=== PATIENT | female | born 1930 | race Caucasian/White ===

== ENCOUNTER → 2017-07-11 | Outpatient (CLI) | payer MEDICARE, OTHER ==
[2016-11-27 11:30] VITALS: BP 98/50
[~2017-07-11] MED LIST: AMLO10TA2 PO; AMLO1CAP PO; ASPI-612 PO; ASPI325T8 PO; CALC1TAB75 PO; CALC500T54 PO; CELE200C PO; CHOL10003 PO; CYAN10002 IJ; DENO60DI SQ; DICL100G18 TP; FERR-26 PO; FURO20TA3 PO; FURO40TA4 PO; GLIP10TA13 PO; GLIP5TAB10 PO; INSU100V13 SQ; MAGN100T3 PO; METF500T4 PO; METO25TA4 PO; METO50TA2 PO; Magnesium; NITR0.4T22 SL; OMEP20CA9 PO; OXYB5TAB7 PO; POTASSIUM CHLO10 MEQ PO; SIMV80TA3 PO; TICA90TA PO; VIT1CAPS11 PO; Vitamin D; [UNRECOGNIZED DRUG - OTHER]
--- NOTE | 2017-07-11 11:08 | CARD ---
APPROVED REPORT EXAM: Two-dimensional and M-mode echocardiogram with Doppler and color Doppler. Other Information Quality : Average Rhythm : Pacemaker INDICATION Cardiomyopathy 2D DIMENSIONS RVDd2.6 (2.9-3.5cm)Left Atrium(2D)3.5 (1.6-4.0cm) IVSd0.9 (0.7-1.1cm)Aortic Root(2D)2.6 (2.0-3.7cm) LVDd4.7 (3.9-5.9cm)LVOT Diameter2.0 (1.8-2.4cm) PWd0.9 (0.7-1.1cm)LVDs2.5 (2.5-4.0cm) FS (%) 27.2 %SV82.3 ml LVEF(%)58.5 (>50%) Aortic Valve AoV Peak Juan.147.5cm/sAoV VTI33.0cm AO Peak GR.8.7mmHgLVOT Peak Juan.71.2cm/s LVOT VTI 16.81cmAO Mean GR.5mmHg Mitral Valve MV E Rgyaiyoi104.7cm/sMV DECEL YAHL457rd MV A Sntlkcni70.8cm/sMV E Mean Gr.2mmHg MV EJV85goH/A Ratio1.4 MV A [id number] (PHT)4.11cm2 TDI E/Lateral E'9.1E/Medial E'20.6 Pulmonary Valve RVOT VTI17.8cm Tricuspid Valve TR P. Thczpkvt973zy/sRAP [id number] TR Peak Gr.39yxFeFLNL81znDs LEFT VENTRICLE The left ventricle is normal size. There is normal left ventricular wall thickness. Left ventricle sy stolic function is normal. The Ejection Fraction is 55-60%. There is normal LV segmental wall motion. The left ventricular diastolic function and filling is normal for age. There is no ventricular septa l defect visualized. RIGHT VENTRICLE The right ventricle is normal size. The right ventricular systolic function is normal. There is a pac emaker lead seen in the RV/RA. ATRIA The left atrium size is normal. The right atrium size is normal. The interatrial septum is intact wit h no evidence for an atrial septal defect or patent foramen ovale as noted on 2-D or Doppler imaging. AORTIC VALVE The aortic valve is mildly sclerotic. The aortic valve is trileaflet. Doppler and Color Flow revealed no significant aortic regurgitation. There is no significant aortic valvular stenosis. MITRAL VALVE The mitral valve leaflets are thickened. There is no mitral valve stenosis. Doppler and Color Flow re vealed moderate mitral regurgitation. TRICUSPID VALVE The tricuspid valve is normal in structure and function. Doppler and Color Flow revealed moderate tri cuspid regurgitation. The PA pressure was estimated at 50 mmHg. There is no tricuspid valve stenosis. PULMONIC VALVE The pulmonic valve is not well visualized. Doppler and Color Flow revealed no pulmonic valvular regur gitation. There is no pulmonic valvular stenosis. GREAT VESSELS The aortic root is normal in size. The ascending aorta is normal in size. Normal pulmonary venous arlen w (Doppler). The IVC is normal in size and collapses >50% with inspiration. PERICARDIAL EFFUSION There is no evidence of significant pericardial effusion. Critical Notification Critical Value: No <Conclusion> Left ventricle systolic function is normal. The Ejection Fraction is 55-60%. There is normal LV segmental wall motion. Pacer wire noted in right atrium and right ventricle. Moderate mitral regurgitation. Moderate tricuspid regurgitation. The PA pressure was estimated at 50 mmHg. There is no evidence of significant pericardial effusion.
--- NOTE | 2017-07-11 14:41 | RAD ---
APPROVED REPORT Patient Location: OUT-PATIENT Laterality:Bilateral Risk Factors PAD Surgery/Intervention Carotid Stent: left Endarterectomy: Doppler Spectral Velocity Analysis Right Left pCCA 60/8 cm/spCCA 58/8 cm/s mCCA 52/7 cm/smCCA 48/7 cm/s dCCA 69/10 cm/sdCCA 39/6 cm/s ECA 62/ cm/sECA 101/ cm/s pICA 69/10 cm/spICA 34/9 cm/s Luis 70/13 cm/smICA 24/6 cm/s dICA 54/10 cm/sdICA 45/9 cm/s ICA/CCA 1.01ICA/CCA 0.78 Findings On the right grayscale images of the common carotid artery reveal mild atherosclerotic plaque. There is focal plaque associated with the distal common carotid artery as well as the bulb of less than 50% stenosis on the limited images. Spectral waveforms and color Doppler and the internal carotid artery do not reveal any evidence of high-grade stenosis with velocities as noted above. The right external carotid artery does not have any evidence of significant disease based on velocity criteria and colo r Doppler. The vertebral artery is antegrade in velocity. Similarly on the left, images of the common carotid artery revealed mild atherosclerotic plaque which extends into the bulb. Velocities in the common carotid, internal carotid and external carotid arter y do not reveal any significant velocities. No high-grade stenosis is identified. The vertebral arter y velocities are antegrade. Critical Notification Critical Value: No <Conclusion> 1. No evidence of significant carotid arterial disease bilaterally.
== END | disposition home or self-care (01) ==
LOC: US 09:22
PROVIDERS: ATTEND Internal Medicine Cardiovascular Disease
DX: I08.1 Rheumatic disorders of both mitral and tricuspid valves (principal); I25.5 Ischemic cardiomyopathy; I25.10 Atherosclerotic heart disease of native coronary artery without angina pectoris; I65.29 Occlusion and stenosis of unspecified carotid artery; R22.1 Localized swelling, mass and lump, neck
CPT/HCPCS: 93306; 93880

== ENCOUNTER 2018-12-26 16:43 | Inpatient (IN) | payer MEDICARE, OTHER ==
[~2018-12-26] VITALS: Ht 152.4 cm; Wt 60.1 kg
[~2018-12-26 16:43] MED LIST changes: -AMLO10TA2 PO; +AMLO10TA8 PO; +CEPH-264 PO; -FERR-26 PO; +FERR325T14 PO; +ISOS30TA4 PO; +METF500T16 PO; -METF500T4 PO; -METO50TA2 PO; +METO50TA6 PO; +OCUVITE SOFTGE1 EACH PO; +OMEP20CA10 PO; -OMEP20CA9 PO; +POTA10TA12 PO; -POTASSIUM CHLO10 MEQ PO; +SIMV80TA17 PO; -SIMV80TA3 PO; -VIT1CAPS11 PO
[2018-12-26 17:59] LABS: BASO # 0.1 x10^3/uL (0.0-0.2); BASO % 1 % (0-3); EOS # 0.2 x10^3/uL (0.0-0.7); EOS % 3 % (0-3); HEMATOCRIT 36.6 % (36.0-47.0); LYMPH # 1.2 x10^3/uL (1.0-4.8); LYMPH % 13 % (24-48); MEAN CORPUSCULAR HEMOGLOBIN 31 pg (25-35); MEAN CORPUSCULAR HGB CONC 33 g/dL (31-37); MEAN CORPUSCULAR VOLUME 93 fL (79-100); MONO # 0.8 x10^3/uL (0.0-1.1); MONO % 9 % (0-9); NEUT # 7.1 x10^3uL (1.8-7.7); NEUT % 75 % (31-73); PLATELET COUNT 254 x10^3/uL (140-400); RED BLOOD COUNT 3.93 x10^6/uL (3.50-5.40); RED CELL DISTRIBUTION WIDTH 13.8 % (11.5-14.5); WHITE BLOOD COUNT 9.4 x10^3/uL (4.0-11.0)
[2018-12-26 18:01] LABS: BILIRUBIN,URINE NEGATIVE (NEG); CLARITY,URINE CLEAR; COLOR,URINE YELLOW; NITRITE,URINE NEGATIVE (NEG); PROTEIN,URINE NEGATIVE (NEG-TRACE); UROBILINOGEN,URINE 0.2 mg/dL (0.2 mg/dL)
[2018-12-26 18:08] LABS: CALCIUM 9.9 mg/dL (8.5-10.1); CREATININE 1.5 mg/dL (0.6-1.0); GFR 32.8; POTASSIUM 4.9 mmol/L (3.5-5.1)
[2018-12-26 18:12] LABS: BACTERIA,URINE MANY /HPF (0-FEW); RBC,URINE 0 /HPF (0-2); WBC,URINE RARE /HPF (0-4)
[2018-12-26 18:13] LABS: SQUAMOUS EPITHELIAL CELL,UR FEW /LPF
[2018-12-26 18:14] LABS: ALBUMIN 3.7 g/dL (3.4-5.0); MAGNESIUM 2.1 mg/dL (1.8-2.4); TOTAL BILIRUBIN 0.9 mg/dL (0.2-1.0); TOTAL PROTEIN 7.3 g/dL (6.4-8.2)
--- NOTE | 2018-12-26 18:45 | RAD ---
Indication:Short of breath TECHNIQUE:Portable AP chest X-ray COMPARISON:12/13/2017 FINDINGS: Heart is normal in size. Stable position of cardiac pacer with leads ejecting over the heart. Bilateral coarse interstitial opacities. No pneumothorax or pleural effusion. Visualized bony thorax is within normal limits. IMPRESSION: Findings of COPD with superimposed atypical/viral infection or interstitial pulmonary edema. Electronically signed by: Spike England DO (12/26/2018 6:41 PM) [facility]
[2018-12-26] MEDS ORDERED: FUROSEMIDE 40 MG/4 ML VIAL. IVP SCH (19:10)
[2018-12-26] MEDS ORDERED: DEXTROSE 50% 25 GM / 50ML DISP.SYRIN. IV PRN (19:15)
[2018-12-26] MEDS ORDERED: ACETAMINOPHEN 500 MG TABLET PO PRN (19:15)
[2018-12-26] MEDS ORDERED: ALBUTEROL SULFATE 2.5 MG/3 ML NEBU. NEB PRN (19:15)
[2018-12-26] MEDS ORDERED: guaiFENesin DM 200MG/20MG 10 ML SYRUP PO PRN (19:15)
[2018-12-26] MEDS ORDERED: TEMAZEPAM 7.5 MG CAPSULE PO PRN (19:15)
[2018-12-26] MEDS ORDERED: NON FORMULARY ITEM (Denosumab (Prolia) 60 MG) SQ SCH (19:15)
[2018-12-26] MEDS ORDERED: NITROGLYCERIN SUBLINGUAL 0.4 MG BOTTLE OF 25. SL PRN (19:15)
[2018-12-26] MEDS ORDERED: ACETAMINOPHEN/CODEINE 300/30MG TABLET. PO PRN (19:15)
[2018-12-26] MEDS ORDERED: METO25TA4 PO (19:32)
[2018-12-26] MEDS: INSULIN LISPRO 300 UNITS/3 ML INSULN.PEN. SQ SCH (20:00)
[2018-12-26] MEDS: metFORMIN 500 MG TABLET PO SCH (20:00)
[2018-12-26 20:57] VITALS: BP 118/52
[2018-12-26] MEDS: TICAGRELOR 90 MG TABLET. PO SCH (20:59)
[2018-12-26] MEDS: METOPROLOL TART IMMED RELEASE 25 MG TABLET. PO SCH (20:59)
[2018-12-26] MEDS: ATORVASTATIN CALCIUM 20 MG TABLET PO SCH (20:59)
[2018-12-26] MEDS ORDERED: ATORVASTATIN CALCIUM 40 MG TABLET. PO SCH (21:00)
[2018-12-26] MEDS: DICLOFENAC SODIUM 1% TOPICAL GEL 100GM TUBE. TP SCH (21:00)
--- NOTE | 2018-12-26 21:29 | PHYS DOC ---
Past Medical History Past Medical History: Arthritis, CAD, Diabetes-Type II, GERD, High Cholesterol, Hypertension (CARMELITA PEREZ APRN) Past Surgical History: Appendectomy, Cholecystectomy, Hysterectomy, Pacemaker, Tonsillectomy, Other Additional Past Surgical Histo: cardiac cath/stent placement. Lt shoulder, cataracts (CARMELITA PEREZ APRN) Alcohol Use: None Drug Use: None (CARMELITA PEREZ APRN) Adult General Chief Complaint Chief Complaint: SHORTNESS OF BREATH HPI HPI 88 y/o female presents to ER via EMS for c/o SOA which has been worsening over the past 2 days. She reports with any exertion SOA is worse. She states she has had increased swelling in bilat. LEs and because of the swelling she took additional dose of her Lasix- taking 40mg today. She denies any CP, fever, cough, dizziness, or N/V/D. She reports she has had urinary incontinence which she thinks may be d/t extra diuretic- denying any dysuria/hematuria. She denies any recent travel. On arrival O2 sat on RA is 88%- O2 applied via NC at 2L and saturation improved to 95%. (CARMELITA PEREZ APRN) Review of Systems Review of Systems Constitutional: Denies fever or chills [] Eyes: Denies change in visual acuity, redness, or eye pain [] HENT: Denies nasal congestion or sore throat [] Respiratory: Denies cough. Reports SOA which is worse w/exertion Cardiovascular: Denies CP GI: Denies abdominal pain, nausea, vomiting, bloody stools or diarrhea [] : Denies dysuria or hematuria. Reports incontinence of urine Musculoskeletal: Denies back/neck pain or joint pain. Reports increased swelling in bilat. LEs Integument: Denies rash or skin lesions [] Neurologic: Denies headache, focal weakness or sensory changes [] Endocrine: Denies polyuria or polydipsia [] All other systems were reviewed and found to be within normal limits, except as documented in this note. (CARMELITA PEREZ APRN) Allergies Allergies Allergies Coded Allergies Type Severity Reaction Last Updated Verified Iodinated Contrast- Oral and IV Dye Allergy Intermediate 10/15/14 Yes Sulfa (Sulfonamide Antibiotics) Allergy Intermediate 11/21/16 Yes carvedilol Allergy Intermediate 10/15/14 Yes clopidogrel Allergy Intermediate 10/15/14 Yes glimepiride Allergy Intermediate 10/15/14 Yes raloxifene Allergy Intermediate 10/15/14 Yes ciprofloxacin Adverse Reaction Intermediate Vomiting 10/15/14 Yes (HITESH BARKSDALE DO) Physical Exam Physical Exam Constitutional: Well developed, well nourished, no acute distress, non-toxic appearance. [] HENT: Normocephalic, atraumatic, mucous membranes pink/dry; nose normal. [] Eyes: Pupils equal, conjunctiva normal, no discharge. [] Neck: Normal range of motion, no tenderness, supple, no stridor. [] Cardiovascular: Heart rate regular rhythm, no murmur [] Lungs & Thorax: Bilateral breath sounds clear to auscultation-diminished sounds in bases. Resp. equal/nonlabored. Speaking in full sentences Abdomen: Bowel sounds normal, soft, no tenderness, no masses, no pulsatile masses. [] Skin: Warm, dry, no erythema, no rash. [] Back: No tenderness, no CVA tenderness. [] Extremities: No tenderness, no cyanosis, no clubbing, ROM intact; 1+ nonpitting bilat. pedal edema. 2+ dorsalis pedis bilat. No calf tenderness- size symmetric Neurologic: Alert and oriented X 3, normal motor function, normal sensory f unction, no focal deficits noted. [] Psychologic: Affect normal, judgement normal, mood normal. [] (ANUTCARMELITA APRN) Current Patient Data Lab Values Laboratory Tests Test 12/26/18 16:50 12/26/18 17:13 Urine Collection Type Unknown Urine Color Yellow Urine Clarity Clear Urine pH 6.0 Urine Specific [place] <=1.005 Urine Protein Negative mg/dL (NEG-TRACE) Urine Glucose (UA) Negative mg/dL (NEG) Urine Ketones (Stick) Negative mg/dL (NEG) Urine Blood Negative (NEG) Urine Nitrite Negative (NEG) Urine Bilirubin Negative (NEG) Urine Urobilinogen Dipstick 0.2 mg/dL (0.2 mg/dL) Urine Leukocyte Esterase Trace (NEG) Urine RBC 0 /HPF (0-2) Urine WBC Rare /HPF (0-4) Urine Squamous Epithelial Cells Few /LPF Urine Bacteria Many /HPF (0-FEW) White Blood Count 9.4 x10^3/uL (4.0-11.0) Red Blood Count 3.93 x10^6/uL (3.50-5.40) Hemoglobin 12.0 g/dL (12.0-15.5) Hematocrit 36.6 % (36.0-47.0) Mean Corpuscular Volume 93 fL (79-100) Mean Corpuscular Hemoglobin 31 pg (25-35) Mean Corpuscular Hemoglobin Concent 33 g/dL (31-37) Red Cell Distribution Width 13.8 % (11.5-14.5) Platelet Count 254 x10^3/uL (140-400) Neutrophils (%) (Auto) 75 % (31-73) H Lymphocytes (%) (Auto) 13 % (24-48) L Monocytes (%) (Auto) 9 % (0-9) Eosinophils (%) (Auto) 3 % (0-3) Basophils (%) (Auto) 1 % (0-3) Neutrophils # (Auto) 7.1 x10^3uL (1.8-7.7) Lymphocytes # (Auto) 1.2 x10^3/uL (1.0-4.8) Monocytes # (Auto) 0.8 x10^3/uL (0.0-1.1) Eosinophils # (Auto) 0.2 x10^3/uL (0.0-0.7) Basophils # (Auto) 0.1 x10^3/uL (0.0-0.2) Sodium Level 133 mmol/L (136-145) L Potassium Level 4.9 mmol/L (3.5-5.1) Chloride Level 99 mmol/L (98-107) Carbon Dioxide Level 24 mmol/L (21-32) Anion Gap 10 (6-14) Blood Urea Nitrogen 26 mg/dL (7-20) H Creatinine 1.5 mg/dL (0.6-1.0) H Estimated GFR (Cockcroft-Gault) 32.8 BUN/Creatinine Ratio 17 (6-20) Glucose Level 176 mg/dL (70-99) H Calcium Level 9.9 mg/dL (8.5-10.1) Magnesium Level 2.1 mg/dL (1.8-2.4) Total Bilirubin 0.9 mg/dL (0.2-1.0) Aspartate Amino Transferase (AST) 34 U/L (15-37) Alanine Aminotransferase (ALT) 46 U/L (14-59) Alkaline Phosphatase 118 U/L (46-116) H Troponin I Quantitative 0.029 ng/mL (0.000-0.055) LR-Wgu-M-Type Natriuretic Peptide 2225 pg/mL (0-449) H Total Protein 7.3 g/dL (6.4-8.2) Albumin 3.7 g/dL (3.4-5.0) Albumin/Globulin Ratio 1.0 (1.0-1.7) Laboratory Tests 12/26/18 17:13 Laboratory Tests 12/26/18 17:13 Microbiology 12/26/18 Urine Culture - Final, Complete 12/26/18 Urine Culture Result 1 (NINO) - Final, Complete 12/26/18 Antimicrobic Susceptibility - Final, Complete (HITESH BARKSDALE DO) EKG EKG EKG obtained 12/26/18 at 1727 Interpreted by ER physician Sinus rhythm Rate 66 No STEMI (CARMELITA PEREZ APRN) Radiology/Procedures Radiology/Procedures PROCEDURE: CHEST AP ONLY Indication:Short of breath TECHNIQUE:Portable AP chest X-ray COMPARISON:12/13/2017 FINDINGS: Heart is normal in size. Stable position of cardiac pacer with leads ejecting over the heart. Bilateral coarse interstitial opacities. No pneumothorax or pleural effusion. Visualized bony thorax is within normal limits. IMPRESSION: Findings of COPD with superimposed atypical/viral infection or interstitial pulmonary edema. Electronically signed by: Spike England DO (12/26/2018 6:41 PM) [facility] DICTATED and SIGNED BY: SPIKE ENGLAND DO DATE: 12/26/18 1840 (CARMELITA PEREZ APRN) Course & Med Decision Making Course & Med Decision Making Pertinent Labs and Imaging studies reviewed. (See chart for details) Pt was evaluated in the ER for c/o SOA over the past 2 days which had been gradually worsening along with increased bilat. LE edema. Labs/chest xray/EKG were obtained- chest xray with results showing exacerb of COPD/pulmonary edema. EKG with no acute ST elevation/STEMI and troponin 0.029. BNP was 2225. UA neg. for nitrates/blood- trace leuks. Order placed for Lasix 40mg IV and pt is being admitted to hospitalist services for further monitoring/care. Test results and admit plan was discussed with pt. She has been afebrile and during admit/test discussion in no visible distress. 1900: Spoke with Dr. Bahena, hospitalist and discussed pt's case and admit pl an. (CARMELITA PEREZ APRN) Dragon Disclaimer Dragon Disclaimer This electronic medical record was generated, in whole or in part, using a voice recognition dictation system. (CARMELITA PEREZ APRN) Departure Departure Impression: Primary Impression: Pulmonary edema Additional Impression: Dyspnea Disposition: ADMITTED INPATIENT Admitting Physician: Marisela Bahena (CARMELITA PEREZ APRN) Condition: STABLE Referrals: CHIDI SOTO (PCP) Scripts Furosemide (FUROSEMIDE) 20 Mg Tablet 40 MG PO DAILY for CHF for 30 Days, #60 TAB Prov: DAWNA MCNAMARA MD 12/29/18 Attending Signature Attending Signature I have reviewed the PA/GROUNDSKEEPING MAINTENANCE's note and plan of care. I was available for consult ation as needed during the patient's visit in the emergency department. I agree with the clinical impression, plan, and disposition. (HITESH BARKSADLE DO) Problem Qualifiers CARMELITA PEREZ APRN Dec 26, 2018 21:29 HITESH BARKSDALE DO Mar 17, 2019 05:13
[2018-12-26 23:12] VITALS: BP 141/75
[2018-12-27 03:13] VITALS: BP 140/72
[2018-12-27 06:15] LABS: BASO # 0.1 x10^3/uL (0.0-0.2); BASO % 1 % (0-3); EOS # 0.3 x10^3/uL (0.0-0.7); EOS % 4 % (0-3); HEMATOCRIT 33.6 % (36.0-47.0); HEMOGLOBIN 11.2 g/dL (12.0-15.5); LYMPH # 0.8 x10^3/uL (1.0-4.8); LYMPH % 9 % (24-48); MEAN CORPUSCULAR HEMOGLOBIN 31 pg (25-35); MEAN CORPUSCULAR HGB CONC 33 g/dL (31-37); MEAN CORPUSCULAR VOLUME 93 fL (79-100); MONO # 0.8 x10^3/uL (0.0-1.1); MONO % 9 % (0-9); NEUT # 6.4 x10^3uL (1.8-7.7); NEUT % 77 % (31-73); PLATELET COUNT 216 x10^3/uL (140-400); RED BLOOD COUNT 3.61 x10^6/uL (3.50-5.40); RED CELL DISTRIBUTION WIDTH 13.7 % (11.5-14.5); WHITE BLOOD COUNT 8.3 x10^3/uL (4.0-11.0)
[2018-12-27 06:23] LABS: CALCIUM 9.3 mg/dL (8.5-10.1); CREATININE 1.4 mg/dL (0.6-1.0); GFR 35.5; POTASSIUM 3.9 mmol/L (3.5-5.1)
[2018-12-27] MEDS: PANTOPRAZOLE 40 MG TABLET.DR. PO SCH (07:30)
[2018-12-27] MEDS: glipiZIDE 5 MG TABLET PO SCH ×2 (07:30→16:27)
[2018-12-27 07:36] VITALS: BP 153/64
[2018-12-27] MEDS: INSULIN LISPRO 300 UNITS/3 ML INSULN.PEN. SQ SCH ×3 (08:00→17:05)
[2018-12-27] MEDS: metFORMIN 500 MG TABLET PO SCH ×3 (08:00→16:27)
--- NOTE | 2018-12-27 08:02 | EKG ---
[facility] [address] [place] [address] Test Date: 2018-12-26 Test Time: 17:27:07 Pat Name: GERMAINE MAY Department: Room: [facility] Gender: F Assessment Rn: : 1930 Requested By: CARMELITA PEREZ Order Number: [id number] Reading MD: Bonifacio Childers Measurements Intervals [place] Rate: 66 P: 90 NE: 132 QRS: -83 QRSD: 152 T: 67 QT: 448 QTc: 472 Interpretive Statements SINUS RHYTHM V PACED BEATS Electronically Signed On 12-29-2018 9:57:31 [facility]IOLOGIST DIAGNOST[facility] by Bonifacio Childers
[2018-12-27] MEDS: LISINOPRIL 20 MG TABLET PO SCH (08:25)
[2018-12-27] MEDS: FERROUS SULFATE 325 MG TABLET. PO SCH (08:25)
[2018-12-27] MEDS: MULTIVITAMIN I-VITE TABLET. PO SCH (08:25)
[2018-12-27] MEDS: ISOSORBIDE MONONITRATE ER 30 MG TAB.ER.24H PO SCH (08:26)
[2018-12-27] MEDS: OXYBUTYNIN CHLORIDE 5 MG TABLET PO SCH (08:26)
[2018-12-27] MEDS: amLODIPine BESYLATE 10 MG TABLET PO SCH (08:26)
[2018-12-27] MEDS: ASPIRIN ENTERIC COATED 81 MG TABLET.DR. PO SCH (08:26)
[2018-12-27] MEDS: TICAGRELOR 90 MG TABLET. PO SCH ×2 (08:26→20:11)
[2018-12-27] MEDS: METOPROLOL TART IMMED RELEASE 25 MG TABLET. PO SCH ×2 (08:27→20:12)
[2018-12-27] MEDS: CALCIUM CARB/VIT D3 500/200 TABLET. PO SCH (08:27)
[2018-12-27] MEDS: POTASSIUM CHLORIDE 10 MEQ TABLET.ER. PO SCH (08:27)
[2018-12-27] MEDS: DICLOFENAC SODIUM 1% TOPICAL GEL 100GM TUBE. TP SCH ×4 (08:50→20:19)
[2018-12-27] MEDS: MAGNESIUM CHLORIDE ER 64 MG TABLET.ER PO SCH (08:56)
[2018-12-27] MEDS: INSULIN GLARGINE 300 UNITS/3 ML INSULN.PEN. SQ SCH ×2 (08:56→17:06)
[2018-12-27] MEDS ORDERED: AMLODIPINE BESYLATE PO SCH (09:00)
[2018-12-27] MEDS ORDERED: BENAZEPRIL PO SCH (09:00)
[2018-12-27] MEDS ORDERED: FUROSEMIDE 20 MG/2 ML VIAL. IVP SCH (09:00)
--- NOTE | 2018-12-27 10:15 | PDOC1 ---
History and Physical Date of Admission Date of Admission DATE: 12/27/18 TIME: 10:13 Identification/Chief Complaint Chief Complaint SOA and sewlling of ankles x 7 days, was sent here by ambulance from [place], [place] , admits to eating more sodium in diet recently. denies chest pain. Daughter in room , discussed plan of care, on iv lasix, dr Mercedes consulted , echo requested Past Medical History Past Medical History Past Medical History Past Medical History: Arthritis, CAD, Diabetes-Type II, GERD, High Cholesterol , Hypertension Past Surgical History: Appendectomy, Cholecystectomy, Hysterectomy, Pacemaker, Tonsillectomy, Additional Past Surgical Histo: cardiac cath/stent placement. Lt shoulder, cataracts Alcohol Use: None Drug Use: None PCI/drug eluting stent placement to the left main coronary artery and successful PTCA to the ostium of the left circumflex artery 2017 Carotid disease s/p TOP EDGE BEVELER/stent placement to the left ICA and right endarterectomy family hx HTN Cardiovascular: CAD, HTN, Hyperlipidemia, Other Pulmonary: No pertinent hx GI: No pertinent hx Heme/Onc: No pertinent hx Hepatobiliary: No pertinent hx Psych: No pertinent hx Musculoskeletal: Osteoarthritis Rheumatologic: No pertinent hx Infectious disease: No pertinent hx Renal/: No pertinent hx Endocrine: Diabetes Past Surgical History Past Surgical History: Pacemaker, Appendectomy, Hysterectomy, Other Family History Family History: Other Social History Smoke: Quit ALCOHOL: none Drugs: None Current Problem List Problem List Problems Medical Problems: (1) Dyspnea Status: Acute (2) Pulmonary edema Status: Acute Current Medications Current Medications Current Medications Furosemide (Lasix) 40 mg DAILY IVP ; Start 12/26/18 at 19:10; Status Cancel Acetaminophen (Tylenol) 500 mg PRN Q6HRS PRN PO MILD PAIN / TEMP Last administered on 12/26/18at 21:18; Start 12/26/18 at 19:15 Acetaminophen/ Codeine Phosphate (Tylenol #3) 1 tab PRN Q6HRS PRN PO MODERATE PAIN; Start 12/26/18 at 19:15 Temazepam (Restoril) 7.5 mg PRN QHS PRN PO INSOMNIA; Start 12/26/18 at 19:15 Albuterol Sulfate (Ventolin Neb Soln) 2.5 mg PRN Q4HRS PRN NEB SHORTNESS OF BREATH; Start 12/26/18 at 19:15 Guaifenesin (Robitussin Dm) 10 ml PRN Q6HRS PRN PO COUGH; Start 12/26/18 at 19: 15 Aspirin (Ecotrin) 81 mg DAILYWBKFT PO Last administered on 12/27/18at 08:26; Start 12/27/18 at 08:00 Cyanocobalamin (Vitamin B-12) 1,000 mcg QMONTH IM ; Start 01/25/19 at 09:00 Diclofenac Sodium (Voltaren) 4 adriana QID TP ; Start 12/26/18 at 21:00 Ferrous Sulfate (Feosol) 325 mg DAILY PO Last administered on 12/27/18 08:25; Start 12/27/18 at 09:00 Isosorbide Mononitrate (Imdur) 30 mg DAILY PO Last administered on 12/27/18at 08: 26; Start 12/27/18 at 09:00 Metoprolol Tartrate (Lopressor) 25 mg BID PO Last administered on 12/27/18 08: 27; Start 12/26/18 at 21:00 Nitroglycerin (Nitrostat) 0.4 mg PRN Q5MIN PRN SL CHEST PAIN; Start 12/26/18 at 19:15 Oxybutynin Chloride (Ditropan) 5 mg DAILY PO Last administered on 12/27/18 08: 26; Start 12/27/18 at 09:00 Potassium Chloride (Klor-Con) 10 meq DAILY PO Last administered on 12/27/18 08: 27; Start 12/27/18 at 09:00 Ticagrelor (Brilinta) 90 mg BID PO Last administered on 12/27/18 08:26; Start 12/26/18 at 21:00 Non-Formulary Medication (Amlodipine Besylate/ Benazepril (Lotrel 10-20 Mg Capsule)) 1 each DAILY PO ; Start 12/27/18 at 09:00; Status UNV Calcium/Vitamin D (Oscal D 500mg/ 200uts) 1 tab DAILY PO Last administered on 08:27; Start 12/27/18 at 09:00 Non-Formulary Medication (Denosumab (Prolia)) 60 mg Q6 MONTHS SQ ; Start at 19:15; Status UNV Glipizide (Glucotrol) 5 mg BIDBFRMEAL PO Last administered on 12/27/18at 07:30; Start 12/27/18 at 07:30 Insulin Glargine (Lantus) 8 units DAILY SQ ; Start 12/27/18 at 09:00 Magnesium Chloride (Mag Delay) 64 mg DAILY PO ; Start 12/27/18 at 09:00 Metformin HCl (Glucophage) 500 mg BIDWMEALS PO ; Start 12/26/18 at 20:00 Pantoprazole Sodium (Protonix) 40 mg DAILYAC PO Last administered on 12/27/18at 07:30; Start 12/27/18 at 07:30 Atorvastatin Calcium (Lipitor) 40 mg QHS PO ; Start 12/26/18 at 21:00; Status Cancel Multivitamins/ Minerals (I-Jimmy) 1 tab DAILY PO Last administered on 12/27/18at 08:25; Start 12/27/18 at 09:00 Furosemide (Lasix) 20 mg DAILY IVP Last administered on 12/27/18at 08:27; Start 12/27/18 at 09:00 Insulin Human Lispro (HumaLOG) 0-9 UNITS TIDWMEALS SQ ; Start 12/26/18 at 20:00 Dextrose (Dextrose 50%-Water Syringe) 12.5 gm PRN Q15MIN PRN IV SEE COMMENTS; Start 12/26/18 at 19:15 Amlodipine Besylate (Norvasc) 10 mg DAILY PO Last administered on 12/27/18at 08: 26; Start 12/27/18 at 09:00 Lisinopril (Prinivil) 20 mg DAILY PO Last administered on 12/27/18at 08:25; Start 12/27/18 at 09:00 Atorvastatin Calcium (Lipitor) 20 mg QHS PO Last administered on 12/26/18at 20:59 ; Start 12/26/18 at 21:00 Active Scripts Active Levemir (Insulin Detemir) 100 Unit/1 Ml Vial 8 Unit SQ DAILY Keflex (Cephalexin) 500 Mg Capsule 1 Cap PO BID Brilinta (Ticagrelor) 90 Mg Tablet 90 Mg PO BID SIG: ONE TAB TWICE DAILY; DO NOT STOP WITHOUT INSTRUCTIONS FROM ALTERNATIVE ENERGY TECHNICIAN Aspirin Ec (Aspirin) 81 Mg Tablet.dr 81 Mg PO DAILYWBKFT Metformin Hcl 500 Mg Tablet 1 Tab PO BID MAY RESUME ON 11/23/2016 Reported Metoprolol Tartrate 25 Mg Tablet 25 Mg PO BID Isosorbide Mononitrate Er (Isosorbide Mononitrate) 30 Mg Tab.er.24h 30 Mg PO DAILY Cyanocobalamin Injection (Cyanocobalamin (Vitamin B-12)) 1,000 Mcg/1 Ml Vial 1, 000 Mcg IJ QMONTH Magnesium (Magnesium Amino Acid Chelate) 100 Mg Tablet 100 Mg PO DAILY Calcium 600 + Vit D 200 Tablet (Calcium Carbonate/Vitamin D3) 1 Each Tablet 1 Each PO DAILY Prolia (Denosumab) 60 Mg/1 Ml Disp.syrin 60 Mg SQ Q6 MONTHS Voltaren (Diclofenac Sodium) 100 Gm Gel..gram. 4 Gm TP QID Furosemide 20 Mg Tablet 20 Mg PO DAILY Ocuvite Softgel (Vit C/Vit E/Lutein/Min/Laurel-3) 1 Each Capsule 1 Cap PO DAILY Lotrel 10-20 Mg Capsule (Amlodipine Besylate/Benazepril) 1 Each Capsule 1 Each PO DAILY NITROGLYCERIN SubLingual (Nitroglycerin) 0.4 Mg Tab.subl 0.4 Mg SL PRN Q5MIN PRN Ferrous Sulfate 325 Mg Tablet 325 Tab PO TWICE WEEKLY Glipizide 10 Mg Tablet 0.5 Tab PO BID Potassium Chloride 10 Meq Capsule.er 1 Cap PO DAILY Oxybutynin Chloride 5 Mg Tablet 1 Tab PO DAILY Omeprazole 20 Mg Capsule.dr 1 Cap PO DAILY Simvastatin 80 Mg Tablet 40 Mg PO QHS Allergies Allergies: Coded Allergies: Iodinated Contrast- Oral and IV Dye (Verified Allergy, Intermediate, 10/15) Sulfa (Sulfonamide Antibiotics) (Verified Allergy, Intermediate, 11/21/16) carvedilol (Verified Allergy, Intermediate, 10/15/14) clopidogrel (Verified Allergy, Intermediate, 10/15/14) glimepiride (Verified Allergy, Intermediate, 10/15/14) raloxifene (Verified Allergy, Intermediate, 10/15/14) ciprofloxacin (Verified Adverse Reaction, Intermediate, Vomiting, 10/15/14 ) ROS Review of System Review of Systems Review of Systems Constitutional: Denies fever or chills [] Eyes: Denies change in visual acuity, redness, or eye pain [] HENT: Denies nasal congestion or sore throat [] Respiratory: Denies cough POS for shortness of breath improved with o2 [] Cardiovascular: No additional information not addressed in HPI [] GI: Denies abdominal pain, nausea, vomiting, bloody stools or diarrhea [] : Denies dysuria or hematuria [] Musculoskeletal: Denies back pain or joint pain [] Integument: Denies rash or skin lesions [] Neurologic: Denies headache, focal weakness or sensory changes [] Endocrine: Denies polyuria or polydipsia [] 14 pt systems were reviewed and found to be within normal limits, except as documented General: YES: Fatigue HEENT: No: Heacaches, Visual Changes, Hearing change, Nasal congestion, Nasal discharge, Oral lesions, Sinus pain, Sore Throat, Epistaxis, Sneezing, Snoring, Tinnitus, Vertigo, Vocal changes, Other Hematological and Lymphatic: No: Bleeding Problems, Blood Clots, Blood Transfusions, Brusing, Night Sweats, Pallor, Swollen Lymph Nodes, Other Respiratory: YES: Cough, Shortness of breath, SOB with excertion; No: Hemoptysis, Orthopnea, Pleuritic Pain, Sputum Changes, Stridor, Tachypnea , Wheezing, Other Gastrointestinal: No Nausea, No Vomiting, No Abdominal Pain, No Diarrhea, No Constipation, No Melena, No Hematochezia, No Other Physical Exam Physical Exam Physical Exam Physical Exam Constitutional: Well developed, well nourished, no acute distress, non-toxic appearance. [] HENT: Normocephalic, atraumatic, bilateral external ears normal, oropharynx moist, no oral exudates, nose normal. [] Eyes: PERRLA, EOMI, conjunctiva normal, no discharge. [] Neck: Normal range of motion, no tenderness, supple, no stridor. [] Cardiovascular:Heart rate regular rhythm, no murmur [] Lungs & Thorax: Bilateral breath sounds clear to auscultation [] Abdomen: Bowel sounds normal, soft, no tenderness, no masses, no pulsatile masses. [] Skin: Warm, dry, no erythema, no rash. [] Back: No tenderness, no CVA tenderness. [] Extremities: No tenderness, no cyanosis, no clubbing, ROM intact, 2 plus ankle edema. [] Neurologic: Alert and oriented X 3, normal motor function, normal sensory function, no focal deficits noted. [] Psychologic: Affect normal, judgement normal, mood normal. [] General: Alert, Oriented X3, Cooperative, No acute distress HEENT: Atraumatic, EOMI, Mucous membr. moist/pink Lungs: Normal air movement Heart: RRR Breasts: Not examined Abdomen: Normal bowel sounds, Soft, No tenderness PELVIC: Examination not indicated Extremities: No cyanosis Neuro: Normal speech, Strength at 5/5 X4 ext, Cranial nerves 3-12 NL Psych/Mental Status: Mental status NL Vitals Vitals Vital Signs Date Time Temp Pulse Resp B/P (MAP) Pulse Ox O2 Delivery O2 Flow Rate FiO2 12/27/18 08:27 65 153/64 12/27/18 07:36 97.3 18 90 Nasal Cannula 2.0 97.3 Labs Labs Laboratory Tests Test 12/26/18 16:50 12/26/18 17:13 12/26/18 20:48 12/27/18 05:55 Urine Collection Type Unknown Urine Color Yellow Urine Clarity Clear Urine pH 6.0 Urine Specific Malott <=1.005 Urine Protein Negative mg/dL (NEG-TRACE) Urine Glucose (UA) Negative mg/dL (NEG) Urine Ketones (Stick) Negative mg/dL (NEG) Urine Blood Negative (NEG) Urine Nitrite Negative (NEG) Urine Bilirubin Negative (NEG) Urine Urobilinogen Dipstick 0.2 mg/dL (0.2 mg/dL) Urine Leukocyte Esterase Trace (NEG) Urine RBC 0 /HPF (0-2) Urine WBC Rare /HPF (0-4) Urine Squamous Epithelial Cells Few /LPF Urine Bacteria Many /HPF (0-FEW) White Blood Count 9.4 x10^3/uL (4.0-11.0) 8.3 x10^3/uL (4.0-11.0) Red Blood Count 3.93 x10^6/uL (3.50-5.40) 3.61 x10^6/uL (3.50-5.40) Hemoglobin 12.0 g/dL (12.0-15.5) 11.2 g/dL (12.0-15.5) Hematocrit 36.6 % (36.0-47.0) 33.6 % (36.0-47.0) Mean Corpuscular Volume 93 fL (79-100) 93 fL (79-100) Mean Corpuscular Hemoglobin 31 pg (25-35) 31 pg (25-35) Mean Corpuscular Hemoglobin Concent 33 g/dL (31-37) 33 g/dL (31-37) Red Cell Distribution Width 13.8 % (11.5-14.5) 13.7 % (11.5-14.5) Platelet Count 254 x10^3/uL (140-400) 216 x10^3/uL (140-400) Neutrophils (%) (Auto) 75 % (31-73) 77 % (31-73) Lymphocytes (%) (Auto) 13 % (24-48) 9 % (24-48) Monocytes (%) (Auto) 9 % (0-9) 9 % (0-9) Eosinophils (%) (Auto) 3 % (0-3) 4 % (0-3) Basophils (%) (Auto) 1 % (0-3) 1 % (0-3) Neutrophils # (Auto) 7.1 x10^3uL (1.8-7.7) 6.4 x10^3uL (1.8-7.7) Lymphocytes # (Auto) 1.2 x10^3/uL (1.0-4.8) 0.8 x10^3/uL (1.0-4.8) Monocytes # (Auto) 0.8 x10^3/uL (0.0-1.1) 0.8 x10^3/uL (0.0-1.1) Eosinophils # (Auto) 0.2 x10^3/uL (0.0-0.7) 0.3 x10^3/uL (0.0-0.7) Basophils # (Auto) 0.1 x10^3/uL (0.0-0.2) 0.1 x10^3/uL (0.0-0.2) Sodium Level 133 mmol/L (136-145) 136 mmol/L (136-145) Potassium Level 4.9 mmol/L (3.5-5.1) 3.9 mmol/L (3.5-5.1) Chloride Level 99 mmol/L (98-107) 102 mmol/L (98-107) Carbon Dioxide Level 24 mmol/L (21-32) 25 mmol/L (21-32) Anion Gap 10 (6-14) 9 (6-14) Blood Urea Nitrogen 26 mg/dL (7-20) 21 mg/dL (7-20) Creatinine 1.5 mg/dL (0.6-1.0) 1.4 mg/dL (0.6-1.0) Estimated GFR (Cockcroft-Gault) 32.8 35.5 BUN/Creatinine Ratio 17 (6-20) Glucose Level 176 mg/dL (70-99) 119 mg/dL (70-99) Calcium Level 9.9 mg/dL (8.5-10.1) 9.3 mg/dL (8.5-10.1) Magnesium Level 2.1 mg/dL (1.8-2.4) Total Bilirubin 0.9 mg/dL (0.2-1.0) Aspartate Amino Transf (AST/SGOT) 34 U/L (15-37) Alanine Aminotransferase (ALT/SGPT) 46 U/L (14-59) Alkaline Phosphatase 118 U/L (46-116) Troponin I Quantitative 0.029 ng/mL (0.000-0.055) WW-Nvv-[id number]-Type Natriuretic Peptide 2225 pg/mL (0-449) Total Protein 7.3 g/dL (6.4-8.2) Albumin 3.7 g/dL (3.4-5.0) Albumin/Globulin Ratio 1.0 (1.0-1.7) Glucose (Fingerstick) 191 mg/dL (70-99) Test 12/27/18 07:06 Glucose (Fingerstick) 131 mg/dL (70-99) Laboratory Tests Test 12/26/18 16:50 12/26/18 17:13 12/26/18 20:48 12/27/18 05:55 Urine Collection Type Unknown Urine Color Yellow Urine Clarity Clear Urine pH 6.0 Urine Specific Malott <=1.005 Urine Protein Negative mg/dL (NEG-TRACE) Urine Glucose (UA) Negative mg/dL (NEG) Urine Ketones (Stick) Negative mg/dL (NEG) Urine Blood Negative (NEG) Urine Nitrite Negative (NEG) Urine Bilirubin Negative (NEG) Urine Urobilinogen Dipstick 0.2 mg/dL (0.2 mg/dL) Urine Leukocyte Esterase Trace (NEG) Urine RBC 0 /HPF (0-2) Urine WBC Rare /HPF (0-4) Urine Squamous Epithelial Cells Few /LPF Urine Bacteria Many /HPF (0-FEW) White Blood Count 9.4 x10^3/uL (4.0-11.0) 8.3 x10^3/uL (4.0-11.0) Red Blood Count 3.93 x10^6/uL (3.50-5.40) 3.61 x10^6/uL (3.50-5.40) Hemoglobin 12.0 g/dL (12.0-15.5) 11.2 g/dL (12.0-15.5) Hematocrit 36.6 % (36.0-47.0) 33.6 % (36.0-47.0) Mean Corpuscular Volume 93 fL (79-100) 93 fL (79-100) Mean Corpuscular Hemoglobin 31 pg (25-35) 31 pg (25-35) Mean Corpuscular Hemoglobin Concent 33 g/dL (31-37) 33 g/dL (31-37) Red Cell Distribution Width 13.8 % (11.5-14.5) 13.7 % (11.5-14.5) Platelet Count 254 x10^3/uL (140-400) 216 x10^3/uL (140-400) Neutrophils (%) (Auto) 75 % (31-73) 77 % (31-73) Lymphocytes (%) (Auto) 13 % (24-48) 9 % (24-48) Monocytes (%) (Auto) 9 % (0-9) 9 % (0-9) Eosinophils (%) (Auto) 3 % (0-3) 4 % (0-3) Basophils (%) (Auto) 1 % (0-3) 1 % (0-3) Neutrophils # (Auto) 7.1 x10^3uL (1.8-7.7) 6.4 x10^3uL (1.8-7.7) Lymphocytes # (Auto) 1.2 x10^3/uL (1.0-4.8) 0.8 x10^3/uL (1.0-4.8) Monocytes # (Auto) 0.8 x10^3/uL (0.0-1.1) 0.8 x10^3/uL (0.0-1.1) Eosinophils # (Auto) 0.2 x10^3/uL (0.0-0.7) 0.3 x10^3/uL (0.0-0.7) Basophils # (Auto) 0.1 x10^3/uL (0.0-0.2) 0.1 x10^3/uL (0.0-0.2) Sodium Level 133 mmol/L (136-145) 136 mmol/L (136-145) Potassium Level 4.9 mmol/L (3.5-5.1) 3.9 mmol/L (3.5-5.1) Chloride Level 99 mmol/L (98-107) 102 mmol/L (98-107) Carbon Dioxide Level 24 mmol/L (21-32) 25 mmol/L (21-32) Anion Gap 10 (6-14) 9 (6-14) Blood Urea Nitrogen 26 mg/dL (7-20) 21 mg/dL (7-20) Creatinine 1.5 mg/dL (0.6-1.0) 1.4 mg/dL (0.6-1.0) Estimated GFR (Cockcroft-Gault) 32.8 35.5 BUN/Creatinine Ratio 17 (6-20) Glucose Level 176 mg/dL (70-99) 119 mg/dL (70-99) Calcium Level 9.9 mg/dL (8.5-10.1) 9.3 mg/dL (8.5-10.1) Magnesium Level 2.1 mg/dL (1.8-2.4) Total Bilirubin 0.9 mg/dL (0.2-1.0) Aspartate Amino Transf (AST/SGOT) 34 U/L (15-37) Alanine Aminotransferase (ALT/SGPT) 46 U/L (14-59) Alkaline Phosphatase 118 U/L (46-116) Troponin I Quantitative 0.029 ng/mL (0.000-0.055) ZH-Sgc-M-Type Natriuretic Peptide 2225 pg/mL (0-449) Total Protein 7.3 g/dL (6.4-8.2) Albumin 3.7 g/dL (3.4-5.0) Albumin/Globulin Ratio 1.0 (1.0-1.7) Glucose (Fingerstick) 191 mg/dL (70-99) Test 12/27/18 07:06 Glucose (Fingerstick) 131 mg/dL (70-99) Images Images LEFT VENTRICLE The left ventricle is normal size. There is normal left ventricular wall thickness. Left ventricle systolic function is normal. The Ejection Fraction is 55-60%. There is normal LV segmental wall motion. The left ventricular diastolic function and filling is normal for age. There is no ventricular septal defect visualized. RIGHT VENTRICLE The right ventricle is normal size. The right ventricular systolic function is normal. There is a pacemaker lead seen in the RV/RA. ATRIA The left atrium size is normal. The right atrium size is normal. The interatrial septum is intact with no evidence for an atrial septal defect or patent foramen ovale as noted on 2-D or Doppler imaging. AORTIC VALVE The aortic valve is mildly sclerotic. The aortic valve is trileaflet. Doppler and Color Flow revealed no significant aortic regurgitation. There is no significant aortic valvular stenosis. MITRAL VALVE The mitral valve leaflets are thickened. There is no mitral valve stenosis. Doppler and Color Flow revealed moderate mitral regurgitation. TRICUSPID VALVE The tricuspid valve is normal in structure and function. Doppler and Color Flow revealed moderate tricuspid regurgitation. The PA pressure was estimated at 50 mmHg. There is no tricuspid valve stenosis. PULMONIC VALVE The pulmonic valve is not well visualized. Doppler and Color Flow revealed no pulmonic valvular regurgitation. There is no pulmonic valvular stenosis. GREAT VESSELS The aortic root is normal in size. The ascending aorta is normal in size. Normal pulmonary venous flow (Doppler). The IVC is normal in size and collapses >50% with inspiration. PERICARDIAL EFFUSION There is no evidence of significant pericardial effusion. Critical Notification Critical Value: No <Conclusion> Left ventricle systolic function is normal. The Ejection Fraction is 55-60%. There is normal LV segmental wall motion. Pacer wire noted in right atrium and right ventricle. Moderate mitral regurgitation. Moderate tricuspid regurgitation. The PA pressure was estimated at 50 mmHg. There is no evidence of significant pericardial effusion. DICTATED and SIGNED BY: KATIE SHABAZZ MD DATE: 07/11/17 1107 CC: CHIDI SOTO; KATIE SHABAZZ MD ~ PROCEDURE: CHEST AP ONLY Indication:Short of breath TECHNIQUE:Portable AP chest X-ray COMPARISON:12/13/2017 FINDINGS: Heart is normal in size. Stable position of cardiac pacer with leads ejecting over the heart. Bilateral coarse interstitial opacities. No pneumothorax or pleural effusion. Visualized bony thorax is within normal limits. IMPRESSION: Findings of COPD with superimposed atypical/viral infection or interstitial pulmonary edema. Electronically signed by: Spike England DO (12/26/2018 6:41 PM) [facility] VTE Prophylaxis Ordered VTE Prophylaxis Devices: Yes VTE Pharmacological Prophylaxi: Yes Assessment/Plan Assessment/Plan impression 1. acute exac of CHF with pulm edema 2. hypertension 3. diabetes 4. 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 PCI/drug eluting stent placement to the left main coronary artery and successful PTCA to the ostium of the left circumflex artery 2016 6. Carotid disease s/p TOP EDGE BEVELER/stent placement to the left ICA and right endarterectomy 7. Moderate tricuspid regurgitation. 8. Remote tobacco abuse plan admit iv diuresis lasix 40 mg x 1 DUONEBS QID glucose control 02 SUPPORT PRN CARDIOLOGY CONSULT HOME MEDS DVT prophylaxis echo DAWNA MCNAMARA MD Dec 27, 2018 10:15
[2018-12-27] MEDS ORDERED: FUROSEMIDE 40 MG/4 ML VIAL. IVP ONE (10:30)
--- NOTE | 2018-12-27 11:29 | PDOC2 ---
CONSULT Date of Consult Date of Consult DATE: 12/27/18 TIME: 11:27 Reason for Consult Reason for Consult: Shortness of breath Referring Physician Referring Physician: Dr. Bazan Identification/Chief Complaint Chief Complaint Shortness of breath Source Source: Chart review, Patient History of Present Illness Reason for Visit: 88-year-old female with history of coronary artery disease, complete heart block s/p permanent pacemaker implantation and chronic diastolic heart failure presented with progressive shortness of breath and lower extremity edema. She was apparently seen by her PCP recently and her diuretic dose was increased without any significant relief. She denied any chest pain, palpitations or syncope. Past Medical History Cardiovascular: CAD, HTN, Hyperlipidemia, Other Pulmonary: No pertinent hx GI: No pertinent hx Heme/Onc: No pertinent hx Hepatobiliary: No pertinent hx Psych: No pertinent hx Musculoskeletal: Osteoarthritis Rheumatologic: No pertinent hx Infectious disease: No pertinent hx Renal/: No pertinent hx Endocrine: Diabetes Past Surgical History Past Surgical History: Pacemaker, Appendectomy, Hysterectomy, Other Family History Family History: Other Social History No ALCOHOL: none Drugs: None Lives: Alone Current Problem List Problem List Problems Medical Problems: (1) Dyspnea Status: Acute (2) Pulmonary edema Status: Acute Current Medications Current Medications Current Medications Furosemide (Lasix) 40 mg DAILY IVP ; Start 12/26/18 at 19:10; Status Cancel Acetaminophen (Tylenol) 500 mg PRN Q6HRS PRN PO MILD PAIN / TEMP Last administered on 12/26/18at 21:18; Start 12/26/18 at 19:15 Acetaminophen/ Codeine Phosphate (Tylenol #3) 1 tab PRN Q6HRS PRN PO MODERATE PAIN; Start 12/26/18 at 19:15 Temazepam (Restoril) 7.5 mg PRN QHS PRN PO INSOMNIA; Start 12/26/18 at 19:15 Albuterol Sulfate (Ventolin Neb Soln) 2.5 mg PRN Q4HRS PRN NEB SHORTNESS OF BREATH; Start 12/26/18 at 19:15 Guaifenesin (Robitussin Dm) 10 ml PRN Q6HRS PRN PO COUGH; Start 12/26/18 at 19: 15 Aspirin (Ecotrin) 81 mg DAILYWBKFT PO Last administered on 12/27/18at 08:26; Start 12/27/18 at 08:00 Cyanocobalamin (Vitamin B-12) 1,000 mcg QMONTH IM ; Start 01/25/19 at 09:00 Diclofenac Sodium (Voltaren) 4 adriana QID TP ; Start 12/26/18 at 21:00 Ferrous Sulfate (Feosol) 325 mg DAILY PO Last administered on 12/27/18at 08:25; Start 12/27/18 at 09:00 Isosorbide Mononitrate (Imdur) 30 mg DAILY PO Last administered on 12/27/18at 08: 26; Start 12/27/18 at 09:00 Metoprolol Tartrate (Lopressor) 25 mg BID PO Last administered on 12/27/18 08: 27; Start 12/26/18 at 21:00 Nitroglycerin (Nitrostat) 0.4 mg PRN Q5MIN PRN SL CHEST PAIN; Start 12/26/18 at 19:15 Oxybutynin Chloride (Ditropan) 5 mg DAILY PO Last administered on 12/27/18at 08: 26; Start 12/27/18 at 09:00 Potassium Chloride (Klor-Con) 10 meq DAILY PO Last administered on 12/27/18at 08: 27; Start 12/27/18 at 09:00 Ticagrelor (Brilinta) 90 mg BID PO Last administered on 12/27/18 08:26; Start 12/26/18 at 21:00 Non-Formulary Medication (Amlodipine Besylate/ Benazepril (Lotrel 10-20 Mg Capsule)) 1 each DAILY PO ; Start 12/27/18 at 09:00; Status UNV Calcium/Vitamin D (Oscal D 500mg/ 200uts) 1 tab DAILY PO Last administered on at 08:27; Start 12/27/18 at 09:00 Non-Formulary Medication (Denosumab (Prolia)) 60 mg Q6 MONTHS SQ ; Start at 19:15; Status UNV Glipizide (Glucotrol) 5 mg BIDBFRMEAL PO Last administered on 12/27/18at 07:30; Start 12/27/18 at 07:30 Insulin Glargine (Lantus) 8 units DAILY SQ ; Start 12/27/18 at 09:00 Magnesium Chloride (Mag Delay) 64 mg DAILY PO ; Start 12/27/18 at 09:00 Metformin HCl (Glucophage) 500 mg BIDWMEALS PO ; Start 12/26/18 at 20:00 Pantoprazole Sodium (Protonix) 40 mg DAILYAC PO Last administered on 12/27/18at 07:30; Start 12/27/18 at 07:30 Atorvastatin Calcium (Lipitor) 40 mg QHS PO ; Start 12/26/18 at 21:00; Status Cancel Multivitamins/ Minerals (I-Jimmy) 1 tab DAILY PO Last administered on 12/27/18at 08:25; Start 12/27/18 at 09:00 Furosemide (Lasix) 20 mg DAILY IVP Last administered on 12/27/18at 08:27; Start 12/27/18 at 09:00 Insulin Human Lispro (HumaLOG) 0-9 UNITS TIDWMEALS SQ ; Start 12/26/18 at 20:00 Dextrose (Dextrose 50%-Water Syringe) 12.5 gm PRN Q15MIN PRN IV SEE COMMENTS; Start 12/26/18 at 19:15 Amlodipine Besylate (Norvasc) 10 mg DAILY PO Last administered on 12/27/18at 08: 26; Start 12/27/18 at 09:00 Lisinopril (Prinivil) 20 mg DAILY PO Last administered on 12/27/18at 08:25; Start 12/27/18 at 09:00 Atorvastatin Calcium (Lipitor) 20 mg QHS PO Last administered on 12/26/18at 20:59 ; Start 12/26/18 at 21:00 Furosemide (Lasix) 40 mg 1X ONCE IVP Last administered on 12/27/18at 10:58; Start 12/27/18 at 10:30; Stop 12/27/18 at 10:31; Status DC Active Scripts Active Levemir (Insulin Detemir) 100 Unit/1 Ml Vial 8 Unit SQ DAILY Keflex (Cephalexin) 500 Mg Capsule 1 Cap PO BID Brilinta (Ticagrelor) 90 Mg Tablet 90 Mg PO BID SIG: ONE TAB TWICE DAILY; DO NOT STOP WITHOUT INSTRUCTIONS FROM JOB DEVELOPMENT SPECIALIST Aspirin Ec (Aspirin) 81 Mg Tablet. 81 Mg PO DAILYWBKFT Metformin Hcl 500 Mg Tablet 1 Tab PO BID MAY RESUME ON 11/23/2016 Reported Metoprolol Tartrate 25 Mg Tablet 25 Mg PO BID Isosorbide Mononitrate Er (Isosorbide Mononitrate) 30 Mg Tab.er.24h 30 Mg PO DAILY Cyanocobalamin Injection (Cyanocobalamin (Vitamin B-12)) 1,000 Mcg/1 Ml Vial 1, 000 Mcg IJ QMONTH Magnesium (Magnesium Amino Acid Chelate) 100 Mg Tablet 100 Mg PO DAILY Calcium 600 + Vit D 200 Tablet (Calcium Carbonate/Vitamin D3) 1 Each Tablet 1 Each PO DAILY Prolia (Denosumab) 60 Mg/1 Ml Disp.syrin 60 Mg SQ Q6 MONTHS Voltaren (Diclofenac Sodium) 100 Gm Gel..gram. 4 Gm TP QID Furosemide 20 Mg Tablet 20 Mg PO DAILY Ocuvite Softgel (Vit C/Vit E/Lutein/Min/[place]-3) 1 Each Capsule 1 Cap PO DAILY Lotrel 10-20 Mg Capsule (Amlodipine Besylate/Benazepril) 1 Each Capsule 1 Each PO DAILY NITROGLYCERIN SubLingual (Nitroglycerin) 0.4 Mg Tab.subl 0.4 Mg SL PRN Q5MIN PRN Ferrous Sulfate 325 Mg Tablet 325 Tab PO TWICE WEEKLY Glipizide 10 Mg Tablet 0.5 Tab PO BID Potassium Chloride 10 Meq Capsule.er 1 Cap PO DAILY Oxybutynin Chloride 5 Mg Tablet 1 Tab PO DAILY Omeprazole 20 Mg Capsule.dr 1 Cap PO DAILY Simvastatin 80 Mg Tablet 40 Mg PO QHS Allergies Allergies: Coded Allergies: Iodinated Contrast- Oral and IV Dye (Verified Allergy, Intermediate, 10/15) Sulfa (Sulfonamide Antibiotics) (Verified Allergy, Intermediate, 11/21/16) carvedilol (Verified Allergy, Intermediate, 10/15/14) clopidogrel (Verified Allergy, Intermediate, 10/15/14) glimepiride (Verified Allergy, Intermediate, 10/15/14) raloxifene (Verified Allergy, Intermediate, 10/15/14) ciprofloxacin (Verified Adverse Reaction, Intermediate, Vomiting, 10/15/14 ) ROS PSYCHOLOGICAL ROS: No: Hallucinations Eyes: No Loss of vision HEENT: No: Epistaxis Respiratory: YES: Shortness of breath; No: Hemoptysis Cardiovascular: yes Orthopnea; No Chest Pain Gastrointestinal: No Diarrhea Genitourinary: No Hematuria Neurological: No Seizures Skin: No Rash Physical Exam General: Alert, Oriented X3, Cooperative HEENT: Atraumatic Lungs: Other (bilateral basal crepitations) Heart: Regular rate Abdomen: Soft, No tenderness Extremities: Other (1-2+ pitting pedal edema bilaterally) Psych/Mental Status: Mood NL Vitals VITALS Vital Signs Date Time Temp Pulse Resp B/P (MAP) Pulse Ox O2 Delivery O2 Flow Rate FiO2 12/27/18 08:27 65 153/64 12/27/18 07:36 97.3 18 90 Nasal Cannula 2.0 97.3 Labs Labs Laboratory Tests Test 12/26/18 16:50 12/26/18 17:13 12/26/18 20:48 12/27/18 05:55 Urine Collection Type Unknown Urine Color Yellow Urine Clarity Clear Urine pH 6.0 Urine Specific [place] <=1.005 Urine Protein Negative mg/dL (NEG-TRACE) Urine Glucose (UA) Negative mg/dL (NEG) Urine Ketones (Stick) Negative mg/dL (NEG) Urine Blood Negative (NEG) Urine Nitrite Negative (NEG) Urine Bilirubin Negative (NEG) Urine Urobilinogen Dipstick 0.2 mg/dL (0.2 mg/dL) Urine Leukocyte Esterase Trace (NEG) Urine RBC 0 /HPF (0-2) Urine WBC Rare /HPF (0-4) Urine Squamous Epithelial Cells Few /LPF Urine Bacteria Many /HPF (0-FEW) White Blood Count 9.4 x10^3/uL (4.0-11.0) 8.3 x10^3/uL (4.0-11.0) Red Blood Count 3.93 x10^6/uL (3.50-5.40) 3.61 x10^6/uL (3.50-5.40) Hemoglobin 12.0 g/dL (12.0-15.5) 11.2 g/dL (12.0-15.5) Hematocrit 36.6 % (36.0-47.0) 33.6 % (36.0-47.0) Mean Corpuscular Volume 93 fL (79-100) 93 fL (79-100) Mean Corpuscular Hemoglobin 31 pg (25-35) 31 pg (25-35) Mean Corpuscular Hemoglobin Concent 33 g/dL (31-37) 33 g/dL (31-37) Red Cell Distribution Width 13.8 % (11.5-14.5) 13.7 % (11.5-14.5) Platelet Count 254 x10^3/uL (140-400) 216 x10^3/uL (140-400) Neutrophils (%) (Auto) 75 % (31-73) 77 % (31-73) Lymphocytes (%) (Auto) 13 % (24-48) 9 % (24-48) Monocytes (%) (Auto) 9 % (0-9) 9 % (0-9) Eosinophils (%) (Auto) 3 % (0-3) 4 % (0-3) Basophils (%) (Auto) 1 % (0-3) 1 % (0-3) Neutrophils # (Auto) 7.1 x10^3uL (1.8-7.7) 6.4 x10^3uL (1.8-7.7) Lymphocytes # (Auto) 1.2 x10^3/uL (1.0-4.8) 0.8 x10^3/uL (1.0-4.8) Monocytes # (Auto) 0.8 x10^3/uL (0.0-1.1) 0.8 x10^3/uL (0.0-1.1) Eosinophils # (Auto) 0.2 x10^3/uL (0.0-0.7) 0.3 x10^3/uL (0.0-0.7) Basophils # (Auto) 0.1 x10^3/uL (0.0-0.2) 0.1 x10^3/uL (0.0-0.2) Sodium Level 133 mmol/L (136-145) 136 mmol/L (136-145) Potassium Level 4.9 mmol/L (3.5-5.1) 3.9 mmol/L (3.5-5.1) Chloride Level 99 mmol/L (98-107) 102 mmol/L (98-107) Carbon Dioxide Level 24 mmol/L (21-32) 25 mmol/L (21-32) Anion Gap 10 (6-14) 9 (6-14) Blood Urea Nitrogen 26 mg/dL (7-20) 21 mg/dL (7-20) Creatinine 1.5 mg/dL (0.6-1.0) 1.4 mg/dL (0.6-1.0) Estimated GFR (Cockcroft-Gault) 32.8 35.5 BUN/Creatinine Ratio 17 (6-20) Glucose Level 176 mg/dL (70-99) 119 mg/dL (70-99) Calcium Level 9.9 mg/dL (8.5-10.1) 9.3 mg/dL (8.5-10.1) Magnesium Level 2.1 mg/dL (1.8-2.4) Total Bilirubin 0.9 mg/dL (0.2-1.0) Aspartate Amino Transf (AST/SGOT) 34 U/L (15-37) Alanine Aminotransferase (ALT/SGPT) 46 U/L (14-59) Alkaline Phosphatase 118 U/L (46-116) Troponin I Quantitative 0.029 ng/mL (0.000-0.055) EG-Mmf-Q-Type Natriuretic Peptide 2225 pg/mL (0-449) Total Protein 7.3 g/dL (6.4-8.2) Albumin 3.7 g/dL (3.4-5.0) Albumin/Globulin Ratio 1.0 (1.0-1.7) Glucose (Fingerstick) 191 mg/dL (70-99) Test 12/27/18 07:06 Glucose (Fingerstick) 131 mg/dL (70-99) Laboratory Tests Test 12/26/18 16:50 12/26/18 17:13 12/26/18 20:48 12/27/18 05:55 Urine Collection Type Unknown Urine Color Yellow Urine Clarity Clear Urine pH 6.0 Urine Specific [place] <=1.005 Urine Protein Negative mg/dL (NEG-TRACE) Urine Glucose (UA) Negative mg/dL (NEG) Urine Ketones (Stick) Negative mg/dL (NEG) Urine Blood Negative (NEG) Urine Nitrite Negative (NEG) Urine Bilirubin Negative (NEG) Urine Urobilinogen Dipstick 0.2 mg/dL (0.2 mg/dL) Urine Leukocyte Esterase Trace (NEG) Urine RBC 0 /HPF (0-2) Urine WBC Rare /HPF (0-4) Urine Squamous Epithelial Cells Few /LPF Urine Bacteria Many /HPF (0-FEW) White Blood Count 9.4 x10^3/uL (4.0-11.0) 8.3 x10^3/uL (4.0-11.0) Red Blood Count 3.93 x10^6/uL (3.50-5.40) 3.61 x10^6/uL (3.50-5.40) Hemoglobin 12.0 g/dL (12.0-15.5) 11.2 g/dL (12.0-15.5) Hematocrit 36.6 % (36.0-47.0) 33.6 % (36.0-47.0) Mean Corpuscular Volume 93 fL (79-100) 93 fL (79-100) Mean Corpuscular Hemoglobin 31 pg (25-35) 31 pg (25-35) Mean Corpuscular Hemoglobin Concent 33 g/dL (31-37) 33 g/dL (31-37) Red Cell Distribution Width 13.8 % (11.5-14.5) 13.7 % (11.5-14.5) Platelet Count 254 x10^3/uL (140-400) 216 x10^3/uL (140-400) Neutrophils (%) (Auto) 75 % (31-73) 77 % (31-73) Lymphocytes (%) (Auto) 13 % (24-48) 9 % (24-48) Monocytes (%) (Auto) 9 % (0-9) 9 % (0-9) Eosinophils (%) (Auto) 3 % (0-3) 4 % (0-3) Basophils (%) (Auto) 1 % (0-3) 1 % (0-3) Neutrophils # (Auto) 7.1 x10^3uL (1.8-7.7) 6.4 x10^3uL (1.8-7.7) Lymphocytes # (Auto) 1.2 x10^3/uL (1.0-4.8) 0.8 x10^3/uL (1.0-4.8) Monocytes # (Auto) 0.8 x10^3/uL (0.0-1.1) 0.8 x10^3/uL (0.0-1.1) Eosinophils # (Auto) 0.2 x10^3/uL (0.0-0.7) 0.3 x10^3/uL (0.0-0.7) Basophils # (Auto) 0.1 x10^3/uL (0.0-0.2) 0.1 x10^3/uL (0.0-0.2) Sodium Level 133 mmol/L (136-145) 136 mmol/L (136-145) Potassium Level 4.9 mmol/L (3.5-5.1) 3.9 mmol/L (3.5-5.1) Chloride Level 99 mmol/L (98-107) 102 mmol/L (98-107) Carbon Dioxide Level 24 mmol/L (21-32) 25 mmol/L (21-32) Anion Gap 10 (6-14) 9 (6-14) Blood Urea Nitrogen 26 mg/dL (7-20) 21 mg/dL (7-20) Creatinine 1.5 mg/dL (0.6-1.0) 1.4 mg/dL (0.6-1.0) Estimated GFR (Cockcroft-Gault) 32.8 35.5 BUN/Creatinine Ratio 17 (6-20) Glucose Level 176 mg/dL (70-99) 119 mg/dL (70-99) Calcium Level 9.9 mg/dL (8.5-10.1) 9.3 mg/dL (8.5-10.1) Magnesium Level 2.1 mg/dL (1.8-2.4) Total Bilirubin 0.9 mg/dL (0.2-1.0) Aspartate Amino Transf (AST/SGOT) 34 U/L (15-37) Alanine Aminotransferase (ALT/SGPT) 46 U/L (14-59) Alkaline Phosphatase 118 U/L (46-116) Troponin I Quantitative 0.029 ng/mL (0.000-0.055) TN-Zhz-O-Type Natriuretic Peptide 2225 pg/mL (0-449) Total Protein 7.3 g/dL (6.4-8.2) Albumin 3.7 g/dL (3.4-5.0) Albumin/Globulin Ratio 1.0 (1.0-1.7) Glucose (Fingerstick) 191 mg/dL (70-99) Test 12/27/18 07:06 Glucose (Fingerstick) 131 mg/dL (70-99) Assessment/Plan Assessment/Plan 1. Acute on chronic diastolic heart failure: Most probably secondary to noncompliance with oral salt intake as admitted by patient. Continue gentle diuresis with intravenous Lasix. Recent 2-D echocardiogram in September 2018 showed normal LV systolic function with EF 55-60%. 2. Coronary artery disease s/p PCI/stents placement to LMCA/LAD/LCx, presently stable and chest pain-free. Continue current secondary prevention measures. 3. Complete heart block s/p permanent pacemaker implantation: Recent device check showed normal function 4. Hypertension: Better controlled since admission 5. Hyperlipidemia: Continue statin therapy 6. Diabetes mellitus type 2: Treat per IM Thank you for your consultation KATIE SHABAZZ MD Dec 27, 2018 11:29
[2018-12-27 11:32] VITALS: BP 126/45
[2018-12-27] MEDS ORDERED: FUROSEMIDE 40 MG/4 ML VIAL. IVP SCH (14:00)
[2018-12-27] MEDS: ENOXAPARIN 30 MG/0.3 ML SYRINGE. SQ SCH (14:01)
[2018-12-27 15:17] VITALS: BP 135/55
[2018-12-27 19:00] VITALS: BP 125/38
[2018-12-27] MEDS: ATORVASTATIN CALCIUM 20 MG TABLET PO SCH (20:10)
--- NOTE | 2018-12-27 21:11 | RAD ---
Bilateral lower extremity venous Doppler dated 12/27/2018. No comparison available. Clinical data indication: Leg edema. FINDINGS: Grayscale, color-flow and spectral waveform analysis performed to include the deep venous system of both lower extremity. Normal compressibility, phasicity and augmentation of flow throughout. No filling defects are seen. There is some edema throughout the bilateral lower legs. IMPRESSION: No evidence of lower extremity deep vein thrombosis. Electronically signed by: Thierry Carrasquillo MD (12/27/2018 9:06 PM) [facility]
[2018-12-27 23:00] VITALS: BP 109/44
[2018-12-28 03:00] VITALS: BP 130/36
[2018-12-28] MEDS: PANTOPRAZOLE 40 MG TABLET.DR. PO SCH (07:30)
[2018-12-28 07:51] VITALS: BP 129/46
[2018-12-28] MEDS: INSULIN LISPRO 300 UNITS/3 ML INSULN.PEN. SQ SCH ×3 (08:00→17:00)
[2018-12-28] MEDS: metFORMIN 500 MG TABLET PO SCH (08:00)
[2018-12-28] MEDS: FERROUS SULFATE 325 MG TABLET. PO SCH (09:00)
[2018-12-28] MEDS: INSULIN GLARGINE 300 UNITS/3 ML INSULN.PEN. SQ SCH (09:00)
[2018-12-28] MEDS: DICLOFENAC SODIUM 1% TOPICAL GEL 100GM TUBE. TP SCH ×4 (09:00→21:00)
--- NOTE | 2018-12-28 09:48 | PDOC ---
PROGRESS NOTES Subjective Subjective Feeling better. Dyspnea improving. Objective Objective Vital Signs Date Time Temp Pulse Resp B/P (MAP) Pulse Ox O2 Delivery O2 Flow Rate FiO2 12/28/18 07:51 98.0 73 18 129/46 (73) 92 Nasal Cannula 2.0 98.0 Intake and Output 12/28/18 07:01 Intake Total 600 ml Balance 600 ml Intake Oral 600 ml # Voids 8 # Bowel Movements 1 Physical Exam Abdomen: Soft, No tenderness Heart: Regular rate Extremities: Other (1-2+ pitting pedal edema bilaterally) General: Alert, Oriented X3, Cooperative HEENT: Atraumatic Lungs: Other (bilateral basal crepitations) MUSCULOSKELETAL: Osteoarthritic changes both hands Neuro: Normal speech, Strength at 5/5 X4 ext, Cranial nerves 3-12 NL Psych/Mental Status: Mood NL Assessment Assessment 1. Acute on chronic diastolic heart failure: Most probably secondary to noncompliance with oral salt intake as admitted by patient. Symptoms improving with diuresis with intravenous Lasix. Recent 2-D echocardiogram in September 2018 showed normal LV systolic function with EF 55-60%. 2. Coronary artery disease s/p PCI/stents placement to LMCA/LAD/LCx, presently stable and chest pain-free. Continue current secondary prevention measures. 3. Complete heart block s/p permanent pacemaker implantation: Recent device check showed normal function 4. Hypertension: Better controlled since admission 5. Hyperlipidemia: Continue statin therapy 6. Diabetes mellitus type 2: Treat per IM Plan Plan of Care Problems Medical Problems: (1) Dyspnea Status: Acute (2) Pulmonary edema Status: Acute Comment Review of Relevant I have reviewed the following items kojo (where applicable) has been applied. Labs Laboratory Tests Test 12/27/18 16:33 12/27/18 21:04 12/28/18 00:34 12/28/18 07:10 Glucose (Fingerstick) 226 mg/dL (70-99) 70 mg/dL (70-99) 156 mg/dL (70-99) 79 mg/dL (70-99) Medications Current Medications Cyanocobalamin (Vitamin B-12) 1,000 mcg QMONTH IM ; Start 01/25/19 at 09:00 Enoxaparin Sodium (Lovenox 30mg Syringe) 30 mg Q24H SQ Last administered on 12/27at 14:01; Start 12/27/18 at 14:00 Furosemide (Lasix) 40 mg 1X ONCE IVP Last administered on 12/27/18at 10:58; Start 12/27/18 at 10:30; Stop 12/27/18 at 10:31; Status DC Furosemide (Lasix) 40 mg DAILY IVP ; Start 12/27/18 at 14:00; Status Cancel Furosemide (Lasix) 40 mg DAILY IVP ; Start 12/28/18 at 09:00 Vitals/I & O Vital Sign - Last 24 Hours 12/27/18 12/27/18 12/27/18 12/27/18 11:32 15:17 19:00 20:00 Temp 97.7 98.3 98.2 97.7 98.3 98.2 Pulse 61 75 62 Resp 18 18 18 B/P (MAP) 126/45 (72) 135/55 (81) 125/38 (67) Pulse Ox 95 98 95 O2 Delivery Nasal Cannula Nasal Cannula Nasal Cannula Nasal Cannula O2 Flow Rate 2.0 2.0 2.0 2.0 12/27/18 12/27/18 12/28/18 12/28/18 20:12 23:00 03:00 07:51 Temp 98.0 98.1 98.0 98.0 98.1 98.0 Pulse 75 70 61 73 Resp 18 22 18 B/P (MAP) 135/55 109/44 (65) 130/36 (67) 129/46 (73) Pulse Ox 94 97 92 O2 Delivery Nasal Cannula Nasal Cannula Nasal Cannula O2 Flow Rate 2.0 2.0 2.0 Intake and Output 12/27/18 12/27/18 12/28/18 15:01 23:01 07:01 Intake Total 260 ml 340 ml Balance 260 ml 340 ml KATIE SHABAZZ MD Dec 28, 2018 09:48
[2018-12-28] MEDS: LISINOPRIL 20 MG TABLET PO SCH (09:53)
[2018-12-28] MEDS: amLODIPine BESYLATE 10 MG TABLET PO SCH (09:55)
[2018-12-28] MEDS: TICAGRELOR 90 MG TABLET. PO SCH ×2 (09:56→21:11)
[2018-12-28] MEDS: METOPROLOL TART IMMED RELEASE 25 MG TABLET. PO SCH ×2 (09:56→21:11)
[2018-12-28] MEDS: MULTIVITAMIN I-VITE TABLET. PO SCH (09:57)
[2018-12-28] MEDS: ASPIRIN ENTERIC COATED 81 MG TABLET.DR. PO SCH (09:57)
[2018-12-28] MEDS: OXYBUTYNIN CHLORIDE 5 MG TABLET PO SCH (09:58)
[2018-12-28] MEDS: POTASSIUM CHLORIDE 10 MEQ TABLET.ER. PO SCH (09:58)
[2018-12-28] MEDS: glipiZIDE 5 MG TABLET PO SCH ×2 (09:58→17:17)
[2018-12-28] MEDS: ISOSORBIDE MONONITRATE ER 30 MG TAB.ER.24H PO SCH (09:59)
[2018-12-28] MEDS: CALCIUM CARB/VIT D3 500/200 TABLET. PO SCH (10:01)
[2018-12-28] MEDS: FUROSEMIDE 40 MG/4 ML VIAL. IVP SCH (10:02)
[2018-12-28] MEDS: MAGNESIUM CHLORIDE ER 64 MG TABLET.ER PO SCH (10:06)
[2018-12-28 11:00] VITALS: BP 145/45
--- NOTE | 2018-12-28 11:24 | PDOC ---
PROGRESS NOTES History of Present Illness History of Present Illness VTE Prophylaxis Ordered VTE Prophylaxis Devices: Yes VTE Pharmacological Prophylaxi: Yes Assessment/Plan Assessment/Plan impression 1. acute exac of CHF with pulm edema 2. hypertension 3. diabetes 4. 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 PCI/drug eluting stent placement to the left main coronary artery and successful PTCA to the ostium of the left circumflex artery 2016 6. Carotid disease s/p [employer]STATE [employer]PATCHER/stent placement to the left ICA and right endarterectomy 7. Moderate tricuspid regurgitation. 8. Remote tobacco abuse venous doppler legs neg for dvt plan admit iv diuresis lasix 40 mg x daily DUONEBS QID glucose control 02 SUPPORT PRN CARDIOLOGY following HOME MEDS DVT prophylaxis echo pending Vitals Vitals Vital Signs Date Time Temp Pulse Resp B/P (MAP) Pulse Ox O2 Delivery O2 Flow Rate FiO2 12/28/18 09:59 73 129/46 12/28/18 07:51 98.0 18 92 Nasal Cannula 2.0 98.0 Physical Exam General: Alert, Oriented X3, Cooperative, No acute distress Heart: Regular rate Lungs: Clear Abdomen: Normal bowel sounds, Soft, No tenderness Extremities: No cyanosis, Other (1-+ pitting pedal edema bilaterally) Skin: No significant lesion Labs LABS SEX: F EXAM STATUS: ADM IN ORD. PHYSICIAN: DAWNA MCNAMARA MD REASON: edema PROCEDURE: VENOUS LOWER EXT BILATERAL Bilateral lower extremity venous Doppler dated 12/27/2018. No comparison available. Clinical data indication: Leg edema. FINDINGS: Grayscale, color-flow and spectral waveform analysis performed to include the deep venous system of both lower extremity. Normal compressibility, phasicity and augmentation of flow throughout. No filling defects are seen. There is some edema throughout the bilateral lower legs. IMPRESSION: No evidence of lower extremity deep vein thrombosis. Electronically signed by: Thierry Carrasquillo MD (12/27/2018 9:06 PM) [facility] DICTATED and SIGNED BY: THIERRY CARRASQUILLO MD DATE: 12/27/18 2109 Laboratory Tests Test 12/27/18 16:33 12/27/18 21:04 12/28/18 00:34 12/28/18 07:10 Glucose (Fingerstick) 226 mg/dL (70-99) 70 mg/dL (70-99) 156 mg/dL (70-99) 79 mg/dL (70-99) Assessment and Plan Assessmemt and Plan Problems Medical Problems: (1) Dyspnea Status: Acute (2) Pulmonary edema Status: Acute Comment Review of Relevant I have reviewed the following items kojo (where applicable) has been applied. Labs Laboratory Tests Test 12/26/18 16:50 12/26/18 17:13 12/26/18 20:48 12/27/18 05:55 Urine Collection Type Unknown Urine Color Yellow Urine Clarity Clear Urine pH 6.0 Urine Specific [place] <=1.005 Urine Protein Negative mg/dL (NEG-TRACE) Urine Glucose (UA) Negative mg/dL (NEG) Urine Ketones (Stick) Negative mg/dL (NEG) Urine Blood Negative (NEG) Urine Nitrite Negative (NEG) Urine Bilirubin Negative (NEG) Urine Urobilinogen Dipstick 0.2 mg/dL (0.2 mg/dL) Urine Leukocyte Esterase Trace (NEG) Urine RBC 0 /HPF (0-2) Urine WBC Rare /HPF (0-4) Urine Squamous Epithelial Cells Few /LPF Urine Bacteria Many /HPF (0-FEW) White Blood Count 9.4 x10^3/uL (4.0-11.0) 8.3 x10^3/uL (4.0-11.0) Red Blood Count 3.93 x10^6/uL (3.50-5.40) 3.61 x10^6/uL (3.50-5.40) Hemoglobin 12.0 g/dL (12.0-15.5) 11.2 g/dL (12.0-15.5) Hematocrit 36.6 % (36.0-47.0) 33.6 % (36.0-47.0) Mean Corpuscular Volume 93 fL (79-100) 93 fL (79-100) Mean Corpuscular Hemoglobin 31 pg (25-35) 31 pg (25-35) Mean Corpuscular Hemoglobin Concent 33 g/dL (31-37) 33 g/dL (31-37) Red Cell Distribution Width 13.8 % (11.5-14.5) 13.7 % (11.5-14.5) Platelet Count 254 x10^3/uL (140-400) 216 x10^3/uL (140-400) Neutrophils (%) (Auto) 75 % (31-73) 77 % (31-73) Lymphocytes (%) (Auto) 13 % (24-48) 9 % (24-48) Monocytes (%) (Auto) 9 % (0-9) 9 % (0-9) Eosinophils (%) (Auto) 3 % (0-3) 4 % (0-3) Basophils (%) (Auto) 1 % (0-3) 1 % (0-3) Neutrophils # (Auto) 7.1 x10^3uL (1.8-7.7) 6.4 x10^3uL (1.8-7.7) Lymphocytes # (Auto) 1.2 x10^3/uL (1.0-4.8) 0.8 x10^3/uL (1.0-4.8) Monocytes # (Auto) 0.8 x10^3/uL (0.0-1.1) 0.8 x10^3/uL (0.0-1.1) Eosinophils # (Auto) 0.2 x10^3/uL (0.0-0.7) 0.3 x10^3/uL (0.0-0.7) Basophils # (Auto) 0.1 x10^3/uL (0.0-0.2) 0.1 x10^3/uL (0.0-0.2) Sodium Level 133 mmol/L (136-145) 136 mmol/L (136-145) Potassium Level 4.9 mmol/L (3.5-5.1) 3.9 mmol/L (3.5-5.1) Chloride Level 99 mmol/L (98-107) 102 mmol/L (98-107) Carbon Dioxide Level 24 mmol/L (21-32) 25 mmol/L (21-32) Anion Gap 10 (6-14) 9 (6-14) Blood Urea Nitrogen 26 mg/dL (7-20) 21 mg/dL (7-20) Creatinine 1.5 mg/dL (0.6-1.0) 1.4 mg/dL (0.6-1.0) Estimated GFR (Cockcroft-Gault) 32.8 35.5 BUN/Creatinine Ratio 17 (6-20) Glucose Level 176 mg/dL (70-99) 119 mg/dL (70-99) Calcium Level 9.9 mg/dL (8.5-10.1) 9.3 mg/dL (8.5-10.1) Magnesium Level 2.1 mg/dL (1.8-2.4) Total Bilirubin 0.9 mg/dL (0.2-1.0) Aspartate Amino Transf (AST/SGOT) 34 U/L (15-37) Alanine Aminotransferase (ALT/SGPT) 46 U/L (14-59) Alkaline Phosphatase 118 U/L (46-116) Troponin I Quantitative 0.029 ng/mL (0.000-0.055) EZ-[id number]-H-Type Natriuretic Peptide 2225 pg/mL (0-449) Total Protein 7.3 g/dL (6.4-8.2) Albumin 3.7 g/dL (3.4-5.0) Albumin/Globulin Ratio 1.0 (1.0-1.7) Glucose (Fingerstick) 191 mg/dL (70-99) Test 12/27/18 07:06 12/27/18 16:33 12/27/18 21:04 12/28/18 00:34 Glucose (Fingerstick) 131 mg/dL (70-99) 226 mg/dL (70-99) 70 mg/dL (70-99) 156 mg/dL (70-99) Test 12/28/18 07:10 Glucose (Fingerstick) 79 mg/dL (70-99) Laboratory Tests Test 12/27/18 16:33 12/27/18 21:04 12/28/18 00:34 12/28/18 07:10 Glucose (Fingerstick) 226 mg/dL (70-99) 70 mg/dL (70-99) 156 mg/dL (70-99) 79 mg/dL (70-99) Medications Current Medications Furosemide (Lasix) 40 mg DAILY IVP ; Start 12/26/18 at 19:10; Status Cancel Acetaminophen (Tylenol) 500 mg PRN Q6HRS PRN PO MILD PAIN / TEMP Last administered on 12/26/18at 21:18; Start 12/26/18 at 19:15 Acetaminophen/ Codeine Phosphate (Tylenol #3) 1 tab PRN Q6HRS PRN PO MODERATE PAIN; Start 12/26/18 at 19:15 Temazepam (Restoril) 7.5 mg PRN QHS PRN PO INSOMNIA; Start 12/26/18 at 19:15 Albuterol Sulfate (Ventolin Neb Soln) 2.5 mg PRN Q4HRS PRN NEB SHORTNESS OF BREATH; Start 12/26/18 at 19:15 Guaifenesin (Robitussin Dm) 10 ml PRN Q6HRS PRN PO COUGH; Start 12/26/18 at 19: 15 Aspirin (Ecotrin) 81 mg DAILYWBKFT PO Last administered on 12/28/18 09:57; Start 12/27/18 at 08:00 Cyanocobalamin (Vitamin B-12) 1,000 mcg QMONTH IM ; Start 01/25/19 at 09:00 Diclofenac Sodium (Voltaren) 4 adriana QID TP ; Start 12/26/18 at 21:00 Ferrous Sulfate (Feosol) 325 mg DAILY PO Last administered on 12/27/18at 08:25; Start 12/27/18 at 09:00 Isosorbide Mononitrate (Imdur) 30 mg DAILY PO Last administered on 12/28/18at 09: 59; Start 12/27/18 at 09:00 Metoprolol Tartrate (Lopressor) 25 mg BID PO Last administered on 12/28/18 09: 56; Start 12/26/18 at 21:00 Nitroglycerin (Nitrostat) 0.4 mg PRN Q5MIN PRN SL CHEST PAIN; Start 12/26/18 at 19:15 Oxybutynin Chloride (Ditropan) 5 mg DAILY PO Last administered on 12/28/18at 09: 58; Start 12/27/18 at 09:00 Potassium Chloride (Klor-Con) 10 meq DAILY PO Last administered on 12/28/18 09: 58; Start 12/27/18 at 09:00 Ticagrelor (Brilinta) 90 mg BID PO Last administered on 12/28/18at 09:56; Start 12/26/18 at 21:00 Non-Formulary Medication (Amlodipine Besylate/ Benazepril (Lotrel 10-20 Mg Capsule)) 1 each DAILY PO ; Start 12/27/18 at 09:00; Status UNV Calcium/Vitamin D (Oscal D 500mg/ 200uts) 1 tab DAILY PO Last administered on 10:01; Start 12/27/18 at 09:00 Non-Formulary Medication (Denosumab (Prolia)) 60 mg Q6 MONTHS SQ ; Start at 19:15; Status UNV Glipizide (Glucotrol) 5 mg BIDBFRMEAL PO Last administered on 12/28/18 09:58; Start 12/27/18 at 07:30 Insulin Glargine (Lantus) 8 units DAILY SQ Last administered on 12/27/18 17:06 ; Start 12/27/18 at 09:00 Magnesium Chloride (Mag Delay) 64 mg DAILY PO Last administered on 12/28/18 10: 06; Start 12/27/18 at 09:00 Metformin HCl (Glucophage) 500 mg BIDWMEALS PO ; Start 12/26/18 at 20:00 Pantoprazole Sodium (Protonix) 40 mg DAILYAC PO Last administered on 12/27/18at 07:30; Start 12/27/18 at 07:30 Atorvastatin Calcium (Lipitor) 40 mg QHS PO ; Start 12/26/18 at 21:00; Status Cancel Multivitamins/ Minerals (I-Jimmy) 1 tab DAILY PO Last administered on 12/28/18 09:57; Start 12/27/18 at 09:00 Furosemide (Lasix) 20 mg DAILY IVP Last administered on 12/27/18 08:27; Start 12/27/18 at 09:00; Stop 12/27/18 at 13:52; Status DC Insulin Human Lispro (HumaLOG) 0-9 UNITS TIDWMEALS SQ Last administered on 17:05; Start 12/26/18 at 20:00 Dextrose (Dextrose 50%-Water Syringe) 12.5 gm PRN Q15MIN PRN IV SEE COMMENTS; Start 12/26/18 at 19:15 Amlodipine Besylate (Norvasc) 10 mg DAILY PO Last administered on 12/28/18 09: 55; Start 12/27/18 at 09:00 Lisinopril (Prinivil) 20 mg DAILY PO Last administered on 12/28/18 09:53; Start 12/27/18 at 09:00 Atorvastatin Calcium (Lipitor) 20 mg QHS PO Last administered on 12/27/18at 20:10 ; Start 12/26/18 at 21:00 Furosemide (Lasix) 40 mg 1X ONCE IVP Last administered on 12/27/18at 10:58; Start 12/27/18 at 10:30; Stop 12/27/18 at 10:31; Status DC Enoxaparin Sodium (Lovenox 30mg Syringe) 30 mg Q24H SQ Last administered on 12/27at 14:01; Start 12/27/18 at 14:00 Furosemide (Lasix) 40 mg DAILY IVP ; Start 12/27/18 at 14:00; Status Cancel Furosemide (Lasix) 40 mg DAILY IVP Last administered on 12/28/18at 10:02; Start 12/28/18 at 09:00 Active Scripts Active Levemir (Insulin Detemir) 100 Unit/1 Ml Vial 8 Unit SQ DAILY Keflex (Cephalexin) 500 Mg Capsule 1 Cap PO BID Brilinta (Ticagrelor) 90 Mg Tablet 90 Mg PO BID SIG: ONE TAB TWICE DAILY; DO NOT STOP WITHOUT INSTRUCTIONS FROM AUTOMATION AND CONTROL ENGINEER Aspirin Ec (Aspirin) 81 Mg Tablet.dr 81 Mg PO DAILYWBKFT Metformin Hcl 500 Mg Tablet 1 Tab PO BID MAY RESUME ON 11/23/2016 Reported Metoprolol Tartrate 25 Mg Tablet 25 Mg PO BID Isosorbide Mononitrate Er (Isosorbide Mononitrate) 30 Mg Tab.er.24h 30 Mg PO DAILY Cyanocobalamin Injection (Cyanocobalamin (Vitamin B-12)) 1,000 Mcg/1 Ml Vial 1, 000 Mcg IJ QMONTH Magnesium (Magnesium Amino Acid Chelate) 100 Mg Tablet 100 Mg PO DAILY Calcium 600 + Vit D 200 Tablet (Calcium Carbonate/Vitamin D3) 1 Each Tablet 1 Each PO DAILY Prolia (Denosumab) 60 Mg/1 Ml Disp.syrin 60 Mg SQ Q6 MONTHS Voltaren (Diclofenac Sodium) 100 Gm Gel..gram. 4 Gm TP QID Furosemide 20 Mg Tablet 20 Mg PO DAILY Ocuvite Softgel (Vit C/Vit E/Lutein/Min/[place]-3) 1 Each Capsule 1 Cap PO DAILY Lotrel 10-20 Mg Capsule (Amlodipine Besylate/Benazepril) 1 Each Capsule 1 Each PO DAILY NITROGLYCERIN SubLingual (Nitroglycerin) 0.4 Mg Tab.subl 0.4 Mg SL PRN Q5MIN PRN Ferrous Sulfate 325 Mg Tablet 325 Tab PO TWICE WEEKLY Glipizide 10 Mg Tablet 0.5 Tab PO BID Potassium Chloride 10 Meq Capsule.er 1 Cap PO DAILY Oxybutynin Chloride 5 Mg Tablet 1 Tab PO DAILY Omeprazole 20 Mg Capsule.dr 1 Cap PO DAILY Simvastatin 80 Mg Tablet 40 Mg PO QHS Vitals/I & O Vital Sign - Last 24 Hours 12/27/18 12/27/18 12/27/18 12/27/18 11:32 15:17 19:00 20:00 Temp 97.7 98.3 98.2 97.7 98.3 98.2 Pulse 61 75 62 Resp 18 B/P (MAP) 126/45 (72) 135/55 (81) 125/38 (67) Pulse Ox 95 98 95 O2 Delivery Nasal Cannula Nasal Cannula Nasal Cannula Nasal Cannula O2 Flow Rate 2.0 2.0 2.0 2.0 12/27/18 12/27/18 12/28/18 12/28/18 20:12 23:00 03:00 07:51 Temp 98.0 98.1 98.0 98.0 98.1 98.0 Pulse 75 70 61 73 Resp 18 18 B/P (MAP) 135/55 109/44 (65) 130/36 (67) 129/46 (73) Pulse Ox 94 97 92 O2 Delivery Nasal Cannula Nasal Cannula Nasal Cannula O2 Flow Rate 2.0 2.0 2.0 12/28/18 12/28/18 12/28/18 12/28/18 09:53 09:55 09:56 09:59 Pulse 73 73 73 73 B/P (MAP) 129/46 129/46 129/46 129/46 Intake and Output 12/27/18 12/27/18 12/28/18 15:01 23:01 07:01 Intake Total 260 ml 340 ml Balance 260 ml 340 ml DAWNA MCNAMARA MD Dec 28, 2018 11:24
[2018-12-28 13:13] LABS: BASO # 0.1 x10^3/uL (0.0-0.2); BASO % 1 % (0-3); EOS # 0.2 x10^3/uL (0.0-0.7); EOS % 3 % (0-3); HEMATOCRIT 34.2 % (36.0-47.0); HEMOGLOBIN 11.3 g/dL (12.0-15.5); LYMPH # 0.7 x10^3/uL (1.0-4.8); LYMPH % 9 % (24-48); MEAN CORPUSCULAR HEMOGLOBIN 31 pg (25-35); MEAN CORPUSCULAR HGB CONC 33 g/dL (31-37); MEAN CORPUSCULAR VOLUME 94 fL (79-100); MONO # 0.6 x10^3/uL (0.0-1.1); MONO % 8 % (0-9); NEUT % 79 % (31-73); PLATELET COUNT 223 x10^3/uL (140-400); RED BLOOD COUNT 3.66 x10^6/uL (3.50-5.40); RED CELL DISTRIBUTION WIDTH 13.5 % (11.5-14.5); WHITE BLOOD COUNT 7.6 x10^3/uL (4.0-11.0)
[2018-12-28 13:32] LABS: CREATININE 1.8 mg/dL (0.6-1.0); GFR 26.6; POTASSIUM 3.8 mmol/L (3.5-5.1)
[2018-12-28] MEDS: ENOXAPARIN 30 MG/0.3 ML SYRINGE. SQ SCH (14:34)
[2018-12-28 15:53] VITALS: BP 125/38
[2018-12-28 19:00] VITALS: BP 141/52
[2018-12-28] MEDS: ATORVASTATIN CALCIUM 20 MG TABLET PO SCH (21:11)
[2018-12-28 23:00] VITALS: BP 130/79
[2018-12-29 03:00] VITALS: BP 133/39
[2018-12-29 06:16] LABS: BASO # 0.1 x10^3/uL (0.0-0.2); BASO % 1 % (0-3); EOS # 0.3 x10^3/uL (0.0-0.7); EOS % 4 % (0-3); HEMOGLOBIN 11.3 g/dL (12.0-15.5); LYMPH # 0.9 x10^3/uL (1.0-4.8); LYMPH % 12 % (24-48); MEAN CORPUSCULAR HEMOGLOBIN 31 pg (25-35); MEAN CORPUSCULAR HGB CONC 33 g/dL (31-37); MEAN CORPUSCULAR VOLUME 93 fL (79-100); MONO # 0.8 x10^3/uL (0.0-1.1); MONO % 11 % (0-9); NEUT # 5.3 x10^3uL (1.8-7.7); NEUT % 71 % (31-73); PLATELET COUNT 215 x10^3/uL (140-400); RED BLOOD COUNT 3.64 x10^6/uL (3.50-5.40); RED CELL DISTRIBUTION WIDTH 13.6 % (11.5-14.5); WHITE BLOOD COUNT 7.4 x10^3/uL (4.0-11.0)
[2018-12-29 06:35] LABS: CALCIUM 9.1 mg/dL (8.5-10.1); CREATININE 1.6 mg/dL (0.6-1.0); GFR 30.4; POTASSIUM 3.8 mmol/L (3.5-5.1)
[2018-12-29 07:00] VITALS: BP 130/37
[2018-12-29] MEDS: INSULIN LISPRO 300 UNITS/3 ML INSULN.PEN. SQ SCH ×2 (08:00→11:27)
[2018-12-29] MEDS: PANTOPRAZOLE 40 MG TABLET.DR. PO SCH (08:13)
[2018-12-29] MEDS: ASPIRIN ENTERIC COATED 81 MG TABLET.DR. PO SCH (08:13)
[2018-12-29] MEDS: TICAGRELOR 90 MG TABLET. PO SCH (08:13)
[2018-12-29] MEDS: glipiZIDE 5 MG TABLET PO SCH (08:14)
[2018-12-29] MEDS: POTASSIUM CHLORIDE 10 MEQ TABLET.ER. PO SCH (08:14)
[2018-12-29] MEDS: MULTIVITAMIN I-VITE TABLET. PO SCH (08:14)
[2018-12-29] MEDS: OXYBUTYNIN CHLORIDE 5 MG TABLET PO SCH (08:14)
[2018-12-29] MEDS: amLODIPine BESYLATE 10 MG TABLET PO SCH (08:14)
[2018-12-29] MEDS: ISOSORBIDE MONONITRATE ER 30 MG TAB.ER.24H PO SCH (08:15)
[2018-12-29] MEDS: METOPROLOL TART IMMED RELEASE 25 MG TABLET. PO SCH (08:15)
[2018-12-29] MEDS: LISINOPRIL 20 MG TABLET PO SCH (08:15)
[2018-12-29] MEDS: MAGNESIUM CHLORIDE ER 64 MG TABLET.ER PO SCH (08:16)
[2018-12-29] MEDS: CALCIUM CARB/VIT D3 500/200 TABLET. PO SCH (08:16)
[2018-12-29] MEDS: FUROSEMIDE 40 MG/4 ML VIAL. IVP SCH (08:16)
[2018-12-29] MEDS: FERROUS SULFATE 325 MG TABLET. PO SCH (08:16)
[2018-12-29] MEDS: INSULIN GLARGINE 300 UNITS/3 ML INSULN.PEN. SQ SCH (08:26)
[2018-12-29] MEDS: DICLOFENAC SODIUM 1% TOPICAL GEL 100GM TUBE. TP SCH (09:46)
--- NOTE | 2018-12-29 09:52 | CARD ---
MR#: [id number] Date of Study: 12/29/2018 Ordering Physician: DAWNA MCNAMARA, Referring Physician: CHRISTINE SOTO Tech: Carol Jaramillo, [facility] APPROVED REPORT EXAM: Two-dimensional and M-mode echocardiogram with Doppler and color Doppler. Other Information Quality : AverageHR: 60bpm Rhythm : Pacemaker INDICATION Congestive Heart Failure 2D DIMENSIONS RVDd3.2 (2.9-3.5cm)Left Atrium(2D)3.2 (1.6-4.0cm) IVSd1.1 (0.7-1.1cm)Aortic Root(2D)2.6 (2.0-3.7cm) LVDd4.1 (3.9-5.9cm)LVOT Diameter1.7 (1.8-2.4cm) PWd0.9 (0.7-1.1cm)IVSs1.4 (0.8-1.2cm) LVDs3.0 (2.5-4.0cm)FS (%) 26.4 % PWs1.5 (0.8-1.2cm)SV37.7 ml LVEF(%)55.0 (>50%) Aortic Valve AoV Peak Juan.128.7cm/sAoV VTI25.8cm AO Peak GR.6.6mmHgLVOT Peak Juan.80.2cm/s LVOT VTI 16.92cmAO Mean GR.4mmHg PATRICIA (VMAX)1.04ch6DGD (VTI)1.41cm2 Mitral Valve MV E Cjvyegue163.5cm/sMV E Peak Gr.91mmHg MV DECEL [id number] A Zfjecheb28.9cm/s MV [id number]/A Ratio1.6 MVA (PHT)3.39cm2 TDI E/Lateral E'13.5E/Medial E'19.0 Pulmonary Valve PV Peak Kefiorso36.7cm/sPV Peak Grad.4mmHg Tricuspid Valve TR P. Rqdevihi378pg/sRAP [id number] TR Peak Gr.37ixFlTDKP32idKj Pulmonary Vein S1 Cjahyrep19.1cm/sD2 Cmprmjuv38.9cm/s LEFT VENTRICLE The left ventricle cavity is small. Proximal septal thickening is noted. The left ventricular systoli c function is normal and the ejection fraction is within normal range. The Ejection Fraction is 55%. There is normal LV segmental wall motion. Transmitral Doppler flow pattern is abnormal. RIGHT VENTRICLE The right ventricle is normal size. There is normal right ventricular wall thickness. The right ventr icular systolic function is normal. Pacer lead noted in RV/RA. ATRIA The left atrium size is normal. The right atrium size is normal. The interatrial septum is intact wit h no evidence for an atrial septal defect or patent foramen ovale as noted on 2-D or Doppler imaging. AORTIC VALVE The aortic valve is trileaflet. The aortic valve is thickened but opens well. Doppler and Color Flow revealed no significant aortic regurgitation. There is no significant aortic valvular stenosis. MITRAL VALVE The mitral valve is thickened but opens well. There is no evidence of mitral valve prolapse. There is no mitral valve stenosis. Doppler and Color-flow revealed moderate mitral regurgitation. TRICUSPID VALVE The tricuspid valve is normal in structure and function. Doppler and Color Flow revealed mild to mode rate tricuspid regurgitation. There is moderate pulmonary hypertension. The PA pressure was estimated at 56 mmHg. There is no tricuspid valve prolapse or vegetation. There is no tricuspid valve stenosis . PULMONIC VALVE Pulmonic valve not well visualized. GREAT VESSELS The aortic root is normal in size. The ascending aorta is normal in size. The IVC is dilated and kirsten apses <50% with inspiration. PERICARDIAL EFFUSION There is no evidence of significant pericardial effusion. Critical Notification Critical Value: No <Conclusion> The left ventricular systolic function is normal and the ejection fraction is within normal range. Th e Ejection Fraction is 55%. There is normal LV segmental wall motion. Pacer lead noted in RV/RA. Doppler and Color-flow revealed moderate mitral regurgitation. Doppler and Color Flow revealed mild to moderate tricuspid regurgitation. There is moderate pulmonary hypertension. The PA pressure was estimated at 56 mmHg. Signed by : Randolph Acosta, Electronically Approved : 12/29/2018 09:49:44
--- NOTE | 2018-12-29 10:18 | PDOC ---
PROGRESS NOTES History of Present Illness History of Present Illness VTE Prophylaxis Ordered VTE Prophylaxis Devices: Yes VTE Pharmacological Prophylaxi: Yes Assessment/Plan Assessment/Plan impression 1. acute exac of CHF with pulm edema 2. hypertension 3. diabetes 4. 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 PCI/drug eluting stent placement to the left main coronary artery and successful PTCA to the ostium of the left circumflex artery 2016 6. Carotid disease s/p DOCUMENTATION LIAISON/stent placement to the left ICA and right endarterectomy 7. Moderate tricuspid regurgitation. 8. Remote tobacco abuse 9. Complete heart block s/p permanent pacemaker implantation: Recent device check showed normal function venous doppler legs neg for dvt plan admit diuresis lasix 40 mg x daily DUONEBS QID glucose control 02 SUPPORT PRN CARDIOLOGY following HOME MEDS DVT prophylaxis echo REVIEWED LOW SALT DIET ON DISMISSAL Vitals Vitals Vital Signs Date Time Temp Pulse Resp B/P (MAP) Pulse Ox O2 Delivery O2 Flow Rate FiO2 12/29/18 08:15 65 130/37 12/29/18 07:00 98.1 20 93 Nasal Cannula 2.0 98.1 Physical Exam General: Alert, Oriented X3, Cooperative, No acute distress Heart: Regular rate Lungs: Clear Abdomen: Normal bowel sounds, Soft, No tenderness Extremities: No cyanosis, Other (1-+ pitting pedal edema bilaterally) Skin: No significant lesion Labs LABS Laboratory Tests Test 12/28/18 12:22 12/28/18 13:05 12/28/18 16:16 12/28/18 20:23 Glucose (Fingerstick) 179 mg/dL (70-99) 91 mg/dL (70-99) 223 mg/dL (70-99) White Blood Count 7.6 x10^3/uL (4.0-11.0) Red Blood Count 3.66 x10^6/uL (3.50-5.40) Hemoglobin 11.3 g/dL (12.0-15.5) Hematocrit 34.2 % (36.0-47.0) Mean Corpuscular Volume 94 fL (79-100) Mean Corpuscular Hemoglobin 31 pg (25-35) Mean Corpuscular Hemoglobin Concent 33 g/dL (31-37) Red Cell Distribution Width 13.5 % (11.5-14.5) Platelet Count 223 x10^3/uL (140-400) Neutrophils (%) (Auto) 79 % (31-73) Lymphocytes (%) (Auto) 9 % (24-48) Monocytes (%) (Auto) 8 % (0-9) Eosinophils (%) (Auto) 3 % (0-3) Basophils (%) (Auto) 1 % (0-3) Neutrophils # (Auto) 6.0 x10^3uL (1.8-7.7) Lymphocytes # (Auto) 0.7 x10^3/uL (1.0-4.8) Monocytes # (Auto) 0.6 x10^3/uL (0.0-1.1) Eosinophils # (Auto) 0.2 x10^3/uL (0.0-0.7) Basophils # (Auto) 0.1 x10^3/uL (0.0-0.2) Sodium Level 137 mmol/L (136-145) Potassium Level 3.8 mmol/L (3.5-5.1) Chloride Level 98 mmol/L (98-107) Carbon Dioxide Level 29 mmol/L (21-32) Anion Gap 10 (6-14) Blood Urea Nitrogen 27 mg/dL (7-20) Creatinine 1.8 mg/dL (0.6-1.0) Estimated GFR (Cockcroft-Gault) 26.6 Glucose Level 177 mg/dL (70-99) Calcium Level 9.0 mg/dL (8.5-10.1) Test 12/29/18 05:30 12/29/18 07:40 White Blood Count 7.4 x10^3/uL (4.0-11.0) Red Blood Count 3.64 x10^6/uL (3.50-5.40) Hemoglobin 11.3 g/dL (12.0-15.5) Hematocrit 34.0 % (36.0-47.0) Mean Corpuscular Volume 93 fL (79-100) Mean Corpuscular Hemoglobin 31 pg (25-35) Mean Corpuscular Hemoglobin Concent 33 g/dL (31-37) Red Cell Distribution Width 13.6 % (11.5-14.5) Platelet Count 215 x10^3/uL (140-400) Neutrophils (%) (Auto) 71 % (31-73) Lymphocytes (%) (Auto) 12 % (24-48) Monocytes (%) (Auto) 11 % (0-9) Eosinophils (%) (Auto) 4 % (0-3) Basophils (%) (Auto) 1 % (0-3) Neutrophils # (Auto) 5.3 x10^3uL (1.8-7.7) Lymphocytes # (Auto) 0.9 x10^3/uL (1.0-4.8) Monocytes # (Auto) 0.8 x10^3/uL (0.0-1.1) Eosinophils # (Auto) 0.3 x10^3/uL (0.0-0.7) Basophils # (Auto) 0.1 x10^3/uL (0.0-0.2) Sodium Level 138 mmol/L (136-145) Potassium Level 3.8 mmol/L (3.5-5.1) Chloride Level 101 mmol/L (98-107) Carbon Dioxide Level 26 mmol/L (21-32) Anion Gap 11 (6-14) Blood Urea Nitrogen 23 mg/dL (7-20) Creatinine 1.6 mg/dL (0.6-1.0) Estimated GFR (Cockcroft-Gault) 30.4 Glucose Level 122 mg/dL (70-99) Calcium Level 9.1 mg/dL (8.5-10.1) Glucose (Fingerstick) 130 mg/dL (70-99) Assessment and Plan Assessmemt and Plan Problems Medical Problems: (1) Dyspnea Status: Acute (2) Pulmonary edema Status: Acute Comment Review of Relevant I have reviewed the following items kojo (where applicable) has been applied. Labs Laboratory Tests Test 12/27/18 16:33 12/27/18 21:04 12/28/18 00:34 12/28/18 07:10 Glucose (Fingerstick) 226 mg/dL (70-99) 70 mg/dL (70-99) 156 mg/dL (70-99) 79 mg/dL (70-99) Test 12/28/18 12:22 12/28/18 13:05 12/28/18 16:16 12/28/18 20:23 Glucose (Fingerstick) 179 mg/dL (70-99) 91 mg/dL (70-99) 223 mg/dL (70-99) White Blood Count 7.6 x10^3/uL (4.0-11.0) Red Blood Count 3.66 x10^6/uL (3.50-5.40) Hemoglobin 11.3 g/dL (12.0-15.5) Hematocrit 34.2 % (36.0-47.0) Mean Corpuscular Volume 94 fL (79-100) Mean Corpuscular Hemoglobin 31 pg (25-35) Mean Corpuscular Hemoglobin Concent 33 g/dL (31-37) Red Cell Distribution Width 13.5 % (11.5-14.5) Platelet Count 223 x10^3/uL (140-400) Neutrophils (%) (Auto) 79 % (31-73) Lymphocytes (%) (Auto) 9 % (24-48) Monocytes (%) (Auto) 8 % (0-9) Eosinophils (%) (Auto) 3 % (0-3) Basophils (%) (Auto) 1 % (0-3) Neutrophils # (Auto) 6.0 x10^3uL (1.8-7.7) Lymphocytes # (Auto) 0.7 x10^3/uL (1.0-4.8) Monocytes # (Auto) 0.6 x10^3/uL (0.0-1.1) Eosinophils # (Auto) 0.2 x10^3/uL (0.0-0.7) Basophils # (Auto) 0.1 x10^3/uL (0.0-0.2) Sodium Level 137 mmol/L (136-145) Potassium Level 3.8 mmol/L (3.5-5.1) Chloride Level 98 mmol/L (98-107) Carbon Dioxide Level 29 mmol/L (21-32) Anion Gap 10 (6-14) Blood Urea Nitrogen 27 mg/dL (7-20) Creatinine 1.8 mg/dL (0.6-1.0) Estimated GFR (Cockcroft-Gault) 26.6 Glucose Level 177 mg/dL (70-99) Calcium Level 9.0 mg/dL (8.5-10.1) Test 12/29/18 05:30 12/29/18 07:40 White Blood Count 7.4 x10^3/uL (4.0-11.0) Red Blood Count 3.64 x10^6/uL (3.50-5.40) Hemoglobin 11.3 g/dL (12.0-15.5) Hematocrit 34.0 % (36.0-47.0) Mean Corpuscular Volume 93 fL (79-100) Mean Corpuscular Hemoglobin 31 pg (25-35) Mean Corpuscular Hemoglobin Concent 33 g/dL (31-37) Red Cell Distribution Width 13.6 % (11.5-14.5) Platelet Count 215 x10^3/uL (140-400) Neutrophils (%) (Auto) 71 % (31-73) Lymphocytes (%) (Auto) 12 % (24-48) Monocytes (%) (Auto) 11 % (0-9) Eosinophils (%) (Auto) 4 % (0-3) Basophils (%) (Auto) 1 % (0-3) Neutrophils # (Auto) 5.3 x10^3uL (1.8-7.7) Lymphocytes # (Auto) 0.9 x10^3/uL (1.0-4.8) Monocytes # (Auto) 0.8 x10^3/uL (0.0-1.1) Eosinophils # (Auto) 0.3 x10^3/uL (0.0-0.7) Basophils # (Auto) 0.1 x10^3/uL (0.0-0.2) Sodium Level 138 mmol/L (136-145) Potassium Level 3.8 mmol/L (3.5-5.1) Chloride Level 101 mmol/L (98-107) Carbon Dioxide Level 26 mmol/L (21-32) Anion Gap 11 (6-14) Blood Urea Nitrogen 23 mg/dL (7-20) Creatinine 1.6 mg/dL (0.6-1.0) Estimated GFR (Cockcroft-Gault) 30.4 Glucose Level 122 mg/dL (70-99) Calcium Level 9.1 mg/dL (8.5-10.1) Glucose (Fingerstick) 130 mg/dL (70-99) Laboratory Tests Test 12/28/18 12:22 12/28/18 13:05 12/28/18 16:16 12/28/18 20:23 Glucose (Fingerstick) 179 mg/dL (70-99) 91 mg/dL (70-99) 223 mg/dL (70-99) White Blood Count 7.6 x10^3/uL (4.0-11.0) Red Blood Count 3.66 x10^6/uL (3.50-5.40) Hemoglobin 11.3 g/dL (12.0-15.5) Hematocrit 34.2 % (36.0-47.0) Mean Corpuscular Volume 94 fL (79-100) Mean Corpuscular Hemoglobin 31 pg (25-35) Mean Corpuscular Hemoglobin Concent 33 g/dL (31-37) Red Cell Distribution Width 13.5 % (11.5-14.5) Platelet Count 223 x10^3/uL (140-400) Neutrophils (%) (Auto) 79 % (31-73) Lymphocytes (%) (Auto) 9 % (24-48) Monocytes (%) (Auto) 8 % (0-9) Eosinophils (%) (Auto) 3 % (0-3) Basophils (%) (Auto) 1 % (0-3) Neutrophils # (Auto) 6.0 x10^3uL (1.8-7.7) Lymphocytes # (Auto) 0.7 x10^3/uL (1.0-4.8) Monocytes # (Auto) 0.6 x10^3/uL (0.0-1.1) Eosinophils # (Auto) 0.2 x10^3/uL (0.0-0.7) Basophils # (Auto) 0.1 x10^3/uL (0.0-0.2) Sodium Level 137 mmol/L (136-145) Potassium Level 3.8 mmol/L (3.5-5.1) Chloride Level 98 mmol/L (98-107) Carbon Dioxide Level 29 mmol/L (21-32) Anion Gap 10 (6-14) Blood Urea Nitrogen 27 mg/dL (7-20) Creatinine 1.8 mg/dL (0.6-1.0) Estimated GFR (Cockcroft-Gault) 26.6 Glucose Level 177 mg/dL (70-99) Calcium Level 9.0 mg/dL (8.5-10.1) Test 12/29/18 05:30 12/29/18 07:40 White Blood Count 7.4 x10^3/uL (4.0-11.0) Red Blood Count 3.64 x10^6/uL (3.50-5.40) Hemoglobin 11.3 g/dL (12.0-15.5) Hematocrit 34.0 % (36.0-47.0) Mean Corpuscular Volume 93 fL (79-100) Mean Corpuscular Hemoglobin 31 pg (25-35) Mean Corpuscular Hemoglobin Concent 33 g/dL (31-37) Red Cell Distribution Width 13.6 % (11.5-14.5) Platelet Count 215 x10^3/uL (140-400) Neutrophils (%) (Auto) 71 % (31-73) Lymphocytes (%) (Auto) 12 % (24-48) Monocytes (%) (Auto) 11 % (0-9) Eosinophils (%) (Auto) 4 % (0-3) Basophils (%) (Auto) 1 % (0-3) Neutrophils # (Auto) 5.3 x10^3uL (1.8-7.7) Lymphocytes # (Auto) 0.9 x10^3/uL (1.0-4.8) Monocytes # (Auto) 0.8 x10^3/uL (0.0-1.1) Eosinophils # (Auto) 0.3 x10^3/uL (0.0-0.7) Basophils # (Auto) 0.1 x10^3/uL (0.0-0.2) Sodium Level 138 mmol/L (136-145) Potassium Level 3.8 mmol/L (3.5-5.1) Chloride Level 101 mmol/L (98-107) Carbon Dioxide Level 26 mmol/L (21-32) Anion Gap 11 (6-14) Blood Urea Nitrogen 23 mg/dL (7-20) Creatinine 1.6 mg/dL (0.6-1.0) Estimated GFR (Cockcroft-Gault) 30.4 Glucose Level 122 mg/dL (70-99) Calcium Level 9.1 mg/dL (8.5-10.1) Glucose (Fingerstick) 130 mg/dL (70-99) Microbiology 12/26/18 Urine Culture - Preliminary, Resulted 12/26/18 Urine Culture Result 1 (NINO) - Preliminary, Resulted Medications Current Medications Furosemide (Lasix) 40 mg DAILY IVP ; Start 12/26/18 at 19:10; Status Cancel Acetaminophen (Tylenol) 500 mg PRN Q6HRS PRN PO MILD PAIN / TEMP Last administered on 12/26/18at 21:18; Start 12/26/18 at 19:15 Acetaminophen/ Codeine Phosphate (Tylenol #3) 1 tab PRN Q6HRS PRN PO MODERATE PAIN; Start 12/26/18 at 19:15 Temazepam (Restoril) 7.5 mg PRN QHS PRN PO INSOMNIA; Start 12/26/18 at 19:15 Albuterol Sulfate (Ventolin Neb Soln) 2.5 mg PRN Q4HRS PRN NEB SHORTNESS OF BREATH; Start 12/26/18 at 19:15 Guaifenesin (Robitussin Dm) 10 ml PRN Q6HRS PRN PO COUGH; Start 12/26/18 at 19: 15 Aspirin (Ecotrin) 81 mg DAILYWBKFT PO Last administered on 12/29/18at 08:13; Start 12/27/18 at 08:00 Cyanocobalamin (Vitamin B-12) 1,000 mcg QMONTH IM ; Start 01/25/19 at 09:00 Diclofenac Sodium (Voltaren) 4 adriana QID TP Last administered on 12/29/18 09:46; Start 12/26/18 at 21:00 Ferrous Sulfate (Feosol) 325 mg DAILY PO Last administered on 12/27/18at 08:25; Start 12/27/18 at 09:00 Isosorbide Mononitrate (Imdur) 30 mg DAILY PO Last administered on 12/29/18 08: 15; Start 12/27/18 at 09:00 Metoprolol Tartrate (Lopressor) 25 mg BID PO Last administered on 12/29/18 08: 15; Start 12/26/18 at 21:00 Nitroglycerin (Nitrostat) 0.4 mg PRN Q5MIN PRN SL CHEST PAIN; Start 12/26/18 at 19:15 Oxybutynin Chloride (Ditropan) 5 mg DAILY PO Last administered on 12/29/18 08: 14; Start 12/27/18 at 09:00 Potassium Chloride (Klor-Con) 10 meq DAILY PO Last administered on 12/29/18 08: 14; Start 12/27/18 at 09:00 Ticagrelor (Brilinta) 90 mg BID PO Last administered on 12/29/18 08:13; Start 12/26/18 at 21:00 Non-Formulary Medication (Amlodipine Besylate/ Benazepril (Lotrel 10-20 Mg Capsule)) 1 each DAILY PO ; Start 12/27/18 at 09:00; Status UNV Calcium/Vitamin D (Oscal D 500mg/ 200uts) 1 tab DAILY PO Last administered on 10:01; Start 12/27/18 at 09:00 Non-Formulary Medication (Denosumab (Prolia)) 60 mg Q6 MONTHS SQ ; Start at 19:15; Status UNV Glipizide (Glucotrol) 5 mg BIDBFRMEAL PO Last administered on 12/29/18 08:14; Start 12/27/18 at 07:30 Insulin Glargine (Lantus) 8 units DAILY SQ Last administered on 12/29/18 08:26 ; Start 12/27/18 at 09:00 Magnesium Chloride (Mag Delay) 64 mg DAILY PO Last administered on 12/28/18 10: 06; Start 12/27/18 at 09:00 Metformin HCl (Glucophage) 500 mg BIDWMEALS PO ; Start 12/26/18 at 20:00; Stop at 14:46; Status DC Pantoprazole Sodium (Protonix) 40 mg DAILYAC PO Last administered on 12/29/18 08:13; Start 12/27/18 at 07:30 Atorvastatin Calcium (Lipitor) 40 mg QHS PO ; Start 12/26/18 at 21:00; Status Cancel Multivitamins/ Minerals (I-Jimmy) 1 tab DAILY PO Last administered on 12/29/18 08:14; Start 12/27/18 at 09:00 Furosemide (Lasix) 20 mg DAILY IVP Last administered on 12/27/18 08:27; Start 12/27/18 at 09:00; Stop 12/27/18 at 13:52; Status DC Insulin Human Lispro (HumaLOG) 0-9 UNITS TIDWMEALS SQ Last administered on 12:00; Start 12/26/18 at 20:00 Dextrose (Dextrose 50%-Water Syringe) 12.5 gm PRN Q15MIN PRN IV SEE COMMENTS; Start 12/26/18 at 19:15 Amlodipine Besylate (Norvasc) 10 mg DAILY PO Last administered on 12/29/18at 08: 14; Start 12/27/18 at 09:00 Lisinopril (Prinivil) 20 mg DAILY PO Last administered on 12/29/18at 08:15; Start 12/27/18 at 09:00 Atorvastatin Calcium (Lipitor) 20 mg QHS PO Last administered on 12/28/18at 21:11 ; Start 12/26/18 at 21:00 Furosemide (Lasix) 40 mg 1X ONCE IVP Last administered on 12/27/18at 10:58; Start 12/27/18 at 10:30; Stop 12/27/18 at 10:31; Status DC Enoxaparin Sodium (Lovenox 30mg Syringe) 30 mg Q24H SQ Last administered on 12/28at 14:34; Start 12/27/18 at 14:00 Furosemide (Lasix) 40 mg DAILY IVP ; Start 12/27/18 at 14:00; Status Cancel Furosemide (Lasix) 40 mg DAILY IVP Last administered on 12/29/18at 08:16; Start 12/28/18 at 09:00 Active Scripts Active Levemir (Insulin Detemir) 100 Unit/1 Ml Vial 8 Unit SQ DAILY Keflex (Cephalexin) 500 Mg Capsule 1 Cap PO BID Brilinta (Ticagrelor) 90 Mg Tablet 90 Mg PO BID SIG: ONE TAB TWICE DAILY; DO NOT STOP WITHOUT INSTRUCTIONS FROM [employer] Aspirin Ec (Aspirin) 81 Mg Tablet.dr 81 Mg PO DAILYWBKFT Metformin Hcl 500 Mg Tablet 1 Tab PO BID MAY RESUME ON 11/23/2016 Reported Metoprolol Tartrate 25 Mg Tablet 25 Mg PO BID Isosorbide Mononitrate Er (Isosorbide Mononitrate) 30 Mg Tab.er.24h 30 Mg PO DAILY Cyanocobalamin Injection (Cyanocobalamin (Vitamin B-12)) 1,000 Mcg/1 Ml Vial 1, 000 Mcg IJ QMONTH Magnesium (Magnesium Amino Acid Chelate) 100 Mg Tablet 100 Mg PO DAILY Calcium 600 + Vit D 200 Tablet (Calcium Carbonate/Vitamin D3) 1 Each Tablet 1 Each PO DAILY Prolia (Denosumab) 60 Mg/1 Ml Disp.syrin 60 Mg SQ Q6 MONTHS Voltaren (Diclofenac Sodium) 100 Gm Gel..gram. 4 Gm TP QID Furosemide 20 Mg Tablet 20 Mg PO DAILY Ocuvite Softgel (Vit C/Vit E/Lutein/Min/[place]-3) 1 Each Capsule 1 Cap PO DAILY Lotrel 10-20 Mg Capsule (Amlodipine Besylate/Benazepril) 1 Each Capsule 1 Each PO DAILY NITROGLYCERIN SubLingual (Nitroglycerin) 0.4 Mg Tab.subl 0.4 Mg SL PRN Q5MIN PRN Ferrous Sulfate 325 Mg Tablet 325 Tab PO TWICE WEEKLY Glipizide 10 Mg Tablet 0.5 Tab PO BID Potassium Chloride 10 Meq Capsule.er 1 Cap PO DAILY Oxybutynin Chloride 5 Mg Tablet 1 Tab PO DAILY Omeprazole 20 Mg Capsule.dr 1 Cap PO DAILY Simvastatin 80 Mg Tablet 40 Mg PO QHS Vitals/I & O Vital Sign - Last 24 Hours 12/28/18 12/28/18 12/28/18 12/28/18 11:00 15:53 19:00 20:00 Temp 97.7 98.6 97.5 97.7 98.6 97.5 Pulse 63 60 61 Resp 18 18 18 B/P (MAP) 145/45 (78) 125/38 (67) 141/52 (81) Pulse Ox 98 95 94 O2 Delivery Nasal Cannula Nasal Cannula Nasal Cannula Nasal Cannula O2 Flow Rate 2.0 2.0 2.0 2.0 12/28/18 12/28/18 12/29/18 12/29/18 21:11 23:00 03:00 07:00 Temp 97.7 98.1 98.1 97.7 98.1 98.1 Pulse 61 60 59 65 Resp 18 18 20 B/P (MAP) 141/52 130/79 (96) 133/39 (70) 130/37 (68) Pulse Ox 97 90 93 O2 Delivery Nasal Cannula Nasal Cannula Nasal Cannula O2 Flow Rate 2.0 2.0 2.0 12/29/18 12/29/18 12/29/18 12/29/18 08:14 08:15 08:15 08:15 Pulse 65 65 65 65 B/P (MAP) 130/37 130/37 130/37 130/37 Intake and Output 12/28/18 12/28/18 12/29/18 15:01 23:01 07:01 Intake Total 760 ml 160 ml Output Total 400 ml Balance 360 ml 160 ml DAWNA MCNAMARA MD Dec 29, 2018 10:18
[2018-12-29 11:33] VITALS: BP 110/55
[2018-12-29] MEDS ORDERED: FURO20TA3 PO (12:55)
--- NOTE | 2018-12-29 12:56 | DISCH ---
DISCHARGE INSTRUCTIONS Condition on Discharge Condition on Discharge: Stable Activity After Discharge Activity Instructions for Disc: Activity as tolerated Bathing Instructions: Shower-keep dressing dry Lifting Instructions after Dis: No heavy lifting Exercise Instruction after Dis: Progress as tolerated Driving Instructions after Dis: Do not drive Weight Bearing Status after Di: As tolerated Diet after Discharge Diet after Discharge: Cardiac, Diabetic No Calorie Level Wound Incision Care Wound/Incision Care: Keep wound/cast CDI Checks after Discharge Checks after discharge: Check blood press - daily, Check blood sugar, ac/hs Contacting the DR. after DC Call your doctor for: If your condition worsens Treatment/Equipment after DC Adaptive Equipment Issued: None DAWNA MCNAMARA MD Dec 29, 2018 12:56
--- NOTE | 2018-12-29 13:00 | PDOC3 ---
Discharge Summary Date of Admission: Dec 26, 2018 Date of Discharge: Dec 29, 2018 Follow-Up: 3-5 days Admitting Diagnosis comment: DISCHARGE DX =- Assessment/Plan impression 1. acute exac of CHF with pulm edema 2. hypertension 3. diabetes 4. 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 PCI/drug eluting stent placement to the left main coronary artery and successful PTCA to the ostium of the left circumflex artery 2016 6. Carotid disease s/p CAR BODY INSPECTOR/stent placement to the left ICA and right endarterectomy 7. Moderate tricuspid regurgitation. 8. Remote tobacco abuse 9. Complete heart block s/p permanent pacemaker implantation: Recent device check showed normal function venous doppler legs neg for dvt plan HOME TODAY diuresis lasix 40 mg PO x daily DUONEBS QID glucose control 02 AT CARDIOLOGY following OK WITH D/C TODAY HOME MEDS DVT prophylaxis echo REVIEWED LOW SALT DIET ON DISMISSAL Vitals Vitals Vital Signs Date Time Temp Pulse Resp B/P (MAP) Pulse Ox O2 Delivery O2 Flow Rate FiO2 12/29/18 08:15 65 130/37 12/29/18 07:00 98.1 20 93 Nasal Cannula 2.0 98.1 Physical Exam General: Alert, Oriented X3, Cooperative, No acute distress Heart: Regular rate Lungs: Clear Abdomen: Normal bowel sounds, Soft, No tenderness Extremities: No cyanosis, Other (0-+ pitting pedal edema bilaterally) Skin: No significant lesion FINAL DIAGNOSIS Problems Medical Problems: (1) Dyspnea Status: Acute (2) Pulmonary edema Status: Acute Brief Hospital Course Ms. Shay is a 88 old [sex] who presented with [ACUTE CHF ] CONDITION AT DISCHARGE: Improved Discharge Medications Current Medications Furosemide (Lasix) 40 mg DAILY IVP ; Start 12/26/18 at 19:10; Status Cancel Acetaminophen (Tylenol) 500 mg PRN Q6HRS PRN PO MILD PAIN / TEMP Last administered on 12/26/18at 21:18; Start 12/26/18 at 19:15 Acetaminophen/ Codeine Phosphate (Tylenol #3) 1 tab PRN Q6HRS PRN PO MODERATE PAIN; Start 12/26/18 at 19:15 Temazepam (Restoril) 7.5 mg PRN QHS PRN PO INSOMNIA; Start 12/26/18 at 19:15 Albuterol Sulfate (Ventolin Neb Soln) 2.5 mg PRN Q4HRS PRN NEB SHORTNESS OF BREATH; Start 12/26/18 at 19:15 Guaifenesin (Robitussin Dm) 10 ml PRN Q6HRS PRN PO COUGH; Start 12/26/18 at 19: 15 Aspirin (Ecotrin) 81 mg DAILYWBKFT PO Last administered on 12/29/18at 08:13; Start 12/27/18 at 08:00 Cyanocobalamin (Vitamin B-12) 1,000 mcg QMONTH IM ; Start 01/25/19 at 09:00 Diclofenac Sodium (Voltaren) 4 adriana QID TP Last administered on 12/29/18at 09:46; Start 12/26/18 at 21:00 Ferrous Sulfate (Feosol) 325 mg DAILY PO Last administered on 12/27/18at 08:25; Start 12/27/18 at 09:00 Isosorbide Mononitrate (Imdur) 30 mg DAILY PO Last administered on 12/29/18at 08: 15; Start 12/27/18 at 09:00 Metoprolol Tartrate (Lopressor) 25 mg BID PO Last administered on 12/29/18 08: 15; Start 12/26/18 at 21:00 Nitroglycerin (Nitrostat) 0.4 mg PRN Q5MIN PRN SL CHEST PAIN; Start 12/26/18 at 19:15 Oxybutynin Chloride (Ditropan) 5 mg DAILY PO Last administered on 12/29/18at 08: 14; Start 12/27/18 at 09:00 Potassium Chloride (Klor-Con) 10 meq DAILY PO Last administered on 12/29/18at 08: 14; Start 12/27/18 at 09:00 Ticagrelor (Brilinta) 90 mg BID PO Last administered on 12/29/18at 08:13; Start 12/26/18 at 21:00 Non-Formulary Medication (Amlodipine Besylate/ Benazepril (Lotrel 10-20 Mg Capsule)) 1 each DAILY PO ; Start 12/27/18 at 09:00; Status UNV Calcium/Vitamin D (Oscal D 500mg/ 200uts) 1 tab DAILY PO Last administered on 10:01; Start 12/27/18 at 09:00 Non-Formulary Medication (Denosumab (Prolia)) 60 mg Q6 MONTHS SQ ; Start at 19:15; Status UNV Glipizide (Glucotrol) 5 mg BIDBFRMEAL PO Last administered on 12/29/18 08:14; Start 12/27/18 at 07:30 Insulin Glargine (Lantus) 8 units DAILY SQ Last administered on 12/29/18 08:26 ; Start 12/27/18 at 09:00 Magnesium Chloride (Mag Delay) 64 mg DAILY PO Last administered on 12/28/18 10: 06; Start 12/27/18 at 09:00 Metformin HCl (Glucophage) 500 mg BIDWMEALS PO ; Start 12/26/18 at 20:00; Stop at 14:46; Status DC Pantoprazole Sodium (Protonix) 40 mg DAILYAC PO Last administered on 12/29/18 08:13; Start 12/27/18 at 07:30 Atorvastatin Calcium (Lipitor) 40 mg QHS PO ; Start 12/26/18 at 21:00; Status Cancel Multivitamins/ Minerals (I-Jimmy) 1 tab DAILY PO Last administered on 12/29/18 08:14; Start 12/27/18 at 09:00 Furosemide (Lasix) 20 mg DAILY IVP Last administered on 12/27/18 08:27; Start 12/27/18 at 09:00; Stop 12/27/18 at 13:52; Status DC Insulin Human Lispro (HumaLOG) 0-9 UNITS TIDWMEALS SQ Last administered on at 12:00; Start 12/26/18 at 20:00 Dextrose (Dextrose 50%-Water Syringe) 12.5 gm PRN Q15MIN PRN IV SEE COMMENTS; Start 12/26/18 at 19:15 Amlodipine Besylate (Norvasc) 10 mg DAILY PO Last administered on 12/29/18 08: 14; Start 12/27/18 at 09:00 Lisinopril (Prinivil) 20 mg DAILY PO Last administered on 12/29/18 08:15; Start 12/27/18 at 09:00 Atorvastatin Calcium (Lipitor) 20 mg QHS PO Last administered on 12/28/18at 21:11 ; Start 12/26/18 at 21:00 Furosemide (Lasix) 40 mg 1X ONCE IVP Last administered on 12/27/18at 10:58; Start 12/27/18 at 10:30; Stop 12/27/18 at 10:31; Status DC Enoxaparin Sodium (Lovenox 30mg Syringe) 30 mg Q24H SQ Last administered on 12/28at 14:34; Start 12/27/18 at 14:00 Furosemide (Lasix) 40 mg DAILY IVP ; Start 12/27/18 at 14:00; Status Cancel Furosemide (Lasix) 40 mg DAILY IVP Last administered on 12/29/18at 08:16; Start 12/28/18 at 09:00 Active Scripts Active Furosemide 20 Mg Tablet 40 Mg PO DAILY 30 Days Levemir (Insulin Detemir) 100 Unit/1 Ml Vial 8 Unit SQ DAILY Brilinta (Ticagrelor) 90 Mg Tablet 90 Mg PO BID SIG: ONE TAB TWICE DAILY; DO NOT STOP WITHOUT INSTRUCTIONS FROM LOAN REPRESENTATIVE Aspirin Ec (Aspirin) 81 Mg Tablet. 81 Mg PO DAILYWBKFT Reported Metoprolol Tartrate 25 Mg Tablet 25 Mg PO BID Isosorbide Mononitrate Er (Isosorbide Mononitrate) 30 Mg Tab.er.24h 30 Mg PO DAILY Cyanocobalamin Injection (Cyanocobalamin (Vitamin B-12)) 1,000 Mcg/1 Ml Vial 1, 000 Mcg IJ QMONTH Magnesium (Magnesium Amino Acid Chelate) 100 Mg Tablet 100 Mg PO DAILY Calcium 600 + Vit D 200 Tablet (Calcium Carbonate/Vitamin D3) 1 Each Tablet 1 Each PO DAILY Prolia (Denosumab) 60 Mg/1 Ml Disp.syrin 60 Mg SQ Q6 MONTHS Voltaren (Diclofenac Sodium) 100 Gm Gel..gram. 4 Gm TP QID Ocuvite Softgel (Vit C/Vit E/Lutein/Min/Tarrs-3) 1 Each Capsule 1 Cap PO DAILY Lotrel 10-20 Mg Capsule (Amlodipine Besylate/Benazepril) 1 Each Capsule 1 Each PO DAILY NITROGLYCERIN SubLingual (Nitroglycerin) 0.4 Mg Tab.subl 0.4 Mg SL PRN Q5MIN PRN Ferrous Sulfate 325 Mg Tablet 325 Tab PO TWICE WEEKLY Glipizide 10 Mg Tablet 0.5 Tab PO BID Potassium Chloride 10 Meq Capsule.er 1 Cap PO DAILY Oxybutynin Chloride 5 Mg Tablet 1 Tab PO DAILY Omeprazole 20 Mg Capsule.dr 1 Cap PO DAILY Simvastatin 80 Mg Tablet 40 Mg PO QHS Vital Signs Vital Signs Date Time Temp Pulse Resp B/P (MAP) Pulse Ox O2 Delivery O2 Flow Rate FiO2 12/29/18 11:33 97.6 60 20 110/55 (73) 93 Nasal Cannula 2.0 97.6 Labs Laboratory Tests Test 12/27/18 16:33 12/27/18 21:04 12/28/18 00:34 12/28/18 07:10 Glucose (Fingerstick) 226 mg/dL (70-99) 70 mg/dL (70-99) 156 mg/dL (70-99) 79 mg/dL (70-99) Test 12/28/18 12:22 12/28/18 13:05 12/28/18 16:16 12/28/18 20:23 Glucose (Fingerstick) 179 mg/dL (70-99) 91 mg/dL (70-99) 223 mg/dL (70-99) White Blood Count 7.6 x10^3/uL (4.0-11.0) Red Blood Count 3.66 x10^6/uL (3.50-5.40) Hemoglobin 11.3 g/dL (12.0-15.5) Hematocrit 34.2 % (36.0-47.0) Mean Corpuscular Volume 94 fL (79-100) Mean Corpuscular Hemoglobin 31 pg (25-35) Mean Corpuscular Hemoglobin Concent 33 g/dL (31-37) Red Cell Distribution Width 13.5 % (11.5-14.5) Platelet Count 223 x10^3/uL (140-400) Neutrophils (%) (Auto) 79 % (31-73) Lymphocytes (%) (Auto) 9 % (24-48) Monocytes (%) (Auto) 8 % (0-9) Eosinophils (%) (Auto) 3 % (0-3) Basophils (%) (Auto) 1 % (0-3) Neutrophils # (Auto) 6.0 x10^3uL (1.8-7.7) Lymphocytes # (Auto) 0.7 x10^3/uL (1.0-4.8) Monocytes # (Auto) 0.6 x10^3/uL (0.0-1.1) Eosinophils # (Auto) 0.2 x10^3/uL (0.0-0.7) Basophils # (Auto) 0.1 x10^3/uL (0.0-0.2) Sodium Level 137 mmol/L (136-145) Potassium Level 3.8 mmol/L (3.5-5.1) Chloride Level 98 mmol/L (98-107) Carbon Dioxide Level 29 mmol/L (21-32) Anion Gap 10 (6-14) Blood Urea Nitrogen 27 mg/dL (7-20) Creatinine 1.8 mg/dL (0.6-1.0) Estimated GFR (Cockcroft-Gault) 26.6 Glucose Level 177 mg/dL (70-99) Calcium Level 9.0 mg/dL (8.5-10.1) Test 12/29/18 05:30 12/29/18 07:40 12/29/18 10:39 White Blood Count 7.4 x10^3/uL (4.0-11.0) Red Blood Count 3.64 x10^6/uL (3.50-5.40) Hemoglobin 11.3 g/dL (12.0-15.5) Hematocrit 34.0 % (36.0-47.0) Mean Corpuscular Volume 93 fL (79-100) Mean Corpuscular Hemoglobin 31 pg (25-35) Mean Corpuscular Hemoglobin Concent 33 g/dL (31-37) Red Cell Distribution Width 13.6 % (11.5-14.5) Platelet Count 215 x10^3/uL (140-400) Neutrophils (%) (Auto) 71 % (31-73) Lymphocytes (%) (Auto) 12 % (24-48) Monocytes (%) (Auto) 11 % (0-9) Eosinophils (%) (Auto) 4 % (0-3) Basophils (%) (Auto) 1 % (0-3) Neutrophils # (Auto) 5.3 x10^3uL (1.8-7.7) Lymphocytes # (Auto) 0.9 x10^3/uL (1.0-4.8) Monocytes # (Auto) 0.8 x10^3/uL (0.0-1.1) Eosinophils # (Auto) 0.3 x10^3/uL (0.0-0.7) Basophils # (Auto) 0.1 x10^3/uL (0.0-0.2) Sodium Level 138 mmol/L (136-145) Potassium Level 3.8 mmol/L (3.5-5.1) Chloride Level 101 mmol/L (98-107) Carbon Dioxide Level 26 mmol/L (21-32) Anion Gap 11 (6-14) Blood Urea Nitrogen 23 mg/dL (7-20) Creatinine 1.6 mg/dL (0.6-1.0) Estimated GFR (Cockcroft-Gault) 30.4 Glucose Level 122 mg/dL (70-99) Calcium Level 9.1 mg/dL (8.5-10.1) Glucose (Fingerstick) 130 mg/dL (70-99) 159 mg/dL (70-99) Laboratory Tests Test 12/28/18 13:05 12/28/18 16:16 12/28/18 20:23 12/29/18 05:30 White Blood Count 7.6 x10^3/uL (4.0-11.0) 7.4 x10^3/uL (4.0-11.0) Red Blood Count 3.66 x10^6/uL (3.50-5.40) 3.64 x10^6/uL (3.50-5.40) Hemoglobin 11.3 g/dL (12.0-15.5) 11.3 g/dL (12.0-15.5) Hematocrit 34.2 % (36.0-47.0) 34.0 % (36.0-47.0) Mean Corpuscular Volume 94 fL (79-100) 93 fL (79-100) Mean Corpuscular Hemoglobin 31 pg (25-35) 31 pg (25-35) Mean Corpuscular Hemoglobin Concent 33 g/dL (31-37) 33 g/dL (31-37) Red Cell Distribution Width 13.5 % (11.5-14.5) 13.6 % (11.5-14.5) Platelet Count 223 x10^3/uL (140-400) 215 x10^3/uL (140-400) Neutrophils (%) (Auto) 79 % (31-73) 71 % (31-73) Lymphocytes (%) (Auto) 9 % (24-48) 12 % (24-48) Monocytes (%) (Auto) 8 % (0-9) 11 % (0-9) Eosinophils (%) (Auto) 3 % (0-3) 4 % (0-3) Basophils (%) (Auto) 1 % (0-3) 1 % (0-3) Neutrophils # (Auto) 6.0 x10^3uL (1.8-7.7) 5.3 x10^3uL (1.8-7.7) Lymphocytes # (Auto) 0.7 x10^3/uL (1.0-4.8) 0.9 x10^3/uL (1.0-4.8) Monocytes # (Auto) 0.6 x10^3/uL (0.0-1.1) 0.8 x10^3/uL (0.0-1.1) Eosinophils # (Auto) 0.2 x10^3/uL (0.0-0.7) 0.3 x10^3/uL (0.0-0.7) Basophils # (Auto) 0.1 x10^3/uL (0.0-0.2) 0.1 x10^3/uL (0.0-0.2) Sodium Level 137 mmol/L (136-145) 138 mmol/L (136-145) Potassium Level 3.8 mmol/L (3.5-5.1) 3.8 mmol/L (3.5-5.1) Chloride Level 98 mmol/L (98-107) 101 mmol/L (98-107) Carbon Dioxide Level 29 mmol/L (21-32) 26 mmol/L (21-32) Anion Gap 10 (6-14) 11 (6-14) Blood Urea Nitrogen 27 mg/dL (7-20) 23 mg/dL (7-20) Creatinine 1.8 mg/dL (0.6-1.0) 1.6 mg/dL (0.6-1.0) Estimated GFR (Cockcroft-Gault) 26.6 30.4 Glucose Level 177 mg/dL (70-99) 122 mg/dL (70-99) Calcium Level 9.0 mg/dL (8.5-10.1) 9.1 mg/dL (8.5-10.1) Glucose (Fingerstick) 91 mg/dL (70-99) 223 mg/dL (70-99) Test 12/29/18 07:40 12/29/18 10:39 Glucose (Fingerstick) 130 mg/dL (70-99) 159 mg/dL (70-99) Allergies Allergies Coded Allergies Type Severity Reaction Last Updated Verified Iodinated Contrast- Oral and IV Dye Allergy Intermediate 10/15/14 Yes Sulfa (Sulfonamide Antibiotics) Allergy Intermediate 11/21/16 Yes carvedilol Allergy Intermediate 10/15/14 Yes clopidogrel Allergy Intermediate 10/15/14 Yes glimepiride Allergy Intermediate 10/15/14 Yes raloxifene Allergy Intermediate 10/15/14 Yes ciprofloxacin Adverse Reaction Intermediate Vomiting 10/15/14 Yes Disposition/Orders: D/C to Home Patient Instructions D./C PLANNING 34 MIN DAWNA MCNAMARA MD Dec 29, 2018 13:00
--- NOTE | 2018-12-29 13:41 | NUR ---
Discharge Note: ANTHONY MAY Discharge instructions and discharge home medications reviewed with Patient and a copy given. All questions have been answered and understanding verbalized. The following instructions and handouts were given: discharge instructions, education, new prescription, and follow up recommendations. Discontinued lines and drains: Peripheral IV discontinued intact. Patient discharged to Home or Self Care with Family Member via Wheelchair off unit by RN
--- NOTE | 2018-12-29 15:48 | PDOC ---
PROGRESS NOTES Subjective Subjective Patient feeling much better. Wants to go home. Objective Objective Vital Signs Date Time Temp Pulse Resp B/P (MAP) Pulse Ox O2 Delivery O2 Flow Rate FiO2 12/29/18 11:33 97.6 60 20 110/55 (73) 93 Nasal Cannula 2.0 97.6 Intake and Output 12/29/18 07:01 Intake Total 920 ml Output Total 400 ml Balance 520 ml Intake Oral 920 ml Output Urine Total 400 ml # Voids 5 # Bowel Movements 1 Physical Exam Abdomen: Normal bowel sounds, Soft, No tenderness Heart: Regular rate Extremities: No cyanosis, Other (trace edema) General: Alert, Oriented X3, Cooperative, No acute distress HEENT: Atraumatic Lungs: Other (bilateral basal crepitations) MUSCULOSKELETAL: Osteoarthritic changes both hands Neuro: Normal speech, Strength at 5/5 X4 ext, Cranial nerves 3-12 NL Psych/Mental Status: Mood NL Skin: No significant lesion Assessment Assessment 1. Acute on chronic diastolic heart failure: Most probably secondary to noncompliance with oral salt intake as admitted by patient. Symptoms significantly improved with diuresis. Recent 2-D echocardiogram in September 2018 showed normal LV systolic function with EF 55-60%. 2. Coronary artery disease s/p PCI/stents placement to LMCA/LAD/LCx, presently stable and chest pain-free. Continue current secondary prevention measures. 3. Complete heart block s/p permanent pacemaker implantation: Recent device check showed normal function 4. Hypertension: Better controlled since admission 5. Hyperlipidemia: Continue statin therapy 6. Diabetes mellitus type 2: Treat per IM Okay for discharge from cardiac standpoint. Follow-up in 1 month. Plan Plan of Care Problems Medical Problems: (1) Dyspnea Status: Acute (2) Pulmonary edema Status: Acute Comment Review of Relevant I have reviewed the following items kojo (where applicable) has been applied. Labs Laboratory Tests Test 12/28/18 16:16 12/28/18 20:23 12/29/18 05:30 12/29/18 07:40 Glucose (Fingerstick) 91 mg/dL (70-99) 223 mg/dL (70-99) 130 mg/dL (70-99) White Blood Count 7.4 x10^3/uL (4.0-11.0) Red Blood Count 3.64 x10^6/uL (3.50-5.40) Hemoglobin 11.3 g/dL (12.0-15.5) Hematocrit 34.0 % (36.0-47.0) Mean Corpuscular Volume 93 fL (79-100) Mean Corpuscular Hemoglobin 31 pg (25-35) Mean Corpuscular Hemoglobin Concent 33 g/dL (31-37) Red Cell Distribution Width 13.6 % (11.5-14.5) Platelet Count 215 x10^3/uL (140-400) Neutrophils (%) (Auto) 71 % (31-73) Lymphocytes (%) (Auto) 12 % (24-48) Monocytes (%) (Auto) 11 % (0-9) Eosinophils (%) (Auto) 4 % (0-3) Basophils (%) (Auto) 1 % (0-3) Neutrophils # (Auto) 5.3 x10^3uL (1.8-7.7) Lymphocytes # (Auto) 0.9 x10^3/uL (1.0-4.8) Monocytes # (Auto) 0.8 x10^3/uL (0.0-1.1) Eosinophils # (Auto) 0.3 x10^3/uL (0.0-0.7) Basophils # (Auto) 0.1 x10^3/uL (0.0-0.2) Sodium Level 138 mmol/L (136-145) Potassium Level 3.8 mmol/L (3.5-5.1) Chloride Level 101 mmol/L (98-107) Carbon Dioxide Level 26 mmol/L (21-32) Anion Gap 11 (6-14) Blood Urea Nitrogen 23 mg/dL (7-20) Creatinine 1.6 mg/dL (0.6-1.0) Estimated GFR (Cockcroft-Gault) 30.4 Glucose Level 122 mg/dL (70-99) Calcium Level 9.1 mg/dL (8.5-10.1) Test 12/29/18 10:39 Glucose (Fingerstick) 159 mg/dL (70-99) Microbiology 12/26/18 Urine Culture - Preliminary, Resulted 12/26/18 Urine Culture Result 1 (NINO) - Preliminary, Resulted Medications Current Medications Cyanocobalamin (Vitamin B-12) 1,000 mcg QMONTH IM ; Start 01/25/19 at 09:00; Stop 3/3/19 at 09:00; Status DC Vitals/I & O Vital Sign - Last 24 Hours 12/28/18 12/28/18 12/28/18 12/28/18 15:53 19:00 20:00 21:11 Temp 98.6 97.5 98.6 97.5 Pulse 60 61 61 Resp 18 18 B/P (MAP) 125/38 (67) 141/52 (81) 141/52 Pulse Ox 95 94 O2 Delivery Nasal Cannula Nasal Cannula Nasal Cannula O2 Flow Rate 2.0 2.0 2.0 12/28/18 12/29/18 12/29/18 12/29/18 23:00 03:00 07:00 08:14 Temp 97.7 98.1 98.1 97.7 98.1 98.1 Pulse 60 59 65 65 Resp 18 18 20 B/P (MAP) 130/79 (96) 133/39 (70) 130/37 (68) 130/37 Pulse Ox 97 90 93 O2 Delivery Nasal Cannula Nasal Cannula Nasal Cannula O2 Flow Rate 2.0 2.0 2.0 12/29/18 12/29/18 12/29/18 12/29/18 08:15 08:15 08:15 08:15 Pulse 65 65 65 B/P (MAP) 130/37 130/37 130/37 O2 Delivery Nasal Cannula O2 Flow Rate 2.0 12/29/18 11:33 Temp 97.6 97.6 Pulse 60 Resp 20 B/P (MAP) 110/55 (73) Pulse Ox 93 O2 Delivery Nasal Cannula O2 Flow Rate 2.0 Intake and Output 12/28/18 12/28/18 12/29/18 15:01 23:01 07:01 Intake Total 760 ml 160 ml Output Total 400 ml Balance 360 ml 160 ml KATIE SHABAZZ MD Dec 29, 2018 15:47
[2019-01-25] MEDS ORDERED: CYANOCOBALAMIN (VITAMIN B-12) 1,000 MCG/ML VIAL IM SCH (09:00)
== END 2018-12-29 13:42 | disposition home or self-care (01) | DRG 291 ==
LOC: ER 16:43 → 5 NORTH 18:55
PROVIDERS: ADMIT Internal Medicine; ATTEND Internal Medicine
DX: I13.0 Hypertensive heart and chronic kidney disease with heart failure and stage 1 through stage 4 chronic kidney disease, or unspecified chronic kidney disease (principal); N17.0 Acute kidney failure with tubular necrosis; I50.33 Acute on chronic diastolic (congestive) heart failure; I27.20 Pulmonary hypertension, unspecified; I07.1 Rheumatic tricuspid insufficiency; Z95.0 Presence of cardiac pacemaker; E78.5 Hyperlipidemia, unspecified; B34.9 Viral infection, unspecified; E11.9 Type 2 diabetes mellitus without complications; E78.00 Pure hypercholesterolemia, unspecified; I25.10 Atherosclerotic heart disease of native coronary artery without angina pectoris; M19.90 Unspecified osteoarthritis, unspecified site; J44.9 Chronic obstructive pulmonary disease, unspecified; K21.9 Gastro-esophageal reflux disease without esophagitis; Z87.891 Personal history of nicotine dependence; Z90.49 Acquired absence of other specified parts of digestive tract; Z90.710 Acquired absence of both cervix and uterus; Z91.19 Patient's noncompliance with other medical treatment and regimen; Z95.5 Presence of coronary angioplasty implant and graft; Z88.2 Allergy status to sulfonamides; Z88.8 Allergy status to other drugs, medicaments and biological substances; Z88.6 Allergy status to analgesic agent; Z88.1 Allergy status to other antibiotic agents; Z91.041 Radiographic dye allergy status; N18.3 Chronic kidney disease, stage 3 (moderate)
CPT/HCPCS: 36415; 71045; 80048; 80053; 81001; 82962; 83735; 83880; 84484; 85025; 87086; 87186; 93005; 93306; 93970; J1650; J1815; J1940; 97535; 99285-25; G0378

== ENCOUNTER → 2019-04-06 | Outpatient (CLI) | payer MEDICARE ==
[~2019-04-06] MED LIST changes: +REGADENOSON 0.4 MG/5 ML DISP.SYRIN. IV ONE
--- NOTE | 2019-04-06 14:03 | RAD ---
MR#: [id number] Date of Study: 04/06/2019 Ordering Physician: KATIE SHABAZZ, Referring Physician: RAISA MATA Tech: FINESSE Warner APPROVED REPORT Test Type: Pharmacological Stress Nurse/Tech: Homar MARTINEZ Test Indications: CAD Cardiac History: CAD, CHF, Cardiac Stents placed 2-3yrs ago, PPM, HTN, See EMR Medications: ASA, See EMR Medical History: DM, X-Smoker, See EMR Resting ECG: Paced Resting Heart Rate: 78 bpm Resting Blood Pressure: 149/64mmHg Pretest Chest Pain: No chest pain Nurse/Tech Notes Lungs Diminished throughout; pt sating 87% on RA. Pauline ROLL FORM OPERATOR notified. Pt placed on 2L NC sating 96%. Pt denies any chest pain or discomfort at this time. Pt explained having some chest pain on 04/05; madisyn t was relieved with taking sublingual nitro. Heart tones regular. Consent: The procedure was explained to the patient in lay terms. Informed consent was witnessed. Itz eout was entered into [employer]. History and Stress Test performed by FINESSE Warner Pharm. Details Pharmacologic stress testing was performed using 0.4mg per 5ml of regadenoson given intravenously ove r 7-10 seconds. Stress Symptoms Dyspnea POST EXERCISE Reason for Termination: Infusion complete Max HR: 128 bpm Max Blood Pressure: 146/48mmHg Blood Pressure response to exercise: Normal blood pressure response during stress. Chest Pain: No. Arrhythmia: Y. ST Change: No. INTERPRETATION Stress EKG Conclusion: The resting EKG shows a sinus, V paced rhythm. The patient remains that of the patient's rhythm throughout the study. Imaging Protocol IMAGE PROTOCOL: Rest Tc-99m/stress Tc-99m 1 day Rest: Stress: Viability: Radiopharm.Tc99m [id number] Sestamibi Dose10.5mCi 33mCi Duration 16min. 13min. Img Date 04/06/2019 04/06/2019 Inj-Img Hbzw64tlp. 60min. Rest Admin Site:IV - Left AntecubitalAdministrator:FINESSE Warner Stress Admin Site: IV - Left AntecubitalAdministrator: FINESSE Warner STRESS DATA End Diast. Vol.87.0mlLVEDV index BSA57.0ml End Syst. Vol.28.0mlLVESV index BSA18.0ml Myocardial Tuzz965.0gEject. Qftzabyb87.0% Stress Scores Regional WT0.00Summed WT7.00 Regional WM0.00Summed WM7.00 LV Perfusion The stress scans show no significant defects. The rest scans show no significant defects. Nuclear imaging shows no reversible ischemia or infarct. Wall Motion Left ventricular systolic function is normal with an ejection fraction of 68%. LV Perf. Quant 17 Seg. SSS1.00 17 Seg. SRS7.00 17 Seg. SDS0.00 Stress Defect Extent (% LAD)3.10Rest Defect Extent (% LAD)3.80Rev. Defect Extent (% LAD)0.00 Stress Defect Extent (% LCX) 5.00Rest Defect Extent (% LCX)37.50Rev. Defect Extent (% LCX)0.00 Stress Defect Extent (% RCA)0.00Rest Defect Extent (% RCA)1.10Rev. Defect Extent (% RCA)0.00 Stress Defect Extent (% JAZMYN)2.00Rest Defect Extent (% JAZMYN)11.70Rev. Defect Extent (% JAZMYN)0.00 Conclusion 1. V paced rhythm. 2. Nuclear imaging shows no reversible ischemia or infarct. 3. Normal left ventricular systolic function with an ejection fraction of 68%. 4. Moderately low risk Lexiscan nuclear stress test. Signed by : Bonifacio Childers MD Electronically Approved : 04/06/2019 14:02:42
== END | disposition home or self-care (01) ==
LOC: NM 08:29
PROVIDERS: ATTEND Internal Medicine Cardiovascular Disease
DX: I25.10 Atherosclerotic heart disease of native coronary artery without angina pectoris (principal); I11.0 Hypertensive heart disease with heart failure; I50.9 Heart failure, unspecified; E11.9 Type 2 diabetes mellitus without complications; Z87.891 Personal history of nicotine dependence
CPT/HCPCS: 78452; 93017; A9500; J2785

== ENCOUNTER 2019-08-08 16:03 | Inpatient (IN) | payer MEDICARE ==
[~2019-08-08] VITALS: Ht 152.4 cm; Wt 60.4 kg
[~2019-08-08 16:03] MED LIST changes: +OXYB5TAB10 PO; -OXYB5TAB7 PO; -REGADENOSON 0.4 MG/5 ML DISP.SYRIN. IV ONE
[2019-08-08] MEDS ORDERED: DEXTROSE 50% 25 GM / 50ML DISP.SYRIN. IV PRN (18:15)
[2019-08-08] MEDS ORDERED: IV DEXTROSE 5% 250 ML BAG. IV PRN (18:15)
[2019-08-08] MEDS ORDERED: IV NORMAL SALINE 1000ML BAG 1,000 ML IV SCH (19:00)
[2019-08-08 19:15] VITALS: BP 176/58
[2019-08-08] MEDS: ONDANSETRON PF 4 MG/2 ML VIAL. IV PRN (19:38)
[2019-08-08] MEDS: ACETAMINOPHEN/CODEINE 300/30MG TABLET. PO PRN (19:42)
[2019-08-08] MEDS: guaiFENesin ORAL 200 MG/10 ML LIQUID. PO PRN (19:42)
--- NOTE | 2019-08-08 20:12 | NUR ---
Client was admitted to unit at approximately 1645 via EMS transport. Client is on 2 L of oxygen, A&Ox4, states she is in pain but its "chronic pain". Photographs were taken of R buttock, consults were done for Dr. Franco, Dr. Art, and Dr. Mcclure. All consults are routine. Client was oriented to the room, policy and procedures. Will continue to monitor.
[2019-08-08] MEDS: LACTOBACILLUS RHAMNOSUS GG 1 CAPSULE. PO SCH (20:17)
[2019-08-08] MEDS: cefTRIAXone IV Push 1 GM VIAL. IVP SCH (20:17)
[2019-08-08] MEDS: GABAPENTIN 100 MG CAPSULE. PO SCH (20:18)
[2019-08-08] MEDS: TICAGRELOR 90 MG TABLET. PO SCH (20:18)
[2019-08-08] MEDS: METOPROLOL TART IMMED RELEASE 25 MG TABLET. PO SCH (20:18)
[2019-08-08] MEDS: AZITHROMYCIN 500 MG in IV NORMAL SALINE 250ML 250 ML IV SCH (20:19)
[2019-08-08] MEDS: IPRATRPIUM/ALBUTEROL 0.5/2.5MG 3 ML NEBU. NEB SCH (21:03)
[2019-08-08 23:03] VITALS: BP 113/58
[2019-08-08] MEDS: ATORVASTATIN CALCIUM 10 MG TABLET. PO SCH (23:21)
[2019-08-09 03:36] VITALS: BP 141/81
[2019-08-09] MEDS: PANTOPRAZOLE 40 MG TABLET.DR. PO SCH (06:36)
[2019-08-09 07:00] VITALS: BP 155/88
[2019-08-09] MEDS: IPRATRPIUM/ALBUTEROL 0.5/2.5MG 3 ML NEBU. NEB SCH ×4 (07:57→19:58)
[2019-08-09] MEDS: INSULIN LISPRO 300 UNITS/3 ML VIAL. SQ SCH ×3 (08:00→17:00)
[2019-08-09] MEDS: ASPIRIN CHEWABLE 81 MG TABLET. PO SCH (08:00)
[2019-08-09] MEDS: MULTIVITAMIN with MINERAL TABLET. PO SCH (08:36)
[2019-08-09] MEDS: MAGNESIUM OXIDE 400 MG TABLET PO SCH (08:36)
[2019-08-09] MEDS: GABAPENTIN 100 MG CAPSULE. PO SCH ×3 (08:36→21:01)
[2019-08-09] MEDS: LACTOBACILLUS RHAMNOSUS GG 1 CAPSULE. PO SCH ×2 (08:36→21:00)
[2019-08-09] MEDS: TICAGRELOR 90 MG TABLET. PO SCH ×2 (08:37→21:02)
--- NOTE | 2019-08-09 08:38 | PDOC2 ---
CONSULT Date of Consult Date of Consult DATE: 08/09/19 TIME: 08:35 Reason for Consult Reason for Consult: Abdominal pain and nausea and vomiting Referring Physician Referring Physician: Jermaine Identification/Chief Complaint Chief Complaint Incontinence and abdominal pain Source Source: Patient History of Present Illness Reason for Visit: 89-year-old female developed incontinence of stool 2 days ago is subsequently not passed any stool since then she is complained of abdominal pain with bloating and has not passed any stool since 2 days ago. She does state that she's been passing a lot of flatus. Currently she is resting pretty comfortably in bed and denies any abdominal pain or nausea Past Medical History Cardiovascular: CAD, HTN, Hyperlipidemia, Other Pulmonary: No pertinent hx GI: No pertinent hx Heme/Onc: No pertinent hx Hepatobiliary: No pertinent hx Psych: No pertinent hx Musculoskeletal: Osteoarthritis Rheumatologic: No pertinent hx Infectious disease: No pertinent hx Renal/: No pertinent hx Endocrine: Diabetes Past Surgical History Past Surgical History: Pacemaker, Appendectomy, Hysterectomy, Other Family History Family History: Other Social History ALCOHOL: none Drugs: None Lives: Alone Current Medications Current Medications Current Medications Sodium Chloride 1,000 ml @ 75 mls/hr [id number] IV Last administered on 08/08/19at 19:33; Start 08/08/19 at 19:00 Guaifenesin (Robitussin) 300 mg PRN Q4HRS PRN PO COUGH Last administered on 08/08/19at 19:50; Start 08/08/19 at 18:15 Ceftriaxone Sodium (Rocephin) 1 gm Q24H IVP Last administered on 08/08/19at 20:19; Start 08/08/19 at 20:00 Ticagrelor (Brilinta) 180 mg BID PO Last administered on 08/08/19at 20:19; Start 08/08/19 at 21:00 Pantoprazole Sodium (Protonix) 40 mg DAILYAC PO Last administered on 08/09/19at 06:36; Start 08/09/19 at 07:30 Ondansetron HCl (Zofran) 4 mg PRN Q6HRS PRN IV NAUSEA/VOMITING Last adm inistered on 08/08/19at 19:50; Start 08/08/19 at 18:15 Multivitamins (Thera M Plus) 1 tab DAILY PO ; Start 08/09/19 at 09:00 Metoprolol Tartrate (Lopressor) 12.5 mg BID PO Last administered on 08/08/19at 20:19; Start 08/08/19 at 21:00 Magnesium Oxide (Magnesium Oxide) 400 mg DAILY PO ; Start 08/09/19 at 09:00 Lactobacillus Rhamnosus (Culturelle) 1 cap BID PO Last administered on at 20:19; Start 08/08/19 at 21:00 Isosorbide Mononitrate (Imdur) 15 mg DAILY PO ; Start 08/09/19 at 09:00 Albuterol/ Ipratropium (Duoneb) 3 ml RTQID NEB Last administered on 08/09/19at 07:57; Start 08/08/19 at 20:00 Gabapentin (Neurontin) 100 mg TID PO Last administered on 08/08/19at 20:19; Start 08/08/19 at 21:00 Insulin Human Lispro (HumaLOG) 0-5 UNITS TIDWMEALS SQ ; Start 08/09/19 at 08:00 Dextrose (Dextrose 50%-Water Syringe) 12.5 gm PRN Q15MIN PRN IV SEE COMMENTS; Start 08/08/19 at 18:15 Dextrose 250 ml PRN Q15MIN PRN IV SEE COMMENTS; Start 08/08/19 at 18:15 Azithromycin 500 mg/Sodium Chloride 250 ml @ 250 mls/hr Q24H IV Last administered on 08/08/19at 20:19; Start 08/08/19 at 21:00 Atorvastatin Calcium (Lipitor) 10 mg QHS PO Last administered on 08/08/19at 23:21; Start 08/08/19 at 21:00 Aspirin (Children'S Aspirin) 81 mg DAILYWBKFT PO ; Start 08/09/19 at 08:00 Acetaminophen/ Codeine Phosphate (Tylenol #3) 1 tab PRN Q6HRS PRN PO PAIN Last administered on 08/08/19at 19:50; Start 08/08/19 at 18:15 Active Scripts Active Furosemide 20 Mg Tablet 40 Mg PO DAILY 30 Days Levemir (Insulin Detemir) 100 Unit/1 Ml Vial 8 Unit SQ DAILY Brilinta (Ticagrelor) 90 Mg Tablet 90 Mg PO BID SIG: ONE TAB TWICE DAILY; DO NOT STOP WITHOUT INSTRUCTIONS FROM SECURITY RESEARCHER Aspirin Ec (Aspirin) 81 Mg Tablet. 81 Mg PO DAILYWBKFT Reported Metoprolol Tartrate 25 Mg Tablet 25 Mg PO BID Isosorbide Mononitrate Er (Isosorbide Mononitrate) 30 Mg Tab.er.24h 30 Mg PO DA BRANT Cyanocobalamin Injection (Cyanocobalamin (Vitamin B-12)) 1,000 Mcg/1 Ml Vial 1,000 Mcg IJ QMONTH Magnesium (Magnesium Amino Acid Chelate) 100 Mg Tablet 100 Mg PO DAILY Calcium 600 + Vit D 200 Tablet (Calcium Carbonate/Vitamin D3) 1 Each Tablet 1 Each PO DAILY Prolia (Denosumab) 60 Mg/1 Ml Disp.syrin 60 Mg SQ Q6 MONTHS Voltaren (Diclofenac Sodium) 100 Gm Gel..gram. 4 Gm TP QID Ocuvite Softgel (Vit C/Vit E/Lutein/Min/[place]-3) 1 Each Capsule 1 Cap PO DAILY Lotrel 10-20 Mg Capsule (Amlodipine Besylate/Benazepril) 1 Each Capsule 1 Each PO DAILY NITROGLYCERIN SubLingual (Nitroglycerin) 0.4 Mg Tab.subl 0.4 Mg SL PRN Q5MIN PRN Ferrous Sulfate 325 Mg Tablet 325 Tab PO TWICE WEEKLY Glipizide 10 Mg Tablet 0.5 Tab PO BID Potassium Chloride 10 Meq Capsule.er 1 Cap PO DAILY Oxybutynin Chloride 5 Mg Tablet 1 Tab PO DAILY Omeprazole 20 Mg Capsule. 1 Cap PO DAILY Simvastatin 80 Mg Tablet 40 Mg PO QHS Allergies Allergies: Coded Allergies: Iodinated Contrast Media (Verified Allergy, Intermediate, 10/15/14) Sulfa (Sulfonamide Antibiotics) (Verified Allergy, Intermediate, 11/21/16) carvedilol (Verified Allergy, Intermediate, 10/15/14) clopidogrel (Verified Allergy, Intermediate, 10/15/14) glimepiride (Verified Allergy, Intermediate, 10/15/14) raloxifene (Verified Allergy, Intermediate, 10/15/14) ciprofloxacin (Verified Adverse Reaction, Intermediate, Vomiting, 10/15/14) ROS Gastrointestinal: Yes Nausea, Yes Vomiting, Yes Abdominal Pain, Yes Other (incontinence) Physical Exam General: Alert, Oriented X3, Cooperative, mild distress HEENT: Atraumatic, PERRLA, EOMI Lungs: Clear to auscultation, Normal air movement Heart: Regular rate, No murmurs Abdomen: Normal bowel sounds, Soft, No tenderness, Other (mildly distended) Extremities: No edema Skin: No significant lesion Neuro: Normal speech Psych/Mental Status: Mental status NL Vitals VITALS Vital Signs Date Time Temp Pulse Resp B/P (MAP) Pulse Ox O2 Delivery O2 Flow Rate FiO2 08/09/19 08:11 90 Nasal Cannula 3.0 08/09/19 07:00 97.7 100 20 155/88 (110) 97.7 Labs Labs Laboratory Tests Test 08/08/19 20:58 08/09/19 07:46 Glucose (Fingerstick) 163 mg/dL (70-99) 169 mg/dL (70-99) Laboratory Tests Test 08/08/19 20:58 08/09/19 07:46 Glucose (Fingerstick) 163 mg/dL (70-99) 169 mg/dL (70-99) Assessment/Plan Assessment/Plan Abdominal pain nausea vomiting possible small bowel obstruction although she is passing flatus now we'll obtain abdominal films for further evaluation continue nothing by mouth except for ice chips DAWNA PICKETT MD Aug 09, 2019 08:38
[2019-08-09] MEDS: METOPROLOL TART IMMED RELEASE 25 MG TABLET. PO SCH ×2 (09:00→21:00)
[2019-08-09] MEDS: ISOSORBIDE MONONITRATE ER 30 MG TAB.ER.24H PO SCH (09:00)
--- NOTE | 2019-08-09 09:17 | PDOC2 ---
UROLOGY CONSULT Date of Admission DATE: 08/09/19 TIME: 09:14 [facility] abd pain and dx of SBO. Incidental left hydro w perinephric stranding and uti. No renal stone, no ureter stones. No prior gu instrumentation. ROS ROS: RESPIRATORY: Shortness of breath denies. Cough denies. UROLOGY: Denies blood in urine. Denies difficulty urinating Current Medications Current Medications Sodium Chloride 1,000 ml @ 75 mls/hr [id number] IV Last administered on 08/08/19 19:33; Start 08/08/19 at 19:00 Guaifenesin (Robitussin) 300 mg PRN Q4HRS PRN PO COUGH Last administered on 08/08/19 19:50; Start 08/08/19 at 18:15 Ceftriaxone Sodium (Rocephin) 1 gm Q24H IVP Last administered on 08/08/19 20:19; Start 08/08/19 at 20:00 Ticagrelor (Brilinta) 180 mg BID PO Last administered on 08/08/19 20:19; Start 08/08/19 at 21:00 Pantoprazole Sodium (Protonix) 40 mg DAILYAC PO Last administered on 08/09/19 06:36; Start 08/09/19 at 07:30 Ondansetron HCl (Zofran) 4 mg PRN Q6HRS PRN IV NAUSEA/VOMITING Last administered on 08/08/19 19:50; Start 08/08/19 at 18:15 Multivitamins (Thera M Plus) 1 tab DAILY PO ; Start 08/09/19 at 09:00 Metoprolol Tartrate (Lopressor) 12.5 mg BID PO Last administered on 08/08/19 20:19; Start 08/08/19 at 21:00 Magnesium Oxide (Magnesium Oxide) 400 mg DAILY PO ; Start 08/09/19 at 09:00 Lactobacillus Rhamnosus (Culturelle) 1 cap BID PO Last administered on 08/08/19 20:19; Start 08/08/19 at 21:00 Isosorbide Mononitrate (Imdur) 15 mg DAILY PO ; Start 08/09/19 at 09:00 Albuterol/ Ipratropium (Duoneb) 3 ml RTQID NEB Last administered on 08/09/19at 07:57; Start 08/08/19 at 20:00 Gabapentin (Neurontin) 100 mg TID PO Last administered on 08/08/19at 20:19; Start 08/08/19 at 21:00 Insulin Human Lispro (HumaLOG) 0-5 UNITS TIDWMEALS SQ ; Start 08/09/19 at 08:00 Dextrose (Dextrose 50%-Water Syringe) 12.5 gm PRN Q15MIN PRN IV SEE COMMENTS; Start 08/08/19 at 18:15 Dextrose 250 ml PRN Q15MIN PRN IV SEE COMMENTS; Start 08/08/19 at 18:15 Azithromycin 500 mg/Sodium Chloride 250 ml @ 250 mls/hr Q24H IV Last adminis tered on 08/08/19at 20:19; Start 08/08/19 at 21:00 Atorvastatin Calcium (Lipitor) 10 mg QHS PO Last administered on 08/08/19at 23 :21; Start 08/08/19 at 21:00 Aspirin (Children'S Aspirin) 81 mg DAILYWBKFT PO ; Start 08/09/19 at 08:00 Acetaminophen/ Codeine Phosphate (Tylenol #3) 1 tab PRN Q6HRS PRN PO PAIN Last administered on 08/08/19at 19:50; Start 08/08/19 at 18:15 Active Scripts Active Furosemide 20 Mg Tablet 40 Mg PO DAILY 30 Days Levemir (Insulin Detemir) 100 Unit/1 Ml Vial 8 Unit SQ DAILY Brilinta (Ticagrelor) 90 Mg Tablet 90 Mg PO BID SIG: ONE TAB TWICE DAILY; DO NOT STOP WITHOUT INSTRUCTIONS FROM INDEX EDITOR Aspirin Ec (Aspirin) 81 Mg Tablet. 81 Mg PO DAILYWBKFT Reported Metoprolol Tartrate 25 Mg Tablet 25 Mg PO BID Isosorbide Mononitrate Er (Isosorbide Mononitrate) 30 Mg Tab.er.24h 30 Mg PO DAILY Cyanocobalamin Injection (Cyanocobalamin (Vitamin B-12)) 1,000 Mcg/1 Ml Vial 1,000 Mcg IJ QMONTH Magnesium (Magnesium Amino Acid Chelate) 100 Mg Tablet 100 Mg PO DAILY Calcium 600 + Vit D 200 Tablet (Calcium Carbonate/Vitamin D3) 1 Each Tablet 1 Each PO DAILY Prolia (Denosumab) 60 Mg/1 Ml Disp.syrin 60 Mg SQ Q6 MONTHS Voltaren (Diclofenac Sodium) 100 Gm Gel..gram. 4 Gm TP QID Ocuvite Softgel (Vit C/Vit E/Lutein/Min/[place]-3) 1 Each Capsule 1 Cap PO DAILY Lotrel 10-20 Mg Capsule (Amlodipine Besylate/Benazepril) 1 Each Capsule 1 Each PO DAILY NITROGLYCERIN SubLingual (Nitroglycerin) 0.4 Mg Tab.subl 0.4 Mg SL PRN Q5MIN PRN Ferrous Sulfate 325 Mg Tablet 325 Tab PO TWICE WEEKLY Glipizide 10 Mg Tablet 0.5 Tab PO BID Potassium Chloride 10 Meq Capsule.er 1 Cap PO DAILY Oxybutynin Chloride 5 Mg Tablet 1 Tab PO DAILY Omeprazole 20 Mg Capsule.dr 1 Cap PO DAILY Simvastatin 80 Mg Tablet 40 Mg PO QHS Allergies: Coded Allergies: Iodinated Contrast Media (Verified Allergy, Intermediate, 10/15/14) Sulfa (Sulfonamide Antibiotics) (Verified Allergy, Intermediate, 11/21/16) carvedilol (Verified Allergy, Intermediate, 10/15/14) clopidogrel (Verified Allergy, Intermediate, 10/15/14) glimepiride (Verified Allergy, Intermediate, 10/15/14) raloxifene (Verified Allergy, Intermediate, 10/15/14) ciprofloxacin (Verified Adverse Reaction, Intermediate, Vomiting, 10/15/14) Physical Examination PHYSICAL EXAMINATION: GENERAL: Gen. appearance: No acute distress. Mood/affect: Pleasant. HEENT: Head: Normocephalic, atraumatic. Airway Impairment: No. CHEST: Shape and expansion: Normal. Expansion: Normal. SKIN: General: Warm. Color: Good. GENITOURINARY:External genitalia - wnl. NEUROLOGICAL: Mental status: Alert and oriented 3. Language: Normal. DOES THIS PATIENT HAVE URINARY: No VITALS Vital Signs Date Time Temp Pulse Resp B/P (MAP) Pulse Ox O2 Delivery O2 Flow Rate FiO2 08/09/19 08:11 90 Nasal Cannula 3.0 08/09/19 07:00 97.7 100 20 155/88 (110) 97.7 Labs Laboratory Tests Test 08/08/19 20:58 08/09/19 07:46 Glucose (Fingerstick) 163 mg/dL (70-99) 169 mg/dL (70-99) Laboratory Tests Test 08/08/19 20:58 08/09/19 07:46 Glucose (Fingerstick) 163 mg/dL (70-99) 169 mg/dL (70-99) Images ct from stj Assessment/Plan left hydro. left pyelo v recent stone passage v physiologic. No obstruction seen. Continue w abx, ivf. No gu intervention is needed. IRVING RUIZ MD Aug 09, 2019 09:17
--- NOTE | 2019-08-09 10:42 | NUR ---
Per Dr. Jermaine Isaac CNA did a post void Bladder scan. Average amount left in bladder after 3 scans was 95mL.
[2019-08-09 10:43] VITALS: BP 124/61
[2019-08-09] MEDS ORDERED: FUROSEMIDE 40 MG/4 ML VIAL. IVP ONE (11:00)
--- NOTE | 2019-08-09 11:09 | PDOC2 ---
CONSULT Date of Consult Date of Consult DATE: 08/09/19 TIME: 11:09 Reason for Consult Reason for Consult: Coronary artery disease Referring Physician Referring Physician: Dr. Dean Identification/Chief Complaint Chief Complaint Abdominal pain Source Source: Chart review, Patient History of Present Illness Reason for Visit: 89-year-old female was initially admitted to [facility] for community-acquired pneumonia and UTI. She developed abdominal pain and was diagnosed with small bowl obstruction and hydronephrosis and transferred to [facility] for further management. Urology and general surgical team's are following patient. She has history of coronary artery disease and permanent pacemaker implantation and hence we have been consulted. She presently denied any chest pain. She also denied any orthopnea/PND, palpitations or syncope. Past Medical History Cardiovascular: CAD, HTN, Hyperlipidemia, Other Pulmonary: No pertinent hx GI: No pertinent hx Heme/Onc: No pertinent hx Hepatobiliary: No pertinent hx Psych: No pertinent hx Musculoskeletal: Osteoarthritis Rheumatologic: No pertinent hx Infectious disease: No pertinent hx Renal/: No pertinent hx Endocrine: Diabetes Past Surgical History Past Surgical History: Pacemaker, Appendectomy, Hysterectomy, Other Family History Family History: Other Social History ALCOHOL: none Drugs: None Lives: Alone Current Medications Current Medications Current Medications Sodium Chloride 1,000 ml @ 75 mls/hr [id number] IV Last administered on 08/08/19at 19:33; Start 08/08/19 at 19:00; Stop 08/09/19 at 10:23; Status DC Guaifenesin (Robitussin) 300 mg PRN Q4HRS PRN PO COUGH Last administered on 07/26 03/13at 19:50; Start 08/08/19 at 18:15 Ceftriaxone Sodium (Rocephin) 1 gm Q24H IVP Last administered on 08/08/19at 20:19; Start 08/08/19 at 20:00 Ticagrelor (Brilinta) 180 mg BID PO Last administered on 08/08/19at 20:19; Start 08/08/19 at 21:00 Pantoprazole Sodium (Protonix) 40 mg DAILYAC PO Last administered on 08/09/19at 06:36; Start 08/09/19 at 07:30 Ondansetron HCl (Zofran) 4 mg PRN Q6HRS PRN IV NAUSEA/VOMITING Last administered on 08/08/19at 19:50; Start 08/08/19 at 18:15 Multivitamins (Thera M Plus) 1 tab DAILY PO ; Start 08/09/19 at 09:00 Metoprolol Tartrate (Lopressor) 12.5 mg BID PO Last administered on 08/08/19at 20:19; Start 08/08/19 at 21:00 Magnesium Oxide (Magnesium Oxide) 400 mg DAILY PO ; Start 08/09/19 at 09:00 Lactobacillus Rhamnosus (Culturelle) 1 cap BID PO Last administered on 08/08/19at 20:19; Start 08/08/19 at 21:00 Isosorbide Mononitrate (Imdur) 15 mg DAILY PO ; Start 08/09/19 at 09:00 Albuterol/ Ipratropium (Duoneb) 3 ml RTQID NEB Last administered on 08/09/19at 10:59; Start 08/08/19 at 20:00 Gabapentin (Neurontin) 100 mg TID PO Last administered on 08/08/19at 20:19; Start 08/08/19 at 21:00 Insulin Human Lispro (HumaLOG) 0-5 UNITS TIDWMEALS SQ ; Start 08/09/19 at 08:00 Dextrose (Dextrose 50%-Water Syringe) 12.5 gm PRN Q15MIN PRN IV SEE COMMENTS; Start 08/08/19 at 18:15 Dextrose 250 ml PRN Q15MIN PRN IV SEE COMMENTS; Start 08/08/19 at 18:15 Azithromycin 500 mg/Sodium Chloride 250 ml @ 250 mls/hr Q24H IV Last administered on 08/08/19at 20:19; Start 08/08/19 at 21:00 Atorvastatin Calcium (Lipitor) 10 mg QHS PO Last administered on 08/08/19at 23:21; Start 08/08/19 at 21:00 Aspirin (Children'S Aspirin) 81 mg DAILYWBKFT PO ; Start 08/09/19 at 08:00 Acetaminophen/ Codeine Phosphate (Tylenol #3) 1 tab PRN Q6HRS PRN PO PAIN Last administered on 08/08/19at 19:50; Start 08/08/19 at 18:15 Furosemide (Lasix) 40 mg 1X ONCE IVP ; Start 08/09/19 at 11:00; Stop 08/09/19 at 11:01; Status DC Active Scripts Active Furosemide 20 Mg Tablet 40 Mg PO DAILY 30 Days Levemir (Insulin Detemir) 100 Unit/1 Ml Vial 8 Unit SQ DAILY Brilinta (Ticagrelor) 90 Mg Tablet 90 Mg PO BID SIG: ONE TAB TWICE DAILY; DO NOT STOP WITHOUT INSTRUCTIONS FROM CABLEMAN Aspirin Ec (Aspirin) 81 Mg Tablet. 81 Mg PO DAILYWBKFT Reported Metoprolol Tartrate 25 Mg Tablet 25 Mg PO BID Isosorbide Mononitrate Er (Isosorbide Mononitrate) 30 Mg Tab.er.24h 30 Mg PO DAILY Cyanocobalamin Injection (Cyanocobalamin (Vitamin B-12)) 1,000 Mcg/1 Ml Vial 1,000 Mcg IJ QMONTH Magnesium (Magnesium Amino Acid Chelate) 100 Mg Tablet 100 Mg PO DAILY Calcium 600 + Vit D 200 Tablet (Calcium Carbonate/Vitamin D3) 1 Each Tablet 1 Each PO DAILY Prolia (Denosumab) 60 Mg/1 Ml Disp.syrin 60 Mg SQ Q6 MONTHS Voltaren (Diclofenac Sodium) 100 Gm Gel..gram. 4 Gm TP QID Ocuvite Softgel (Vit C/Vit E/Lutein/Min/[place]-3) 1 Each Capsule 1 Cap PO DAILY Lotrel 10-20 Mg Capsule (Amlodipine Besylate/Benazepril) 1 Each Capsule 1 Each PO DAILY NITROGLYCERIN SubLingual (Nitroglycerin) 0.4 Mg Tab.subl 0.4 Mg SL PRN Q5MIN PRN Ferrous Sulfate 325 Mg Tablet 325 Tab PO TWICE WEEKLY Glipizide 10 Mg Tablet 0.5 Tab PO BID Potassium Chloride 10 Meq Capsule.er 1 Cap PO DAILY Oxybutynin Chloride 5 Mg Tablet 1 Tab PO DAILY Omeprazole 20 Mg Capsule.dr 1 Cap PO DAILY Simvastatin 80 Mg Tablet 40 Mg PO QHS Allergies Allergies: Coded Allergies: Iodinated Contrast Media (Verified Allergy, Intermediate, 10/15/14) Sulfa (Sulfonamide Antibiotics) (Verified Allergy, Intermediate, 11/21/16) carvedilol (Verified Allergy, Intermediate, 10/15/14) clopidogrel (Verified Allergy, Intermediate, 10/15/14) glimepiride (Verified Allergy, Intermediate, 10/15/14) raloxifene (Verified Allergy, Intermediate, 10/15/14) ciprofloxacin (Verified Adverse Reaction, Intermediate, Vomiting, 10/15/14) ROS PSYCHOLOGICAL ROS: No: Hallucinations Eyes: No Loss of vision HEENT: No: Epistaxis Respiratory: YES: Shortness of breath; No: Hemoptysis Cardiovascular: No Chest Pain Gastrointestinal: Yes Abdominal Pain Genitourinary: YES Dysuria, YES Incontinence Neurological: No Seizures Skin: No Rash Physical Exam General: Alert, Oriented X3 HEENT: Atraumatic, PERRLA Lungs: Clear to auscultation Heart: Regular rate Abdomen: Soft Extremities: No edema Psych/Mental Status: Mood NL Vitals VITALS Vital Signs Date Time Temp Pulse Resp B/P (MAP) Pulse Ox O2 Delivery O2 Flow Rate FiO2 08/09/19 10:59 Nasal Cannula 3.0 08/09/19 10:43 98.4 63 20 124/61 (82) 90 98.4 Labs Labs Laboratory Tests Test 08/08/19 20:58 08/09/19 07:46 Glucose (Fingerstick) 163 mg/dL (70-99) 169 mg/dL (70-99) Laboratory Tests Test 08/08/19 20:58 08/09/19 07:46 Glucose (Fingerstick) 163 mg/dL (70-99) 169 mg/dL (70-99) Assessment/Plan Assessment/Plan 1. Small bowel obstruction and hydronephrosis: Treat per general surgery and urology teams 2. Coronary artery disease s/p PCI/stents to LMCA/LAD/LCx in the past, presently stable and chest pain-free. 2-D echo in 2017 showed LVEF 55- 60%. She is clinically stable and chest pain-free. Continue current secondary prevention measures. 3. Complete heart block s/p permanent pacemaker implantation. Recent device check showed normal function. 4. Hypertension: Controlled 5. Hyperlipidemia: Continue statins 6. Diabetes mellitus type 2: Treated per IM Thank you for your consultation KATIE SHABAZZ MD Aug 09, 2019 11:09
--- NOTE | 2019-08-09 12:39 | CONS ---
DATE OF CONSULTATION: PULMONARY CONSULTATION ATTENDING PHYSICIAN: Dr. Dean. REASONS FOR CONSULTATION: Dyspnea and respiratory failure. HISTORY OF PRESENT ILLNESS: The patient is an 89-year-old pleasant female, who was initially admitted to the hospital with abdominal pain, nausea, and some vomiting. She was receiving intravenous fluids. Today, she has been having more shortness of breath. In fact, I was consulted for worsening dyspnea. She says she has been having shortness of breath since last 3 days. I reviewed today's chest x-ray and there is diffuse interstitial infiltrate suggesting interstitial edema. I have also reviewed her CT chest from 08/08/2019. She has bilateral diffuse interstitial infiltrates along with small pleural effusions basally. she has mediastinal adenopathy. The patient states she smoked on and off for 20 years before quitting 25 years ago. She has a cough, which has been nonproductive. No fever, no chills, no chest pain. She is currently requiring oxygen at 3 liters. She also has lower extremity edema. Her saturations were 90%. Her previous cxr have also shown interstitial infiltrates. PAST MEDICAL HISTORY: Significant for history of hypertension, coronary artery disease, history of moderate mitral regurgitation, history of interstitial edema, osteoarthritis, and possible mild chronic obstructive pulmonary disease. PAST SURGICAL HISTORY: Pacemaker, appendectomy, and hysterectomy. FAMILY HISTORY: Noncontributory to lungs. ALLERGIES: IODINE, SULFA, CARVEDILOL, CIPRO, PLAVIX, GLIMEPIRIDE, AND RALOXIFENE. MEDICATIONS: Reviewed as listed in the MRAD including antibiotics, Rocephin and Zithromax. REVIEW OF SYSTEMS: Twelve-point system obtained; pertinent positives discussed in my history of present illness, otherwise noncontributory. All other systems that were negative were reviewed as well. PHYSICAL EXAMINATION: GENERAL: She appears to be in mild distress. VITAL SIGNS: Currently on 3 liters with saturation of 90%; afebrile. HEENT: Sclerae anicteric. NECK: Supple. LUNGS: With crackles at the bases. CARDIOVASCULAR: With a regular rate. ABDOMEN: Soft. EXTREMITIES: With ankle edema. LABORATORY DATA: Reviewed. There are no chemistries available or CBC available for this admission. IMPRESSION: 1. Acute hypoxic respiratory failure secondary to worsening interstitial edema. 2. Bilateral worsening interstitial infiltrates based on today's chest x-ray and CT chest from yesterday; clinically favoring interstitial edema in a patient who has moderate mitral regurgitation based on previous echo; cannot exclude coexisting interstitial lung disease or interstitial pneumonia 3. Small basal pleural effusion, likely related to congestive heart failure. 4. Possible mild chronic obstructive pulmonary disease. 5. Mediastinal adenopathy. Large sub-carinal mass vs adenopathy and large Pre- tracheal adenopathy. Could be sarcoidosis with ILD. Cannot exclude malignancy. Too frail to undergo invasive biopsy. PET scan as OP would be reasonable. RECOMMENDATIONS: 1. Discussed with RN. Intravenous fluids have been discontinued and Lasix order has been given. 2. Continue oxygen to keep saturation 92% and above. 3. Continue antibiotics. 4. Follow the response to treatment. 5. Continue DuoNeb. 6. Repeat an echocardiogram to assess the severity of mitral regurgitation. 7. Follow Cardiology recommendations. 8. Too frail to undergo invasive biopsy. PET scan as OP would be reasonable. d/w RN/ cct 35 min inclusive of review of all previous imaging studies, labs etc GEORGETTE FRITZ MD DR: SONIDO/rip JOB#: [id number] / [id number] ЕЛЕНА Mukherjee MD MTDD
--- NOTE | 2019-08-09 13:32 | HP ---
ADMIT DATE: HISTORY OF PRESENT ILLNESS: The patient is an 89-year-old female patient who was admitted originally to [facility], who presented there with a complaint of recurrent bouts of nausea, loose stools as well as vomiting 3-4 times a day. She also said that she has been having cough and runny nose. The patient overall has had decreased oral intake with liquids and food; however, she denied any fever or chills. Denied any chest pain or shortness of breath. She was evaluated in the Emergency Room, was found to be hyponatremic. She also has impaired kidney function, marked hypoalbuminemia. Her urinalysis showed the patient has yellow, turbid urine with pH of 8, specific gravity 1.015, there was large amount of protein, negative for glucose or ketones, there was trace of blood, negative for nitrite, moderate amount of leukocyte esterase, 20-40 wbc's, too many bacteria. Her chest x-ray showed that she has prominent appearing bilateral interstitial lung markings, left greater than right, with possibility of interstitial infiltrate or pneumonia, chronic interstitial changes. She was admitted with diagnosis of community-acquired pneumonia as well as UTI as well as hyponatremia and acute kidney injury. She was started on IV ceftriaxone as well as Zithromax and also started on IV fluid in the form of normal saline at 75 mL per hour and yesterday she developed recurrent episode of nausea and dry heaving. Her abdomen was markedly distended and therefore we did a CT scan of the chest, abdomen and pelvis, which basically showed that small pleural effusions are present, diffuse pulmonary interstitial edema and/or infiltrate noted, right lower paratracheal lymph nodes are present measuring up to 1.3 cm in diameter. She has enlarged subcarinal lymph nodes or mass measuring up to 3.2 cm x 3.4 cm anteroposterior 1.6 and longitudinally appears to be present on axial images. Evaluation was limited without IV contrast. She has marked coronary artery calcification. She has small hiatal hernia present. She has cholecystectomy noted. Liver, spleen, pancreas, adrenal glands are unremarkable. Right kidney unremarkable. Left hydronephrosis present with perinephric stranding. She has minimal edema involving the left iliac fossa noted. She has retained stool within the proximal colon noted moderate. She has distention of the transverse colon transition in the left iliac fossa, level is noted. This may represent ileus. No significant distention of the more proximal bowel to strongly suggest obstruction. Correlate clinically and determine in followup. Given that she has possible bowel obstruction, left side hydronephrosis and enlarged lymph nodes in the lung, I decided to transfer her to [facility] to make sure that she does not have any underlying malignancy that can cause all these abnormalities. PAST MEDICAL HISTORY: Significant for hypertension, hyperlipidemia, type 2 diabetes mellitus. She has coronary artery disease, status post PCI with stent deployment x 4. She has also generalized osteoarthritis. PAST SURGICAL HISTORY: Significant for PCI with stent deployment, permanent pacemaker placement, cholecystectomy, tonsillectomy, appendectomy, total abdominal hysterectomy and bilateral salpingo-oophorectomy. She also has shoulder surgery. ALLERGIES: SHE IS ALLERGIC TO ____, CARVEDILOL, CIPROFLOXACIN, PLAVIX, IODINE, AND METFORMIN. FAMILY HISTORY: She has 1 brother, older, at the age of 82 because of throat cancer; 1 sister of CVA and 1 sister because of congestive heart failure. Her father at age of 65 because of myocardial infarction. Mother of breast cancer at the age of 54. SOCIAL HISTORY: She lives alone and fairly independent. She has 2 sons and 1 daughter. She quit smoking about 25 years ago. She does not drink alcohol or use recreational drugs. She is retired. REVIEW OF SYSTEMS: The patient denied any blurring of vision. Does have bilateral cataract extraction, but denied any glaucoma or macular degeneration. Denied any earache, tinnitus or sensorineural deafness. Denied any nosebleeds, stuffy nose or postnasal drip. Denied any sore throat, sore tongue, toothache, hoarseness of voice or difficulty swallowing. Did have nausea and dry heaving. She did say that she has passed gas, but her abdomen is continued to be markedly distended. Denied any dysuria, frequency or hematuria. Denied any chest pain. Did complain of some shortness of breath, but denied any orthopnea or paroxysmal nocturnal dyspnea. MEDICATIONS: She was then transferred to [facility] to continue on ceftriaxone 1 g IV daily, Zithromax 250 mg IV daily, Lactobacillus rhamnosus 1 capsule twice a day, ondansetron 4 mg every 6 hours as needed for nausea and vomiting, Mucinex 300 mg every 4 hours, Tylenol with Codeine 1 tablet every 6 hours, normal saline at 75 mL per hour daily. She was also on Celebrex 100 mg once a day, multivitamin 1 tablet once a day, magnesium oxide 400 mg once a day, Brilinta 180 mg daily, aspirin 81 mg once a day, Protonix 40 mg daily, atorvastatin calcium 10 mg at bedtime, metoprolol tartrate 12.5 mg twice a day, isosorbide mononitrate 50 mg at bedtime, gabapentin 100 mg 3 times a day. She is also on DuoNeb 4 times a day. PHYSICAL EXAMINATION: GENERAL: On examining her this morning, she was resting slightly propped up in bed, in no apparent respiratory distress. She was pale, but no jaundice, cyanosis or thyromegaly. No jugular venous distention. No lower limb edema. VITAL SIGNS: Her heart rate was 100, blood pressure was 155/88, temperature was 97.7, respiratory rate 20, and oxygen saturation was 90% on 3 liters of oxygen. HEAD, EYES, EARS, NOSE AND THROAT: Showed normocephalic, atraumatic. NECK: Supple. HEART: Showed normal first and second heart sounds with no gallop or murmur. CHEST: Clear to auscultation. No crepitation or rhonchi. ABDOMEN: Distended, soft, nontender with tympanitic percussion note. NEUROLOGIC: She is awake, alert, responding appropriately. All cranial nerves intact. EXTREMITIES: She moves extremities without difficulty. ASSESSMENT AND PLAN: We did send labs for CBC and CMP, consulted the urologist and the general surgeon as well as nut sheller machine operator. I would also consult the plant health manager for this finding in lung are concerning for possible malignancy. ЕЛЕНА NIX MD DR: AMBER/rip JOB#: [id number] / [id number]
[2019-08-09 14:17] LABS: BASO # 0.1 x10^3/uL (0.0-0.2); BASO % 1 % (0-3); EOS # 0.1 x10^3/uL (0.0-0.7); EOS % 1 % (0-3); HEMATOCRIT 34.3 % (36.0-47.0); HEMOGLOBIN 11.3 g/dL (12.0-15.5); LYMPH # 0.5 x10^3/uL (1.0-4.8); LYMPH % 4 % (24-48); MEAN CORPUSCULAR HEMOGLOBIN 31 pg (25-35); MEAN CORPUSCULAR HGB CONC 33 g/dL (31-37); MEAN CORPUSCULAR VOLUME 93 fL (79-100); MONO # 0.7 x10^3/uL (0.0-1.1); MONO % 6 % (0-9); NEUT # 10.9 x10^3/uL (1.8-7.7); NEUT % 89 % (31-73); PLATELET COUNT 353 x10^3/uL (140-400); RED BLOOD COUNT 3.68 x10^6/uL (3.50-5.40); RED CELL DISTRIBUTION WIDTH 13.7 % (11.5-14.5); WHITE BLOOD COUNT 12.3 x10^3/uL (4.0-11.0)
[2019-08-09 14:38] LABS: ALBUMIN 2.6 g/dL (3.4-5.0); ALBUMIN/GLOBULIN RATIO 0.7 (1.0-1.7); CALCIUM 8.8 mg/dL (8.5-10.1); CREATININE 1.2 mg/dL (0.6-1.0); GFR 42.3; TOTAL BILIRUBIN 0.5 mg/dL (0.2-1.0); TOTAL PROTEIN 6.6 g/dL (6.4-8.2)
[2019-08-09 14:44] LABS: % BANDS 10 % (0-9); % LYMPHS 6 % (24-48); % MONOS 2 % (0-10); % SEGS 82 % (35-66); PLT ESTIMATE ADEQUATE (ADEQUATE)
[2019-08-09 14:45] VITALS: BP 143/60
--- NOTE | 2019-08-09 15:17 | RAD ---
Examination: ABDOMEN SUPINE UPRIGHT History: Small bowel obstruction Comparison/Correlation: 11/22/2016 CT abdomen and pelvis without contrast Findings: Portable supine upright views of the abdomen were obtained. Dual-lead left-sided pacemaker is present. Heart size is borderline enlarged. Diffuse pulmonary interstitial thickening is noted. Left basilar consolidative appearance is noted. Small left pleural effusion. Very small right pleural effusion noted. Right upper quadrant surgical clips noted. Moderate quantity of stool in colon noted. Distention of the colon with gas noted. Dextroconvex rotoscoliosis of the lumbar spine noted. Impression: Diffuse pulmonary interstitial edema and/or infiltrates. Small pleural effusions. Left basilar consolidation. No significant distention of bowel to suggest obstruction. Distention of the transverse colon may represent ileus. No significant distention of small bowel. Continued follow-up should be considered if obstruction is a persistent concern. Electronically signed by: Jean Claude Sandy MD (08/09/2019 3:14 PM) [facility]
[2019-08-09 15:50] LABS: BILIRUBIN,URINE NEGATIVE (NEG); CLARITY,URINE CLEAR; COLOR,URINE YELLOW; NITRITE,URINE NEGATIVE (NEG); PROTEIN,URINE NEGATIVE (NEG-TRACE); UROBILINOGEN,URINE 0.2 mg/dL (0.2 mg/dL)
[2019-08-09 15:58] LABS: SQUAMOUS EPITHELIAL CELL,UR MANY /LPF
[2019-08-09 15:59] LABS: BACTERIA,URINE 0 /HPF (0-FEW); HYALINE CASTS, URINE FEW /HPF; RBC,URINE OCC /HPF (0-2)
[2019-08-09 19:20] VITALS: BP 85/54
[2019-08-09] MEDS: ATORVASTATIN CALCIUM 10 MG TABLET. PO SCH (21:00)
[2019-08-09] MEDS: cefTRIAXone IV Push 1 GM VIAL. IVP SCH (21:14)
[2019-08-09] MEDS: AZITHROMYCIN 500 MG in IV NORMAL SALINE 250ML 250 ML IV SCH (21:15)
[2019-08-09] MEDS: guaiFENesin ORAL 200 MG/10 ML LIQUID. PO PRN (22:41)
[2019-08-09 23:33] VITALS: BP 131/63
[2019-08-10 02:58] VITALS: BP 156/81
[2019-08-10 04:54] LABS: HEMATOCRIT 32.7 % (36.0-47.0); HEMOGLOBIN 10.9 g/dL (12.0-15.5); RED BLOOD COUNT 3.5 x10^6/uL (3.50-5.40); RED CELL DISTRIBUTION WIDTH 13.8 % (11.5-14.5)
[2019-08-10 05:12] LABS: ALBUMIN 2.6 g/dL (3.4-5.0); ALBUMIN/GLOBULIN RATIO 0.7 (1.0-1.7); CALCIUM 9.2 mg/dL (8.5-10.1); CREATININE 1.2 mg/dL (0.6-1.0); GFR 42.3; POTASSIUM 4.4 mmol/L (3.5-5.1); TOTAL BILIRUBIN 0.5 mg/dL (0.2-1.0); TOTAL PROTEIN 6.5 g/dL (6.4-8.2)
[2019-08-10 07:00] VITALS: BP 146/62
[2019-08-10] MEDS: IPRATRPIUM/ALBUTEROL 0.5/2.5MG 3 ML NEBU. NEB SCH ×4 (07:50→19:34)
[2019-08-10] MEDS: INSULIN LISPRO 300 UNITS/3 ML VIAL. SQ SCH ×3 (08:00→17:31)
--- NOTE | 2019-08-10 08:39 | PDOC ---
NORBERTO BEATTY SILK SCREEN PAINTER 08/10/19 0839: SURGICAL PROGRESS NOTE Subjective main complaint is hip pain no significant abd pain + flatus no nausea Vital Signs Vital Signs Date Time Temp Pulse Resp B/P (MAP) Pulse Ox O2 Delivery O2 Flow Rate FiO2 08/10/19 07:52 90 Nasal Cannula 3.0 08/10/19 07:00 97.5 56 18 146/62 (90) 97.5 I&O Intake and Output 08/10/19 06:59 Intake Total 440 ml Output Total 400 ml Balance 40 ml Intake Oral 240 ml IV Total 200 ml Output Urine Total 400 ml # Voids 3 General: Alert, Oriented X3, Cooperative, No acute distress Abdomen: Soft, No tenderness Labs Laboratory Tests Test 08/08/19 20:58 08/09/19 07:46 08/09/19 11:43 08/09/19 14:10 Glucose (Fingerstick) 163 mg/dL (70-99) 169 mg/dL (70-99) 176 mg/dL (70-99) White Blood Count 12.3 x10^3/uL (4.0-11.0) Red Blood Count 3.68 x10^6/uL (3.50-5.40) Hemoglobin 11.3 g/dL (12.0-15.5) Hematocrit 34.3 % (36.0-47.0) Mean Corpuscular Volume 93 fL (79-100) Mean Corpuscular Hemoglobin 31 pg (25-35) Mean Corpuscular Hemoglobin Concent 33 g/dL (31-37) Red Cell Distribution Width 13.7 % (11.5-14.5) Platelet Count 353 x10^3/uL (140-400) Neutrophils (%) (Auto) 89 % (31-73) Lymphocytes (%) (Auto) 4 % (24-48) Monocytes (%) (Auto) 6 % (0-9) Eosinophils (%) (Auto) 1 % (0-3) Basophils (%) (Auto) 1 % (0-3) Neutrophils # (Auto) 10.9 x10^3/uL (1.8-7.7) Lymphocytes # (Auto) 0.5 x10^3/uL (1.0-4.8) Monocytes # (Auto) 0.7 x10^3/uL (0.0-1.1) Eosinophils # (Auto) 0.1 x10^3/uL (0.0-0.7) Basophils # (Auto) 0.1 x10^3/uL (0.0-0.2) Segmented Neutrophils % 82 % (35-66) Band Neutrophils % 10 % (0-9) Lymphocytes % 6 % (24-48) Monocytes % 2 % (0-10) Platelet Estimate Adequate (ADEQUATE) Sodium Level 129 mmol/L (136-145) Potassium Level 5.0 mmol/L (3.5-5.1) Chloride Level 96 mmol/L (98-107) Carbon Dioxide Level 22 mmol/L (21-32) Anion Gap 11 (6-14) Blood Urea Nitrogen 14 mg/dL (7-20) Creatinine 1.2 mg/dL (0.6-1.0) Estimated GFR (Cockcroft-Gault) 42.3 BUN/Creatinine Ratio 12 (6-20) Glucose Level 185 mg/dL (70-99) Calcium Level 8.8 mg/dL (8.5-10.1) Total Bilirubin 0.5 mg/dL (0.2-1.0) Aspartate Amino Transf (AST/SGOT) 23 U/L (15-37) Alanine Aminotransferase (ALT/SGPT) 25 U/L (14-59) Alkaline Phosphatase 90 U/L (46-116) Total Protein 6.6 g/dL (6.4-8.2) Albumin 2.6 g/dL (3.4-5.0) Albumin/Globulin Ratio 0.7 (1.0-1.7) Test 08/09/19 15:38 08/09/19 16:46 08/09/19 20:42 08/10/19 04:25 Urine Collection Type Unknown Urine Color Yellow Urine Clarity Clear Urine pH 5.0 Urine Specific [place] 1.010 Urine Protein Negative mg/dL (NEG-TRACE) Urine Glucose (UA) Negative mg/dL (NEG) Urine Ketones (Stick) Negative mg/dL (NEG) Urine Blood Negative (NEG) Urine Nitrite Negative (NEG) Urine Bilirubin Negative (NEG) Urine Urobilinogen Dipstick 0.2 mg/dL (0.2 mg/dL) Urine Leukocyte Esterase Negative (NEG) Urine RBC Occ /HPF (0-2) Urine WBC 1-4 /HPF (0-4) Urine Squamous Epithelial Cells Many /LPF Urine Bacteria 0 /HPF (0-FEW) Urine Hyaline Casts Few /HPF Urine Mucus Mod /LPF Glucose (Fingerstick) 163 mg/dL (70-99) 150 mg/dL (70-99) White Blood Count 11.0 x10^3/uL (4.0-11.0) Red Blood Count 3.50 x10^6/uL (3.50-5.40) Hemoglobin 10.9 g/dL (12.0-15.5) Hematocrit 32.7 % (36.0-47.0) Mean Corpuscular Volume 93 fL (79-100) Mean Corpuscular Hemoglobin 31 pg (25-35) Mean Corpuscular Hemoglobin Concent 33 g/dL (31-37) Red Cell Distribution Width 13.8 % (11.5-14.5) Platelet Count 355 x10^3/uL (140-400) Sodium Level 131 mmol/L (136-145) Potassium Level 4.4 mmol/L (3.5-5.1) Chloride Level 97 mmol/L (98-107) Carbon Dioxide Level 23 mmol/L (21-32) Anion Gap 11 (6-14) Blood Urea Nitrogen 17 mg/dL (7-20) Creatinine 1.2 mg/dL (0.6-1.0) Estimated GFR (Cockcroft-Gault) 42.3 BUN/Creatinine Ratio 14 (6-20) Glucose Level 146 mg/dL (70-99) Calcium Level 9.2 mg/dL (8.5-10.1) Total Bilirubin 0.5 mg/dL (0.2-1.0) Aspartate Amino Transf (AST/SGOT) 20 U/L (15-37) Alanine Aminotransferase (ALT/SGPT) 21 U/L (14-59) Alkaline Phosphatase 86 U/L (46-116) Total Protein 6.5 g/dL (6.4-8.2) Albumin 2.6 g/dL (3.4-5.0) Albumin/Globulin Ratio 0.7 (1.0-1.7) Test 08/10/19 07:24 Glucose (Fingerstick) 142 mg/dL (70-99) Laboratory Tests Test 08/09/19 11:43 08/09/19 14:10 08/09/19 15:38 08/09/19 16:46 Glucose (Fingerstick) 176 mg/dL (70-99) 163 mg/dL (70-99) White Blood Count 12.3 x10^3/uL (4.0-11.0) Red Blood Count 3.68 x10^6/uL (3.50-5.40) Hemoglobin 11.3 g/dL (12.0-15.5) Hematocrit 34.3 % (36.0-47.0) Mean Corpuscular Volume 93 fL (79-100) Mean Corpuscular Hemoglobin 31 pg (25-35) Mean Corpuscular Hemoglobin Concent 33 g/dL (31-37) Red Cell Distribution Width 13.7 % (11.5-14.5) Platelet Count 353 x10^3/uL (140-400) Neutrophils (%) (Auto) 89 % (31-73) Lymphocytes (%) (Auto) 4 % (24-48) Monocytes (%) (Auto) 6 % (0-9) Eosinophils (%) (Auto) 1 % (0-3) Basophils (%) (Auto) 1 % (0-3) Neutrophils # (Auto) 10.9 x10^3/uL (1.8-7.7) Lymphocytes # (Auto) 0.5 x10^3/uL (1.0-4.8) Monocytes # (Auto) 0.7 x10^3/uL (0.0-1.1) Eosinophils # (Auto) 0.1 x10^3/uL (0.0-0.7) Basophils # (Auto) 0.1 x10^3/uL (0.0-0.2) Segmented Neutrophils % 82 % (35-66) Band Neutrophils % 10 % (0-9) Lymphocytes % 6 % (24-48) Monocytes % 2 % (0-10) Platelet Estimate Adequate (ADEQUATE) Sodium Level 129 mmol/L (136-145) Potassium Level 5.0 mmol/L (3.5-5.1) Chloride Level 96 mmol/L (98-107) Carbon Dioxide Level 22 mmol/L (21-32) Anion Gap 11 (6-14) Blood Urea Nitrogen 14 mg/dL (7-20) Creatinine 1.2 mg/dL (0.6-1.0) Estimated GFR (Cockcroft-Gault) 42.3 BUN/Creatinine Ratio 12 (6-20) Glucose Level 185 mg/dL (70-99) Calcium Level 8.8 mg/dL (8.5-10.1) Total Bilirubin 0.5 mg/dL (0.2-1.0) Aspartate Amino Transf (AST/SGOT) 23 U/L (15-37) Alanine Aminotransferase (ALT/SGPT) 25 U/L (14-59) Alkaline Phosphatase 90 U/L (46-116) Total Protein 6.6 g/dL (6.4-8.2) Albumin 2.6 g/dL (3.4-5.0) Albumin/Globulin Ratio 0.7 (1.0-1.7) Urine Collection Type Unknown Urine Color Yellow Urine Clarity Clear Urine pH 5.0 Urine Specific [place] 1.010 Urine Protein Negative mg/dL (NEG-TRACE) Urine Glucose (UA) Negative mg/dL (NEG) Urine Ketones (Stick) Negative mg/dL (NEG) Urine Blood Negative (NEG) Urine Nitrite Negative (NEG) Urine Bilirubin Negative (NEG) Urine Urobilinogen Dipstick 0.2 mg/dL (0.2 mg/dL) Urine Leukocyte Esterase Negative (NEG) Urine RBC Occ /HPF (0-2) Urine WBC 1-4 /HPF (0-4) Urine Squamous Epithelial Cells Many /LPF Urine Bacteria 0 /HPF (0-FEW) Urine Hyaline Casts Few /HPF Urine Mucus Mod /LPF Test 08/09/19 20:42 08/10/19 04:25 08/10/19 07:24 Glucose (Fingerstick) 150 mg/dL (70-99) 142 mg/dL (70-99) White Blood Count 11.0 x10^3/uL (4.0-11.0) Red Blood Count 3.50 x10^6/uL (3.50-5.40) Hemoglobin 10.9 g/dL (12.0-15.5) Hematocrit 32.7 % (36.0-47.0) Mean Corpuscular Volume 93 fL (79-100) Mean Corpuscular Hemoglobin 31 pg (25-35) Mean Corpuscular Hemoglobin Concent 33 g/dL (31-37) Red Cell Distribution Width 13.8 % (11.5-14.5) Platelet Count 355 x10^3/uL (140-400) Sodium Level 131 mmol/L (136-145) Potassium Level 4.4 mmol/L (3.5-5.1) Chloride Level 97 mmol/L (98-107) Carbon Dioxide Level 23 mmol/L (21-32) Anion Gap 11 (6-14) Blood Urea Nitrogen 17 mg/dL (7-20) Creatinine 1.2 mg/dL (0.6-1.0) Estimated GFR (Cockcroft-Gault) 42.3 BUN/Creatinine Ratio 14 (6-20) Glucose Level 146 mg/dL (70-99) Calcium Level 9.2 mg/dL (8.5-10.1) Total Bilirubin 0.5 mg/dL (0.2-1.0) Aspartate Amino Transf (AST/SGOT) 20 U/L (15-37) Alanine Aminotransferase (ALT/SGPT) 21 U/L (14-59) Alkaline Phosphatase 86 U/L (46-116) Total Protein 6.5 g/dL (6.4-8.2) Albumin 2.6 g/dL (3.4-5.0) Albumin/Globulin Ratio 0.7 (1.0-1.7) Problem List Problems Medical Problems: (1) CAD (coronary artery disease) Status: Chronic (2) DM2 (diabetes mellitus, type 2) Status: Chronic (3) HLD (hyperlipidemia) Status: Chronic (4) Hypertension Status: Chronic (5) SBO (small bowel obstruction) Status: Acute Assessment/Plan xrays with ileus + flatus, will start clears DAWNA PICKETT MD 08/10/19 1032: SURGICAL PROGRESS NOTE Assessment/Plan Patient seen and examined. No abdominal pain. Abd soft, ND NT. Adv diet. Agree with Terry's assessment and plan NORBERTO BEATTY APRN Aug 10, 2019 08:39 DAWNA PICKETT MD Aug 10, 2019 10:32
[2019-08-10] MEDS: METOPROLOL TART IMMED RELEASE 25 MG TABLET. PO SCH ×2 (09:00→21:06)
[2019-08-10] MEDS: TICAGRELOR 90 MG TABLET. PO SCH ×2 (09:56→21:06)
[2019-08-10] MEDS: PANTOPRAZOLE 40 MG TABLET.DR. PO SCH (09:56)
[2019-08-10] MEDS: LACTOBACILLUS RHAMNOSUS GG 1 CAPSULE. PO SCH ×2 (09:56→21:06)
[2019-08-10] MEDS: ASPIRIN CHEWABLE 81 MG TABLET. PO SCH (09:58)
[2019-08-10] MEDS: MULTIVITAMIN with MINERAL TABLET. PO SCH (09:58)
[2019-08-10] MEDS: ISOSORBIDE MONONITRATE ER 30 MG TAB.ER.24H PO SCH (09:58)
[2019-08-10] MEDS: MAGNESIUM OXIDE 400 MG TABLET PO SCH (09:58)
[2019-08-10] MEDS: GABAPENTIN 100 MG CAPSULE. PO SCH ×3 (09:58→21:00)
[2019-08-10] MEDS: FUROSEMIDE 40 MG/4 ML VIAL. IVP SCH (10:08)
--- NOTE | 2019-08-10 10:22 | PN ---
DATE: 08/10/2019 SUBJECTIVE: The patient is resting slightly propped up in bed, continued to complain of shortness of breath. Denied any abdominal pain. She continued to pass gas and did much better yesterday after we gave her IV Lasix. Her sodium has improved. In fact, her sodium this morning was 131 mEq per liter. PHYSICAL EXAMINATION: GENERAL: When I examined her, she looked pale, not jaundiced, cyanosis or thyromegaly. No jugular venous distention. No limb edema. VITAL SIGNS: Her heart rate was 56, blood pressure was 146/62, temperature was 97.5, respiratory rate was 18, and oxygen saturation was 92% on 3 liters of oxygen. HEAD, EYES, EARS, NOSE AND THROAT: Showed normocephalic, atraumatic. NECK: Supple. HEART: Showed normal first and second heart sounds. No gallop or murmur. CHEST: Clear to auscultation. No crepitation or rhonchi. ABDOMEN: Distended, soft, nontender. No guarding or rigidity. No organomegaly. All hernial orifices intact. Bowel sounds normal. NEUROLOGIC: She is awake, alert, responding appropriately. All cranial nerves intact. She moves extremities without difficulty. Her intake over the last 24 hours was 480, output was 400. LABORATORY DATA: As of this morning, her serum sodium is up to 131, potassium 4.4, chloride 97, bicarbonate 23, anion gap of 11, BUN 17, creatinine 1.2, estimated GFR was 42 mL per minute. Her glucose 146, calcium was 9.2. Total bilirubin, AST, ALT, alkaline phosphatase were normal. Total protein was 6.5, albumin was 2.6. Her white cell count is 11,000, hemoglobin 11, hematocrit 33, MCV 93 and platelet count of 355,000. ASSESSMENT: 1. Community-acquired pneumonia for which she is on IV Rocephin and Zithromax. 2. Urinary tract infection with left side hydronephrosis and perinephric stranding, for which she is on IV ceftriaxone. 3. Small bowel obstruction, likely the ileus. The patient is passing flatus and she will be started on clear liquids. 4. She has acute hypoxic respiratory failure, multifactorial due to community-acquired pneumonia as well as [id number] diastolic congestive heart failure. She was given 40 mg IV Lasix with good effect. We will continue with that today. She has hilar lymph nodes and subcarinal mass for which she was seen by Dr. Marquez, who did not recommend any invasive testing given her frailty and PET scan can be arranged as an outpatient. PLAN: My plan is to continue with IV antibiotic. Continue with IV Lasix. We will consult PT, OT and decide the further management accordingly. ЕЛЕНА NIX MD DR: AMBER/rip JOB#: [id number] / [id number]
--- NOTE | 2019-08-10 10:54 | NUR ---
SS following for discharge planning. SS reviewed pt chart. Pt is from home alone and is currently requiring oxygen. PT/OT recommended retirement unit at discharge. SS met with pt to discuss retirement unit and discharge planning. Pt requested referral be sent to [facility], ; fax [phone]. SS phoned and faxed referral. SS will await acceptance decision and insurance determination and will proceed accordingly with discharge planning.
--- NOTE | 2019-08-10 12:42 | NUR ---
Patient states she does not take insulin any more. Lunch dose held BS 163. Nurse discussed with patient that we will watch blood glucose trend and tx accordingly.
--- NOTE | 2019-08-10 12:46 | PDOC ---
PULMONARY PROGRESS NOTES Subjective feels much better/ no soa Vitals Vital Signs Date Time Temp Pulse Resp B/P (MAP) Pulse Ox O2 Delivery O2 Flow Rate FiO2 08/10/19 12:39 60 146/62 08/10/19 08:00 Nasal Cannula 2.0 08/10/19 07:52 90 08/10/19 07:00 97.5 18 97.5 General: Alert, No acute distress Lungs: Crackles (bases) Cardiovascular: S1, S2 Abdomen: Soft Neuro Exam: Alert Extremities: Other (1+edema) Skin: Warm Labs Laboratory Tests Test 08/08/19 20:58 08/09/19 07:46 08/09/19 11:43 08/09/19 14:10 Glucose (Fingerstick) 163 mg/dL (70-99) 169 mg/dL (70-99) 176 mg/dL (70-99) White Blood Count 12.3 x10^3/uL (4.0-11.0) Red Blood Count 3.68 x10^6/uL (3.50-5.40) Hemoglobin 11.3 g/dL (12.0-15.5) Hematocrit 34.3 % (36.0-47.0) Mean Corpuscular Volume 93 fL (79-100) Mean Corpuscular Hemoglobin 31 pg (25-35) Mean Corpuscular Hemoglobin Concent 33 g/dL (31-37) Red Cell Distribution Width 13.7 % (11.5-14.5) Platelet Count 353 x10^3/uL (140-400) Neutrophils (%) (Auto) 89 % (31-73) Lymphocytes (%) (Auto) 4 % (24-48) Monocytes (%) (Auto) 6 % (0-9) Eosinophils (%) (Auto) 1 % (0-3) Basophils (%) (Auto) 1 % (0-3) Neutrophils # (Auto) 10.9 x10^3/uL (1.8-7.7) Lymphocytes # (Auto) 0.5 x10^3/uL (1.0-4.8) Monocytes # (Auto) 0.7 x10^3/uL (0.0-1.1) Eosinophils # (Auto) 0.1 x10^3/uL (0.0-0.7) Basophils # (Auto) 0.1 x10^3/uL (0.0-0.2) Segmented Neutrophils % 82 % (35-66) Band Neutrophils % 10 % (0-9) Lymphocytes % 6 % (24-48) Monocytes % 2 % (0-10) Platelet Estimate Adequate (ADEQUATE) Sodium Level 129 mmol/L (136-145) Potassium Level 5.0 mmol/L (3.5-5.1) Chloride Level 96 mmol/L (98-107) Carbon Dioxide Level 22 mmol/L (21-32) Anion Gap 11 (6-14) Blood Urea Nitrogen 14 mg/dL (7-20) Creatinine 1.2 mg/dL (0.6-1.0) Estimated GFR (Cockcroft-Gault) 42.3 BUN/Creatinine Ratio 12 (6-20) Glucose Level 185 mg/dL (70-99) Calcium Level 8.8 mg/dL (8.5-10.1) Total Bilirubin 0.5 mg/dL (0.2-1.0) Aspartate Amino Transf (AST/SGOT) 23 U/L (15-37) Alanine Aminotransferase (ALT/SGPT) 25 U/L (14-59) Alkaline Phosphatase 90 U/L (46-116) Total Protein 6.6 g/dL (6.4-8.2) Albumin 2.6 g/dL (3.4-5.0) Albumin/Globulin Ratio 0.7 (1.0-1.7) Test 08/09/19 15:38 08/09/19 16:46 08/09/19 20:42 08/10/19 04:25 Urine Collection Type Unknown Urine Color Yellow Urine Clarity Clear Urine pH 5.0 Urine Specific [place] 1.010 Urine Protein Negative mg/dL (NEG-TRACE) Urine Glucose (UA) Negative mg/dL (NEG) Urine Ketones (Stick) Negative mg/dL (NEG) Urine Blood Negative (NEG) Urine Nitrite Negative (NEG) Urine Bilirubin Negative (NEG) Urine Urobilinogen Dipstick 0.2 mg/dL (0.2 mg/dL) Urine Leukocyte Esterase Negative (NEG) Urine RBC Occ /HPF (0-2) Urine WBC 1-4 /HPF (0-4) Urine Squamous Epithelial Cells Many /LPF Urine Bacteria 0 /HPF (0-FEW) Urine Hyaline Casts Few /HPF Urine Mucus Mod /LPF Glucose (Fingerstick) 163 mg/dL (70-99) 150 mg/dL (70-99) White Blood Count 11.0 x10^3/uL (4.0-11.0) Red Blood Count 3.50 x10^6/uL (3.50-5.40) Hemoglobin 10.9 g/dL (12.0-15.5) Hematocrit 32.7 % (36.0-47.0) Mean Corpuscular Volume 93 fL (79-100) Mean Corpuscular Hemoglobin 31 pg (25-35) Mean Corpuscular Hemoglobin Concent 33 g/dL (31-37) Red Cell Distribution Width 13.8 % (11.5-14.5) Platelet Count 355 x10^3/uL (140-400) Sodium Level 131 mmol/L (136-145) Potassium Level 4.4 mmol/L (3.5-5.1) Chloride Level 97 mmol/L (98-107) Carbon Dioxide Level 23 mmol/L (21-32) Anion Gap 11 (6-14) Blood Urea Nitrogen 17 mg/dL (7-20) Creatinine 1.2 mg/dL (0.6-1.0) Estimated GFR (Cockcroft-Gault) 42.3 BUN/Creatinine Ratio 14 (6-20) Glucose Level 146 mg/dL (70-99) Calcium Level 9.2 mg/dL (8.5-10.1) Total Bilirubin 0.5 mg/dL (0.2-1.0) Aspartate Amino Transf (AST/SGOT) 20 U/L (15-37) Alanine Aminotransferase (ALT/SGPT) 21 U/L (14-59) Alkaline Phosphatase 86 U/L (46-116) Total Protein 6.5 g/dL (6.4-8.2) Albumin 2.6 g/dL (3.4-5.0) Albumin/Globulin Ratio 0.7 (1.0-1.7) Test 08/10/19 07:24 08/10/19 12:01 Glucose (Fingerstick) 142 mg/dL (70-99) 163 mg/dL (70-99) Laboratory Tests Test 08/09/19 14:10 08/09/19 15:38 08/09/19 16:46 9/15/19 20:42 White Blood Count 12.3 x10^3/uL (4.0-11.0) Red Blood Count 3.68 x10^6/uL (3.50-5.40) Hemoglobin 11.3 g/dL (12.0-15.5) Hematocrit 34.3 % (36.0-47.0) Mean Corpuscular Volume 93 fL (79-100) Mean Corpuscular Hemoglobin 31 pg (25-35) Mean Corpuscular Hemoglobin Concent 33 g/dL (31-37) Red Cell Distribution Width 13.7 % (11.5-14.5) Platelet Count 353 x10^3/uL (140-400) Neutrophils (%) (Auto) 89 % (31-73) Lymphocytes (%) (Auto) 4 % (24-48) Monocytes (%) (Auto) 6 % (0-9) Eosinophils (%) (Auto) 1 % (0-3) Basophils (%) (Auto) 1 % (0-3) Neutrophils # (Auto) 10.9 x10^3/uL (1.8-7.7) Lymphocytes # (Auto) 0.5 x10^3/uL (1.0-4.8) Monocytes # (Auto) 0.7 x10^3/uL (0.0-1.1) Eosinophils # (Auto) 0.1 x10^3/uL (0.0-0.7) Basophils # (Auto) 0.1 x10^3/uL (0.0-0.2) Segmented Neutrophils % 82 % (35-66) Band Neutrophils % 10 % (0-9) Lymphocytes % 6 % (24-48) Monocytes % 2 % (0-10) Platelet Estimate Adequate (ADEQUATE) Sodium Level 129 mmol/L (136-145) Potassium Level 5.0 mmol/L (3.5-5.1) Chloride Level 96 mmol/L (98-107) Carbon Dioxide Level 22 mmol/L (21-32) Anion Gap 11 (6-14) Blood Urea Nitrogen 14 mg/dL (7-20) Creatinine 1.2 mg/dL (0.6-1.0) Estimated GFR (Cockcroft-Gault) 42.3 BUN/Creatinine Ratio 12 (6-20) Glucose Level 185 mg/dL (70-99) Calcium Level 8.8 mg/dL (8.5-10.1) Total Bilirubin 0.5 mg/dL (0.2-1.0) Aspartate Amino Transf (AST/SGOT) 23 U/L (15-37) Alanine Aminotransferase (ALT/SGPT) 25 U/L (14-59) Alkaline Phosphatase 90 U/L (46-116) Total Protein 6.6 g/dL (6.4-8.2) Albumin 2.6 g/dL (3.4-5.0) Albumin/Globulin Ratio 0.7 (1.0-1.7) Urine Collection Type Unknown Urine Color Yellow Urine Clarity Clear Urine pH 5.0 Urine Specific [place] 1.010 Urine Protein Negative mg/dL (NEG-TRACE) Urine Glucose (UA) Negative mg/dL (NEG) Urine Ketones (Stick) Negative mg/dL (NEG) Urine Blood Negative (NEG) Urine Nitrite Negative (NEG) Urine Bilirubin Negative (NEG) Urine Urobilinogen Dipstick 0.2 mg/dL (0.2 mg/dL) Urine Leukocyte Esterase Negative (NEG) Urine RBC Occ /HPF (0-2) Urine WBC 1-4 /HPF (0-4) Urine Squamous Epithelial Cells Many /LPF Urine Bacteria 0 /HPF (0-FEW) Urine Hyaline Casts Few /HPF Urine Mucus Mod /LPF Glucose (Fingerstick) 163 mg/dL (70-99) 150 mg/dL (70-99) Test 08/10/19 04:25 08/10/19 07:24 08/10/19 12:01 White Blood Count 11.0 x10^3/uL (4.0-11.0) Red Blood Count 3.50 x10^6/uL (3.50-5.40) Hemoglobin 10.9 g/dL (12.0-15.5) Hematocrit 32.7 % (36.0-47.0) Mean Corpuscular Volume 93 fL (79-100) Mean Corpuscular Hemoglobin 31 pg (25-35) Mean Corpuscular Hemoglobin Concent 33 g/dL (31-37) Red Cell Distribution Width 13.8 % (11.5-14.5) Platelet Count 355 x10^3/uL (140-400) Sodium Level 131 mmol/L (136-145) Potassium Level 4.4 mmol/L (3.5-5.1) Chloride Level 97 mmol/L (98-107) Carbon Dioxide Level 23 mmol/L (21-32) Anion Gap 11 (6-14) Blood Urea Nitrogen 17 mg/dL (7-20) Creatinine 1.2 mg/dL (0.6-1.0) Estimated GFR (Cockcroft-Gault) 42.3 BUN/Creatinine Ratio 14 (6-20) Glucose Level 146 mg/dL (70-99) Calcium Level 9.2 mg/dL (8.5-10.1) Total Bilirubin 0.5 mg/dL (0.2-1.0) Aspartate Amino Transf (AST/SGOT) 20 U/L (15-37) Alanine Aminotransferase (ALT/SGPT) 21 U/L (14-59) Alkaline Phosphatase 86 U/L (46-116) Total Protein 6.5 g/dL (6.4-8.2) Albumin 2.6 g/dL (3.4-5.0) Albumin/Globulin Ratio 0.7 (1.0-1.7) Glucose (Fingerstick) 142 mg/dL (70-99) 163 mg/dL (70-99) Medications Active Scripts Medications Dose Route/Sig Max Daily Dose Days Date Category Dose Instructions Furosemide 20 Mg Tablet 40 Mg PO DAILY 30 12/29/18 Rx Metoprolol Tartrate 25 Mg Tablet 25 Mg PO BID 12/26/18 Reported Levemir (Insulin Detemir) 100 Unit/1 Ml Vial 8 Unit SQ DAILY 12/15/17 Rx Isosorbide Mononitrate Er (Isosorbide Mononitrate) 30 Mg Tab.er.24h 30 Mg PO DAILY 12/15/17 Reported Brilinta (Ticagrelor) 90 Mg Tablet 90 Mg PO BID 11/21/16 Rx SIG: ONE TAB TWICE DAILY; DO NOT STOP WITHOUT INSTRUCTIONS FROM CABLE RIGGER Aspirin Ec (Aspirin) 81 Mg Tablet.dr 81 Mg PO DAILYWBKFT 11/21/16 Rx Cyanocobalamin Injection (Cyanocobalamin (Vitamin B-12)) 1,000 Mcg/1 Ml Vial 1,000 Mcg IJ QMONTH 11/20/16 Reported Magnesium (Magnesium Amino Acid Chelate) 100 Mg Tablet 100 Mg PO DAILY 11/20/16 Reported Calcium 600 + Vit D 200 Tablet (Calcium Carbonate/Vitamin D3) 1 Each Tablet 1 Each PO DAILY 11/20/16 Reported Prolia (Denosumab) 60 Mg/1 Ml Disp.syrin 60 Mg SQ Q6 MONTHS 11/20/16 Reported Voltaren (Diclofenac Sodium) 100 Gm Gel..gram. 4 Gm TP QID 11/20/16 Reported Ocuvite Softgel (Vit C/Vit E/Lutein/Min/[place]-3) 1 Each Capsule 1 Cap PO DAILY 11/20/16 Reported Lotrel 10-20 Mg Capsule (Amlodipine Besylate/Benazepril) 1 Each Capsule 1 Each PO DAILY 11/20/16 Reported NITROGLYCERIN SubLingual (Nitroglycerin) 0.4 Mg Tab.subl 0.4 Mg SL PRN Q5MIN PRN 11/16/16 Reported Ferrous Sulfate 325 Mg Tablet 325 Tab PO TWICE WEEKLY 11/16/16 Reported Glipizide 10 Mg Tablet 0.5 Tab PO BID 11/16/16 Reported Potassium Chloride 10 Meq Capsule.er 1 Cap PO DAILY 10/15/14 Reported Oxybutynin Chloride 5 Mg Tablet 1 Tab PO DAILY 10/15/14 Reported Omeprazole 20 Mg Capsule.dr 1 Cap PO DAILY 10/15/14 Reported Simvastatin 80 Mg Tablet 40 Mg PO QHS 10/15/14 Reported Impression . 1. Acute hypoxic respiratory failure secondary to worsening interstitial edema. 2. Bilateral worsening interstitial infiltrates based on 08/09 chest x-ray and CT chest from 08/08; clinically favoring interstitial edema in a patient who has moderate mitral regurgitation based on previous echo; cannot exclude coexisting interstitial lung disease or interstitial pneumonia 3. Small basal pleural effusion, likely related to congestive heart failure. 4. Possible mild chronic obstructive pulmonary disease. 5. Mediastinal adenopathy. Large sub-carinal mass vs adenopathy and large Pre- tracheal adenopathy. Could be sarcoidosis with ILD. Cannot exclude malignancy. Too frail to undergo invasive biopsy. PET scan as OP would be reasonable. Plan . RECOMMENDATIONS: 1. Discussed with RN. continue IV Lasix 2. Continue oxygen to keep saturation 92% and above. 3. Continue antibiotics. 4. Follow the response to treatment. repeat cxr in am 5. Continue DuoNeb. 6. Repeat an echocardiogram to assess the severity of mitral regurgitation. 7. Follow Cardiology recommendations. 8. Too frail to undergo invasive biopsy. PET scan as OP would be reasonable. d/w RN/ daughter. I will have her f/u in October with PET scan. GEORGETTE FRITZ MD Aug 10, 2019 12:46
--- NOTE | 2019-08-10 14:02 | PDOC ---
CHRISTELLE PIKE FRUIT RANCHER 08/10/19 1402: CARDIO Progress Notes Date and Time Date of Service 08/10/19 Time of Evaluation 1310 Subjective Subjective: No Chest Pain, Other (c/o cough ) Vitals Vitals Vital Signs Date Time Temp Pulse Resp B/P (MAP) Pulse Ox O2 Delivery O2 Flow Rate FiO2 08/10/19 12:39 60 146/62 08/10/19 08:00 Nasal Cannula 2.0 08/10/19 07:52 90 08/10/19 07:00 97.5 18 97.5 Weight Weight [ ] Input and Output Intake and Output Intake and Output 08/10/19 07:00 Intake Total 440 ml Output Total 400 ml Balance 40 ml Intake Oral 240 ml IV Total 200 ml Output Urine Total 400 ml # Voids 3 Laboratory Labs Laboratory Tests Test 08/09/19 14:10 08/09/19 15:38 08/09/19 16:46 08/09/19 20:42 White Blood Count 12.3 x10^3/uL (4.0-11.0) Red Blood Count 3.68 x10^6/uL (3.50-5.40) Hemoglobin 11.3 g/dL (12.0-15.5) Hematocrit 34.3 % (36.0-47.0) Mean Corpuscular Volume 93 fL (79-100) Mean Corpuscular Hemoglobin 31 pg (25-35) Mean Corpuscular Hemoglobin Concent 33 g/dL (31-37) Red Cell Distribution Width 13.7 % (11.5-14.5) Platelet Count 353 x10^3/uL (140-400) Neutrophils (%) (Auto) 89 % (31-73) Lymphocytes (%) (Auto) 4 % (24-48) Monocytes (%) (Auto) 6 % (0-9) Eosinophils (%) (Auto) 1 % (0-3) Basophils (%) (Auto) 1 % (0-3) Neutrophils # (Auto) 10.9 x10^3/uL (1.8-7.7) Lymphocytes # (Auto) 0.5 x10^3/uL (1.0-4.8) Monocytes # (Auto) 0.7 x10^3/uL (0.0-1.1) Eosinophils # (Auto) 0.1 x10^3/uL (0.0-0.7) Basophils # (Auto) 0.1 x10^3/uL (0.0-0.2) Segmented Neutrophils % 82 % (35-66) Band Neutrophils % 10 % (0-9) Lymphocytes % 6 % (24-48) Monocytes % 2 % (0-10) Platelet Estimate Adequate (ADEQUATE) Sodium Level 129 mmol/L (136-145) Potassium Level 5.0 mmol/L (3.5-5.1) Chloride Level 96 mmol/L (98-107) Carbon Dioxide Level 22 mmol/L (21-32) Anion Gap 11 (6-14) Blood Urea Nitrogen 14 mg/dL (7-20) Creatinine 1.2 mg/dL (0.6-1.0) Estimated GFR (Cockcroft-Gault) 42.3 BUN/Creatinine Ratio 12 (6-20) Glucose Level 185 mg/dL (70-99) Calcium Level 8.8 mg/dL (8.5-10.1) Total Bilirubin 0.5 mg/dL (0.2-1.0) Aspartate Amino Transf (AST/SGOT) 23 U/L (15-37) Alanine Aminotransferase (ALT/SGPT) 25 U/L (14-59) Alkaline Phosphatase 90 U/L (46-116) Total Protein 6.6 g/dL (6.4-8.2) Albumin 2.6 g/dL (3.4-5.0) Albumin/Globulin Ratio 0.7 (1.0-1.7) Urine Collection Type Unknown Urine Color Yellow Urine Clarity Clear Urine pH 5.0 Urine Specific [place] 1.010 Urine Protein Negative mg/dL (NEG-TRACE) Urine Glucose (UA) Negative mg/dL (NEG) Urine Ketones (Stick) Negative mg/dL (NEG) Urine Blood Negative (NEG) Urine Nitrite Negative (NEG) Urine Bilirubin Negative (NEG) Urine Urobilinogen Dipstick 0.2 mg/dL (0.2 mg/dL) Urine Leukocyte Esterase Negative (NEG) Urine RBC Occ /HPF (0-2) Urine WBC 1-4 /HPF (0-4) Urine Squamous Epithelial Cells Many /LPF Urine Bacteria 0 /HPF (0-FEW) Urine Hyaline Casts Few /HPF Urine Mucus Mod /LPF Glucose (Fingerstick) 163 mg/dL (70-99) 150 mg/dL (70-99) Test 08/10/19 04:25 08/10/19 07:24 08/10/19 12:01 White Blood Count 11.0 x10^3/uL (4.0-11.0) Red Blood Count 3.50 x10^6/uL (3.50-5.40) Hemoglobin 10.9 g/dL (12.0-15.5) Hematocrit 32.7 % (36.0-47.0) Mean Corpuscular Volume 93 fL (79-100) Mean Corpuscular Hemoglobin 31 pg (25-35) Mean Corpuscular Hemoglobin Concent 33 g/dL (31-37) Red Cell Distribution Width 13.8 % (11.5-14.5) Platelet Count 355 x10^3/uL (140-400) Sodium Level 131 mmol/L (136-145) Potassium Level 4.4 mmol/L (3.5-5.1) Chloride Level 97 mmol/L (98-107) Carbon Dioxide Level 23 mmol/L (21-32) Anion Gap 11 (6-14) Blood Urea Nitrogen 17 mg/dL (7-20) Creatinine 1.2 mg/dL (0.6-1.0) Estimated GFR (Cockcroft-Gault) 42.3 BUN/Creatinine Ratio 14 (6-20) Glucose Level 146 mg/dL (70-99) Calcium Level 9.2 mg/dL (8.5-10.1) Total Bilirubin 0.5 mg/dL (0.2-1.0) Aspartate Amino Transf (AST/SGOT) 20 U/L (15-37) Alanine Aminotransferase (ALT/SGPT) 21 U/L (14-59) Alkaline Phosphatase 86 U/L (46-116) Total Protein 6.5 g/dL (6.4-8.2) Albumin 2.6 g/dL (3.4-5.0) Albumin/Globulin Ratio 0.7 (1.0-1.7) Glucose (Fingerstick) 142 mg/dL (70-99) 163 mg/dL (70-99) Physical Exam HEENT: Neck Supple W Full Motion Chest: Symmetric LUNGS: Other (diminished bases) Heart: RRR (not on tele ) Abdomen: Soft N/T Extremities: Other (trace bilateral LE edema ) Neurology: alert, oriented, follow commands Assessment Assessment 1. Abdominal pain; imaging notable for possible ileus. No obstruction. Gen surgery following 2. Hydronephrosis, left: as per urology. 3. CAD s/p PCI/stents to LMCA/LAD/LCx in the past; clinically stable. CP free. Echo 01/13 with preserved LV systolic function. Recent stress test without reversible ischemia. Echo today pending. 4. Acute diastolic CHF; improved with diuresis 5. SSS/CHB; s/p PPM implantation ([employer]). Recent device check with normal function. 6. Hypertension; Controlled 7. Hyperlipidemia; statin 8. Diabetes, II; as per PCP. 9. Carotid disease s/p UNIT TRUST MANAGER/stent placement to the left ICA and right endarterectomy Recommendations Lasix therapy Continue current secondary prevention measures. Supportive care KATIE SHABAZZ MD 08/10/191921: CARDIO Progress Notes Assessment Assessment Patient seen and examined. Agree with FASHION ILLUSTRATOR's assessment and plan. CAD status clinically stable Continue management of ileus and hydronephrosis per GS and Urology teams Continue diuresis CHRISTELLE PIKE APRN Aug 10, 2019 14:02 KATIE SHABAZZ MD Aug 10, 2019 19:22
--- NOTE | 2019-08-10 14:46 | NUR ---
Wound Care Wound care consult for Right buttock wound. Pt has healing stage III PU. Cleansed area and redressed with skin prep and foam. No other wounds noted on full skin inspection, pt educated on PU prevention. WC will continue to follow for possible changes.
[2019-08-10 15:00] VITALS: BP 128/67
--- NOTE | 2019-08-10 15:36 | CARD ---
MR#: [id number] Date of Study: 08/10/2019 Ordering Physician: GEORGETTE FRITZ, Referring Physician: GEORGETTE FRITZ Tech: Juliette Herrera RDCS APPROVED REPORT EXAM: Two-dimensional and M-mode echocardiogram with Doppler and color Doppler. Other Information Quality : Fair INDICATION Congestive Heart Failure Pacemaker 2D DIMENSIONS RVDd3.3 (2.9-3.5cm)Left Atrium(2D)3.8 (1.6-4.0cm) IVSd0.6 (0.7-1.1cm)Aortic Root(2D)2.5 (2.0-3.7cm) LVDd4.1 (3.9-5.9cm)LVOT Diameter2.0 (1.8-2.4cm) PWd0.6 (0.7-1.1cm)LVDs3.1 (2.5-4.0cm) FS (%) 23.7 %SV36.0 ml LVEF(%)47.8 (>50%) Aortic Valve AoV Peak Juan.143.4cm/sAoV VTI22.5cm AO Peak GR.8.2mmHgLVOT Peak Juan.90.4cm/s LVOT VTI 17.66cmAO Mean GR.4mmHg PATRICIA (VMAX)1.57aj5YFS (VTI)2.35cm2 Mitral Valve MV E Ngndnuzt820.1cm/sMV DECEL [id number] MV A Eydqqyhr363.9cm/sMV JAR27pd E/A Ratio1.3MVA (PHT)4.25cm2 TDI E/Lateral E'20.5E/Medial E'32.5 Tricuspid Valve TR P. [id number]/sRAP [id number] TR Peak Gr.79pyJsSFGN57guSj Pulmonary Vein S1 Oyktthvg12.5cm/sD2 Msizsuvc05.2cm/s LEFT VENTRICLE The left ventricle is normal size. There is normal left ventricular wall thickness. Left ventricle sy stolic function is mildly to moderately impaired. The Ejection Fraction is 35%. The mid to distal LV is severely hypokinetic to akinetic. Cannot rule out stress induced CMP versus LAD territory defect. Tissue Doppler imaging reveals moderate left ventricular diastolic dysfunction. RIGHT VENTRICLE The right ventricle is normal size. The right ventricular systolic function is normal. There is a pac emaker lead in the right ventricle. ATRIA The left atrium size is normal. The right atrium size is normal. A pacemaker is seen in the right atr ium consistent with history. The interatrial septum is intact with no evidence for an atrial septal d efect or patent foramen ovale as noted on 2-D or Doppler imaging. AORTIC VALVE The aortic valve is calcified but opens well. Doppler and Color Flow revealed no significant aortic r egurgitation. There is no significant aortic valvular stenosis. MITRAL VALVE The mitral valve is calcified but opens well. There is no evidence of mitral valve prolapse. There is no mitral valve stenosis. Doppler and Color-flow revealed moderate mitral regurgitation. TRICUSPID VALVE The tricuspid valve is normal in structure and function. Doppler and Color Flow revealed mild to mode rate tricuspid regurgitation. There is severe pulmonary hypertension. The PA pressure was estimated a t 78 mmHg. There is no tricuspid valve stenosis. PULMONIC VALVE The pulmonic valve is not well visualized. Doppler and Color Flow revealed no pulmonic valvular regur gitation. There is no pulmonic valvular stenosis. GREAT VESSELS The aortic root is normal in size. The ascending aorta is not well seen. The IVC is dilated and colla pses <50% with inspiration. PERICARDIAL EFFUSION There is no evidence of significant pericardial effusion. Critical Notification Critical Value: No <Conclusion> Left ventricle systolic function is mildly to moderately impaired. The Ejection Fraction is 35%. The mid to distal LV is severely hypokinetic to akinetic. Cannot rule out stress induced CMP versus L AD territory defect. There is a pacemaker lead in the right ventricle. Doppler and Color-flow revealed moderate mitral regurgitation. Doppler and Color Flow revealed mild to moderate tricuspid regurgitation. There is severe pulmonary h ypertension. The PA pressure was estimated at 78 mmHg. Signed by : Randolph Acosta, Electronically Approved : 08/10/2019 15:35:56
[2019-08-10 19:00] VITALS: BP 128/60
[2019-08-10] MEDS: cefTRIAXone IV Push 1 GM VIAL. IVP SCH (20:34)
[2019-08-10] MEDS: ATORVASTATIN CALCIUM 10 MG TABLET. PO SCH (21:06)
[2019-08-10] MEDS: AZITHROMYCIN 500 MG in IV NORMAL SALINE 250ML 250 ML IV SCH (21:07)
[2019-08-10] MEDS: guaiFENesin ORAL 200 MG/10 ML LIQUID. PO PRN (21:13)
[2019-08-10] MEDS: ONDANSETRON PF 4 MG/2 ML VIAL. IV PRN (22:25)
[2019-08-10 23:00] VITALS: BP 120/51
[2019-08-10] MEDS: ACETAMINOPHEN/CODEINE 300/30MG TABLET. PO PRN (23:38)
[2019-08-11 03:00] VITALS: BP 142/80
[2019-08-11 06:03] LABS: CALCIUM 8.4 mg/dL (8.5-10.1); CREATININE 1.3 mg/dL (0.6-1.0); GFR 38.6; POTASSIUM 4.2 mmol/L (3.5-5.1)
[2019-08-11 07:00] VITALS: BP 141/69
[2019-08-11] MEDS: IPRATRPIUM/ALBUTEROL 0.5/2.5MG 3 ML NEBU. NEB SCH ×4 (07:55→19:47)
[2019-08-11] MEDS: GABAPENTIN 100 MG CAPSULE. PO SCH ×3 (08:09→21:59)
[2019-08-11] MEDS: MAGNESIUM OXIDE 400 MG TABLET PO SCH (08:09)
[2019-08-11] MEDS: MULTIVITAMIN with MINERAL TABLET. PO SCH (08:09)
[2019-08-11] MEDS: ASPIRIN CHEWABLE 81 MG TABLET. PO SCH (08:09)
[2019-08-11] MEDS: TICAGRELOR 90 MG TABLET. PO SCH ×2 (08:09→21:59)
[2019-08-11] MEDS: ISOSORBIDE MONONITRATE ER 30 MG TAB.ER.24H PO SCH (08:09)
[2019-08-11] MEDS: PANTOPRAZOLE 40 MG TABLET.DR. PO SCH (08:09)
[2019-08-11] MEDS: LACTOBACILLUS RHAMNOSUS GG 1 CAPSULE. PO SCH ×2 (08:09→21:59)
[2019-08-11] MEDS: FUROSEMIDE 40 MG/4 ML VIAL. IVP SCH (08:10)
[2019-08-11] MEDS: METOPROLOL TART IMMED RELEASE 25 MG TABLET. PO SCH ×2 (08:10→22:01)
[2019-08-11] MEDS: INSULIN LISPRO 300 UNITS/3 ML VIAL. SQ SCH ×3 (08:22→17:26)
--- NOTE | 2019-08-11 08:58 | PDOC ---
NORBERTO BEATTY AMMUNITION AND EXPLOSIVES HANDLER 08/11/19 0858: SURGICAL PROGRESS NOTE Subjective some mild nausea with movement yesterday + flatus tolerating clears Vital Signs Vital Signs Date Time Temp Pulse Resp B/P (MAP) Pulse Ox O2 Delivery O2 Flow Rate FiO2 08/11/19 08:22 79 141/65 08/11/19 07:58 93 Nasal Cannula 3.0 08/11/19 07:00 98.1 16 98.1 I&O Intake and Output 08/11/19 06:59 Intake Total 240 ml Output Total 920 ml Balance -680 ml Intake Oral 240 ml Output Urine Total 920 ml # Voids 4 General: Alert, Oriented X3, Cooperative, No acute distress Abdomen: Soft, Other (NTTP, mild distention ) Labs Laboratory Tests Test 08/09/19 11:43 08/09/19 14:10 08/09/19 15:38 08/09/19 16:46 Glucose (Fingerstick) 176 mg/dL (70-99) 163 mg/dL (70-99) White Blood Count 12.3 x10^3/uL (4.0-11.0) Red Blood Count 3.68 x10^6/uL (3.50-5.40) Hemoglobin 11.3 g/dL (12.0-15.5) Hematocrit 34.3 % (36.0-47.0) Mean Corpuscular Volume 93 fL (79-100) Mean Corpuscular Hemoglobin 31 pg (25-35) Mean Corpuscular Hemoglobin Concent 33 g/dL (31-37) Red Cell Distribution Width 13.7 % (11.5-14.5) Platelet Count 353 x10^3/uL (140-400) Neutrophils (%) (Auto) 89 % (31-73) Lymphocytes (%) (Auto) 4 % (24-48) Monocytes (%) (Auto) 6 % (0-9) Eosinophils (%) (Auto) 1 % (0-3) Basophils (%) (Auto) 1 % (0-3) Neutrophils # (Auto) 10.9 x10^3/uL (1.8-7.7) Lymphocytes # (Auto) 0.5 x10^3/uL (1.0-4.8) Monocytes # (Auto) 0.7 x10^3/uL (0.0-1.1) Eosinophils # (Auto) 0.1 x10^3/uL (0.0-0.7) Basophils # (Auto) 0.1 x10^3/uL (0.0-0.2) Segmented Neutrophils % 82 % (35-66) Band Neutrophils % 10 % (0-9) Lymphocytes % 6 % (24-48) Monocytes % 2 % (0-10) Platelet Estimate Adequate (ADEQUATE) Sodium Level 129 mmol/L (136-145) Potassium Level 5.0 mmol/L (3.5-5.1) Chloride Level 96 mmol/L (98-107) Carbon Dioxide Level 22 mmol/L (21-32) Anion Gap 11 (6-14) Blood Urea Nitrogen 14 mg/dL (7-20) Creatinine 1.2 mg/dL (0.6-1.0) Estimated GFR (Cockcroft-Gault) 42.3 BUN/Creatinine Ratio 12 (6-20) Glucose Level 185 mg/dL (70-99) Calcium Level 8.8 mg/dL (8.5-10.1) Total Bilirubin 0.5 mg/dL (0.2-1.0) Aspartate Amino Transf (AST/SGOT) 23 U/L (15-37) Alanine Aminotransferase (ALT/SGPT) 25 U/L (14-59) Alkaline Phosphatase 90 U/L (46-116) Total Protein 6.6 g/dL (6.4-8.2) Albumin 2.6 g/dL (3.4-5.0) Albumin/Globulin Ratio 0.7 (1.0-1.7) Urine Collection Type Unknown Urine Color Yellow Urine Clarity Clear Urine pH 5.0 Urine Specific [place] 1.010 Urine Protein Negative mg/dL (NEG-TRACE) Urine Glucose (UA) Negative mg/dL (NEG) Urine Ketones (Stick) Negative mg/dL (NEG) Urine Blood Negative (NEG) Urine Nitrite Negative (NEG) Urine Bilirubin Negative (NEG) Urine Urobilinogen Dipstick 0.2 mg/dL (0.2 mg/dL) Urine Leukocyte Esterase Negative (NEG) Urine RBC Occ /HPF (0-2) Urine WBC 1-4 /HPF (0-4) Urine Squamous Epithelial Cells Many /LPF Urine Bacteria 0 /HPF (0-FEW) Urine Hyaline Casts Few /HPF Urine Mucus Mod /LPF Test 08/09/19 20:42 08/10/19 04:25 08/10/19 07:24 08/10/19 12:01 Glucose (Fingerstick) 150 mg/dL (70-99) 142 mg/dL (70-99) 163 mg/dL (70-99) White Blood Count 11.0 x10^3/uL (4.0-11.0) Red Blood Count 3.50 x10^6/uL (3.50-5.40) Hemoglobin 10.9 g/dL (12.0-15.5) Hematocrit 32.7 % (36.0-47.0) Mean Corpuscular Volume 93 fL (79-100) Mean Corpuscular Hemoglobin 31 pg (25-35) Mean Corpuscular Hemoglobin Concent 33 g/dL (31-37) Red Cell Distribution Width 13.8 % (11.5-14.5) Platelet Count 355 x10^3/uL (140-400) Sodium Level 131 mmol/L (136-145) Potassium Level 4.4 mmol/L (3.5-5.1) Chloride Level 97 mmol/L (98-107) Carbon Dioxide Level 23 mmol/L (21-32) Anion Gap 11 (6-14) Blood Urea Nitrogen 17 mg/dL (7-20) Creatinine 1.2 mg/dL (0.6-1.0) Estimated GFR (Cockcroft-Gault) 42.3 BUN/Creatinine Ratio 14 (6-20) Glucose Level 146 mg/dL (70-99) Calcium Level 9.2 mg/dL (8.5-10.1) Total Bilirubin 0.5 mg/dL (0.2-1.0) Aspartate Amino Transf (AST/SGOT) 20 U/L (15-37) Alanine Aminotransferase (ALT/SGPT) 21 U/L (14-59) Alkaline Phosphatase 86 U/L (46-116) BN-Tpy-A-Type Natriuretic Peptide 58077 pg/mL (0-449) Total Protein 6.5 g/dL (6.4-8.2) Albumin 2.6 g/dL (3.4-5.0) Albumin/Globulin Ratio 0.7 (1.0-1.7) Test 08/10/19 16:38 08/10/19 20:54 08/11/19 05:30 08/11/19 07:53 Glucose (Fingerstick) 236 mg/dL (70-99) 227 mg/dL (70-99) 186 mg/dL (70-99) Sodium Level 133 mmol/L (136-145) Potassium Level 4.2 mmol/L (3.5-5.1) Chloride Level 98 mmol/L (98-107) Carbon Dioxide Level 24 mmol/L (21-32) Anion Gap 11 (6-14) Blood Urea Nitrogen 20 mg/dL (7-20) Creatinine 1.3 mg/dL (0.6-1.0) Estimated GFR (Cockcroft-Gault) 38.6 Glucose Level 170 mg/dL (70-99) Calcium Level 8.4 mg/dL (8.5-10.1) Laboratory Tests Test 08/10/19 12:01 08/10/19 16:38 08/10/19 20:54 08/11/19 05:30 Glucose (Fingerstick) 163 mg/dL (70-99) 236 mg/dL (70-99) 227 mg/dL (70-99) Sodium Level 133 mmol/L (136-145) Potassium Level 4.2 mmol/L (3.5-5.1) Chloride Level 98 mmol/L (98-107) Carbon Dioxide Level 24 mmol/L (21-32) Anion Gap 11 (6-14) Blood Urea Nitrogen 20 mg/dL (7-20) Creatinine 1.3 mg/dL (0.6-1.0) Estimated GFR (Cockcroft-Gault) 38.6 Glucose Level 170 mg/dL (70-99) Calcium Level 8.4 mg/dL (8.5-10.1) Test 08/11/19 07:53 Glucose (Fingerstick) 186 mg/dL (70-99) Problem List Problems Medical Problems: (1) CAD (coronary artery disease) Status: Chronic (2) DM2 (diabetes mellitus, type 2) Status: Chronic (3) HLD (hyperlipidemia) Status: Chronic (4) Hypertension Status: Chronic (5) SBO (small bowel obstruction) Status: Acute Assessment/Plan try full liquids DAWNA PICKETT MD 08/11/19 1136: SURGICAL PROGRESS NOTE Assessment/Plan Patient doing well, having BM's Abd soft, ND NT Agree with Terry's assessment and plan. NORBERTO BEATTY APRN Aug 11, 2019 08:58 DAWNA PICKETT MD Aug 11, 2019 11:36
--- NOTE | 2019-08-11 09:13 | NUR ---
SS following up with discharge planning. SS received phone contact from [facility], ; fax [phone], stating that they will be coming to the hospital to complete at Face to Face with pt prior to accepting. SS will continue to follow for discharge planning.
--- NOTE | 2019-08-11 10:42 | PDOC ---
PULMONARY PROGRESS NOTES Subjective feels much better/ no soa Vitals Vital Signs Date Time Temp Pulse Resp B/P (MAP) Pulse Ox O2 Delivery O2 Flow Rate FiO2 08/11/19 08:22 79 141/65 08/11/19 07:58 93 Nasal Cannula 3.0 08/11/19 07:00 98.1 16 98.1 General: Alert, No acute distress Lungs: Crackles (bases) Cardiovascular: S1, S2 Abdomen: Soft Neuro Exam: Alert Extremities: Other (1+edema) Skin: Warm Labs Laboratory Tests Test 08/09/19 11:43 08/09/19 14:10 08/09/19 15:38 08/09/19 16:46 Glucose (Fingerstick) 176 mg/dL (70-99) 163 mg/dL (70-99) White Blood Count 12.3 x10^3/uL (4.0-11.0) Red Blood Count 3.68 x10^6/uL (3.50-5.40) Hemoglobin 11.3 g/dL (12.0-15.5) Hematocrit 34.3 % (36.0-47.0) Mean Corpuscular Volume 93 fL (79-100) Mean Corpuscular Hemoglobin 31 pg (25-35) Mean Corpuscular Hemoglobin Concent 33 g/dL (31-37) Red Cell Distribution Width 13.7 % (11.5-14.5) Platelet Count 353 x10^3/uL (140-400) Neutrophils (%) (Auto) 89 % (31-73) Lymphocytes (%) (Auto) 4 % (24-48) Monocytes (%) (Auto) 6 % (0-9) Eosinophils (%) (Auto) 1 % (0-3) Basophils (%) (Auto) 1 % (0-3) Neutrophils # (Auto) 10.9 x10^3/uL (1.8-7.7) Lymphocytes # (Auto) 0.5 x10^3/uL (1.0-4.8) Monocytes # (Auto) 0.7 x10^3/uL (0.0-1.1) Eosinophils # (Auto) 0.1 x10^3/uL (0.0-0.7) Basophils # (Auto) 0.1 x10^3/uL (0.0-0.2) Segmented Neutrophils % 82 % (35-66) Band Neutrophils % 10 % (0-9) Lymphocytes % 6 % (24-48) Monocytes % 2 % (0-10) Platelet Estimate Adequate (ADEQUATE) Sodium Level 129 mmol/L (136-145) Potassium Level 5.0 mmol/L (3.5-5.1) Chloride Level 96 mmol/L (98-107) Carbon Dioxide Level 22 mmol/L (21-32) Anion Gap 11 (6-14) Blood Urea Nitrogen 14 mg/dL (7-20) Creatinine 1.2 mg/dL (0.6-1.0) Estimated GFR (Cockcroft-Gault) 42.3 BUN/Creatinine Ratio 12 (6-20) Glucose Level 185 mg/dL (70-99) Calcium Level 8.8 mg/dL (8.5-10.1) Total Bilirubin 0.5 mg/dL (0.2-1.0) Aspartate Amino Transf (AST/SGOT) 23 U/L (15-37) Alanine Aminotransferase (ALT/SGPT) 25 U/L (14-59) Alkaline Phosphatase 90 U/L (46-116) Total Protein 6.6 g/dL (6.4-8.2) Albumin 2.6 g/dL (3.4-5.0) Albumin/Globulin Ratio 0.7 (1.0-1.7) Urine Collection Type Unknown Urine Color Yellow Urine Clarity Clear Urine pH 5.0 Urine Specific [place] 1.010 Urine Protein Negative mg/dL (NEG-TRACE) Urine Glucose (UA) Negative mg/dL (NEG) Urine Ketones (Stick) Negative mg/dL (NEG) Urine Blood Negative (NEG) Urine Nitrite Negative (NEG) Urine Bilirubin Negative (NEG) Urine Urobilinogen Dipstick 0.2 mg/dL (0.2 mg/dL) Urine Leukocyte Esterase Negative (NEG) Urine RBC Occ /HPF (0-2) Urine WBC 1-4 /HPF (0-4) Urine Squamous Epithelial Cells Many /LPF Urine Bacteria 0 /HPF (0-FEW) Urine Hyaline Casts Few /HPF Urine Mucus Mod /LPF Test 08/09/19 20:42 08/10/19 04:25 08/10/19 07:24 08/10/19 12:01 Glucose (Fingerstick) 150 mg/dL (70-99) 142 mg/dL (70-99) 163 mg/dL (70-99) White Blood Count 11.0 x10^3/uL (4.0-11.0) Red Blood Count 3.50 x10^6/uL (3.50-5.40) Hemoglobin 10.9 g/dL (12.0-15.5) Hematocrit 32.7 % (36.0-47.0) Mean Corpuscular Volume 93 fL (79-100) Mean Corpuscular Hemoglobin 31 pg (25-35) Mean Corpuscular Hemoglobin Concent 33 g/dL (31-37) Red Cell Distribution Width 13.8 % (11.5-14.5) Platelet Count 355 x10^3/uL (140-400) Sodium Level 131 mmol/L (136-145) Potassium Level 4.4 mmol/L (3.5-5.1) Chloride Level 97 mmol/L (98-107) Carbon Dioxide Level 23 mmol/L (21-32) Anion Gap 11 (6-14) Blood Urea Nitrogen 17 mg/dL (7-20) Creatinine 1.2 mg/dL (0.6-1.0) Estimated GFR (Cockcroft-Gault) 42.3 BUN/Creatinine Ratio 14 (6-20) Glucose Level 146 mg/dL (70-99) Calcium Level 9.2 mg/dL (8.5-10.1) Total Bilirubin 0.5 mg/dL (0.2-1.0) Aspartate Amino Transf (AST/SGOT) 20 U/L (15-37) Alanine Aminotransferase (ALT/SGPT) 21 U/L (14-59) Alkaline Phosphatase 86 U/L (46-116) MS-Qjz-O-Type Natriuretic Peptide 37956 pg/mL (0-449) Total Protein 6.5 g/dL (6.4-8.2) Albumin 2.6 g/dL (3.4-5.0) Albumin/Globulin Ratio 0.7 (1.0-1.7) Test 08/10/19 16:38 08/10/19 20:54 08/11/19 05:30 08/11/19 07:53 Glucose (Fingerstick) 236 mg/dL (70-99) 227 mg/dL (70-99) 186 mg/dL (70-99) Sodium Level 133 mmol/L (136-145) Potassium Level 4.2 mmol/L (3.5-5.1) Chloride Level 98 mmol/L (98-107) Carbon Dioxide Level 24 mmol/L (21-32) Anion Gap 11 (6-14) Blood Urea Nitrogen 20 mg/dL (7-20) Creatinine 1.3 mg/dL (0.6-1.0) Estimated GFR (Cockcroft-Gault) 38.6 Glucose Level 170 mg/dL (70-99) Calcium Level 8.4 mg/dL (8.5-10.1) Laboratory Tests Test 08/10/19 12:01 08/10/19 16:38 08/10/19 20:54 08/11/19 05:30 Glucose (Fingerstick) 163 mg/dL (70-99) 236 mg/dL (70-99) 227 mg/dL (70-99) Sodium Level 133 mmol/L (136-145) Potassium Level 4.2 mmol/L (3.5-5.1) Chloride Level 98 mmol/L (98-107) Carbon Dioxide Level 24 mmol/L (21-32) Anion Gap 11 (6-14) Blood Urea Nitrogen 20 mg/dL (7-20) Creatinine 1.3 mg/dL (0.6-1.0) Estimated GFR (Cockcroft-Gault) 38.6 Glucose Level 170 mg/dL (70-99) Calcium Level 8.4 mg/dL (8.5-10.1) Test 08/11/19 07:53 Glucose (Fingerstick) 186 mg/dL (70-99) Medications Active Scripts Medications Dose Route/Sig Max Daily Dose Days Date Category Dose Instructions Furosemide 20 Mg Tablet 40 Mg PO DAILY 30 12/29/18 Rx Metoprolol Tartrate 25 Mg Tablet 25 Mg PO BID 12/26/18 Reported Levemir (Insulin Detemir) 100 Unit/1 Ml Vial 8 Unit SQ DAILY 12/15/17 Rx Isosorbide Mononitrate Er (Isosorbide Mononitrate) 30 Mg Tab.er.24h 30 Mg PO DAILY 12/15/17 Reported Brilinta (Ticagrelor) 90 Mg Tablet 90 Mg PO BID 11/21/16 Rx SIG: ONE TAB TWICE DAILY; DO NOT STOP WITHOUT INSTRUCTIONS FROM ENDOSCOPY NURSE Aspirin Ec (Aspirin) 81 Mg Tablet. 81 Mg PO DAILYWBKFT 11/21/16 Rx Cyanocobalamin Injection (Cyanocobalamin (Vitamin B-12)) 1,000 Mcg/1 Ml Vial 1,000 Mcg IJ QMONTH 11/20/16 Reported Magnesium (Magnesium Amino Acid Chelate) 100 Mg Tablet 100 Mg PO DAILY 11/20/16 Reported Calcium 600 + Vit D 200 Tablet (Calcium Carbonate/Vitamin D3) 1 Each Tablet 1 Each PO DAILY 11/20/16 Reported Prolia (Denosumab) 60 Mg/1 Ml Disp.syrin 60 Mg SQ Q6 MONTHS 11/20/16 Reported Voltaren (Diclofenac Sodium) 100 Gm Gel..gram. 4 Gm TP QID 11/20/16 Reported Ocuvite Softgel (Vit C/Vit E/Lutein/Min/[place]-3) 1 Each Capsule 1 Cap PO DAILY 11/20/16 Reported Lotrel 10-20 Mg Capsule (Amlodipine Besylate/Benazepril) 1 Each Capsule 1 Each PO DAILY 11/20/16 Reported NITROGLYCERIN SubLingual (Nitroglycerin) 0.4 Mg Tab.subl 0.4 Mg SL PRN Q5MIN PRN 11/16/16 Reported Ferrous Sulfate 325 Mg Tablet 325 Tab PO TWICE WEEKLY 11/16/16 Reported Glipizide 10 Mg Tablet 0.5 Tab PO BID 11/16/16 Reported Potassium Chloride 10 Meq Capsule.er 1 Cap PO DAILY 10/15/14 Reported Oxybutynin Chloride 5 Mg Tablet 1 Tab PO DAILY 10/15/14 Reported Omeprazole 20 Mg Capsule. 1 Cap PO DAILY 10/15/14 Reported Simvastatin 80 Mg Tablet 40 Mg PO QHS 10/15/14 Reported Impression . 1. Acute hypoxic respiratory failure secondary to worsening interstitial edema/ underlying ILD 2. Bilateral worsening interstitial infiltrates based on 08/09 chest x-ray and CT chest from 08/08; clinically favoring interstitial edema in a patient who has moderate mitral regurgitation based on previous echo; along with coexisting interstitial lung disease 3. Small basal pleural effusion, likely related to congestive heart failure. 4. Possible mild chronic obstructive pulmonary disease. 5. Mediastinal adenopathy. Large sub-carinal mass vs adenopathy and large Pre- tracheal adenopathy. Could be sarcoidosis with ILD. Cannot exclude malignancy. Too frail to undergo invasive biopsy. PET scan as OP would be reasonable. Plan . 1. Discussed with JUAN. responded to IV Lasix, reduce dose due to increase in cr 2. Continue oxygen to keep saturation 92% and above. 3. Continue antibiotics. 4. Follow the response to treatment. repeat cxr 08/11 mild improvement 5. Continue DuoNeb. 6. Repeat echocardiogram with EF 35% and moderate mitral regurgitation. 7. Follow Cardiology recommendations. 8. Too frail to undergo invasive biopsy. PET scan as OP would be reasonable. d/w RN/ . I will have her f/u in October with PET scan.. May add low dose prednisone to rx suspected sarcoidosis GEORGETTE FRITZ MD Aug 11, 2019 10:42
--- NOTE | 2019-08-11 10:44 | NUR ---
Spoke with Neda at Dr. Marquez's office. F/U appt made for 11/10/19 @ 2:15pm.
[2019-08-11 11:00] VITALS: BP 147/54
[2019-08-11] MEDS: predniSONE 10 MG TABLET PO SCH (11:58)
[2019-08-11 15:00] VITALS: BP 123/60
--- NOTE | 2019-08-11 16:16 | RAD ---
AP portable chest radiograph 08/11/2019 Clinical History: Congestive heart failure. An AP erect portable digital radiograph of the chest was obtained. Comparison study is dated 12/26/2018. A pacemaker is unchanged in position. The cardiac silhouette is mildly enlarged. The thoracic aorta is tortuous. Atherosclerotic calcification of the thoracic aorta is seen. There are small bilateral pleural effusions, left greater than right. Perihilar infiltrates are seen involving both lungs consistent with pulmonary edema from CHF. No pneumothorax is seen. The osseous structures are unchanged. Impression: Bilateral perihilar infiltrates are seen consistent with pulmonary edema from CHF. Electronically signed by: Nasir Hunt MD (08/11/2019 4:13 PM) [place] [id number]
[2019-08-11 19:00] VITALS: BP 138/67
[2019-08-11] MEDS: AZITHROMYCIN 500 MG in IV NORMAL SALINE 250ML 250 ML IV SCH (21:59)
[2019-08-11] MEDS: ATORVASTATIN CALCIUM 10 MG TABLET. PO SCH (21:59)
[2019-08-11] MEDS: cefTRIAXone IV Push 1 GM VIAL. IVP SCH (22:00)
[2019-08-11 22:49] VITALS: BP 125/64
[2019-08-11] MEDS: PRAMIPEXOLE 0.25 MG TABLET. PO SCH (23:16)
[2019-08-11] MEDS ORDERED: INSULIN LISPRO 300 UNITS/3 ML VIAL. SQ ONE (23:30)
[2019-08-12] VITALS (13 sets, daily range): BP systolic 75–139; BP diastolic 48–71
[2019-08-12] MEDS: guaiFENesin ORAL 200 MG/10 ML LIQUID. PO PRN ×3 (00:01→20:56)
--- NOTE | 2019-08-12 02:27 | PN ---
DATE: 08/11/2019 SUBJECTIVE: The patient is resting, slightly propped up in her recliner, no apparent distress. She continued to complain of shortness of breath. Her abdomen is distended and she has discomfort. She has passed flatus, but no bowel movement. Denied any nausea, vomiting, has been on liquid diet, which was advanced to full liquid diet. PHYSICAL EXAMINATION: GENERAL: When I examined her, she was pale, but no jaundice, cyanosis or thyromegaly. No jugular venous distention. No limb edema. VITAL SIGNS: Her heart rate was 79, blood pressure was 141/65, temperature was 98.1, respiratory rate was 16, and oxygen saturation was 93% on 3 liters of oxygen. HEAD, EYES, EARS, NOSE AND THROAT: Showed normocephalic, atraumatic. NECK: Supple. HEART: Showed normal first and second heart sounds. No gallop or murmur. CHEST: Shows central trachea, equal bilateral expansion, air entry, vesicular sounds with crepitation both sides posteriorly. I could not appreciate any rhonchi. ABDOMEN: Distended, soft with resonant percussion note. NEUROLOGIC: She is awake, alert, responding appropriately. All cranial nerves intact. She moves extremities without difficulty. Her intake was 440, output was 400. LABORATORY DATA: As of this morning, her serum sodium is up to 133, potassium 4.2, chloride 98, bicarbonate 24, anion gap of 11, BUN 20, creatinine 1.3, estimated GFR was 38 mL per minute. Her glucose 170, calcium was 8.4. ASSESSMENT: 1. Community-acquired pneumonia for which she is on IV Rocephin and Zithromax. 2. Urinary tract infection, left side hydronephrosis and perinephric stranding, for which she is on IV ceftriaxone. 3. Small-bowel obstruction, likely ileus. The patient is passing flatus and she was started on a clear liquid and her diet was advanced to full liquid, although her abdomen is more distended today. 4. She has acute hypoxic respiratory failure, multifactorial due to community-acquired pneumonia as well as acute on chronic diastolic congestive heart failure. She is currently on IV Lasix 40 mg daily. 5. The patient has hilar lymphadenopathy as well as subcarinal mass, for which she was seen by Dr. Marquez who did not recommend any invasive testing given her frailty and PET scan can be arranged for her as an outpatient. PLAN: To continue with IV antibiotic. Continue with IV Lasix. Her diet was advanced to full liquid. We will continue with physical and occupational therapy. ЕЛЕНА NIX MD DR: AMBER/rip JOB#: [id number] / [id number]
[2019-08-12] MEDS: PANTOPRAZOLE 40 MG TABLET.DR. PO SCH (06:29)
[2019-08-12] MEDS: IPRATRPIUM/ALBUTEROL 0.5/2.5MG 3 ML NEBU. NEB SCH ×4 (08:39→20:44)
[2019-08-12] MEDS ORDERED: FUROSEMIDE 20 MG/2 ML VIAL. IVP SCH (09:00)
[2019-08-12] MEDS: ASPIRIN CHEWABLE 81 MG TABLET. PO SCH (09:05)
[2019-08-12] MEDS: LACTOBACILLUS RHAMNOSUS GG 1 CAPSULE. PO SCH ×2 (09:05→20:36)
[2019-08-12] MEDS: predniSONE 10 MG TABLET PO SCH (09:05)
[2019-08-12] MEDS: MULTIVITAMIN with MINERAL TABLET. PO SCH (09:05)
[2019-08-12] MEDS: TICAGRELOR 90 MG TABLET. PO SCH (09:05)
[2019-08-12] MEDS: MAGNESIUM OXIDE 400 MG TABLET PO SCH (09:05)
[2019-08-12] MEDS: GABAPENTIN 100 MG CAPSULE. PO SCH ×3 (09:05→20:36)
[2019-08-12] MEDS: ISOSORBIDE MONONITRATE ER 30 MG TAB.ER.24H PO SCH (09:08)
[2019-08-12] MEDS: METOPROLOL TART IMMED RELEASE 25 MG TABLET. PO SCH ×2 (09:09→20:41)
[2019-08-12] MEDS: POLYETHYLENE GLYCOL 3350 17 GM PACKET. PO SCH (09:10)
[2019-08-12] MEDS: INSULIN LISPRO 300 UNITS/3 ML VIAL. SQ SCH ×3 (09:29→17:00)
--- NOTE | 2019-08-12 10:08 | NUR ---
SS following up with discharge planning. [facility] business office, , contacted SS and requested diagnosis codes for pt. SS provided diagnosis codes. SS currently awaiting acceptance decision and insurance determination and will proceed accordingly with discharge planning.
--- NOTE | 2019-08-12 10:49 | PDOC ---
ANTOINE HOPE HEAVY FORGING MACHINE OPERATOR 08/12/19 1049: CARDIO Progress Notes Date and Time Date of Service 08/12/2019 Time of Evaluation 1030 Subjective Subjective: No Chest Pain, No Palpitations, Other (SOA better) Vitals Vitals Vital Signs Date Time Temp Pulse Resp B/P (MAP) Pulse Ox O2 Delivery O2 Flow Rate FiO2 08/12/19 09:30 66 130/66 08/12/19 08:40 96 Nasal Cannula 2.0 08/12/19 07:00 97.9 18 97.9 Weight Weight [ ] Input and Output Intake and Output Intake and Output 08/12/19 06:59 Intake Total 300 ml Balance 300 ml Intake Oral 300 ml # Voids 5 Laboratory Labs Laboratory Tests Test 08/11/19 16:37 08/11/19 20:38 08/12/19 07:20 Glucose (Fingerstick) 196 mg/dL (70-99) 272 mg/dL (70-99) 156 mg/dL (70-99) Physical Exam HEENT: Neck Supple W Full Motion Chest: Symmetric LUNGS: Other (basilar crackles) Heart: RRR (not on tele ) Abdomen: Soft N/T Extremities: Other (trace to 1+ bilateral LE edema ) Neurology: alert, oriented, follow commands Assessment Assessment 1. Abdominal pain; better. was NPO with possible colonic ileus, tolerating [place] so far 2. Hydronephrosis, left: as per urology. 3. CAD s/p PCI/stents to LMCA/LAD/LCx in 2016. CP free 4. Acute diastolic/systolic CHF: appears compensated but still overloaded. 5. SSS/CHB; s/p PPM implantation ([employer]) 6. Hypertension; Controlled 7. Hyperlipidemia; statin 8. Diabetes, II; as per PCP. 9. Carotid disease s/p VISITING TEACHER/stent placement to the left ICA and right endarterectomy 10. Hyponatremia: suspect hypotonic hyposmolar due to CHF 11. Cardiomyopathy: EF 35%, possible restrictive component 12. Possible sarcoidosis: pulmonary following Recommendations 1. Lasix therapy, extra dose today. Strict I & O, discussed with RN, chair scale daily wt. 2. Continue current secondary prevention measures. Brilinta to restart tomorrow, notified pharmacy. Continue with ASA. 3. Interrogate device and note any contributing arrhythmias. Ischemic workup once GI/ issues is resolved. 4. EKG and trop. May need to transfer to CVC. Await the latter. KATIE SHABAZZ MD 08/13/19 0752: CARDIO Progress Notes Assessment Assessment Patient seen and examined 08/12/19. Agree with CAR RENTAL MANAGER's assessment and plan. LVEF 35% on 2-D echocardiogram, diminished from prior echo She is currently chest pain-free We will plan for ischemic evaluation as an outpatient ANTOINE HOPE APRN Aug 12, 2019 10:49 KATIE SHABAZZ MD Aug 13, 2019 07:52
--- NOTE | 2019-08-12 11:36 | PDOC ---
PULMONARY PROGRESS NOTES Subjective feels much better/ no soa Vitals Vital Signs Date Time Temp Pulse Resp B/P (MAP) Pulse Ox O2 Delivery O2 Flow Rate FiO2 08/12/19 09:30 66 130/66 08/12/19 08:40 96 Nasal Cannula 2.0 08/12/19 07:00 97.9 18 97.9 General: Alert, No acute distress Lungs: Crackles (bases) Cardiovascular: S1, S2 Abdomen: Soft Neuro Exam: Alert Extremities: Other (1+edema) Skin: Warm Labs Laboratory Tests Test 08/10/19 12:01 08/10/19 16:38 08/10/19 20:54 08/11/19 05:30 Glucose (Fingerstick) 163 mg/dL (70-99) 236 mg/dL (70-99) 227 mg/dL (70-99) Sodium Level 133 mmol/L (136-145) Potassium Level 4.2 mmol/L (3.5-5.1) Chloride Level 98 mmol/L (98-107) Carbon Dioxide Level 24 mmol/L (21-32) Anion Gap 11 (6-14) Blood Urea Nitrogen 20 mg/dL (7-20) Creatinine 1.3 mg/dL (0.6-1.0) Estimated GFR (Cockcroft-Gault) 38.6 Glucose Level 170 mg/dL (70-99) Calcium Level 8.4 mg/dL (8.5-10.1) Test 08/11/19 07:53 08/11/19 10:30 08/11/19 16:37 08/11/19 20:38 Glucose (Fingerstick) 186 mg/dL (70-99) 185 mg/dL (70-99) 196 mg/dL (70-99) 272 mg/dL (70-99) Test 08/12/19 07:20 08/12/19 11:02 Glucose (Fingerstick) 156 mg/dL (70-99) 203 mg/dL (70-99) Laboratory Tests Test 08/11/19 16:37 08/11/19 20:38 08/12/19 07:20 08/12/19 11:02 Glucose (Fingerstick) 196 mg/dL (70-99) 272 mg/dL (70-99) 156 mg/dL (70-99) 203 mg/dL (70-99) Medications Active Scripts Medications Dose Route/Sig Max Daily Dose Days Date Category Dose Instructions Furosemide 20 Mg Tablet 40 Mg PO DAILY 30 12/29/18 Rx Metoprolol Tartrate 25 Mg Tablet 25 Mg PO BID 12/26/18 Reported Levemir (Insulin Detemir) 100 Unit/1 Ml Vial 8 Unit SQ DAILY 12/15/17 Rx Isosorbide Mononitrate Er (Isosorbide Mononitrate) 30 Mg Tab.er.24h 30 Mg PO DAILY 12/15/17 Reported Brilinta (Ticagrelor) 90 Mg Tablet 90 Mg PO BID 11/21/16 Rx SIG: ONE TAB TWICE DAILY; DO NOT STOP WITHOUT INSTRUCTIONS FROM SERVICE OFFICER Aspirin Ec (Aspirin) 81 Mg Tablet. 81 Mg PO DAILYWBKFT 11/21/16 Rx Cyanocobalamin Injection (Cyanocobalamin (Vitamin B-12)) 1,000 Mcg/1 Ml Vial 1,000 Mcg IJ QMONTH 11/20/16 Reported Magnesium (Magnesium Amino Acid Chelate) 100 Mg Tablet 100 Mg PO DAILY 11/20/16 Reported Calcium 600 + Vit D 200 Tablet (Calcium Carbonate/Vitamin D3) 1 Each Tablet 1 Each PO DAILY 11/20/16 Reported Prolia (Denosumab) 60 Mg/1 Ml Disp.syrin 60 Mg SQ Q6 MONTHS 11/20/16 Reported Voltaren (Diclofenac Sodium) 100 Gm Gel..gram. 4 Gm TP QID 11/20/16 Reported Ocuvite Softgel (Vit C/Vit E/Lutein/Min/[place]-3) 1 Each Capsule 1 Cap PO DAILY 11/20/16 Reported Lotrel 10-20 Mg Capsule (Amlodipine Besylate/Benazepril) 1 Each Capsule 1 Each PO DAILY 11/20/16 Reported NITROGLYCERIN SubLingual (Nitroglycerin) 0.4 Mg Tab.subl 0.4 Mg SL PRN Q5MIN PRN 11/16/16 Reported Ferrous Sulfate 325 Mg Tablet 325 Tab PO TWICE WEEKLY 11/16/16 Reported Glipizide 10 Mg Tablet 0.5 Tab PO BID 11/16/16 Reported Potassium Chloride 10 Meq Capsule.er 1 Cap PO DAILY 10/15/14 Reported Oxybutynin Chloride 5 Mg Tablet 1 Tab PO DAILY 10/15/14 Reported Omeprazole 20 Mg Capsule.dr 1 Cap PO DAILY 10/15/14 Reported Simvastatin 80 Mg Tablet 40 Mg PO QHS 10/15/14 Reported Impression . 1. Acute hypoxic respiratory failure secondary to worsening interstitial edema/ underlying ILD 2. Bilateral worsening interstitial infiltrates based on 08/09 chest x-ray and CT chest from 08/08; clinically favoring interstitial edema in a patient who has moderate mitral regurgitation based on previous echo; along with coexisting interstitial lung disease 3. Small basal pleural effusion, likely related to congestive heart failure. 4. Possible mild chronic obstructive pulmonary disease. 5. Mediastinal adenopathy. Large sub-carinal mass vs adenopathy and large Pre- tracheal adenopathy. Could be sarcoidosis with ILD. Cannot exclude malignancy. Too frail to undergo invasive biopsy. PET scan as OP would be reasonable. Plan . 1. Discussed with RN. responded to IV Lasix, reduced dose due to increase in cr 2. Continue oxygen to keep saturation 92% and above. 3. Continue antibiotics. 4. Follow the response to treatment. repeat cxr 08/11 mild improvement 5. Continue DuoNeb. 6. Repeat echocardiogram with EF 35% and moderate mitral regurgitation. 7. Follow Cardiology recommendations. 8. Too frail to undergo invasive biopsy. PET scan as OP would be reasonable. d/w RN/ . I will have her f/u in October with PET scan..added low dose prednisone to rx suspected sarcoidosis GEORGETTE FRITZ MD Aug 12, 2019 11:36
[2019-08-12 12:05] LABS: CREATININE 1.5 mg/dL (0.6-1.0); GFR 32.7; POTASSIUM 4.5 mmol/L (3.5-5.1)
[2019-08-12] MEDS ORDERED: FUROSEMIDE 40 MG/4 ML VIAL. IVP ONE (14:15)
[2019-08-12] MEDS ORDERED: FUROSEMIDE 20 MG/2 ML VIAL. IVP ONE (14:15)
--- NOTE | 2019-08-12 15:29 | NUR ---
Critical results called to Pauline Montes APRN, elevated troponin 0.090
--- NOTE | 2019-08-12 15:48 | NUR ---
Per [employer] has been in A-Fib for last couple of days, battery life at least a couple of years on pacemaker, notified nursing bull gang supervisor of transfer needed, will transfer at shift change to room 258
--- NOTE | 2019-08-12 16:10 | EKG ---
[facility] [address] [place] [address] Test Date: 2019-08-12 Test Time: 15:57:26 Pat Name: GERMAINE MAY Department: Room: 434 1 Gender: F Building Operator: : 1930 Requested By: ANTOINE HOPE Order Number: [id number] Reading MD: Randolph Acosta MD Measurements Intervals [place] Rate: 67 P: TN: QRS: -92 QRSD: 146 T: 94 QT: 448 QTc: 477 Interpretive Statements V-PACED NON-SPECIFIC ST/T CHANGES Electronically Signed On 08-24-2019 14:30:10 CDT by Randolph Acosta MD
--- NOTE | 2019-08-12 16:25 | NUR ---
Notified pt/dtr of need to transfer to room 258 for heart monitoring
--- NOTE | 2019-08-12 17:53 | NUR ---
Meal dose insulin held for BS 167, ate only 25%
[2019-08-12] MEDS: cefTRIAXone IV Push 1 GM VIAL. IVP SCH (20:20)
[2019-08-12] MEDS: ATORVASTATIN CALCIUM 10 MG TABLET. PO SCH (20:36)
[2019-08-12] MEDS: PRAMIPEXOLE 0.25 MG TABLET. PO SCH (20:37)
[2019-08-12] MEDS: AZITHROMYCIN 500 MG in IV NORMAL SALINE 250ML 250 ML IV SCH (21:06)
--- NOTE | 2019-08-12 23:12 | PN ---
DATE: 08/12/2019 SUBJECTIVE: The patient is sitting comfortably in a recliner, in no apparent respiratory distress. She complains that she is very tired, fatigued because she has worked with physical therapy, but denied any abdominal pain; denied any nausea or vomiting; denied any shortness of breath; and from that point, she states that she is feeling much better. PHYSICAL EXAMINATION: GENERAL: When I examined her, she was pale, cachectic, but no jaundice, cyanosis or thyromegaly. No jugular venous distention. No limb edema. VITAL SIGNS: Her heart rate was 71, blood pressure was 128/71, temperature was 97.7, respiratory rate was 18 and oxygen saturation was 99%. HEAD, EYES, EARS, NOSE AND THROAT: Showed normocephalic, atraumatic. NECK: Supple. HEART: Showed normal first and second heart sounds. No gallop or murmur. CHEST: Clear to auscultation. No crepitation or rhonchi. ABDOMEN: Distended, soft, nontender. No guarding or rigidity. No organomegaly. All hernial orifices intact. Bowel sounds normal. NEUROLOGICAL: She was awake, alert, responding appropriately. All her cranial nerves are intact. She was able to walk with a walker. Her intake over the last 24 hours was 240, output was 120. LABORATORY DATA: As of this morning, her serum sodium was 129, potassium 4.5, chloride 93, bicarbonate 27, anion gap of 9, BUN 25, creatinine 1.5, estimated GFR was 32 mL per minute, glucose 214, calcium was 9. ASSESSMENT: 1. Community-acquired pneumonia. Continue IV Rocephin and Zithromax. 2. Urinary tract infection with left-sided hydronephrosis with perinephric stranding for which she is on IV ceftriaxone. 3. Small bowel obstruction, likely ileus. The patient is passing flatus and was started on a clear liquid, advance her diet to full liquid, although her abdomen continued to be distended. 4. She has acute hypoxic respiratory failure, multifactorial due to community-acquired pneumonia as well as eaput-gn-evychxc diastolic congestive heart failure and questionable sarcoidosis. She is currently on IV Lasix and apparently steroids were added. 5. The patient has hilar lymphadenopathy as well as subcarinal mass for which she is seen by Dr. Marquez, who did not recommend any invasive testing given her frailty, and PET scan can be arranged for her as an outpatient. PLAN: Continue with IV antibiotic. Continue with Lasix. Her diet was advanced to full liquid. We will continue with physical and occupational therapy. ЕЛЕНА NIX MD DR: AMBER/rip JOB#: [id number] / [id number]
[2019-08-12 23:16] LABS: HEMATOCRIT 34.5 % (36.0-47.0); HEMOGLOBIN 11.6 g/dL (12.0-15.5); RED BLOOD COUNT 3.68 x10^6/uL (3.50-5.40); WHITE BLOOD COUNT 12.1 x10^3/uL (4.0-11.0)
[2019-08-12 23:31] LABS: CREATININE 1.7 mg/dL (0.6-1.0); GFR 28.3; POTASSIUM 4.7 mmol/L (3.5-5.1)
[2019-08-12 23:36] LABS: ALBUMIN 2.6 g/dL (3.4-5.0); ALBUMIN/GLOBULIN RATIO 0.7 (1.0-1.7); TOTAL BILIRUBIN 0.4 mg/dL (0.2-1.0); TOTAL PROTEIN 6.1 g/dL (6.4-8.2)
[2019-08-13] VITALS (17 sets, daily range): BP systolic 91–154; BP diastolic 51–70
[2019-08-13 00:17] LABS: BASE EXCESS ABG -5 mmol/L (-3-3); HCO3 ABG 20 mmol/L (21-28); PCO2 ABG 38 mmHg (35-46); PO2 ABG 72 mmHg (65-108); SAT O2 ABG 93 % (92-99)
[2019-08-13 00:50] LABS: FIO2 ABG 24
--- NOTE | 2019-08-13 01:34 | RAD ---
AP chest x-ray COMPARISON: Chest x-ray August 11, 2019. HISTORY: Chest pain. FINDINGS: Dual-chamber cardiac pacemaker. Heart size stable. Aortic arch calcified plaque. No pneumothorax. Small pleural effusions along the diaphragms grossly stable. Pulmonary interstitial reticulation likely mild edema is stable. Bones unremarkable. IMPRESSION: Pulmonary interstitial edema and small pleural effusions are stable to the prior study. Electronically signed by: Dejon Reddy MD (08/13/2019 1:31 AM) [facility]
[2019-08-13] MEDS: guaiFENesin ORAL 200 MG/10 ML LIQUID. PO PRN ×3 (03:56→22:14)
--- NOTE | 2019-08-13 06:10 | EKG ---
[facility] [address] [place] [address] Test Date: 2019-08-13 Test Time: 00:51:42 Pat Name: GERMAINE MAY Department: Room: 258 1 Gender: F Chief Diversity Officer: PORFIRIO : 1930 Requested By: ЕЛЕНА NIX Order Number: [id number] Reading MD: Osmar Joshua Measurements Intervals [place] Rate: 60 P: SC: QRS: 170 QRSD: 152 T: 84 QT: 516 QTc: 516 Interpretive Statements VENTRICULAR PACED RHYTHM Electronically Signed On 08-25-2019 16:07:10 CDT by Osmar Joshua
[2019-08-13] MEDS: PANTOPRAZOLE 40 MG TABLET.DR. PO SCH (06:38)
[2019-08-13] MEDS: IPRATRPIUM/ALBUTEROL 0.5/2.5MG 3 ML NEBU. NEB SCH ×4 (07:54→20:12)
--- NOTE | 2019-08-13 08:51 | PDOC ---
PULMONARY PROGRESS NOTES Subjective feels much better, reports intermittent SOA. Reports improvement in her cough reports she had a rough night, experienced hypotension overnight Vitals Vital Signs Date Time Temp Pulse Resp B/P (MAP) Pulse Ox O2 Delivery O2 Flow Rate FiO2 08/13/19 07:42 97 Nasal Cannula 3.0 08/13/19 07:00 97.4 67 28 131/63 (85) 97.4 ROS: No Increase Cough General: Alert, No acute distress Lungs: Crackles (bases) Cardiovascular: S1, S2 Abdomen: Soft Neuro Exam: Alert Extremities: Other (Trace BLE edema) Skin: Warm Labs Laboratory Tests Test 08/11/19 10:30 08/11/19 16:37 08/11/19 20:38 08/12/19 07:20 Glucose (Fingerstick) 185 mg/dL (70-99) 196 mg/dL (70-99) 272 mg/dL (70-99) 156 mg/dL (70-99) Test 08/12/19 11:00 08/12/19 11:02 08/12/19 16:48 08/12/19 23:05 Sodium Level 129 mmol/L (136-145) 128 mmol/L (136-145) Potassium Level 4.5 mmol/L (3.5-5.1) 4.7 mmol/L (3.5-5.1) Chloride Level 93 mmol/L (98-107) 95 mmol/L (98-107) Carbon Dioxide Level 27 mmol/L (21-32) 21 mmol/L (21-32) Anion Gap 9 (6-14) 12 (6-14) Blood Urea Nitrogen 25 mg/dL (7-20) 27 mg/dL (7-20) Creatinine 1.5 mg/dL (0.6-1.0) 1.7 mg/dL (0.6-1.0) Estimated GFR (Cockcroft-Gault) 32.7 28.3 Glucose Level 214 mg/dL (70-99) 254 mg/dL (70-99) Calcium Level 9.0 mg/dL (8.5-10.1) 9.0 mg/dL (8.5-10.1) Magnesium Level 2.0 mg/dL (1.8-2.4) Troponin I Quantitative 0.090 ng/mL (0.000-0.055) 0.064 ng/mL (0.000-0.055) Glucose (Fingerstick) 203 mg/dL (70-99) 167 mg/dL (70-99) White Blood Count 12.1 x10^3/uL (4.0-11.0) Red Blood Count 3.68 x10^6/uL (3.50-5.40) Hemoglobin 11.6 g/dL (12.0-15.5) Hematocrit 34.5 % (36.0-47.0) Mean Corpuscular Volume 94 fL (79-100) Mean Corpuscular Hemoglobin 31 pg (25-35) Mean Corpuscular Hemoglobin Concent 34 g/dL (31-37) Red Cell Distribution Width 14.0 % (11.5-14.5) Platelet Count 416 x10^3/uL (140-400) BUN/Creatinine Ratio 16 (6-20) Total Bilirubin 0.4 mg/dL (0.2-1.0) Aspartate Amino Transf (AST/SGOT) 128 U/L (15-37) Alanine Aminotransferase (ALT/SGPT) 246 U/L (14-59) Alkaline Phosphatase 189 U/L (46-116) Total Protein 6.1 g/dL (6.4-8.2) Albumin 2.6 g/dL (3.4-5.0) Albumin/Globulin Ratio 0.7 (1.0-1.7) Test 08/13/19 00:07 08/13/19 08:18 O2 Saturation 93 % (92-99) Arterial Blood pH 7.33 (7.35-7.45) Arterial Blood pCO2 at Patient Temp 38 mmHg (35-46) Arterial Blood pO2 at Patient Temp 72 mmHg (65-108) Arterial Blood HCO3 20 mmol/L (21-28) Arterial Blood Base Excess -5 mmol/L (-3-3) FiO2 24 Glucose (Fingerstick) 181 mg/dL (70-99) Laboratory Tests Test 08/12/19 11:00 08/12/19 11:02 08/12/19 16:48 08/12/19 23:05 Sodium Level 129 mmol/L (136-145) 128 mmol/L (136-145) Potassium Level 4.5 mmol/L (3.5-5.1) 4.7 mmol/L (3.5-5.1) Chloride Level 93 mmol/L (98-107) 95 mmol/L (98-107) Carbon Dioxide Level 27 mmol/L (21-32) 21 mmol/L (21-32) Anion Gap 9 (6-14) 12 (6-14) Blood Urea Nitrogen 25 mg/dL (7-20) 27 mg/dL (7-20) Creatinine 1.5 mg/dL (0.6-1.0) 1.7 mg/dL (0.6-1.0) Estimated GFR (Cockcroft-Gault) 32.7 28.3 Glucose Level 214 mg/dL (70-99) 254 mg/dL (70-99) Calcium Level 9.0 mg/dL (8.5-10.1) 9.0 mg/dL (8.5-10.1) Magnesium Level 2.0 mg/dL (1.8-2.4) Troponin I Quantitative 0.090 ng/mL (0.000-0.055) 0.064 ng/mL (0.000-0.055) Glucose (Fingerstick) 203 mg/dL (70-99) 167 mg/dL (70-99) White Blood Count 12.1 x10^3/uL (4.0-11.0) Red Blood Count 3.68 x10^6/uL (3.50-5.40) Hemoglobin 11.6 g/dL (12.0-15.5) Hematocrit 34.5 % (36.0-47.0) Mean Corpuscular Volume 94 fL (79-100) Mean Corpuscular Hemoglobin 31 pg (25-35) Mean Corpuscular Hemoglobin Concent 34 g/dL (31-37) Red Cell Distribution Width 14.0 % (11.5-14.5) Platelet Count 416 x10^3/uL (140-400) BUN/Creatinine Ratio 16 (6-20) Total Bilirubin 0.4 mg/dL (0.2-1.0) Aspartate Amino Transf (AST/SGOT) 128 U/L (15-37) Alanine Aminotransferase (ALT/SGPT) 246 U/L (14-59) Alkaline Phosphatase 189 U/L (46-116) Total Protein 6.1 g/dL (6.4-8.2) Albumin 2.6 g/dL (3.4-5.0) Albumin/Globulin Ratio 0.7 (1.0-1.7) Test 08/13/19 00:07 08/13/19 08:18 O2 Saturation 93 % (92-99) Arterial Blood pH 7.33 (7.35-7.45) Arterial Blood pCO2 at Patient Temp 38 mmHg (35-46) Arterial Blood pO2 at Patient Temp 72 mmHg (65-108) Arterial Blood HCO3 20 mmol/L (21-28) Arterial Blood Base Excess -5 mmol/L (-3-3) FiO2 24 Glucose (Fingerstick) 181 mg/dL (70-99) Medications Active Scripts Medications Dose Route/Sig Max Daily Dose Days Date Category Dose Instructions Furosemide 20 Mg Tablet 40 Mg PO DAILY 30 12/29/18 Rx Metoprolol Tartrate 25 Mg Tablet 25 Mg PO BID 12/26/18 Reported Levemir (Insulin Detemir) 100 Unit/1 Ml Vial 8 Unit SQ DAILY 12/15/17 Rx Isosorbide Mononitrate Er (Isosorbide Mononitrate) 30 Mg Tab.er.24h 30 Mg PO DAILY 12/15/17 Reported Brilinta (Ticagrelor) 90 Mg Tablet 90 Mg PO BID 11/21/16 Rx SIG: ONE TAB TWICE DAILY; DO NOT STOP WITHOUT INSTRUCTIONS FROM BLACK LEATHER TRIMMER Aspirin Ec (Aspirin) 81 Mg Tablet.dr 81 Mg PO DAILYWBKFT 11/21/16 Rx Cyanocobalamin Injection (Cyanocobalamin (Vitamin B-12)) 1,000 Mcg/1 Ml Vial 1,000 Mcg IJ QMONTH 11/20/16 Reported Magnesium (Magnesium Amino Acid Chelate) 100 Mg Tablet 100 Mg PO DAILY 11/20/16 Reported Calcium 600 + Vit D 200 Tablet (Calcium Carbonate/Vitamin D3) 1 Each Tablet 1 Each PO DAILY 11/20/16 Reported Prolia (Denosumab) 60 Mg/1 Ml Disp.syrin 60 Mg SQ Q6 MONTHS 11/20/16 Reported Voltaren (Diclofenac Sodium) 100 Gm Gel..gram. 4 Gm TP QID 11/20/16 Reported Ocuvite Softgel (Vit C/Vit E/[place]/Min/[place]-3) 1 Each Capsule 1 Cap PO DAILY 11/20/16 Reported Lotrel 10-20 Mg Capsule (Amlodipine Besylate/Benazepril) 1 Each Capsule 1 Each PO DAILY 11/20/16 Reported NITROGLYCERIN SubLingual (Nitroglycerin) 0.4 Mg Tab.subl 0.4 Mg SL PRN Q5MIN PRN 11/16/16 Reported Ferrous Sulfate 325 Mg Tablet 325 Tab PO TWICE WEEKLY 11/16/16 Reported Glipizide 10 Mg Tablet 0.5 Tab PO BID 11/16/16 Reported Potassium Chloride 10 Meq Capsule.er 1 Cap PO DAILY 10/15/14 Reported Oxybutynin Chloride 5 Mg Tablet 1 Tab PO DAILY 10/15/14 Reported Omeprazole 20 Mg Capsule.dr 1 Cap PO DAILY 10/15/14 Reported Simvastatin 80 Mg Tablet 40 Mg PO QHS 10/15/14 Reported Impression . 1. Acute hypoxic respiratory failure secondary to worsening interstitial edema/ underlying ILD 2. Bilateral worsening interstitial infiltrates based on 08/09 chest x-ray and CT chest from 08/08; clinically favoring interstitial edema along with coexisting interstitial lung disease 3. Small basal pleural effusion, likely related to congestive heart f ailure.ECHO: The Ejection Fraction is 35%. The mid to distal LV is severely hypokinetic to akinetic on 08/10/19. 4. Possible mild chronic obstructive pulmonary disease. 5. Mediastinal adenopathy. Large sub-carinal mass vs adenopathy and large Pre-tracheal adenopathy. 6. Could be sarcoidosis with ILD. Cannot exclude malignancy. Too frail to undergo invasive biopsy. PET scan as OP would be reasonable. 7. Hypotension due to diuresis Plan . 1. No further Lasix, monitor with cr. 2. Continue oxygen to keep saturation 92% and above. 3. Continue antibiotics. 4. Follow the response to treatment. repeat cxr 08/11 mild improvement 5. Continue DuoNeb. 6. The Ejection Fraction is 35%. The mid to distal LV is severely hypokinetic to akinetic ECHO on 08/10/19 7. Follow Cardiology recommendations. 8. Too frail to undergo invasive biopsy. PET scan as OP in 11/12. 9. cont. low dose prednisone for suspected sarcoidosis Discussed with GEORGETTE DEWITT MD Aug 13, 2019 08:51
[2019-08-13] MEDS: LACTOBACILLUS RHAMNOSUS GG 1 CAPSULE. PO SCH ×2 (08:54→22:08)
[2019-08-13] MEDS: ASPIRIN CHEWABLE 81 MG TABLET. PO SCH (08:54)
[2019-08-13] MEDS: GABAPENTIN 100 MG CAPSULE. PO SCH ×3 (08:54→22:07)
[2019-08-13] MEDS: MULTIVITAMIN with MINERAL TABLET. PO SCH (08:54)
[2019-08-13] MEDS: ISOSORBIDE MONONITRATE ER 30 MG TAB.ER.24H PO SCH (08:55)
[2019-08-13] MEDS: MAGNESIUM OXIDE 400 MG TABLET PO SCH (08:55)
[2019-08-13] MEDS: METOPROLOL TART IMMED RELEASE 25 MG TABLET. PO SCH ×2 (08:55→22:08)
[2019-08-13] MEDS: TICAGRELOR 90 MG TABLET. PO SCH ×2 (08:55→22:08)
[2019-08-13] MEDS: predniSONE 10 MG TABLET PO SCH (08:55)
[2019-08-13] MEDS: POLYETHYLENE GLYCOL 3350 17 GM PACKET. PO SCH (08:56)
[2019-08-13] MEDS: INSULIN LISPRO 300 UNITS/3 ML VIAL. SQ SCH ×3 (08:57→17:40)
--- NOTE | 2019-08-13 10:08 | PDOC ---
NORBERTO BEATTY MAILROOM MESSENGER 08/13/19 1008: SURGICAL PROGRESS NOTE Subjective tolerating fulls occasional nausea having loose stools Vital Signs Vital Signs Date Time Temp Pulse Resp B/P (MAP) Pulse Ox O2 Delivery O2 Flow Rate FiO2 08/13/19 08:59 67 131/63 08/13/19 08:00 Nasal Cannula 2.0 08/13/19 07:42 97 08/13/19 07:00 97.4 28 97.4 I&O Intake and Output 08/13/19 07:00 Intake Total 1090 ml Output Total 150 ml Balance 940 ml Intake Oral 840 ml Other 250 ml Output Urine Total 150 ml # Voids 2 # Bowel Movements 1 General: Cooperative, No acute distress Abdomen: Soft, Other (full round abdomen, nontender ) Labs Laboratory Tests Test 08/11/19 10:30 08/11/19 16:37 08/11/19 20:38 08/12/19 07:20 Glucose (Fingerstick) 185 mg/dL (70-99) 196 mg/dL (70-99) 272 mg/dL (70-99) 156 mg/dL (70-99) Test 08/12/19 11:00 08/12/19 11:02 08/12/19 16:48 08/12/19 23:05 Sodium Level 129 mmol/L (136-145) 128 mmol/L (136-145) Potassium Level 4.5 mmol/L (3.5-5.1) 4.7 mmol/L (3.5-5.1) Chloride Level 93 mmol/L (98-107) 95 mmol/L (98-107) Carbon Dioxide Level 27 mmol/L (21-32) 21 mmol/L (21-32) Anion Gap 9 (6-14) 12 (6-14) Blood Urea Nitrogen 25 mg/dL (7-20) 27 mg/dL (7-20) Creatinine 1.5 mg/dL (0.6-1.0) 1.7 mg/dL (0.6-1.0) Estimated GFR (Cockcroft-Gault) 32.7 28.3 Glucose Level 214 mg/dL (70-99) 254 mg/dL (70-99) Calcium Level 9.0 mg/dL (8.5-10.1) 9.0 mg/dL (8.5-10.1) Magnesium Level 2.0 mg/dL (1.8-2.4) Troponin I Quantitative 0.090 ng/mL (0.000-0.055) 0.064 ng/mL (0.000-0.055) Glucose (Fingerstick) 203 mg/dL (70-99) 167 mg/dL (70-99) White Blood Count 12.1 x10^3/uL (4.0-11.0) Red Blood Count 3.68 x10^6/uL (3.50-5.40) Hemoglobin 11.6 g/dL (12.0-15.5) Hematocrit 34.5 % (36.0-47.0) Mean Corpuscular Volume 94 fL (79-100) Mean Corpuscular Hemoglobin 31 pg (25-35) Mean Corpuscular Hemoglobin Concent 34 g/dL (31-37) Red Cell Distribution Width 14.0 % (11.5-14.5) Platelet Count 416 x10^3/uL (140-400) BUN/Creatinine Ratio 16 (6-20) Total Bilirubin 0.4 mg/dL (0.2-1.0) Aspartate Amino Transf (AST/SGOT) 128 U/L (15-37) Alanine Aminotransferase (ALT/SGPT) 246 U/L (14-59) Alkaline Phosphatase 189 U/L (46-116) Total Protein 6.1 g/dL (6.4-8.2) Albumin 2.6 g/dL (3.4-5.0) Albumin/Globulin Ratio 0.7 (1.0-1.7) Test 08/13/19 00:07 08/13/19 08:18 O2 Saturation 93 % (92-99) Arterial Blood pH 7.33 (7.35-7.45) Arterial Blood pCO2 at Patient Temp 38 mmHg (35-46) Arterial Blood pO2 at Patient Temp 72 mmHg (65-108) Arterial Blood HCO3 20 mmol/L (21-28) Arterial Blood Base Excess -5 mmol/L (-3-3) FiO2 24 Glucose (Fingerstick) 181 mg/dL (70-99) Laboratory Tests Test 08/12/19 11:00 08/12/19 11:02 08/12/19 16:48 08/12/19 23:05 Sodium Level 129 mmol/L (136-145) 128 mmol/L (136-145) Potassium Level 4.5 mmol/L (3.5-5.1) 4.7 mmol/L (3.5-5.1) Chloride Level 93 mmol/L (98-107) 95 mmol/L (98-107) Carbon Dioxide Level 27 mmol/L (21-32) 21 mmol/L (21-32) Anion Gap 9 (6-14) 12 (6-14) Blood Urea Nitrogen 25 mg/dL (7-20) 27 mg/dL (7-20) Creatinine 1.5 mg/dL (0.6-1.0) 1.7 mg/dL (0.6-1.0) Estimated GFR (Cockcroft-Gault) 32.7 28.3 Glucose Level 214 mg/dL (70-99) 254 mg/dL (70-99) Calcium Level 9.0 mg/dL (8.5-10.1) 9.0 mg/dL (8.5-10.1) Magnesium Level 2.0 mg/dL (1.8-2.4) Troponin I Quantitative 0.090 ng/mL (0.000-0.055) 0.064 ng/mL (0.000-0.055) Glucose (Fingerstick) 203 mg/dL (70-99) 167 mg/dL (70-99) White Blood Count 12.1 x10^3/uL (4.0-11.0) Red Blood Count 3.68 x10^6/uL (3.50-5.40) Hemoglobin 11.6 g/dL (12.0-15.5) Hematocrit 34.5 % (36.0-47.0) Mean Corpuscular Volume 94 fL (79-100) Mean Corpuscular Hemoglobin 31 pg (25-35) Mean Corpuscular Hemoglobin Concent 34 g/dL (31-37) Red Cell Distribution Width 14.0 % (11.5-14.5) Platelet Count 416 x10^3/uL (140-400) BUN/Creatinine Ratio 16 (6-20) Total Bilirubin 0.4 mg/dL (0.2-1.0) Aspartate Amino Transf (AST/SGOT) 128 U/L (15-37) Alanine Aminotransferase (ALT/SGPT) 246 U/L (14-59) Alkaline Phosphatase 189 U/L (46-116) Total Protein 6.1 g/dL (6.4-8.2) Albumin 2.6 g/dL (3.4-5.0) Albumin/Globulin Ratio 0.7 (1.0-1.7) Test 08/13/19 00:07 08/13/19 08:18 O2 Saturation 93 % (92-99) Arterial Blood pH 7.33 (7.35-7.45) Arterial Blood pCO2 at Patient Temp 38 mmHg (35-46) Arterial Blood pO2 at Patient Temp 72 mmHg (65-108) Arterial Blood HCO3 20 mmol/L (21-28) Arterial Blood Base Excess -5 mmol/L (-3-3) FiO2 24 Glucose (Fingerstick) 181 mg/dL (70-99) Problem List Problems Medical Problems: (1) CAD (coronary artery disease) Status: Chronic (2) DM2 (diabetes mellitus, type 2) Status: Chronic (3) HLD (hyperlipidemia) Status: Chronic (4) Hypertension Status: Chronic (5) SBO (small bowel obstruction) Status: Acute Assessment/Plan improved having stools advance diet will sign off, please call with questions DAWNA PICKETT MD 08/13/19 1329: SURGICAL PROGRESS NOTE Assessment/Plan Agree with Prabha assessment and plan NORBERTO BEATTY APRN Aug 13, 2019 10:08 DAWNA PICKETT MD Aug 13, 2019 13:29
[2019-08-13 13:56] LABS: CREATININE 1.8 mg/dL (0.6-1.0); GFR 26.5; POTASSIUM 4.7 mmol/L (3.5-5.1)
--- NOTE | 2019-08-13 14:35 | PDOC ---
ANTOINE HOPE BILLING CHECKER 08/13/19 1435: CARDIO Progress Notes Date and Time Date of Service 08/13/2019 Time of Evaluation 1430 Subjective Subjective: No Chest Pain, No shortness of breath, No Palpitations Vitals Vitals Vital Signs Date Time Temp Pulse Resp B/P (MAP) Pulse Ox O2 Delivery O2 Flow Rate FiO2 08/13/19 12:09 96 Nasal Cannula 3.0 08/13/19 11:00 97.2 61 28 138/61 (86) 97.2 Weight Weight [ ] Input and Output Intake and Output Intake and Output 08/13/19 07:00 Intake Total 1090 ml Output Total 150 ml Balance 940 ml Intake Oral 840 ml Other 250 ml Output Urine Total 150 ml # Voids 2 # Bowel Movements 1 Laboratory Labs Laboratory Tests Test 08/12/19 16:48 08/12/19 23:05 08/13/19 00:07 08/13/19 08:18 Glucose (Fingerstick) 167 mg/dL (70-99) 181 mg/dL (70-99) White Blood Count 12.1 x10^3/uL (4.0-11.0) Red Blood Count 3.68 x10^6/uL (3.50-5.40) Hemoglobin 11.6 g/dL (12.0-15.5) Hematocrit 34.5 % (36.0-47.0) Mean Corpuscular Volume 94 fL (79-100) Mean Corpuscular Hemoglobin 31 pg (25-35) Mean Corpuscular Hemoglobin Concent 34 g/dL (31-37) Red Cell Distribution Width 14.0 % (11.5-14.5) Platelet Count 416 x10^3/uL (140-400) Sodium Level 128 mmol/L (136-145) Potassium Level 4.7 mmol/L (3.5-5.1) Chloride Level 95 mmol/L (98-107) Carbon Dioxide Level 21 mmol/L (21-32) Anion Gap 12 (6-14) Blood Urea Nitrogen 27 mg/dL (7-20) Creatinine 1.7 mg/dL (0.6-1.0) Estimated GFR (Cockcroft-Gault) 28.3 BUN/Creatinine Ratio 16 (6-20) Glucose Level 254 mg/dL (70-99) Calcium Level 9.0 mg/dL (8.5-10.1) Total Bilirubin 0.4 mg/dL (0.2-1.0) Aspartate Amino Transf (AST/SGOT) 128 U/L (15-37) Alanine Aminotransferase (ALT/SGPT) 246 U/L (14-59) Alkaline Phosphatase 189 U/L (46-116) Troponin I Quantitative 0.064 ng/mL (0.000-0.055) Total Protein 6.1 g/dL (6.4-8.2) Albumin 2.6 g/dL (3.4-5.0) Albumin/Globulin Ratio 0.7 (1.0-1.7) O2 Saturation 93 % (92-99) Arterial Blood pH 7.33 (7.35-7.45) Arterial Blood pCO2 at Patient Temp 38 mmHg (35-46) Arterial Blood pO2 at Patient Temp 72 mmHg (65-108) Arterial Blood HCO3 20 mmol/L (21-28) Arterial Blood Base Excess -5 mmol/L (-3-3) FiO2 24 Test 08/13/19 12:12 08/13/19 13:30 Glucose (Fingerstick) 174 mg/dL (70-99) Sodium Level 129 mmol/L (136-145) Potassium Level 4.7 mmol/L (3.5-5.1) Chloride Level 93 mmol/L (98-107) Carbon Dioxide Level 26 mmol/L (21-32) Anion Gap 10 (6-14) Blood Urea Nitrogen 32 mg/dL (7-20) Creatinine 1.8 mg/dL (0.6-1.0) Estimated GFR (Cockcroft-Gault) 26.5 Glucose Level 171 mg/dL (70-99) Calcium Level 9.0 mg/dL (8.5-10.1) Physical Exam HEENT: Neck Supple W Full Motion Chest: Symmetric LUNGS: Other (basilar crackles) Heart: RRR (paced) Abdomen: Soft N/T Extremities: Other (trace to 1+ bilateral LE edema ) Neurology: alert, oriented, follow commands Assessment Assessment 1. Abdominal pain; better, tolerating 2. Left Hydronephrosis: constipation possibly contributing 3. CAD s/p PCI/stents to LMCA/LAD/LCx in 2015. CP free 4. Acute diastolic/systolic CHF: appears compensated sitting up 5. SSS/CHB; s/p PPM implantation ([employer]tronic), normal functioning device. 6. Hypertension; Controlled 7. Hyperlipidemia; statin 8. Diabetes, II; as per PCP. 9. Carotid disease s/p CHANGE MANAGEMENT COORDINATOR/stent placement to the left ICA and right endarterectomy 10. Hyponatremia: suspect hypotonic hyposmolar due to CHF 11. Cardiomyopathy: EF 35%, possible restrictive component 12. Possible sarcoidosis: pulmonary following Recommendations 1. Continue current secondary prevention measures. Continue brilinta/ASA. 2. Ischemic workup once GI/ issues is resolved. 3. CXR tomorrow. Discussed with RN in regards to I & O and standing scale. 4. Will need clarification in regards to hydronephrosis. If this is not a factor in regards to her being oliguric then would consider for inotrope with lasix therapy 5. Will bladder scan, discussed with RN, will contact PCP/urology. KATIE SHABAZZ MD 08/13/19 1632: CARDIO Progress Notes Assessment Assessment Patient seen and examined. Agree with CONDUCTOR SLEEPING CAR's assessment and plan. Patient presently in acute on chronic systolic heart failure. We will diurese with Lasix and if she does not respond we will start inotropes CAD status clinically stable Plan ischemic evaluation as an outpatient to further evaluate her diminished LVEF ANTOINE HOPE APRN Aug 13, 2019 14:35 KATIE SHABAZZ MD Aug 13, 2019 16:32
[2019-08-13] MEDS ORDERED: FUROSEMIDE 40 MG/4 ML VIAL. IVP ONE (16:45)
--- NOTE | 2019-08-13 20:32 | PN ---
DATE: 08/13/2019 SUBJECTIVE: The patient currently has an episode of hypotension last night and therefore, she was transferred to [address] [place] [address] and was given a bolus of 250 mL of normal saline after which her blood pressure stabilized. PHYSICAL EXAMINATION: GENERAL: When I saw her this morning, she continued to be somewhat tachypneic, pale, not jaundiced, cyanosis or thyromegaly. No jugular venous distention. No lower limb edema. VITAL SIGNS: Her heart rate was 61, blood pressure was 138/61, temperature was 97.2, respiratory rate was 28 and oxygen saturation was 94% on 2 liters of oxygen. HEAD, EYES, EARS, NOSE, AND THROAT: Showed normocephalic, atraumatic. NECK: Supple. HEART: Showed normal first and second heart sounds with no gallop, rub or murmur. CHEST: Clear to auscultation. No crepitation or rhonchi. ABDOMEN: Distended, soft, nontender. No guarding or rigidity. No organomegaly. All hernial orifices intact. Bowel sounds normal. NEUROLOGIC: She is awake, alert, responding appropriately. All cranial nerves intact. She moves her extremities without difficulty. Her intake over the last 24 hours was, intake and output are incompletely recorded. LABORATORY DATA: As of yesterday, her serum sodium was 128, potassium 4.7, chloride 95, bicarbonate 21, anion gap of 12, BUN 27, creatinine 1.7, estimated GFR was 28 mL per minute. Her glucose was 154, calcium was 9. Total bilirubin is normal. AST, ALT, alkaline phosphatase are all elevated. Total protein was 6.1, albumin 2.6. Her white cell count was 12,000, hemoglobin 11, hematocrit 34, MCV 94 and platelet count of 416,000. Her blood gases done this morning showed a pH of 7.33, pCO2 of 38, pO2 of 72, bicarbonate 20, and her oxygen saturation was 93% on FiO2 24%. ASSESSMENT: 1. Acute hypoxic respiratory failure secondary to worsening interstitial edema, underlying interstitial lung disease. 2. Bilateral worsening interstitial infiltrate. Chest x-ray and CT scan clinically stable interstitial edema along with coexisting interstitial lung disease. 3. Small basilar pleural effusion, likely related to congestive heart failure. Her echocardiogram showed ejection fraction of only 35% with mild to distal left ventricle is severely hypokinetic to akinetic, possible mild chronic obstructive pulmonary disease, mediastinal lymphadenopathy, large subcarinal mass versus adenopathy, enlarged paratracheal adenopathy, could be sarcoidosis with interstitial lung disease, cannot exclude malignancy, too frail to undergo invasive biopsy, hypotension due to diuresis. PLAN: To hold Lasix and monitor her creatinine. Continue with oxygen supplementation. Continue with antibiotic. Continue with nebulized treatment. She apparently was on large dose of Brilinta which was cut down, might have been the reason for her petechiae in both lower extremities. Plan is to continue with Brilinta 90 mg twice a day. Continue with prednisone. Continue with Zithromax as well as ceftriaxone for her UTI as well as her community-acquired pneumonia. ЕЛЕНА NIX MD DR: AMBER/rip JOB#: [id number] / [id number]
[2019-08-13] MEDS ORDERED: NITROGLYCERIN OINT 1 GM PACKET. TP ONE (20:45)
[2019-08-13] MEDS: cefTRIAXone IV Push 1 GM VIAL. IVP SCH (21:11)
[2019-08-13] MEDS: PRAMIPEXOLE 0.25 MG TABLET. PO SCH (22:07)
[2019-08-13] MEDS: ATORVASTATIN CALCIUM 10 MG TABLET. PO SCH (22:07)
[2019-08-14] VITALS (11 sets, daily range): BP systolic 120–168; BP diastolic 53–78
[2019-08-14 06:10] LABS: HEMATOCRIT 33.2 % (36.0-47.0); HEMOGLOBIN 11.1 g/dL (12.0-15.5); RED BLOOD COUNT 3.54 x10^6/uL (3.50-5.40); RED CELL DISTRIBUTION WIDTH 14.1 % (11.5-14.5); WHITE BLOOD COUNT 10.4 x10^3/uL (4.0-11.0)
--- NOTE | 2019-08-14 06:32 | NUR ---
08/13/19 at 2045, removed left wrist IV, reddness present with dobutamine running. Immediatly stopped IV infusion, called pharmacy and revcieved protocal orders Nitro paste x1 and vital signs Q15min x4, Q1hr x4. Notified Dr. Dean.
[2019-08-14 06:41] LABS: ALBUMIN 2.9 g/dL (3.4-5.0); ALBUMIN/GLOBULIN RATIO 0.9 (1.0-1.7); CALCIUM 9.4 mg/dL (8.5-10.1); CREATININE 1.7 mg/dL (0.6-1.0); GFR 28.3; POTASSIUM 4.3 mmol/L (3.5-5.1); TOTAL BILIRUBIN 0.4 mg/dL (0.2-1.0)
[2019-08-14] MEDS: IPRATRPIUM/ALBUTEROL 0.5/2.5MG 3 ML NEBU. NEB SCH ×4 (07:48→20:08)
[2019-08-14] MEDS: INSULIN LISPRO 300 UNITS/3 ML VIAL. SQ SCH ×3 (08:00→18:27)
[2019-08-14] MEDS: FUROSEMIDE 40 MG/4 ML VIAL. IVP SCH (09:19)
[2019-08-14] MEDS: ASPIRIN CHEWABLE 81 MG TABLET. PO SCH (09:19)
[2019-08-14] MEDS: METOPROLOL TART IMMED RELEASE 25 MG TABLET. PO SCH ×2 (09:20→20:52)
[2019-08-14] MEDS: PANTOPRAZOLE 40 MG TABLET.DR. PO SCH (09:20)
[2019-08-14] MEDS: ISOSORBIDE MONONITRATE ER 30 MG TAB.ER.24H PO SCH (09:21)
[2019-08-14] MEDS: LACTOBACILLUS RHAMNOSUS GG 1 CAPSULE. PO SCH ×2 (09:21→20:49)
[2019-08-14] MEDS: MAGNESIUM OXIDE 400 MG TABLET PO SCH (09:22)
[2019-08-14] MEDS: GABAPENTIN 100 MG CAPSULE. PO SCH ×3 (09:22→20:50)
[2019-08-14] MEDS: TICAGRELOR 90 MG TABLET. PO SCH ×2 (09:22→20:50)
[2019-08-14] MEDS: MULTIVITAMIN with MINERAL TABLET. PO SCH (09:22)
[2019-08-14] MEDS: predniSONE 10 MG TABLET PO SCH (09:22)
[2019-08-14] MEDS: POLYETHYLENE GLYCOL 3350 17 GM PACKET. PO SCH (09:32)
--- NOTE | 2019-08-14 10:25 | PN ---
DATE: 08/14/2019 SUBJECTIVE: The patient is resting slightly propped up in her recliner comfortably. She is on dobutamine drip. She denied any chest pain. She said she has small bowel movement. Denied any nausea or vomiting. Her abdomen is distended. She has started on dobutamine as she is not diuresing with diuretics alone. PHYSICAL EXAMINATION: GENERAL: When I examined her this morning, she was pale, no jaundice, cyanosis or thyromegaly. No jugular venous distension. No lower limb edema. VITAL SIGNS: Her heart rate was 64, blood pressure 142/69, temperature was 96.7, respiratory rate was 18, and oxygen saturation was 92% on room air. HEAD, EYES, EARS, NOSE AND THROAT: Showed normocephalic, atraumatic. NECK: Supple. HEART: Showed normal first and second heart sounds. No gallop or murmur. CHEST: Shows central trachea, equal bilateral expansion, air entry, vesicular sounds with bilateral basal crepitation. I could not appreciate any rhonchi. ABDOMEN: Distended, soft with tympanitic percussion note. There is no tenderness. No guarding or rigidity. No organomegaly. All hernial orifices intact. Bowel sounds normal. NEUROLOGIC: She is awake, alert and moves her extremities. She is able to walk with a walker, although she stated that she has continued to be weak and tired. Her intake was 1340 and output was 1950. LABORATORY DATA: As of this morning, her serum sodium was 130, potassium 4.3, chloride 94, bicarbonate 26, anion gap of 10, BUN 36, creatinine 1.7, estimated GFR was 28 mL per minute. Her glucose 151, calcium was 9.4. Total bilirubin is normal. AST, ALT, alkaline phosphatase are elevated. Her beta natriuretic peptide was 19,500. Total protein was 6, albumin was 2.9. Her white cell count was 10,000, hemoglobin 11, hematocrit 33, MCV 94 and platelet count 373,000. ASSESSMENT: 1. Acute hypoxic respiratory failure secondary to worsening interstitial edema with underlying interstitial lung disease. 2. Bilateral worsening interstitial infiltrate. Chest x-ray and CT scan showed that she has interstitial edema as well as with coexisting interstitial lung disease. 3. She has small bilateral pleural effusion. 4. Acute on chronic combined congestive heart failure. An echocardiogram showed that she has ejection fraction of only 35%. 5. Possible mild chronic obstructive pulmonary disease. 6. Mediastinal lymphadenopathy with large subcarinal mass versus adenopathy, enlarged paratracheal adenopathy, possibly due to sarcoidosis, although malignancy cannot be excluded. The patient is too frail to undergo any invasive procedure. 7. Urinary tract infection, treated with IV ceftriaxone. I think the patient has received enough treatment with ceftriaxone and Zithromax. I will discontinue her ceftriaxone today. ЕЛЕНА NIX MD DR: AMBER/rip JOB#: [id number] / [id number]
--- NOTE | 2019-08-14 10:56 | PDOC ---
PULMONARY PROGRESS NOTES Subjective feels much better, reports intermittent SOA. Reports improvement in her cough started on dobutamine gtt Vitals Vital Signs Date Time Temp Pulse Resp B/P (MAP) Pulse Ox O2 Delivery O2 Flow Rate FiO2 08/14/19 09:31 68 137/55 08/14/19 08:01 91 Nasal Cannula 2.0 08/14/19 07:00 97.5 97.5 08/14/19 02:52 18 ROS: No Chest Pain, No Increase Cough General: Alert, No acute distress Lungs: Crackles (bases) Cardiovascular: S1, S2 Abdomen: Soft Neuro Exam: Alert Extremities: Other (Trace BLE edema) Skin: Warm Labs Laboratory Tests Test 08/12/19 11:00 08/12/19 11:02 08/12/19 16:48 08/12/19 23:05 Sodium Level 129 mmol/L (136-145) 128 mmol/L (136-145) Potassium Level 4.5 mmol/L (3.5-5.1) 4.7 mmol/L (3.5-5.1) Chloride Level 93 mmol/L (98-107) 95 mmol/L (98-107) Carbon Dioxide Level 27 mmol/L (21-32) 21 mmol/L (21-32) Anion Gap 9 (6-14) 12 (6-14) Blood Urea Nitrogen 25 mg/dL (7-20) 27 mg/dL (7-20) Creatinine 1.5 mg/dL (0.6-1.0) 1.7 mg/dL (0.6-1.0) Estimated GFR (Cockcroft-Gault) 32.7 28.3 Glucose Level 214 mg/dL (70-99) 254 mg/dL (70-99) Calcium Level 9.0 mg/dL (8.5-10.1) 9.0 mg/dL (8.5-10.1) Magnesium Level 2.0 mg/dL (1.8-2.4) Troponin I Quantitative 0.090 ng/mL (0.000-0.055) 0.064 ng/mL (0.000-0.055) Glucose (Fingerstick) 203 mg/dL (70-99) 167 mg/dL (70-99) White Blood Count 12.1 x10^3/uL (4.0-11.0) Red Blood Count 3.68 x10^6/uL (3.50-5.40) Hemoglobin 11.6 g/dL (12.0-15.5) Hematocrit 34.5 % (36.0-47.0) Mean Corpuscular Volume 94 fL (79-100) Mean Corpuscular Hemoglobin 31 pg (25-35) Mean Corpuscular Hemoglobin Concent 34 g/dL (31-37) Red Cell Distribution Width 14.0 % (11.5-14.5) Platelet Count 416 x10^3/uL (140-400) BUN/Creatinine Ratio 16 (6-20) Total Bilirubin 0.4 mg/dL (0.2-1.0) Aspartate Amino Transf (AST/SGOT) 128 U/L (15-37) Alanine Aminotransferase (ALT/SGPT) 246 U/L (14-59) Alkaline Phosphatase 189 U/L (46-116) Total Protein 6.1 g/dL (6.4-8.2) Albumin 2.6 g/dL (3.4-5.0) Albumin/Globulin Ratio 0.7 (1.0-1.7) Test 08/13/19 00:07 08/13/19 08:18 08/13/19 12:12 08/13/19 13:30 O2 Saturation 93 % (92-99) Arterial Blood pH 7.33 (7.35-7.45) Arterial Blood pCO2 at Patient Temp 38 mmHg (35-46) Arterial Blood pO2 at Patient Temp 72 mmHg (65-108) Arterial Blood HCO3 20 mmol/L (21-28) Arterial Blood Base Excess -5 mmol/L (-3-3) FiO2 24 Glucose (Fingerstick) 181 mg/dL (70-99) 174 mg/dL (70-99) Sodium Level 129 mmol/L (136-145) Potassium Level 4.7 mmol/L (3.5-5.1) Chloride Level 93 mmol/L (98-107) Carbon Dioxide Level 26 mmol/L (21-32) Anion Gap 10 (6-14) Blood Urea Nitrogen 32 mg/dL (7-20) Creatinine 1.8 mg/dL (0.6-1.0) Estimated GFR (Cockcroft-Gault) 26.5 Glucose Level 171 mg/dL (70-99) Calcium Level 9.0 mg/dL (8.5-10.1) MH-Fhb-C-Type Natriuretic Peptide 32572 pg/mL (0-449) Test 08/13/19 16:52 08/13/19 20:43 08/14/19 05:45 08/14/19 08:24 Glucose (Fingerstick) 208 mg/dL (70-99) 255 mg/dL (70-99) 153 mg/dL (70-99) White Blood Count 10.4 x10^3/uL (4.0-11.0) Red Blood Count 3.54 x10^6/uL (3.50-5.40) Hemoglobin 11.1 g/dL (12.0-15.5) Hematocrit 33.2 % (36.0-47.0) Mean Corpuscular Volume 94 fL (79-100) Mean Corpuscular Hemoglobin 32 pg (25-35) Mean Corpuscular Hemoglobin Concent 34 g/dL (31-37) Red Cell Distribution Width 14.1 % (11.5-14.5) Platelet Count 373 x10^3/uL (140-400) Sodium Level 130 mmol/L (136-145) Potassium Level 4.3 mmol/L (3.5-5.1) Chloride Level 94 mmol/L (98-107) Carbon Dioxide Level 26 mmol/L (21-32) Anion Gap 10 (6-14) Blood Urea Nitrogen 36 mg/dL (7-20) Creatinine 1.7 mg/dL (0.6-1.0) Estimated GFR (Cockcroft-Gault) 28.3 BUN/Creatinine Ratio 21 (6-20) Glucose Level 151 mg/dL (70-99) Calcium Level 9.4 mg/dL (8.5-10.1) Magnesium Level 2.4 mg/dL (1.8-2.4) Total Bilirubin 0.4 mg/dL (0.2-1.0) Aspartate Amino Transf (AST/SGOT) 182 U/L (15-37) Alanine Aminotransferase (ALT/SGPT) 393 U/L (14-59) Alkaline Phosphatase 222 U/L (46-116) IV-Eum-R-Type Natriuretic Peptide 31731 pg/mL (0-449) Total Protein 6.0 g/dL (6.4-8.2) Albumin 2.9 g/dL (3.4-5.0) Albumin/Globulin Ratio 0.9 (1.0-1.7) Laboratory Tests Test 08/13/19 12:12 08/13/19 13:30 08/13/19 16:52 08/13/19 20:43 Glucose (Fingerstick) 174 mg/dL (70-99) 208 mg/dL (70-99) 255 mg/dL (70-99) Sodium Level 129 mmol/L (136-145) Potassium Level 4.7 mmol/L (3.5-5.1) Chloride Level 93 mmol/L (98-107) Carbon Dioxide Level 26 mmol/L (21-32) Anion Gap 10 (6-14) Blood Urea Nitrogen 32 mg/dL (7-20) Creatinine 1.8 mg/dL (0.6-1.0) Estimated GFR (Cockcroft-Gault) 26.5 Glucose Level 171 mg/dL (70-99) Calcium Level 9.0 mg/dL (8.5-10.1) SN-Ecy-F-Type Natriuretic Peptide 34729 pg/mL (0-449) Test 08/14/19 05:45 08/14/19 08:24 White Blood Count 10.4 x10^3/uL (4.0-11.0) Red Blood Count 3.54 x10^6/uL (3.50-5.40) Hemoglobin 11.1 g/dL (12.0-15.5) Hematocrit 33.2 % (36.0-47.0) Mean Corpuscular Volume 94 fL (79-100) Mean Corpuscular Hemoglobin 32 pg (25-35) Mean Corpuscular Hemoglobin Concent 34 g/dL (31-37) Red Cell Distribution Width 14.1 % (11.5-14.5) Platelet Count 373 x10^3/uL (140-400) Sodium Level 130 mmol/L (136-145) Potassium Level 4.3 mmol/L (3.5-5.1) Chloride Level 94 mmol/L (98-107) Carbon Dioxide Level 26 mmol/L (21-32) Anion Gap 10 (6-14) Blood Urea Nitrogen 36 mg/dL (7-20) Creatinine 1.7 mg/dL (0.6-1.0) Estimated GFR (Cockcroft-Gault) 28.3 BUN/Creatinine Ratio 21 (6-20) Glucose Level 151 mg/dL (70-99) Calcium Level 9.4 mg/dL (8.5-10.1) Magnesium Level 2.4 mg/dL (1.8-2.4) Total Bilirubin 0.4 mg/dL (0.2-1.0) Aspartate Amino Transf (AST/SGOT) 182 U/L (15-37) Alanine Aminotransferase (ALT/SGPT) 393 U/L (14-59) Alkaline Phosphatase 222 U/L (46-116) VC-Uvi-S-Type Natriuretic Peptide 84859 pg/mL (0-449) Total Protein 6.0 g/dL (6.4-8.2) Albumin 2.9 g/dL (3.4-5.0) Albumin/Globulin Ratio 0.9 (1.0-1.7) Glucose (Fingerstick) 153 mg/dL (70-99) Medications Active Scripts Medications Dose Route/Sig Max Daily Dose Days Date Category Dose Instructions Furosemide 20 Mg Tablet 40 Mg PO DAILY 30 12/29/18 Rx Metoprolol Tartrate 25 Mg Tablet 25 Mg PO BID 12/26/18 Reported Levemir (Insulin Detemir) 100 Unit/1 Ml Vial 8 Unit SQ DAILY 12/15/17 Rx Isosorbide Mononitrate Er (Isosorbide Mononitrate) 30 Mg Tab.er.24h 30 Mg PO DAILY 12/15/17 Reported Brilinta (Ticagrelor) 90 Mg Tablet 90 Mg PO BID 11/21/16 Rx SIG: ONE TAB TWICE DAILY; DO NOT STOP WITHOUT INSTRUCTIONS FROM TEENAGE PROGRAM DIRECTOR Aspirin Ec (Aspirin) 81 Mg Tablet.dr 81 Mg PO DAILYWBKFT 11/21/16 Rx Cyanocobalamin Injection (Cyanocobalamin (Vitamin B-12)) 1,000 Mcg/1 Ml Vial 1,000 Mcg IJ QMONTH 11/20/16 Reported Magnesium (Magnesium Amino Acid Chelate) 100 Mg Tablet 100 Mg PO DAILY 11/20/16 Reported Calcium 600 + Vit D 200 Tablet (Calcium Carbonate/Vitamin D3) 1 Each Tablet 1 Each PO DAILY 11/20/16 Reported Prolia (Denosumab) 60 Mg/1 Ml Disp.syrin 60 Mg SQ Q6 MONTHS 11/20/16 Reported Voltaren (Diclofenac Sodium) 100 Gm Gel..gram. 4 Gm TP QID 11/20/16 Reported Ocuvite Softgel (Vit C/Vit E/Lutein/Min/Glenarm-3) 1 Each Capsule 1 Cap PO DAILY 11/20/16 Reported Lotrel 10-20 Mg Capsule (Amlodipine Besylate/Benazepril) 1 Each Capsule 1 Each PO DAILY 11/20/16 Reported NITROGLYCERIN SubLingual (Nitroglycerin) 0.4 Mg Tab.subl 0.4 Mg SL PRN Q5MIN PRN 11/16/16 Reported Ferrous Sulfate 325 Mg Tablet 325 Tab PO TWICE WEEKLY 11/16/16 Reported Glipizide 10 Mg Tablet 0.5 Tab PO BID 11/16/16 Reported Potassium Chloride 10 Meq Capsule.er 1 Cap PO DAILY 10/15/14 Reported Oxybutynin Chloride 5 Mg Tablet 1 Tab PO DAILY 10/15/14 Reported Omeprazole 20 Mg Capsule.dr 1 Cap PO DAILY 10/15/14 Reported Simvastatin 80 Mg Tablet 40 Mg PO QHS 10/15/14 Reported Impression . 1. Acute hypoxic respiratory failure secondary to worsening interstitial edema/ underlying ILD 2. Bilateral worsening interstitial infiltrates based on 08/09 chest x-ray and CT chest from 08/08; clinically favoring interstitial edema along with coexisting interstitial lung disease 3. Small basal pleural effusion, likely related to congestive heart failure.ECHO: The Ejection Fraction is 35%. The mid to distal LV is severely hypokinetic to akinetic on 08/10/19.-ongoing 4. Possible mild chronic obstructive pulmonary disease.-stable 5. Mediastinal adenopathy. Large sub-carinal mass vs adenopathy and large Pre- tracheal adenopathy. -stable 6. Could be sarcoidosis with ILD. Cannot exclude malignancy. Too frail to undergo invasive biopsy. PET scan as OP would be reasonable. 7. Hypotension due to diuresis- resolved Plan . 1. Lasix per cardiology 2. Continue oxygen to keep saturation 92% and above. 3. Completed course of antibiotics: rocephin/azithro 4. Follow the response to treatment. repeat cxr 08/11 mild improvement 5. Continue DuoNeb. 6. The Ejection Fraction is 35%. The mid to distal LV is severely hypokinetic to akinetic ECHO on 08/10/19, now on dobutamine gtt 7. Too frail to undergo invasive biopsy. PET scan as OP in 11/12. 8. cont. low dose prednisone for suspected sarcoidosis Discussed with RN f/u with me in Oct with ct chest GEORGETTE FRITZ MD Aug 14, 2019 10:56
--- NOTE | 2019-08-14 11:39 | NUR ---
SW following pt. Spoke with Physician regarding pt and pt is not ready to dc today. ROCKY discussed with Physician Anisa Portillo does not admit over the weekend. Will continue to follow.
[2019-08-14] MEDS: guaiFENesin ORAL 200 MG/10 ML LIQUID. PO PRN (12:13)
--- NOTE | 2019-08-14 14:11 | PDOC ---
ANTOINE HOPE ASBESTOS HANDLER 08/14/19 1411: CARDIO Progress Notes Date and Time Date of Service 08/14/2019 Time of Evaluation 1410 Subjective Subjective: No Chest Pain, No Palpitations, Other (still has some SOA) Vitals Vitals Vital Signs Date Time Temp Pulse Resp B/P (MAP) Pulse Ox O2 Delivery O2 Flow Rate FiO2 08/14/19 11:34 Nasal Cannula 2.0 08/14/19 09:31 68 137/55 08/14/19 08:01 91 08/14/19 07:00 97.5 97.5 08/14/19 02:52 18 Weight Weight [ ] Input and Output Intake and Output Intake and Output 08/14/19 06:59 Intake Total 414.3 ml Output Total 451 ml Balance -36.7 ml Intake Oral 360 ml IV Total 54.3 ml Output Urine Total 450 ml Urine/Stool Mix 1 ml # Voids 4 # Bowel Movements 4 Laboratory Labs Laboratory Tests Test 08/13/19 16:52 08/13/19 20:43 08/14/19 05:45 08/14/19 08:24 Glucose (Fingerstick) 208 mg/dL (70-99) 255 mg/dL (70-99) 153 mg/dL (70-99) White Blood Count 10.4 x10^3/uL (4.0-11.0) Red Blood Count 3.54 x10^6/uL (3.50-5.40) Hemoglobin 11.1 g/dL (12.0-15.5) Hematocrit 33.2 % (36.0-47.0) Mean Corpuscular Volume 94 fL (79-100) Mean Corpuscular Hemoglobin 32 pg (25-35) Mean Corpuscular Hemoglobin Concent 34 g/dL (31-37) Red Cell Distribution Width 14.1 % (11.5-14.5) Platelet Count 373 x10^3/uL (140-400) Sodium Level 130 mmol/L (136-145) Potassium Level 4.3 mmol/L (3.5-5.1) Chloride Level 94 mmol/L (98-107) Carbon Dioxide Level 26 mmol/L (21-32) Anion Gap 10 (6-14) Blood Urea Nitrogen 36 mg/dL (7-20) Creatinine 1.7 mg/dL (0.6-1.0) Estimated GFR (Cockcroft-Gault) 28.3 BUN/Creatinine Ratio 21 (6-20) Glucose Level 151 mg/dL (70-99) Calcium Level 9.4 mg/dL (8.5-10.1) Magnesium Level 2.4 mg/dL (1.8-2.4) Total Bilirubin 0.4 mg/dL (0.2-1.0) Aspartate Amino Transf (AST/SGOT) 182 U/L (15-37) Alanine Aminotransferase (ALT/SGPT) 393 U/L (14-59) Alkaline Phosphatase 222 U/L (46-116) LB-Cee-L-Type Natriuretic Peptide 45679 pg/mL (0-449) Total Protein 6.0 g/dL (6.4-8.2) Albumin 2.9 g/dL (3.4-5.0) Albumin/Globulin Ratio 0.9 (1.0-1.7) Test 08/14/19 11:57 Glucose (Fingerstick) 219 mg/dL (70-99) Physical Exam HEENT: Neck Supple W Full Motion Chest: Symmetric LUNGS: Other (basilar crackles) Heart: RRR (paced with underlying AFIB) Abdomen: Soft N/T Extremities: Other (trace to 1+ bilateral LE edema ) Neurology: alert, oriented, follow commands Assessment Assessment 1. Abdominal pain; ileus resolved. 2. Left Hydronephrosis: constipation possibly contributing, urology following 3. CAD s/p PCI/stents to LMCA/LAD/LCx in 2016. CP free 4. Acute diastolic/systolic CHF: appears compensated sitting up 5. SSS/CHB; s/p PPM implantation ([employer]), normal functioning device. 6. Hypertension; Controlled 7. Hyperlipidemia; statin 8. Diabetes, II; as per PCP. 9. Carotid disease s/p CIRCUIT BREAKER SUPERVISOR/stent placement to the left ICA and right endarterectomy 10. Hyponatremia: suspect hypotonic hyposmolar due to CHF 11. Cardiomyopathy: EF 35%, possible restrictive component 12. Possible sarcoidosis: pulmonary following 13. 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 Will contact rep in regards to AFIB burden. Presently V paced with underlying AFIB Recommendations 1. Continue current secondary prevention measures. Continue brilinta/ASA. Monitor Rhythm. 2. Will consider for ischemic workup on Saturday. Optimize this weekend. Dobutamine and lasix therapy. Fonseca to be place I & O inaccurate. 3. Continue with secondary prevention measures. 4. Not a candidate for amio with her pulmonary issues. KATIE SHABAZZ MD 08/14/19 1543: CARDIO Progress Notes Assessment Assessment Patient seen and examined. Agree with FAMILY PHYSICIAN's assessment and plan. Acute on chronic systolic heart failure improving with Lasix and inotropic support with dobutamine infusion Slight troponin elevation probably demand ischemia. CAD status appears clinically stable overall. We will consider ischemic evaluation as an outpatient. Cannot start ACEI/ARB secondary to renal insuff. Continue current medical regimen. ANTOINE HOPE APRN Aug 14, 2019 14:11 KATIE SHABAZZ MD Aug 14, 2019 15:43
[2019-08-14] MEDS: PRAMIPEXOLE 0.25 MG TABLET. PO SCH (20:49)
[2019-08-14] MEDS: ATORVASTATIN CALCIUM 10 MG TABLET. PO SCH (20:50)
[2019-08-15 02:36] VITALS: BP 159/70
[2019-08-15 05:23] LABS: CALCIUM 9.1 mg/dL (8.5-10.1); CREATININE 1.8 mg/dL (0.6-1.0); GFR 26.5; POTASSIUM 4.2 mmol/L (3.5-5.1)
[2019-08-15 07:00] VITALS: BP 149/51
[2019-08-15] MEDS: IPRATRPIUM/ALBUTEROL 0.5/2.5MG 3 ML NEBU. NEB SCH ×4 (07:45→18:33)
[2019-08-15] MEDS: MULTIVITAMIN with MINERAL TABLET. PO SCH (08:31)
[2019-08-15] MEDS: POLYETHYLENE GLYCOL 3350 17 GM PACKET. PO SCH (08:31)
[2019-08-15] MEDS: FUROSEMIDE 40 MG/4 ML VIAL. IVP SCH (08:31)
[2019-08-15] MEDS: LACTOBACILLUS RHAMNOSUS GG 1 CAPSULE. PO SCH ×2 (08:31→21:01)
[2019-08-15] MEDS: TICAGRELOR 90 MG TABLET. PO SCH ×2 (08:32→21:00)
[2019-08-15] MEDS: GABAPENTIN 100 MG CAPSULE. PO SCH ×3 (08:32→21:00)
[2019-08-15] MEDS: PANTOPRAZOLE 40 MG TABLET.DR. PO SCH (08:32)
[2019-08-15] MEDS: MAGNESIUM OXIDE 400 MG TABLET PO SCH (08:33)
[2019-08-15] MEDS: ISOSORBIDE MONONITRATE ER 30 MG TAB.ER.24H PO SCH (08:33)
[2019-08-15] MEDS: ASPIRIN CHEWABLE 81 MG TABLET. PO SCH (08:34)
[2019-08-15] MEDS: predniSONE 10 MG TABLET PO SCH (08:34)
[2019-08-15] MEDS: METOPROLOL TART IMMED RELEASE 25 MG TABLET. PO SCH ×2 (08:34→21:01)
[2019-08-15] MEDS: INSULIN LISPRO 300 UNITS/3 ML VIAL. SQ SCH ×3 (08:37→18:02)
[2019-08-15 11:00] VITALS: BP 144/67
--- NOTE | 2019-08-15 11:02 | PN ---
DATE: 08/15/2019 SUBJECTIVE: The patient is sitting propped up in her recliner, in no apparent respiratory distress. She is awake, alert. Denied any chest pain. Continued to complain of shortness of breath. She clearly cannot even finish a sentence. She continued to be on dobutamine drip together with Lasix IV daily and her kidney function continued to rise. In fact, this morning, her creatinine is up to 1.8 mg/dL. She has an indwelling Fonseca catheter. PHYSICAL EXAMINATION: GENERAL: When I examined her, she looked pale, but no jaundice, cyanosis or thyromegaly. No jugular venous distension. No limb edema. VITAL SIGNS: Her heart rate was 61, blood pressure was 149/51, temperature was 97.7, respiratory rate was 20, and oxygen saturation was 95% on 2 liters of oxygen. HEAD, EYES, EARS, NOSE AND THROAT: Showed normocephalic, atraumatic. NECK: Supple. HEART: Showed normal first and second heart sounds. No gallop or murmur. CHEST: Shows central trachea, equal bilateral expansion, air entry, vesicular sounds with bilateral basal crepitation. I could not appreciate any rhonchi. ABDOMEN: Distended, soft with tympanitic note on percussion. There is no tenderness. No guarding or rigidity. No organomegaly. All hernial orifice intact. Bowel sounds normal. NEUROLOGIC: She is awake, alert, responding appropriately. All cranial nerves intact. She moves extremities without difficulty. She ambulates with a walker. Her intake over the last 24 hours was 400, output 451. LABORATORY DATA: As of this morning, her serum sodium continued to be low at 129, potassium 4.2, chloride 93, bicarbonate 28, anion gap of 8, BUN 34, creatinine 1.8, estimated GFR was 26 mL per minute. Her glucose was 109, calcium was 9.1. As of yesterday, her white cell count was 10,000, hemoglobin 11, hematocrit 33, MCV 94 and platelet count 373,000. ASSESSMENT: 1. Acute hypoxic respiratory failure secondary to worsening interstitial edema with underlying interstitial lung disease. 2. Urinary tract infection with left side hydronephrosis with no obstruction for which she was treated with IV ceftriaxone. 3. Community-acquired pneumonia, treated with IV ceftriaxone as well as Zithromax. 4. Possible mild chronic obstructive pulmonary disease. 5. Mediastinal lymphadenopathy with large subcarinal mass versus adenopathy, enlarged paratracheal adenopathy, possibly due to sarcoidosis, although malignancy cannot be excluded. The patient is too frail to undergo any invasive procedures. 6. 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 PLAN: To obviously continue observing her off all antibiotic. Continue with IV Lasix and dobutamine. Continue to monitor her blood sugar and adjust insulin as needed. Continue the nebulizer, albuterol and Atrovent. ЕЛЕНА NIX MD DR: AMBER/rip JOB#: [id number] / [id number]
--- NOTE | 2019-08-15 13:05 | PDOC ---
PULMONARY PROGRESS NOTES Subjective Patient with CHF. She also has mediastinal adenopathy and subcarinal node/mass of unknown significance. There also is possibility of underlying interstitial disease being masked by CHF. Diagnostic and therapeutic options for those limited. Heart failure therapy complicated by her azotemia. Feeling better. started on dobutamine gtt Vitals Vital Signs Date Time Temp Pulse Resp B/P (MAP) Pulse Ox O2 Delivery O2 Flow Rate FiO2 08/15/19 11:00 97.8 60 20 144/67 (92) 93 Nasal Cannula 2.0 97.8 ROS: No Chest Pain, No Increase Cough General: Alert, No acute distress HEENT: Other (JVD) Lungs: Crackles (bases) Cardiovascular: S1, S2, Other (systolic murmur) Abdomen: Soft Neuro Exam: Alert Extremities: Other ( BLE edema) Skin: Warm Labs Laboratory Tests Test 08/13/19 13:30 08/13/19 16:52 08/13/19 20:43 08/14/19 05:45 Sodium Level 129 mmol/L (136-145) 130 mmol/L (136-145) Potassium Level 4.7 mmol/L (3.5-5.1) 4.3 mmol/L (3.5-5.1) Chloride Level 93 mmol/L (98-107) 94 mmol/L (98-107) Carbon Dioxide Level 26 mmol/L (21-32) 26 mmol/L (21-32) Anion Gap 10 (6-14) 10 (6-14) Blood Urea Nitrogen 32 mg/dL (7-20) 36 mg/dL (7-20) Creatinine 1.8 mg/dL (0.6-1.0) 1.7 mg/dL (0.6-1.0) Estimated GFR (Cockcroft-Gault) 26.5 28.3 Glucose Level 171 mg/dL (70-99) 151 mg/dL (70-99) Calcium Level 9.0 mg/dL (8.5-10.1) 9.4 mg/dL (8.5-10.1) JM-Zsz-[id number]-Type Natriuretic Peptide 03844 pg/mL (0-449) 17383 pg/mL (0-449) Glucose (Fingerstick) 208 mg/dL (70-99) 255 mg/dL (70-99) White Blood Count 10.4 x10^3/uL (4.0-11.0) Red Blood Count 3.54 x10^6/uL (3.50-5.40) Hemoglobin 11.1 g/dL (12.0-15.5) Hematocrit 33.2 % (36.0-47.0) Mean Corpuscular Volume 94 fL (79-100) Mean Corpuscular Hemoglobin 32 pg (25-35) Mean Corpuscular Hemoglobin Concent 34 g/dL (31-37) Red Cell Distribution Width 14.1 % (11.5-14.5) Platelet Count 373 x10^3/uL (140-400) BUN/Creatinine Ratio 21 (6-20) Magnesium Level 2.4 mg/dL (1.8-2.4) Total Bilirubin 0.4 mg/dL (0.2-1.0) Aspartate Amino Transf (AST/SGOT) 182 U/L (15-37) Alanine Aminotransferase (ALT/SGPT) 393 U/L (14-59) Alkaline Phosphatase 222 U/L (46-116) Total Protein 6.0 g/dL (6.4-8.2) Albumin 2.9 g/dL (3.4-5.0) Albumin/Globulin Ratio 0.9 (1.0-1.7) Test 08/14/19 08:24 08/14/19 11:57 08/14/19 17:17 08/14/19 21:12 Glucose (Fingerstick) 153 mg/dL (70-99) 219 mg/dL (70-99) 315 mg/dL (70-99) 320 mg/dL (70-99) Test 08/15/19 04:30 08/15/19 07:58 08/15/19 11:59 Sodium Level 129 mmol/L (136-145) Potassium Level 4.2 mmol/L (3.5-5.1) Chloride Level 93 mmol/L (98-107) Carbon Dioxide Level 28 mmol/L (21-32) Anion Gap 8 (6-14) Blood Urea Nitrogen 34 mg/dL (7-20) Creatinine 1.8 mg/dL (0.6-1.0) Estimated GFR (Cockcroft-Gault) 26.5 Glucose Level 209 mg/dL (70-99) Calcium Level 9.1 mg/dL (8.5-10.1) Glucose (Fingerstick) 183 mg/dL (70-99) 257 mg/dL (70-99) Laboratory Tests Test 08/14/19 17:17 08/14/19 21:12 08/15/19 04:30 08/15/19 07:58 Glucose (Fingerstick) 315 mg/dL (70-99) 320 mg/dL (70-99) 183 mg/dL (70-99) Sodium Level 129 mmol/L (136-145) Potassium Level 4.2 mmol/L (3.5-5.1) Chloride Level 93 mmol/L (98-107) Carbon Dioxide Level 28 mmol/L (21-32) Anion Gap 8 (6-14) Blood Urea Nitrogen 34 mg/dL (7-20) Creatinine 1.8 mg/dL (0.6-1.0) Estimated GFR (Cockcroft-Gault) 26.5 Glucose Level 209 mg/dL (70-99) Calcium Level 9.1 mg/dL (8.5-10.1) Test 08/15/19 11:59 Glucose (Fingerstick) 257 mg/dL (70-99) Medications Active Scripts Medications Dose Route/Sig Max Daily Dose Days Date Category Dose Instructions Furosemide 20 Mg Tablet 40 Mg PO DAILY 30 12/29/18 Rx Metoprolol Tartrate 25 Mg Tablet 25 Mg PO BID 12/26/18 Reported Levemir (Insulin Detemir) 100 Unit/1 Ml Vial 8 Unit SQ DAILY 12/15/17 Rx Isosorbide Mononitrate Er (Isosorbide Mononitrate) 30 Mg Tab.er.24h 30 Mg PO DAILY 12/15/17 Reported Brilinta (Ticagrelor) 90 Mg Tablet 90 Mg PO BID 11/21/16 Rx SIG: ONE TAB TWICE DAILY; DO NOT STOP WITHOUT INSTRUCTIONS FROM CEPHALOMETRIC TRACER Aspirin Ec (Aspirin) 81 Mg Tablet.dr 81 Mg PO DAILYWBKFT 11/21/16 Rx Cyanocobalamin Injection (Cyanocobalamin (Vitamin B-12)) 1,000 Mcg/1 Ml Vial 1,000 Mcg IJ QMONTH 11/20/16 Reported Magnesium (Magnesium Amino Acid Chelate) 100 Mg Tablet 100 Mg PO DAILY 11/20/16 Reported Calcium 600 + Vit D 200 Tablet (Calcium Carbonate/Vitamin D3) 1 Each Tablet 1 Each PO DAILY 11/20/16 Reported Prolia (Denosumab) 60 Mg/1 Ml Disp.syrin 60 Mg SQ Q6 MONTHS 11/20/16 Reported Voltaren (Diclofenac Sodium) 100 Gm Gel..gram. 4 Gm TP QID 11/20/16 Reported Ocuvite Softgel (Vit C/Vit E/Lutein/Min/[place]-3) 1 Each Capsule 1 Cap PO DAILY 11/20/16 Reported Lotrel 10-20 Mg Capsule (Amlodipine Besylate/Benazepril) 1 Each Capsule 1 Each PO DAILY 11/20/16 Reported NITROGLYCERIN SubLingual (Nitroglycerin) 0.4 Mg Tab.subl 0.4 Mg SL PRN Q5MIN PRN 11/16/16 Reported Ferrous Sulfate 325 Mg Tablet 325 Tab PO TWICE WEEKLY 11/16/16 Reported Glipizide 10 Mg Tablet 0.5 Tab PO BID 11/16/16 Reported Potassium Chloride 10 Meq Capsule.er 1 Cap PO DAILY 10/15/14 Reported Oxybutynin Chloride 5 Mg Tablet 1 Tab PO DAILY 10/15/14 Reported Omeprazole 20 Mg Capsule.dr 1 Cap PO DAILY 10/15/14 Reported Simvastatin 80 Mg Tablet 40 Mg PO QHS 10/15/14 Reported Impression . 1. Acute hypoxic respiratory failure secondary to worsening interstitial edema, improved since admission 2. Possible coexisting interstitial lung disease 3. Small basal pleural effusion, likely related to congestive heart failure.ECHO: The Ejection Fraction is 35%. The mid to distal LV is severely hypokinetic to akinetic on 08/10/19.-ongoing 4. Possible mild chronic obstructive pulmonary disease.-stable 5. Mediastinal adenopathy. Large sub-carinal mass vs adenopathy and large Pre- tracheal adenopathy. -stable Could be sarcoidosis with ILD. Cannot exclude malignancy. Too frail to undergo invasive biopsy. PET scan as OP would be reasonable. Plan . 1. Lasix and heart failure therapy per cardiology 2. Continue oxygen to keep saturation 92% and above. 3. Completed course of antibiotics: rocephin/azithro 4. Follow the response to treatment. repeat cxr 08/11 mild improvement 5. Continue DuoNeb. 6. The Ejection Fraction is 35%. The mid to distal LV is severely hypokinetic to akinetic ECHO on 08/10/19, now on dobutamine gtt 7. Too frail to undergo invasive biopsy. PET scan as OP in 11/12. 8. cont. low dose prednisone for suspected sarcoidosis Discussed with RN f/u with Dr. Marquez in Dec with ct chest ROCKY CEBALLOS MD Aug 15, 2019 13:04
--- NOTE | 2019-08-15 14:10 | PDOC ---
CARDIOLOGY PROGRESS NOTE SUBJECTIVE: No acute events overnight. Denies any chest pain. No orthopnea. Mild dyspnea persists. OBJECTIVE: Vital Signs/I&O: Vital Signs Date Time Temp Pulse Resp B/P (MAP) Pulse Ox O2 Delivery O2 Flow Rate FiO2 08/15/19 11:00 97.8 60 20 144/67 (92) 93 Nasal Cannula 2.0 97.8 I & O 08/14/19 08/14/19 08/15/19 14:59 22:59 06:59 Intake Total 300 ml 60 ml 450 ml Output Total 225 ml 750 ml Balance 75 ml 60 ml -300 ml Objective: Frail elderly lady in no distress Neck veins flat Lungs with bibasilar rales Irr heart tones Trace edema. DIAGNOSTIC TESTING: Labs: Laboratory Tests 08/15/19 04:30 Laboratory Tests Test 08/14/19 17:17 08/14/19 21:12 08/15/19 04:30 08/15/19 07:58 Glucose (Fingerstick) 315 mg/dL (70-99) H 320 mg/dL (70-99) H 183 mg/dL (70-99) H Sodium Level 129 mmol/L (136-145) L Potassium Level 4.2 mmol/L (3.5-5.1) Chloride Level 93 mmol/L (98-107) L Carbon Dioxide Level 28 mmol/L (21-32) Anion Gap 8 (6-14) Blood Urea Nitrogen 34 mg/dL (7-20) H Creatinine 1.8 mg/dL (0.6-1.0) H Estimated GFR (Cockcroft-Gault) 26.5 Glucose Level 209 mg/dL (70-99) H Calcium Level 9.1 mg/dL (8.5-10.1) Test 08/15/19 11:59 Glucose (Fingerstick) 257 mg/dL (70-99) H ASSESSMENT: 1. Acute on chronic systolic HF 2. CKD 3. Persistent AFib PLAN: 1. She has had good UOP overnight, continue dobutamine infusion. 2. She has multiple comorbidities and will plan for ischemic eval next week based on response to diuretics and renal function etc. Thanks. PAVITHRA APARICIO MD Aug 15, 2019 14:10
[2019-08-15 15:00] VITALS: BP 151/74
[2019-08-15 19:40] VITALS: BP 144/68
[2019-08-15] MEDS: ATORVASTATIN CALCIUM 10 MG TABLET. PO SCH (21:00)
[2019-08-15] MEDS: PRAMIPEXOLE 0.25 MG TABLET. PO SCH (21:32)
[2019-08-15 23:00] VITALS: BP 169/72
[2019-08-15] MEDS ORDERED: NITROGLYCERIN OINT 1 GM PACKET. TP ONE (23:30)
[2019-08-16] MEDS: guaiFENesin ORAL 200 MG/10 ML LIQUID. PO PRN ×2 (02:19→22:52)
[2019-08-16 02:30] VITALS: BP 149/62
[2019-08-16 05:16] LABS: CALCIUM 8.8 mg/dL (8.5-10.1); CREATININE 1.6 mg/dL (0.6-1.0); GFR 30.3; POTASSIUM 3.9 mmol/L (3.5-5.1)
--- NOTE | 2019-08-16 06:36 | NUR ---
08/15/19 at 2330, removed left upper arm IV, redness and itchiness present with dobutamine running. Immediately stopped IV infusion, protocol orders Nitro paste x1 and vital signs Q15min x4, Q1hr x4. New IV started in Right wrist. will continue to monitor.
[2019-08-16 07:00] VITALS: BP 148/64
[2019-08-16] MEDS: IPRATRPIUM/ALBUTEROL 0.5/2.5MG 3 ML NEBU. NEB SCH ×4 (08:03→20:00)
[2019-08-16] MEDS: POLYETHYLENE GLYCOL 3350 17 GM PACKET. PO SCH (08:43)
[2019-08-16] MEDS: GABAPENTIN 100 MG CAPSULE. PO SCH ×3 (08:43→21:16)
[2019-08-16] MEDS: METOPROLOL TART IMMED RELEASE 25 MG TABLET. PO SCH ×2 (08:43→21:16)
[2019-08-16] MEDS: FUROSEMIDE 40 MG/4 ML VIAL. IVP SCH (08:43)
[2019-08-16] MEDS: TICAGRELOR 90 MG TABLET. PO SCH ×2 (08:44→21:17)
[2019-08-16] MEDS: LACTOBACILLUS RHAMNOSUS GG 1 CAPSULE. PO SCH ×2 (08:44→21:16)
[2019-08-16] MEDS: ISOSORBIDE MONONITRATE ER 30 MG TAB.ER.24H PO SCH (08:44)
[2019-08-16] MEDS: ASPIRIN CHEWABLE 81 MG TABLET. PO SCH (08:44)
[2019-08-16] MEDS: PANTOPRAZOLE 40 MG TABLET.DR. PO SCH (08:44)
[2019-08-16] MEDS: MULTIVITAMIN with MINERAL TABLET. PO SCH (08:44)
[2019-08-16] MEDS: predniSONE 10 MG TABLET PO SCH (08:44)
[2019-08-16] MEDS: MAGNESIUM OXIDE 400 MG TABLET PO SCH (08:44)
[2019-08-16] MEDS: INSULIN LISPRO 300 UNITS/3 ML VIAL. SQ SCH ×3 (08:45→18:02)
[2019-08-16 11:00] VITALS: BP 141/63
--- NOTE | 2019-08-16 13:07 | PDOC ---
PULMONARY PROGRESS NOTES Subjective Patient with CHF. Sionce starting dobutamine drip, she has diuresed and feels better and less short of breath. She also has mediastinal adenopathy and subcarinal node/mass of unknown significance. There also is possibility of underlying interstitial disease being masked by CHF. Diagnostic and therapeutic options for those limited. Heart failure therapy complicated by her azotemia. Vitals Vital Signs Date Time Temp Pulse Resp B/P (MAP) Pulse Ox O2 Delivery O2 Flow Rate FiO2 08/16/19 12:01 96 Nasal Cannula 2.0 08/16/19 11:00 97.8 59 20 141/63 (89) 97.8 ROS: No Chest Pain, No Increase Cough General: Alert, No acute distress HEENT: Other Lungs: Crackles (bases) Cardiovascular: S1, S2, Other (systolic murmur) Abdomen: Soft Neuro Exam: Alert Extremities: Other Skin: Warm Labs Laboratory Tests Test 08/14/19 17:17 08/14/19 21:12 08/15/19 04:30 08/15/19 07:58 Glucose (Fingerstick) 315 mg/dL (70-99) 320 mg/dL (70-99) 183 mg/dL (70-99) Sodium Level 129 mmol/L (136-145) Potassium Level 4.2 mmol/L (3.5-5.1) Chloride Level 93 mmol/L (98-107) Carbon Dioxide Level 28 mmol/L (21-32) Anion Gap 8 (6-14) Blood Urea Nitrogen 34 mg/dL (7-20) Creatinine 1.8 mg/dL (0.6-1.0) Estimated GFR (Cockcroft-Gault) 26.5 Glucose Level 209 mg/dL (70-99) Calcium Level 9.1 mg/dL (8.5-10.1) Test 08/15/19 11:59 08/15/19 16:53 08/15/19 21:06 08/16/19 04:30 Glucose (Fingerstick) 257 mg/dL (70-99) 283 mg/dL (70-99) 286 mg/dL (70-99) Sodium Level 129 mmol/L (136-145) Potassium Level 3.9 mmol/L (3.5-5.1) Chloride Level 92 mmol/L (98-107) Carbon Dioxide Level 29 mmol/L (21-32) Anion Gap 8 (6-14) Blood Urea Nitrogen 33 mg/dL (7-20) Creatinine 1.6 mg/dL (0.6-1.0) Estimated GFR (Cockcroft-Gault) 30.3 Glucose Level 238 mg/dL (70-99) Calcium Level 8.8 mg/dL (8.5-10.1) Magnesium Level 2.0 mg/dL (1.8-2.4) Test 08/16/19 08:00 08/16/19 12:38 Glucose (Fingerstick) 216 mg/dL (70-99) 245 mg/dL (70-99) Laboratory Tests Test 08/15/19 16:53 08/15/19 21:06 08/16/19 04:30 08/16/19 08:00 Glucose (Fingerstick) 283 mg/dL (70-99) 286 mg/dL (70-99) 216 mg/dL (70-99) Sodium Level 129 mmol/L (136-145) Potassium Level 3.9 mmol/L (3.5-5.1) Chloride Level 92 mmol/L (98-107) Carbon Dioxide Level 29 mmol/L (21-32) Anion Gap 8 (6-14) Blood Urea Nitrogen 33 mg/dL (7-20) Creatinine 1.6 mg/dL (0.6-1.0) Estimated GFR (Cockcroft-Gault) 30.3 Glucose Level 238 mg/dL (70-99) Calcium Level 8.8 mg/dL (8.5-10.1) Magnesium Level 2.0 mg/dL (1.8-2.4) Test 08/16/19 12:38 Glucose (Fingerstick) 245 mg/dL (70-99) Medications Active Scripts Medications Dose Route/Sig Max Daily Dose Days Date Category Dose Instructions Furosemide 20 Mg Tablet 40 Mg PO DAILY 30 12/29/18 Rx Metoprolol Tartrate 25 Mg Tablet 25 Mg PO BID 12/26/18 Reported Levemir (Insulin Detemir) 100 Unit/1 Ml Vial 8 Unit SQ DAILY 12/15/17 Rx Isosorbide Mononitrate Er (Isosorbide Mononitrate) 30 Mg Tab.er.24h 30 Mg PO DAILY 12/15/17 Reported Brilinta (Ticagrelor) 90 Mg Tablet 90 Mg PO BID 11/21/16 Rx SIG: ONE TAB TWICE DAILY; DO NOT STOP WITHOUT INSTRUCTIONS FROM ACCOUNTANT BUDGET Aspirin Ec (Aspirin) 81 Mg Tablet. 81 Mg PO DAILYWBKFT 11/21/16 Rx Cyanocobalamin Injection (Cyanocobalamin (Vitamin B-12)) 1,000 Mcg/1 Ml Vial 1,000 Mcg IJ QMONTH 11/20/16 Reported Magnesium (Magnesium Amino Acid Chelate) 100 Mg Tablet 100 Mg PO DAILY 11/20/16 Reported Calcium 600 + Vit D 200 Tablet (Calcium Carbonate/Vitamin D3) 1 Each Tablet 1 Each PO DAILY 11/20/16 Reported Prolia (Denosumab) 60 Mg/1 Ml Disp.syrin 60 Mg SQ Q6 MONTHS 11/20/16 Reported Voltaren (Diclofenac Sodium) 100 Gm Gel..gram. 4 Gm TP QID 11/20/16 Reported Ocuvite Softgel (Vit C/Vit E/Lutein/Min/[place]-3) 1 Each Capsule 1 Cap PO DAILY 11/20/16 Reported Lotrel 10-20 Mg Capsule (Amlodipine Besylate/Benazepril) 1 Each Capsule 1 Each PO DAILY 11/20/16 Reported NITROGLYCERIN SubLingual (Nitroglycerin) 0.4 Mg Tab.subl 0.4 Mg SL PRN Q5MIN PRN 11/16/16 Reported Ferrous Sulfate 325 Mg Tablet 325 Tab PO TWICE WEEKLY 11/16/16 Reported Glipizide 10 Mg Tablet 0.5 Tab PO BID 11/16/16 Reported Potassium Chloride 10 Meq Capsule.er 1 Cap PO DAILY 10/15/14 Reported Oxybutynin Chloride 5 Mg Tablet 1 Tab PO DAILY 10/15/14 Reported Omeprazole 20 Mg Capsule. 1 Cap PO DAILY 10/15/14 Reported Simvastatin 80 Mg Tablet 40 Mg PO QHS 10/15/14 Reported Impression . 1. Acute hypoxic respiratory failure secondary to CHF, continues to improve 2. Possible coexisting interstitial lung disease 3. Small basal pleural effusion, likely related to congestive heart failure.ECHO: The Ejection Fraction is 35%. The mid to distal LV is severely hypokinetic to akinetic on 08/10/19.-ongoing 4. Possible mild chronic obstructive pulmonary disease.-stable 5. Mediastinal adenopathy. Large sub-carinal mass vs adenopathy and large Pre- tracheal adenopathy. -stable Could be sarcoidosis with ILD. Cannot exclude malignancy. Too frail to undergo invasive biopsy. PET scan as OP would be reasonable. Plan . 1. Lasix and heart failure therapy per cardiology 2. Continue oxygen to keep saturation 92% and above. 3. Completed course of antibiotics: rocephin/azithro 4 Continue DuoNeb. 5. The Ejection Fraction is 35%. The mid to distal LV is severely hypokinetic to akinetic ECHO on 08/10/19, now on dobutamine gtt 6. Too frail to undergo invasive biopsy. PET scan as OP in 11/12. 7. cont. 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 f/u with Dr. Marquez in Dec with ct chest ROCKY CEBALLOS MD Aug 16, 2019 13:07
--- NOTE | 2019-08-16 13:29 | PN ---
DATE: SUBJECTIVE: The patient is resting, slightly propped up in bed, in no apparent respiratory distress. She definitely seems to be feeling better, able to finish sentence without bulging. PHYSICAL EXAMINATION: GENERAL: When I examined her, she looked pale, but no jaundice, cyanosis or thyromegaly. No jugular venous distension. No lower limb edema. VITAL SIGNS: Her heart rate was 60, blood pressure 148/64, temperature was 97.5, respiratory rate 20, and oxygen saturation was 96% on 2 liters of oxygen. HEAD, EYES, EARS, NOSE AND THROAT: Showed normocephalic, atraumatic. NECK: Supple. HEART: Showed normal first and second heart sounds. No gallop or murmur. CHEST: Clear to auscultation. No crepitation or rhonchi. ABDOMEN: Distended, soft, nontender. No guarding or rigidity. No organomegaly. All hernial orifice intact. Bowel sounds normal. NEUROLOGIC: She is awake, alert, responding appropriately. All cranial nerves intact. Her intake was 860, output was 975. LABORATORY DATA: Lab work this morning, serum sodium of 129, potassium 3.9, chloride 92, bicarbonate 29, anion gap of 8, BUN 33, creatinine 1.6, estimated GFR was 30 mL per minute. Her calcium was 8.8, and magnesium 2. ASSESSMENT: 1. Acute hypoxic respiratory failure secondary to worsening interstitial edema and underlying interstitial lung disease. 2. Urinary tract infection with left hydronephrosis, no obstruction for which she was treated with IV ceftriaxone. 3. Community-acquired pneumonia, treated with IV ceftriaxone as well as Zithromax and complete the course of treatment. 4. Possible mild chronic obstructive pulmonary disease. 5. Mediastinal lymphadenopathy with large subcarinal mass versus adenopathy, large paratracheal adenopathy, possibly due to sarcoidosis, although malignancy cannot be excluded. The patient is too frail to undergo any invasive procedures. 6. 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 PLAN: The plan is to continue with IV Lasix and dobutamine. Continue to monitor blood sugar and adjust insulin as needed. Continue with nebulized albuterol and Atrovent. She is apparently scheduled for ischemic workup tomorrow. ЕЛЕНА NIX MD DR: Betty JOB#: [id number] / [id number]
[2019-08-16 15:00] VITALS: BP 129/66
[2019-08-16 19:51] VITALS: BP 136/64
[2019-08-16] MEDS: hydrALAZINE 25 MG TABLET PO SCH (21:16)
[2019-08-16] MEDS: ATORVASTATIN CALCIUM 10 MG TABLET. PO SCH (21:16)
[2019-08-16] MEDS: PRAMIPEXOLE 0.25 MG TABLET. PO SCH (21:16)
[2019-08-16 23:31] VITALS: BP 148/66
[2019-08-17 03:25] VITALS: BP 144/66
[2019-08-17 04:52] LABS: HEMATOCRIT 31.3 % (36.0-47.0); HEMOGLOBIN 10.6 g/dL (12.0-15.5); RED BLOOD COUNT 3.33 x10^6/uL (3.50-5.40); RED CELL DISTRIBUTION WIDTH 14.1 % (11.5-14.5); WHITE BLOOD COUNT 10.4 x10^3/uL (4.0-11.0)
[2019-08-17 05:10] LABS: CALCIUM 8.9 mg/dL (8.5-10.1); CREATININE 1.5 mg/dL (0.6-1.0); GFR 32.7; POTASSIUM 4.2 mmol/L (3.5-5.1)
[2019-08-17] MEDS: ACETAMINOPHEN/CODEINE 300/30MG TABLET. PO PRN (05:11)
[2019-08-17 07:00] VITALS: BP 160/70
[2019-08-17] MEDS: TICAGRELOR 90 MG TABLET. PO SCH ×2 (08:10→20:37)
[2019-08-17] MEDS: POLYETHYLENE GLYCOL 3350 17 GM PACKET. PO SCH (08:10)
[2019-08-17] MEDS: MULTIVITAMIN with MINERAL TABLET. PO SCH (08:10)
[2019-08-17] MEDS: FUROSEMIDE 40 MG/4 ML VIAL. IVP SCH (08:10)
[2019-08-17] MEDS: hydrALAZINE 25 MG TABLET PO SCH ×3 (08:11→20:37)
[2019-08-17] MEDS: predniSONE 10 MG TABLET PO SCH (08:11)
[2019-08-17] MEDS: LACTOBACILLUS RHAMNOSUS GG 1 CAPSULE. PO SCH ×2 (08:12→20:35)
[2019-08-17] MEDS: METOPROLOL TART IMMED RELEASE 25 MG TABLET. PO SCH ×2 (08:12→20:36)
[2019-08-17] MEDS: GABAPENTIN 100 MG CAPSULE. PO SCH ×3 (08:12→20:37)
[2019-08-17] MEDS: ASPIRIN CHEWABLE 81 MG TABLET. PO SCH (08:12)
[2019-08-17] MEDS: ISOSORBIDE MONONITRATE ER 30 MG TAB.ER.24H PO SCH (08:12)
[2019-08-17] MEDS: MAGNESIUM OXIDE 400 MG TABLET PO SCH (08:12)
[2019-08-17] MEDS: PANTOPRAZOLE 40 MG TABLET.DR. PO SCH (08:13)
[2019-08-17] MEDS: IPRATRPIUM/ALBUTEROL 0.5/2.5MG 3 ML NEBU. NEB SCH ×4 (08:23→19:21)
[2019-08-17] MEDS: INSULIN LISPRO 300 UNITS/3 ML VIAL. SQ SCH ×3 (08:48→17:25)
[2019-08-17 10:54] VITALS: BP 129/59
--- NOTE | 2019-08-17 11:13 | PDOC ---
PULMONARY PROGRESS NOTES Subjective Patient with CHF. Since starting dobutamine drip, she has diuresed and feels better and less short of breath. She also has mediastinal adenopathy and subcarinal node/mass of unknown significance. There also is possibility of underlying interstitial disease being masked by CHF. Diagnostic and therapeutic options for those limited. Heart failure therapy complicated by her azotemia. Vitals Vital Signs Date Time Temp Pulse Resp B/P (MAP) Pulse Ox O2 Delivery O2 Flow Rate FiO2 08/17/19 10:54 97.6 60 18 129/59 (82) 94 Nasal Cannula 2.0 97.6 ROS: No Chest Pain, No Increase Cough General: Alert, No acute distress HEENT: Other Lungs: Crackles (bases) Cardiovascular: S1, S2, Other (systolic murmur) Abdomen: Soft Neuro Exam: Alert Extremities: Other Skin: Warm Labs Laboratory Tests Test 08/15/19 11:59 08/15/19 16:53 08/15/19 21:06 08/16/19 04:30 Glucose (Fingerstick) 257 mg/dL (70-99) 283 mg/dL (70-99) 286 mg/dL (70-99) Sodium Level 129 mmol/L (136-145) Potassium Level 3.9 mmol/L (3.5-5.1) Chloride Level 92 mmol/L (98-107) Carbon Dioxide Level 29 mmol/L (21-32) Anion Gap 8 (6-14) Blood Urea Nitrogen 33 mg/dL (7-20) Creatinine 1.6 mg/dL (0.6-1.0) Estimated GFR (Cockcroft-Gault) 30.3 Glucose Level 238 mg/dL (70-99) Calcium Level 8.8 mg/dL (8.5-10.1) Magnesium Level 2.0 mg/dL (1.8-2.4) Test 08/16/19 08:00 08/16/19 12:38 08/16/19 17:14 08/16/19 20:54 Glucose (Fingerstick) 216 mg/dL (70-99) 245 mg/dL (70-99) 169 mg/dL (70-99) 296 mg/dL (70-99) Test 08/17/19 04:30 08/17/19 08:31 White Blood Count 10.4 x10^3/uL (4.0-11.0) Red Blood Count 3.33 x10^6/uL (3.50-5.40) Hemoglobin 10.6 g/dL (12.0-15.5) Hematocrit 31.3 % (36.0-47.0) Mean Corpuscular Volume 94 fL (79-100) Mean Corpuscular Hemoglobin 32 pg (25-35) Mean Corpuscular Hemoglobin Concent 34 g/dL (31-37) Red Cell Distribution Width 14.1 % (11.5-14.5) Platelet Count 344 x10^3/uL (140-400) Sodium Level 130 mmol/L (136-145) Potassium Level 4.2 mmol/L (3.5-5.1) Chloride Level 92 mmol/L (98-107) Carbon Dioxide Level 30 mmol/L (21-32) Anion Gap 8 (6-14) Blood Urea Nitrogen 29 mg/dL (7-20) Creatinine 1.5 mg/dL (0.6-1.0) Estimated GFR (Cockcroft-Gault) 32.7 Glucose Level 285 mg/dL (70-99) Calcium Level 8.9 mg/dL (8.5-10.1) PJ-Xwv-J-Type Natriuretic Peptide 79963 pg/mL (0-449) Glucose (Fingerstick) 230 mg/dL (70-99) Laboratory Tests Test 08/16/19 12:38 08/16/19 17:14 08/16/19 20:54 08/17/19 04:30 Glucose (Fingerstick) 245 mg/dL (70-99) 169 mg/dL (70-99) 296 mg/dL (70-99) White Blood Count 10.4 x10^3/uL (4.0-11.0) Red Blood Count 3.33 x10^6/uL (3.50-5.40) Hemoglobin 10.6 g/dL (12.0-15.5) Hematocrit 31.3 % (36.0-47.0) Mean Corpuscular Volume 94 fL (79-100) Mean Corpuscular Hemoglobin 32 pg (25-35) Mean Corpuscular Hemoglobin Concent 34 g/dL (31-37) Red Cell Distribution Width 14.1 % (11.5-14.5) Platelet Count 344 x10^3/uL (140-400) Sodium Level 130 mmol/L (136-145) Potassium Level 4.2 mmol/L (3.5-5.1) Chloride Level 92 mmol/L (98-107) Carbon Dioxide Level 30 mmol/L (21-32) Anion Gap 8 (6-14) Blood Urea Nitrogen 29 mg/dL (7-20) Creatinine 1.5 mg/dL (0.6-1.0) Estimated GFR (Cockcroft-Gault) 32.7 Glucose Level 285 mg/dL (70-99) Calcium Level 8.9 mg/dL (8.5-10.1) OW-Lxn-W-Type Natriuretic Peptide 68727 pg/mL (0-449) Test 08/17/19 08:31 Glucose (Fingerstick) 230 mg/dL (70-99) Medications Active Scripts Medications Dose Route/Sig Max Daily Dose Days Date Category Dose Instructions Furosemide 20 Mg Tablet 40 Mg PO DAILY 30 12/29/18 Rx Metoprolol Tartrate 25 Mg Tablet 25 Mg PO BID 12/26/18 Reported Levemir (Insulin Detemir) 100 Unit/1 Ml Vial 8 Unit SQ DAILY 12/15/17 Rx Isosorbide Mononitrate Er (Isosorbide Mononitrate) 30 Mg Tab.er.24h 30 Mg PO DAILY 12/15/17 Reported Brilinta (Ticagrelor) 90 Mg Tablet 90 Mg PO BID 11/21/16 Rx SIG: ONE TAB TWICE DAILY; DO NOT STOP WITHOUT INSTRUCTIONS FROM PERSONAL SERVICE REPRESENTATIVE Aspirin Ec (Aspirin) 81 Mg Tablet.dr 81 Mg PO DAILYWBKFT 11/21/16 Rx Cyanocobalamin Injection (Cyanocobalamin (Vitamin B-12)) 1,000 Mcg/1 Ml Vial 1,000 Mcg IJ QMONTH 11/20/16 Reported Magnesium (Magnesium Amino Acid Chelate) 100 Mg Tablet 100 Mg PO DAILY 11/20/16 Reported Calcium 600 + Vit D 200 Tablet (Calcium Carbonate/Vitamin D3) 1 Each Tablet 1 Each PO DAILY 11/20/16 Reported Prolia (Denosumab) 60 Mg/1 Ml Disp.syrin 60 Mg SQ Q6 MONTHS 11/20/16 Reported Voltaren (Diclofenac Sodium) 100 Gm Gel..gram. 4 Gm TP QID 11/20/16 Reported Ocuvite Softgel (Vit C/Vit E/Lutein/Min/[place]-3) 1 Each Capsule 1 Cap PO DAILY 11/20/16 Reported Lotrel 10-20 Mg Capsule (Amlodipine Besylate/Benazepril) 1 Each Capsule 1 Each PO DAILY 11/20/16 Reported NITROGLYCERIN SubLingual (Nitroglycerin) 0.4 Mg Tab.subl 0.4 Mg SL PRN Q5MIN PRN 11/16/16 Reported Ferrous Sulfate 325 Mg Tablet 325 Tab PO TWICE WEEKLY 11/16/16 Reported Glipizide 10 Mg Tablet 0.5 Tab PO BID 11/16/16 Reported Potassium Chloride 10 Meq Capsule.er 1 Cap PO DAILY 10/15/14 Reported Oxybutynin Chloride 5 Mg Tablet 1 Tab PO DAILY 10/15/14 Reported Omeprazole 20 Mg Capsule.dr 1 Cap PO DAILY 10/15/14 Reported Simvastatin 80 Mg Tablet 40 Mg PO QHS 10/15/14 Reported Impression . 1. Acute hypoxic respiratory failure secondary to CHF, continues to improve 2. Possible coexisting interstitial lung disease 3. Small basal pleural effusion, likely related to congestive heart failure.ECHO: The Ejection Fraction is 35%. The mid to distal LV is severely hypokinetic to akinetic on 08/10/19.-ongoing 4. Possible mild chronic obstructive pulmonary disease.-stable 5. Mediastinal adenopathy. Large sub-carinal mass vs adenopathy and large Pre- tracheal adenopathy. -stable Could be sarcoidosis with ILD. Cannot exclude malignancy. Too frail to undergo invasive biopsy. PET scan as OP would be reaso s[place]. Plan . 1. Lasix and heart failure therapy per cardiology 2. Continue oxygen to keep saturation 92% and above. 3. Completed course of antibiotics: rocephin/azithro 4 Continue DuoNeb. 5. The Ejection Fraction is 35%. The mid to distal LV is severely hypokinetic to akinetic ECHO on 08/10/19, now on dobutamine gtt 6. Too frail to undergo invasive biopsy. PET scan as OP in 11/12. vs f/u ct chest. difficult for her to f/u 7. cont. 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 f/u with me in Oct with ct chest GEORGETTE FRITZ MD Aug 17, 2019 11:13
--- NOTE | 2019-08-17 13:51 | NUR ---
SS following up with discharge planning. Pt accepted at [facility], ; fax [phone]. Pt is being transitioned from IV Lasix to PO Lasix. [facility] reported that they would be able to accept pt tomorrow prior to 1400. [facility] requesting CARE assessment be completed prior to admission. SS will complete CARE assessment and will fax to [facility] prior to the end of the day. Pt's RN notified that pt can discharge to [facility] tomorrow in the morning.
--- NOTE | 2019-08-17 14:25 | PDOC ---
PROGRESS NOTES Subjective Subjective Feeling much better with improvement in dyspnea Objective Objective Vital Signs Date Time Temp Pulse Resp B/P (MAP) Pulse Ox O2 Delivery O2 Flow Rate FiO2 08/17/19 14:10 63 129/59 08/17/19 11:43 97 Nasal Cannula 2.0 08/17/19 10:54 97.6 18 97.6 Intake and Output 08/17/19 07:00 Intake Total 670 ml Output Total 1550 ml Balance -880 ml Intake Oral 670 ml Output Urine Total 1550 ml Physical Exam Abdomen: Soft, Other (full round abdomen, nontender ) Heart: Regular rate Extremities: No edema General: Cooperative, No acute distress HEENT: Atraumatic, PERRLA Lungs: Clear to auscultation Neuro: Normal speech Psych/Mental Status: Mood NL Skin: No significant lesion Assessment Assessment 1. Abdominal pain; ileus resolved. 2. Left Hydronephrosis: urology following 3. CAD s/p PCI/stents to LMCA/LAD/LCx in 2016. CP free but patient was found to have diminished LV systolic function compared to prior echo. We will consider ischemic evaluation as an outpatient. 4. Acute on chronic systolic heart failure. Much better compensated. Off dobutamine infusion. Change Lasix to by mouth. Possible discharge tomorrow. 5. SSS/CHB; s/p PPM implantation ([employer]tr[employer]), normal functioning device. 6. Hypertension; Controlled 7. Hyperlipidemia; statin 8. Diabetes, II; as per PCP. 9. Carotid disease s/p E MAIL SYSTEM ADMINISTRATOR/stent placement to the left ICA and right endarterectomy 10. Persistent atrial fibrillation: Rate controlled Plan Plan of Care Problems Medical Problems: (1) CAD (coronary artery disease) Status: Chronic (2) DM2 (diabetes mellitus, type 2) Status: Chronic (3) HLD (hyperlipidemia) Status: Chronic (4) Hypertension Status: Chronic (5) SBO (small bowel obstruction) Status: Acute Comment Review of Relevant I have reviewed the following items kojo (where applicable) has been applied. Labs Laboratory Tests Test 08/16/19 17:14 08/16/19 20:54 08/17/19 04:30 08/17/19 08:31 Glucose (Fingerstick) 169 mg/dL (70-99) 296 mg/dL (70-99) 230 mg/dL (70-99) White Blood Count 10.4 x10^3/uL (4.0-11.0) Red Blood Count 3.33 x10^6/uL (3.50-5.40) Hemoglobin 10.6 g/dL (12.0-15.5) Hematocrit 31.3 % (36.0-47.0) Mean Corpuscular Volume 94 fL (79-100) Mean Corpuscular Hemoglobin 32 pg (25-35) Mean Corpuscular Hemoglobin Concent 34 g/dL (31-37) Red Cell Distribution Width 14.1 % (11.5-14.5) Platelet Count 344 x10^3/uL (140-400) Sodium Level 130 mmol/L (136-145) Potassium Level 4.2 mmol/L (3.5-5.1) Chloride Level 92 mmol/L (98-107) Carbon Dioxide Level 30 mmol/L (21-32) Anion Gap 8 (6-14) Blood Urea Nitrogen 29 mg/dL (7-20) Creatinine 1.5 mg/dL (0.6-1.0) Estimated GFR (Cockcroft-Gault) 32.7 Glucose Level 285 mg/dL (70-99) Calcium Level 8.9 mg/dL (8.5-10.1) XH-Ufg-E-Type Natriuretic Peptide 08838 pg/mL (0-449) Test 08/17/19 12:13 Glucose (Fingerstick) 291 mg/dL (70-99) Medications Current Medications Furosemide (Lasix) 40 mg DAILY PO ; Start 08/18/19 at 09:00 Hydralazine HCl (Apresoline) 25 mg TID PO Last administered on 08/17/19at 14:10; Start 08/16/19 at 21:00 Vitals/I & O Vital Sign - Last 24 Hours 08/16/19 08/16/19 08/16/19 08/16/19 15:00 16:13 19:50 19:51 Temp 97.5 97.6 97.5 97.6 Pulse 61 61 Resp 20 16 B/P (MAP) 129/66 (87) 136/64 (88) Pulse Ox 93 96 95 O2 Delivery Nasal Cannula Nasal Cannula Nasal Cannula Nasal Cannula O2 Flow Rate 2.0 2.0 2.0 2.0 08/16/19 08/16/19 08/16/19 08/16/19 20:02 21:17 21:17 23:31 Temp 97.6 97.6 Pulse 61 61 66 Resp 16 B/P (MAP) 136/64 136/64 148/66 (93) Pulse Ox 98 95 O2 Delivery Nasal Cannula Nasal Cannula O2 Flow Rate 2.0 2.0 08/17/19 08/17/19 08/17/19 08/17/19 03:25 05:11 06:38 07:00 Temp 97.8 97.3 97.8 97.3 Pulse 61 63 Resp 16 20 20 20 B/P (MAP) 144/66 (92) 160/70 (100) Pulse Ox 98 95 O2 Delivery Nasal Cannula Nasal Cannula Nasal Cannula Room Air O2 Flow Rate 2.0 2.0 2.0 08/17/19 08/17/19 08/17/19 08/17/19 08:00 08:13 08:13 08:13 Pulse 63 63 63 B/P (MAP) 160/70 160/70 160/70 O2 Delivery Nasal Cannula O2 Flow Rate 2.0 08/17/19 08/17/19 08/17/19 08/17/19 08:23 10:54 11:43 14:10 Temp 97.6 97.6 Pulse 60 63 Resp 18 B/P (MAP) 129/59 (82) 129/59 Pulse Ox 96 94 97 O2 Delivery Nasal Cannula Nasal Cannula Nasal Cannula O2 Flow Rate 2.0 2.0 2.0 Intake and Output 08/16/19 08/16/19 08/17/19 15:00 23:00 07:00 Intake Total 120 ml 100 ml 450 ml Output Total 1025 ml 525 ml Balance 120 ml -925 ml -75 ml KATIE SHABAZZ MD Aug 17, 2019 14:25
[2019-08-17 15:00] VITALS: BP 128/55
[2019-08-17 19:00] VITALS: BP 124/52
[2019-08-17] MEDS: PRAMIPEXOLE 0.25 MG TABLET. PO SCH (20:35)
[2019-08-17] MEDS: ATORVASTATIN CALCIUM 10 MG TABLET. PO SCH (20:37)
[2019-08-17 23:00] VITALS: BP 123/61
[2019-08-18 03:00] VITALS: BP 120/67
[2019-08-18 07:00] VITALS: BP 157/59
[2019-08-18] MEDS: IPRATRPIUM/ALBUTEROL 0.5/2.5MG 3 ML NEBU. NEB SCH ×4 (08:18→19:59)
--- NOTE | 2019-08-18 09:24 | SNU/HH DC ---
DISCHARGE ORDERS DISCHARGE INFORMATION: DISCHARGE DATE: Aug 19, 2019 FINAL DIAGNOSIS Problems Medical Problems: (1) CAD (coronary artery disease) Status: Chronic (2) DM2 (diabetes mellitus, type 2) Status: Chronic (3) HLD (hyperlipidemia) Status: Chronic (4) Hypertension Status: Chronic (5) SBO (small bowel obstruction) Status: Acute CONDITION ON DISCHARGE: Stable CODE STATUS: Code Status: Full [facility]CI: SNF STAY <30 DAYS: Yes POST DISCHARGE ORDERS: ACTIVITY ORDERS: Activity as tolerated WEIGHT BEARING STATUS: As tolerated BATHING ORDERS: Shower-keep dressing dry DIET AFTER DISCHARGE: Cardiac WOUND/INCISION CARE: Keep wound/cast CDI CHECKS AFTER DISCHARGE: CHECKS AFTER DISCHARGE: Check blood press - daily, Check blood sugar, ac/hs TREATMENT/EQUIPMENT ORDERS: ADAPTIVE EQUIPMENT NEEDED: None RESPIRATORY EQUIPMENT NEEDED: Oxygen, Nebulizer Physical Therapy For: Evalulation/Treatment Occupational Therapy For: Evaluation/Treatment DISCHARGE MEDICATIONS: Home Meds Active Scripts Furosemide (FUROSEMIDE) 20 Mg Tablet, 40 MG PO DAILY for CHF for 30 Days, #60 TAB Prov:DAWNA MCNAMARA MD 12/29/18 Insulin Detemir (LEVEMIR) 100 Unit/1 Ml Vial, 8 UNIT SQ DAILY, #120 VIAL Prov:NORIS CAZARES MD 12/15/17 Ticagrelor (BRILINTA) 90 Mg Tablet, 90 MG PO BID for left main stent, #60 TAB- CAP 12 Refills SIG: ONE TAB TWICE DAILY; DO NOT STOP WITHOUT INSTRUCTIONS FROM PEDIATRIC LPN Prov:EFRAÍN MILLER APRN 11/21/16 Aspirin (ASPIRIN EC) 81 Mg Tablet.dr, 81 MG PO DAILYWBK, #30 TAB 0 Refills Prov:EFRAÍN MILLER APRN 11/21/16 Reported Medications Metoprolol Tartrate (METOPROLOL TARTRATE) 25 Mg Tablet, 25 MG PO BID 12/26/18 Isosorbide Mononitrate (ISOSORBIDE MONONITRATE ER) 30 Mg Tab.er.24h, 30 MG PO DAILY, TAB.SR 12/15/17 Cyanocobalamin (Vitamin B-12) (CYANOCOBALAMIN INJECTION) 1,000 Mcg/1 Ml Vial, 1000 MCG IJ QMONTH, VIAL 11/20/16 Magnesium Amino Acid Chelate (MAGNESIUM) 100 Mg Tablet, 100 MG PO DAILY 11/20/16 Calcium Carbonate/Vitamin D3 (CALCIUM 600 + VIT D 200 TABLET) 1 Each Tablet, 1 EACH PO DAILY 11/20/16 Denosumab (PROLIA) 60 Mg/1 Ml Disp.syrin, 60 MG SQ Q6 MONTHS 11/20/16 Diclofenac Sodium (VOLTAREN) 100 Gm Gel..gram., 4 GM TP QID 11/20/16 Vit C/Vit E/Lutein/Min/[place]-3 (OCUVITE SOFTGEL) 1 Each Capsule, 1 CAP PO DAILY 11/20/16 Amlodipine Besylate/Benazepril (LOTREL 10-20 MG CAPSULE) 1 Each Capsule, 1 EACH PO DAILY 11/20/16 Nitroglycerin (NITROGLYCERIN SubLingual) 0.4 Mg Tab.subl, 0.4 MG SL PRN Q5MIN PRN for CHEST PAIN, BOTTLE 11/16/16 Ferrous Sulfate (FERROUS SULFATE) 325 Mg Tablet, 325 TAB PO TWICE WEEKLY, #30 TAB 3 Refills 11/16/16 Glipizide (GLIPIZIDE) 10 Mg Tablet, 0.5 TAB PO BID, #180 TAB 3 Refills 11/16/16 Potassium Chloride (POTASSIUM CHLORIDE) 10 Meq Capsule.er, 1 CAP PO DAILY, #90 CAP 1 Refill 10/15/14 Oxybutynin Chloride (OXYBUTYNIN CHLORIDE) 5 Mg Tablet, 1 TAB PO DAILY, #60 TAB 11 Refills 10/15/14 Omeprazole (OMEPRAZOLE) 20 Mg Capsule.dr, 1 CAP PO DAILY, #30 CAP 5 Refills 10/15/14 Simvastatin (SIMVASTATIN) 80 Mg Tablet, 40 MG PO QHS, #90 TAB 3 Refills 10/15/14 ЕЛЕНА NIX MD Aug 18, 2019 09:24
[2019-08-18] MEDS: POLYETHYLENE GLYCOL 3350 17 GM PACKET. PO SCH (09:26)
[2019-08-18] MEDS: MAGNESIUM OXIDE 400 MG TABLET PO SCH (09:27)
[2019-08-18] MEDS: predniSONE 10 MG TABLET PO SCH (09:27)
[2019-08-18] MEDS: LACTOBACILLUS RHAMNOSUS GG 1 CAPSULE. PO SCH ×2 (09:27→21:47)
[2019-08-18] MEDS: METOPROLOL TART IMMED RELEASE 25 MG TABLET. PO SCH ×2 (09:27→21:49)
[2019-08-18] MEDS: FUROSEMIDE 40 MG TABLET. PO SCH (09:27)
[2019-08-18] MEDS: ASPIRIN CHEWABLE 81 MG TABLET. PO SCH (09:27)
[2019-08-18] MEDS: MULTIVITAMIN with MINERAL TABLET. PO SCH (09:27)
[2019-08-18] MEDS: GABAPENTIN 100 MG CAPSULE. PO SCH ×3 (09:28→21:49)
[2019-08-18] MEDS: ISOSORBIDE MONONITRATE ER 30 MG TAB.ER.24H PO SCH (09:28)
[2019-08-18] MEDS: PANTOPRAZOLE 40 MG TABLET.DR. PO SCH (09:28)
[2019-08-18] MEDS: hydrALAZINE 25 MG TABLET PO SCH ×3 (09:28→21:47)
[2019-08-18] MEDS: TICAGRELOR 90 MG TABLET. PO SCH ×2 (09:28→21:47)
[2019-08-18] MEDS: INSULIN LISPRO 300 UNITS/3 ML VIAL. SQ SCH ×3 (09:36→17:23)
--- NOTE | 2019-08-18 10:30 | NUR ---
SS following up with discharge planning. Discharge orders received for [facility], ; fax [phone]. SS phoned and faxed CARE Assessment and discharge orders to [facility]. SS received phone contact from Nellie at [facility] stating that they have a skeleton crew today and would not be able to accept pt until the morning. SS contacted [facility] transport and scheduled transportation for 0945 on 08/19/2019. Pt, pt's daughter, Ana, and [facility] notified. Pt will discharge tomorrow, 08/19/2019, at 0945 and will go to [facility]. Pt's RN notified.
[2019-08-18 11:00] VITALS: BP 136/61
--- NOTE | 2019-08-18 12:29 | PDOC ---
PULMONARY PROGRESS NOTES Subjective Patient with CHF. Since starting dobutamine drip, she has diuresed and feels better and less short of breath. She also has mediastinal adenopathy and subcarinal node/mass of unknown significance. There also is possibility of underlying interstitial disease being masked by CHF. Diagnostic and therapeutic options for those limited. Heart failure therapy complicated by her azotemia. Vitals Vital Signs Date Time Temp Pulse Resp B/P (MAP) Pulse Ox O2 Delivery O2 Flow Rate FiO2 08/18/19 12:13 Nasal Cannula 2.0 08/18/19 09:28 61 157/59 08/18/19 08:20 96 08/18/19 07:00 97.6 16 97.6 ROS: No Chest Pain, No Increase Cough General: Alert, No acute distress HEENT: Other Lungs: Crackles (bases) Cardiovascular: S1, S2, Other (systolic murmur) Abdomen: Soft Neuro Exam: Alert Extremities: Other Skin: Warm Labs Laboratory Tests Test 08/16/19 12:38 08/16/19 17:14 08/16/19 20:54 08/17/19 04:30 Glucose (Fingerstick) 245 mg/dL (70-99) 169 mg/dL (70-99) 296 mg/dL (70-99) White Blood Count 10.4 x10^3/uL (4.0-11.0) Red Blood Count 3.33 x10^6/uL (3.50-5.40) Hemoglobin 10.6 g/dL (12.0-15.5) Hematocrit 31.3 % (36.0-47.0) Mean Corpuscular Volume 94 fL (79-100) Mean Corpuscular Hemoglobin 32 pg (25-35) Mean Corpuscular Hemoglobin Concent 34 g/dL (31-37) Red Cell Distribution Width 14.1 % (11.5-14.5) Platelet Count 344 x10^3/uL (140-400) Sodium Level 130 mmol/L (136-145) Potassium Level 4.2 mmol/L (3.5-5.1) Chloride Level 92 mmol/L (98-107) Carbon Dioxide Level 30 mmol/L (21-32) Anion Gap 8 (6-14) Blood Urea Nitrogen 29 mg/dL (7-20) Creatinine 1.5 mg/dL (0.6-1.0) Estimated GFR (Cockcroft-Gault) 32.7 Glucose Level 285 mg/dL (70-99) Calcium Level 8.9 mg/dL (8.5-10.1) ST-Yhr-Q-Type Natriuretic Peptide 35205 pg/mL (0-449) Test 08/17/19 08:31 08/17/19 12:13 08/17/19 16:52 08/17/19 21:31 Glucose (Fingerstick) 230 mg/dL (70-99) 291 mg/dL (70-99) 346 mg/dL (70-99) 322 mg/dL (70-99) Test 08/18/19 07:45 08/18/19 12:02 Glucose (Fingerstick) 238 mg/dL (70-99) 214 mg/dL (70-99) Laboratory Tests Test 08/17/19 16:52 08/17/19 21:31 08/18/19 07:45 08/18/19 12:02 Glucose (Fingerstick) 346 mg/dL (70-99) 322 mg/dL (70-99) 238 mg/dL (70-99) 214 mg/dL (70-99) Medications Active Scripts Medications Dose Route/Sig Max Daily Dose Days Date Category Dose Instructions Furosemide 20 Mg Tablet 40 Mg PO DAILY 30 12/29/18 Rx Metoprolol Tartrate 25 Mg Tablet 25 Mg PO BID 12/26/18 Reported Levemir (Insulin Detemir) 100 Unit/1 Ml Vial 8 Unit SQ DAILY 12/15/17 Rx Isosorbide Mononitrate Er (Isosorbide Mononitrate) 30 Mg Tab.er.24h 30 Mg PO DAILY 12/15/17 Reported Brilinta (Ticagrelor) 90 Mg Tablet 90 Mg PO BID 11/21/16 Rx SIG: ONE TAB TWICE DAILY; DO NOT STOP WITHOUT INSTRUCTIONS FROM PROCESSING TECHNICIAN Aspirin Ec (Aspirin) 81 Mg Tablet.dr 81 Mg PO DAILYWBKFT 11/21/16 Rx Cyanocobalamin Injection (Cyanocobalamin (Vitamin B-12)) 1,000 Mcg/1 Ml Vial 1,000 Mcg IJ QMONTH 11/20/16 Reported Magnesium (Magnesium Amino Acid Chelate) 100 Mg Tablet 100 Mg PO DAILY 11/20/16 Reported Calcium 600 + Vit D 200 Tablet (Calcium Carbonate/Vitamin D3) 1 Each Tablet 1 Each PO DAILY 11/20/16 Reported Prolia (Denosumab) 60 Mg/1 Ml Disp.syrin 60 Mg SQ Q6 MONTHS 11/20/16 Reported Voltaren (Diclofenac Sodium) 100 Gm Gel..gram. 4 Gm TP QID 11/20/16 Reported Ocuvite Softgel (Vit C/Vit E/Lutein/Min/[place]-3) 1 Each Capsule 1 Cap PO DAILY 11/20/16 Reported Lotrel 10-20 Mg Capsule (Amlodipine Besylate/Benazepril) 1 Each Capsule 1 Each PO DAILY 11/20/16 Reported NITROGLYCERIN SubLingual (Nitroglycerin) 0.4 Mg Tab.subl 0.4 Mg SL PRN Q5MIN PRN 11/16/16 Reported Ferrous Sulfate 325 Mg Tablet 325 Tab PO TWICE WEEKLY 11/16/16 Reported Glipizide 10 Mg Tablet 0.5 Tab PO BID 11/16/16 Reported Potassium Chloride 10 Meq Capsule.er 1 Cap PO DAILY 10/15/14 Reported Oxybutynin Chloride 5 Mg Tablet 1 Tab PO DAILY 10/15/14 Reported Omeprazole 20 Mg Capsule.dr 1 Cap PO DAILY 10/15/14 Reported Simvastatin 80 Mg Tablet 40 Mg PO QHS 10/15/14 Reported Impression . 1. Acute hypoxic respiratory failure secondary to CHF, stable 2. Possible coexisting interstitial lung disease 3. Small basal pleural effusion, likely related to congestive heart failure.ECH O: The Ejection Fraction is 35%. The mid to distal LV is severely hypokinetic to akinetic on 08/10/19.-ongoing 4. Possible mild chronic obstructive pulmonary disease.-stable 5. Mediastinal adenopathy. Large sub-carinal mass vs adenopathy and large Pre-t sussy adenopathy. -stable Could be sarcoidosis with ILD. Cannot exclude malignancy. Too frail to undergo invasive biopsy. PET scan as OP would be reasonable vs just f/u ct chest Plan . 1. Lasix and heart failure therapy per cardiology / ischemic w/u as OP 2. Continue oxygen to keep saturation 92% and above. 3. Completed course of antibiotics: 4 Continue DuoNeb. 5. The Ejection Fraction is 35%. The mid to distal LV is severely hypokinetic to akinetic ECHO on 08/10/19, s/p dobutamine gtt 6. Too frail to undergo invasive biopsy. PET scan as OP in 11/12. vs f/u ct chest. difficult for her to f/u in office. I did gave f/u inDec 7. cont. 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 f/u with me in Oct with ct chest GEORGETTE FRITZ MD Aug 18, 2019 12:29
[2019-08-18] MEDS ORDERED: FUROSEMIDE 40 MG/4 ML VIAL. IVP ONE (13:30)
--- NOTE | 2019-08-18 14:48 | RAD ---
EXAM: Chest, 2 views. HISTORY: Congestive heart failure. COMPARISON: 08/12/2019 FINDINGS: 2 views of the chest are obtained. There has been interval increase in pulmonary congestion. There are stable small pleural effusions. There is a stable prominent cardiac silhouette. There is no pneumothorax. There is a cardiac pacemaker unchanged in position. IMPRESSION: 1. Slight interval increase in pulmonary congestion. 2. Stable small pleural effusions and prominent cardiac silhouette. Electronically signed by: Margarita Ramirez MD (08/18/2019 2:46 PM) [place] [id number]
[2019-08-18 15:00] VITALS: BP 127/66
--- NOTE | 2019-08-18 16:33 | PDOC ---
[employer] [employer] [employer] 08/18/19 1633: CARDIO Progress Notes Date and Time Date of Service 08/18/2019 Time of Evaluation 1540 Subjective Subjective: No Chest Pain, No Palpitations, Other (still SOA) Vitals Vitals Vital Signs Date Time Temp Pulse Resp B/P (MAP) Pulse Ox O2 Delivery O2 Flow Rate FiO2 08/18/19 16:11 97 Nasal Cannula 3.0 08/18/19 15:00 97.5 59 18 127/66 (86) 97.5 Weight Weight [ ] Input and Output Intake and Output Intake and Output 08/18/19 07:00 Intake Total 1100 ml Output Total 1500 ml Balance -400 ml Intake Oral 1100 ml Output Urine Total 1500 ml Laboratory Labs Laboratory Tests Test 08/17/19 16:52 08/17/19 21:31 08/18/19 07:45 08/18/19 12:02 Glucose (Fingerstick) 346 mg/dL (70-99) 322 mg/dL (70-99) 238 mg/dL (70-99) 214 mg/dL (70-99) Physical Exam HEENT: Neck Supple W Full Motion Chest: Symmetric LUNGS: Other (basilar crackles) Heart: RRR (paced with underlying AFIB) Abdomen: Soft N/T Extremities: Other (trace to 1+ bilateral LE edema ) Neurology: alert, oriented, follow commands Assessment Assessment 1. CAD s/p PCI/stents to LMCA/LAD/LCx in 2015. CP free 2. Acute diastolic/systolic CHF: remains, more SOA today 3. SSS/CHB; s/p PPM implantation ([employer]tr[employer]), normal functioning device. V paced with undelrying AFIB 4. Hypertension; Controlled 5. DM2/HLP 6. Carotid disease s/p MANAGER OF PRODUCTION/stent placement to the left ICA and right endarterectomy 7. Cardiomyopathy: EF 35%, possible restrictive component 8.. 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 AFIB: persistent Recommendations 1. Continue current secondary prevention measures. Continue brilinta/ASA 2. BMP and Mg. Lasix therapy. Will need ischemic workup with continued refractory CHF, Will discuss with primary commercial lease administrator. 3. Not a candidate for amio with her pulmonary issues. 4. Will obtain AFIB burden from recent interrogation to further ascertain need for anticoagulation. KATIE SHABAZZ MD 08/18/192048: CARDIO Progress Notes Assessment Assessment Patient seen and examined. Agree with NAVAL GUNFI[employer] LIAISON OFFICER's assessment and plan. Patient decompensated again clinically today Due to recurrent episodes of CHF and diminished LVEF, we will consider cardiac cath tomorrow Continue diuresis ANTOINE HOPE APRN Aug 18, 2019 16:33 KATIE SHABAZZ MD Aug 18, 2019 20:49
[2019-08-18 17:19] LABS: CALCIUM 8.8 mg/dL (8.5-10.1); CREATININE 1.6 mg/dL (0.6-1.0); GFR 30.3; POTASSIUM 3.9 mmol/L (3.5-5.1)
--- NOTE | 2019-08-18 17:27 | PN ---
DATE: 08/18/2019 SUBJECTIVE: The patient is resting, slightly propped up in bed, in no apparent distress, awake and alert. Denied any chest pain or shortness of breath. Apparently, she could not be taken to [facility] yesterday or today. She will be discharged tomorrow. PHYSICAL EXAMINATION: GENERAL: When I examined her, she looked pale, but no jaundice, cyanosis or thyromegaly. No jugular venous distention. No lower limb edema. VITAL SIGNS: Her heart rate was 61, blood pressure 157/59, temperature was 97.6, respiratory rate was 16, and oxygen saturation was 93% on 2 liters of oxygen. HEAD, EYES, EARS, NOSE AND THROAT: Showed normocephalic, atraumatic. NECK: Supple. HEART: Showed normal first and second heart sounds. No gallop, rub or murmur. CHEST: Clear to auscultation. No crepitation or rhonchi. ABDOMEN: Distended, soft with tympanitic percussion note. No guarding or rigidity. No organomegaly. All hernial orifices intact. Bowel sounds normal. NEUROLOGIC: She was awake, alert, responding appropriately. All cranial nerves intact. EXTREMITIES: She moves extremities without difficulty. She ambulates with a walker. Her intake was 670, output was 1550. LABORATORY DATA: Her most recent lab work showed a white cell count of 10,000, hemoglobin 11, hematocrit 32, MCV 94 and platelet count 344,000. Her blood sugar continues to be somewhat elevated. Her chemistry showed a serum sodium 130, potassium 4.2, chloride 92, bicarbonate 30, anion gap of 8, BUN 29, creatinine 1.5, estimated GFR was 33 mL per minute. Her calcium was 8.9. ASSESSMENT: 1. Acute hypoxic respiratory failure secondary to worsening interstitial edema on top of underlying interstitial lung disease. 2. Urinary tract infection with left side hydronephrosis; however, there is no obstruction for which she was treated with IV ceftriaxone and completed the course of treatment. 3. Community-acquired pneumonia, treated with IV ceftriaxone as well as Zithromax and completed the course of treatment. 4. Possible mild chronic obstructive pulmonary disease. 5. Mediastinal lymphadenopathy with large subcarinal mass versus adenopathy, large paratracheal adenopathy, possibly due to sarcoidosis, although malignancy cannot be excluded. The patient is too frail to undergo any invasive procedure. PET scan was recommended to be done as an outpatient. 6. [id number] combined systolic and diastolic congestive heart failure. Echocardiogram showed an ejection fraction of only 35% for which she was on dobutamine drip as well as IV Lasix. PLAN: To continue with oral diuretics. Continue to monitor her blood sugar and adjust insulin as needed. Continue nebulized treatment, tapering course of steroids. She will be discharged to [facility] tomorrow. ЕЛЕНА NIX MD DR: AMBER/rip JOB#: [id number] / [id number]
--- NOTE | 2019-08-18 18:11 | NUR ---
Wound care: Follow up wound care for ST III PU to R buttock. Dried drainage and skin prep removed, measured open area (see detailed assessment). Covered with hydrocolloid and foam dressing. Blanchable redness along spinal ridge covered with foams for protection. Heels (boggy but blanchable) floated on pillows. Recommend P500 mattress. Siria MARTINEZ notified. Instructed nurse to order P500 08/19/19 if pt does not DC. Follow up 08/26
[2019-08-18 19:00] VITALS: BP 136/59
[2019-08-18] MEDS: ATORVASTATIN CALCIUM 10 MG TABLET. PO SCH (21:48)
[2019-08-18] MEDS: PRAMIPEXOLE 0.25 MG TABLET. PO SCH (22:35)
[2019-08-18 23:00] VITALS: BP 131/59
[2019-08-19] VITALS (17 sets, daily range): BP systolic 120–173; BP diastolic 58–71
[2019-08-19] MEDS: guaiFENesin ORAL 200 MG/10 ML LIQUID. PO PRN ×2 (01:06→22:10)
[2019-08-19] MEDS: PANTOPRAZOLE 40 MG TABLET.DR. PO SCH (06:15)
[2019-08-19] MEDS: IPRATRPIUM/ALBUTEROL 0.5/2.5MG 3 ML NEBU. NEB SCH ×4 (07:55→20:21)
[2019-08-19] MEDS: INSULIN LISPRO 300 UNITS/3 ML VIAL. SQ SCH ×3 (08:00→18:34)
[2019-08-19] MEDS ORDERED: ALPRAZolam 0.25 MG TABLET PO PRN (09:00)
[2019-08-19] MEDS: POLYETHYLENE GLYCOL 3350 17 GM PACKET. PO SCH (09:00)
[2019-08-19 09:28] LABS: CREATININE 1.5 mg/dL (0.6-1.0); GFR 32.7; POTASSIUM 3.5 mmol/L (3.5-5.1)
--- NOTE | 2019-08-19 09:38 | PN ---
DATE: 08/19/2019 SUBJECTIVE: The patient is sitting slightly propped up in bed, clearly tachypneic that she has not slept well last night as she has been short of breath, although she somewhat feels better this morning. She is apparently scheduled for cardiac catheterization sometime this morning. PHYSICAL EXAMINATION: GENERAL: When I examined her, she looked pale, but no jaundice, cyanosis or thyromegaly. No jugular venous distention. No lower limb edema. VITAL SIGNS: Her heart rate was 62, blood pressure was 153/69, temperature was 97.3, respiratory rate was 18, and oxygen saturation was 92% on 2 liters of oxygen. HEAD, EYES, EARS, NOSE, AND THROAT: Showed normocephalic and atraumatic. NECK: Supple. HEART: Showed normal first and second heart sounds. No gallop or murmur. CHEST: Showed central trachea, equal bilateral chest expansion, air entry, vesicular sounds with bilateral basal crepitation. I could not appreciate any rhonchi. ABDOMEN: Distended, soft with tympanitic percussion note. There is no guarding or rigidity. No organomegaly. All hernial orifices intact. Bowel sounds normal. NEUROLOGIC: She was awake, alert, responding appropriately. All cranial nerves are intact. EXTREMITIES: She moves extremities without difficulty. She is mostly bedbound and chair bound. She does ambulate with a walker. Her intake was 1100, output was 1500. LABORATORY DATA: As of yesterday, her serum sodium was 129, potassium 3.9, chloride 92, bicarbonate 31, anion gap of 6, BUN 27, creatinine 1.6, estimated GFR was 30 mL per minute. Her blood sugar continues to be elevated. Her white cell count was 10,000, hemoglobin 11, hematocrit 31, MCV 94, and platelet count 344,000. ASSESSMENT: 1. Acute hypoxic respiratory failure secondary to worsening interstitial edema on top of underlying interstitial lung disease. 2. Aitwr-ql-[id number] combined systolic and diastolic congestive heart failure. Her echocardiogram showed an ejection fraction of 35% for which she was on dobutamine drip as well as IV Lasix as she continued to have recurrent episode of heart failure. She is scheduled for cardiac catheterization this morning. 3. Urinary tract infection with left side hydronephrosis; however, there is no obstruction for which she was treated with IV ceftriaxone and completed the course of treatment. 4. Community-acquired pneumonia, treated with IV ceftriaxone as well as Zithromax and completed the course of treatment. 5. Possible mild chronic obstructive pulmonary disease. 6. Mediastinal lymphadenopathy with large subcarinal mass versus adenopathy, enlarged paratracheal adenopathy, possibly due to sarcoidosis, although malignancy cannot be excluded. The patient is too frail to undergo any invasive procedures and PET scan was recommended to be done as an outpatient. PLAN: To obviously await the result of cardiac catheterization. Meanwhile, continue to monitor blood sugar and adjust insulin as needed. Continue nebulized treatment. Continue tapering course of steroids. The planned discharge was canceled. ЕЛЕНА NIX MD DR: AMBER/rip JOB#: [id number] / [id number]
[2019-08-19] MEDS: ASPIRIN CHEWABLE 81 MG TABLET. PO SCH (10:00)
[2019-08-19] MEDS: LACTOBACILLUS RHAMNOSUS GG 1 CAPSULE. PO SCH ×2 (10:00→22:08)
[2019-08-19] MEDS: GABAPENTIN 100 MG CAPSULE. PO SCH ×3 (10:01→22:10)
[2019-08-19] MEDS: predniSONE 10 MG TABLET PO SCH (10:01)
[2019-08-19] MEDS: MULTIVITAMIN with MINERAL TABLET. PO SCH (10:01)
[2019-08-19] MEDS: MAGNESIUM OXIDE 400 MG TABLET PO SCH (10:01)
[2019-08-19] MEDS: ISOSORBIDE MONONITRATE ER 30 MG TAB.ER.24H PO SCH (10:05)
[2019-08-19] MEDS: METOPROLOL TART IMMED RELEASE 25 MG TABLET. PO SCH ×2 (10:06→22:09)
[2019-08-19] MEDS: hydrALAZINE 25 MG TABLET PO SCH ×3 (10:06→22:08)
--- NOTE | 2019-08-19 10:41 | PDOC ---
Provider Note Provider Note 08/19/2019 1030 Refractory CHF with EF at 35%. [facility] today, risks including ANYI and benefits discussed and agreeable to proceed. Allergy to iodine contrast. Will start low rate IV hydration and will premed with solumedrol/benadryl/pepcid pre cath. ANTOINE HOPE APRN Aug 19, 2019 10:41
[2019-08-19] MEDS ORDERED: methylPREDNISolone SOD SUCC PF 125 MG/2 ML VIAL. IV ONE (10:45)
[2019-08-19] MEDS ORDERED: diphenhydrAMINE 50 MG/ML VIAL IVP ONE (10:45)
[2019-08-19] MEDS ORDERED: FAMOTIDINE 20 MG/2 ML VIAL IVP ONE (10:45)
[2019-08-19] MEDS ORDERED: IV NORMAL SALINE 1000ML BAG 1,000 ML IV ONE (10:45)
--- NOTE | 2019-08-19 11:25 | PDOC ---
PULMONARY PROGRESS NOTES Subjective developed increase soa due to CHF 08/18 improved with lasix Vitals Vital Signs Date Time Temp Pulse Resp B/P (MAP) Pulse Ox O2 Delivery O2 Flow Rate FiO2 08/19/19 10:59 97.4 66 18 173/71 (105) 94 Nasal Cannula 2.0 97.4 ROS: No Chest Pain, No Increase Cough General: Alert, No acute distress HEENT: Other Lungs: Crackles (bases) Cardiovascular: S1, S2, Other (systolic murmur) Abdomen: Soft Neuro Exam: Alert Extremities: Other Skin: Warm Labs Laboratory Tests Test 08/17/19 12:13 08/17/19 16:52 08/17/19 21:31 08/18/19 07:45 Glucose (Fingerstick) 291 mg/dL (70-99) 346 mg/dL (70-99) 322 mg/dL (70-99) 238 mg/dL (70-99) Test 08/18/19 12:02 08/18/19 17:00 08/18/19 17:15 08/18/19 20:56 Glucose (Fingerstick) 214 mg/dL (70-99) 265 mg/dL (70-99) 284 mg/dL (70-99) Sodium Level 129 mmol/L (136-145) Potassium Level 3.9 mmol/L (3.5-5.1) Chloride Level 92 mmol/L (98-107) Carbon Dioxide Level 31 mmol/L (21-32) Anion Gap 6 (6-14) Blood Urea Nitrogen 27 mg/dL (7-20) Creatinine 1.6 mg/dL (0.6-1.0) Estimated GFR (Cockcroft-Gault) 30.3 Glucose Level 251 mg/dL (70-99) Calcium Level 8.8 mg/dL (8.5-10.1) Magnesium Level 2.1 mg/dL (1.8-2.4) Test 08/19/19 08:03 08/19/19 09:10 Glucose (Fingerstick) 250 mg/dL (70-99) Sodium Level 130 mmol/L (136-145) Potassium Level 3.5 mmol/L (3.5-5.1) Chloride Level 91 mmol/L (98-107) Carbon Dioxide Level 33 mmol/L (21-32) Anion Gap 6 (6-14) Blood Urea Nitrogen 26 mg/dL (7-20) Creatinine 1.5 mg/dL (0.6-1.0) Estimated GFR (Cockcroft-Gault) 32.7 Glucose Level 264 mg/dL (70-99) Calcium Level 9.0 mg/dL (8.5-10.1) Magnesium Level 2.0 mg/dL (1.8-2.4) Laboratory Tests Test 08/18/19 12:02 08/18/19 17:00 08/18/19 17:15 08/18/19 20:56 Glucose (Fingerstick) 214 mg/dL (70-99) 265 mg/dL (70-99) 284 mg/dL (70-99) Sodium Level 129 mmol/L (136-145) Potassium Level 3.9 mmol/L (3.5-5.1) Chloride Level 92 mmol/L (98-107) Carbon Dioxide Level 31 mmol/L (21-32) Anion Gap 6 (6-14) Blood Urea Nitrogen 27 mg/dL (7-20) Creatinine 1.6 mg/dL (0.6-1.0) Estimated GFR (Cockcroft-Gault) 30.3 Glucose Level 251 mg/dL (70-99) Calcium Level 8.8 mg/dL (8.5-10.1) Magnesium Level 2.1 mg/dL (1.8-2.4) Test 08/19/19 08:03 08/19/19 09:10 Glucose (Fingerstick) 250 mg/dL (70-99) Sodium Level 130 mmol/L (136-145) Potassium Level 3.5 mmol/L (3.5-5.1) Chloride Level 91 mmol/L (98-107) Carbon Dioxide Level 33 mmol/L (21-32) Anion Gap 6 (6-14) Blood Urea Nitrogen 26 mg/dL (7-20) Creatinine 1.5 mg/dL (0.6-1.0) Estimated GFR (Cockcroft-Gault) 32.7 Glucose Level 264 mg/dL (70-99) Calcium Level 9.0 mg/dL (8.5-10.1) Magnesium Level 2.0 mg/dL (1.8-2.4) Medications Active Scripts Medications Dose Route/Sig Max Daily Dose Days Date Category Dose Instructions Furosemide 20 Mg Tablet 40 Mg PO DAILY 30 12/29/18 Rx Metoprolol Tartrate 25 Mg Tablet 25 Mg PO BID 12/26/18 Reported Levemir (Insulin Detemir) 100 Unit/1 Ml Vial 8 Unit SQ DAILY 12/15/17 Rx Isosorbide Mononitrate Er (Isosorbide Mononitrate) 30 Mg Tab.er.24h 30 Mg PO DAILY 12/15/17 Reported Brilinta (Ticagrelor) 90 Mg Tablet 90 Mg PO BID 11/21/16 Rx SIG: ONE TAB TWICE DAILY; DO NOT STOP WITHOUT INSTRUCTIONS FROM EXHAUSTER ENGINEER Aspirin Ec (Aspirin) 81 Mg Tablet. 81 Mg PO DAILYWBKFT 11/21/16 Rx Cyanocobalamin Injection (Cyanocobalamin (Vitamin B-12)) 1,000 Mcg/1 Ml Vial 1,000 Mcg IJ QMONTH 11/20/16 Reported Magnesium (Magnesium Amino Acid Chelate) 100 Mg Tablet 100 Mg PO DAILY 11/20/16 Reported Calcium 600 + Vit D 200 Tablet (Calcium Carbonate/Vitamin D3) 1 Each Tablet 1 Each PO DAILY 11/20/16 Reported Prolia (Denosumab) 60 Mg/1 Ml Disp.syrin 60 Mg SQ Q6 MONTHS 11/20/16 Reported Voltaren (Diclofenac Sodium) 100 Gm Gel..gram. 4 Gm TP QID 11/20/16 Reported Ocuvite Softgel (Vit C/Vit E/Lutein/Min/Gardiner-3) 1 Each Capsule 1 Cap PO DAILY 11/20/16 Reported Lotrel 10-20 Mg Capsule (Amlodipine Besylate/Benazepril) 1 Each Capsule 1 Each PO DAILY 11/20/16 Reported NITROGLYCERIN SubLingual (Nitroglycerin) 0.4 Mg Tab.subl 0.4 Mg SL PRN Q5MIN PRN 11/16/16 Reported Ferrous Sulfate 325 Mg Tablet 325 Tab PO TWICE WEEKLY 11/16/16 Reported Glipizide 10 Mg Tablet 0.5 Tab PO BID 11/16/16 Reported Potassium Chloride 10 Meq Capsule.er 1 Cap PO DAILY 10/15/14 Reported Oxybutynin Chloride 5 Mg Tablet 1 Tab PO DAILY 10/15/14 Reported Omeprazole 20 Mg Capsule. 1 Cap PO DAILY 10/15/14 Reported Simvastatin 80 Mg Tablet 40 Mg PO QHS 10/15/14 Reported Comments CXR 08/18 WORSENING CHF Impression . 1. Acute hypoxic respiratory failure secondary to CHF,developed increase soa due to CHF 08/18 improved with lasix 2. Possible coexisting interstitial lung disease 3. Small basal pleural effusion, likely related to congestive heart failure.ECHO: The Ejection Fraction is 35%. The mid to distal LV is severely hypokinetic to akinetic on 08/10/19.-ongoing 4. Possible mild chronic obstructive pulmonary disease.-stable 5. Mediastinal adenopathy. Large sub-carinal mass vs adenopathy and large Pre- tracheal adenopathy. -stable Could be sarcoidosis with ILD. Cannot exclude malignancy. Too frail to undergo invasive biopsy. PET scan as OP would be reasonable vs just f/u ct chest Plan . 1. Lasix and heart failure therapy per cardiology / ischemic w/u as OP, CATH TODAY 2. Continue oxygen to keep saturation 92% and above. 3. Completed course of antibiotics: 4 Continue DuoNeb. 5. The Ejection Fraction is 35%. The mid to distal LV is severely hypokinetic to akinetic ECHO on 08/10/19, s/p dobutamine gtt 6. Too frail to undergo invasive biopsy. PET scan as OP in 11/12. vs f/u ct chest. difficult for her to f/u in office. I did gave f/u inDec 7. cont. 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 f/u with me in Oct with ct chest GEORGETTE FRITZ MD Aug 19, 2019 11:25
[2019-08-19] MEDS ORDERED: LIDOCAINE 1% Multi-Dose 20 ML VIAL. ONE (11:49)
--- NOTE | 2019-08-19 11:55 | NUR ---
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
[2019-08-19] MEDS ORDERED: MIDAZOLAM HCL/PF 2 MG/2 ML VIAL. ONE (11:56)
[2019-08-19] MEDS ORDERED: fentaNYL PF VIAL 100 MCG/2 ML VIAL ONE (11:57)
--- NOTE | 2019-08-19 11:59 | PDOC ---
MODERATE SEDATION ASSESSMENT RISKS/ALTERNATIVES Risks/Alternatives Risks and alternatives of this type of sedation and procedure discussed with: RISK/ALTERNATIVES: Patient H & P ON CHART H & P H & P on chart and reviewed for co-morbid conditions and appropriate labs. H&P ON CHART: Yes STATUS PREG STATUS ASSESSED: N/A MEDS/ALLERGIES REVIEWED Meds/Allergies Reviewed Medications and Allergies including time and route of recently administered narcotics and sedatives. MEDS/ALLERGIES REVIEWED: Yes ASA RATING ASA RATING: III AIRWAY ASSESSMENT Airway Assessment Airway patency, oral function limitations, presence of caps, crowns, dentures, partials, and ability to extend neck assessed. AIRWAY ASSESSMENT: Yes MALLAMPATI SCORE MALLAMPATI SCORE: II PRE-SEDATION ASSESSMENT PRE-SEDATION ASSESSMENT: Yes KATIE SHABAZZ MD Aug 19, 2019 11:59
[2019-08-19] MEDS ORDERED: CONTRAST GIVEN. MC PRN ×2 (12:30)
[2019-08-19] MEDS ORDERED: LIDOCAINE 1% Multi-Dose 20 ML VIAL. INJ ONE (12:30)
[2019-08-19] MEDS ORDERED: fentaNYL PF VIAL 100 MCG/2 ML VIAL IV ONE (12:30)
[2019-08-19] MEDS ORDERED: MIDAZOLAM HCL/PF 2 MG/2 ML VIAL. IV ONE (12:30)
[2019-08-19] MEDS ORDERED: IODIXANOL 320 MG/ML 100 ML VIAL. IART ONE (12:30)
[2019-08-19] MEDS ORDERED: IV 1/2 NORMAL SALINE 1,000 ML IV SCH (12:51)
[2019-08-19] MEDS ORDERED: 0.9 % SODIUM CHLORIDE 10 ML DISP.SYRIN. IV PRN (13:00)
[2019-08-19] MEDS ORDERED: NITROGLYCERIN SUBLINGUAL 0.4 MG BOTTLE OF 25. SL PRN (13:00)
--- NOTE | 2019-08-19 14:34 | NUR ---
SS following up with discharge planning. Discharge to long term unit cancelled. Pt receiving Heart Cath today. Pt's RN discussed with pt's daughter. SS notified, [facility]. SS will continue to follow for discharge planning.
[2019-08-19] MEDS: TICAGRELOR 90 MG TABLET. PO SCH ×2 (15:15→22:09)
[2019-08-19] MEDS: FUROSEMIDE 40 MG TABLET. PO SCH (15:15)
--- NOTE | 2019-08-19 19:50 | NUR ---
PT CAME BACK FROM HEART CATH AT APPROX 1300. RIGHT GROIN CLEAN DRY AND INTACT SOFT NONTENDER WHEN PALPATED. FREQUENTS TAKEN AND CHARTED. PT FLAT UNTIL 1500.
--- NOTE | 2019-08-19 19:51 | NUR ---
Called Dr Dean directly and let him know that the patients blood sugar at dinner was 361. Orders to give 7 units at that time and to change the sliding scale to medium scale.
--- NOTE | 2019-08-19 20:43 | NUR ---
FREQUENT VITALS CHARTED AND PLACED IN THE CHART.
[2019-08-19] MEDS ORDERED: DEXTROSE 50% 25 GM / 50ML DISP.SYRIN. IV PRN (21:00)
[2019-08-19] MEDS ORDERED: IV DEXTROSE 5% 250 ML BAG. IV PRN (21:00)
[2019-08-19] MEDS: ATORVASTATIN CALCIUM 10 MG TABLET. PO SCH (22:09)
[2019-08-19] MEDS: PRAMIPEXOLE 0.25 MG TABLET. PO SCH (22:10)
[2019-08-20 03:29] VITALS: BP 144/66
[2019-08-20 04:31] LABS: HEMATOCRIT 34.6 % (36.0-47.0); HEMOGLOBIN 11.6 g/dL (12.0-15.5); RED BLOOD COUNT 3.66 x10^6/uL (3.50-5.40); RED CELL DISTRIBUTION WIDTH 14.7 % (11.5-14.5); WHITE BLOOD COUNT 7.8 x10^3/uL (4.0-11.0)
[2019-08-20 04:52] LABS: ALBUMIN/GLOBULIN RATIO 0.9 (1.0-1.7); CALCIUM 9.3 mg/dL (8.5-10.1); CREATININE 1.5 mg/dL (0.6-1.0); GFR 32.7; POTASSIUM 4.1 mmol/L (3.5-5.1); TOTAL BILIRUBIN 0.9 mg/dL (0.2-1.0); TOTAL PROTEIN 6.3 g/dL (6.4-8.2)
[2019-08-20] MEDS: PANTOPRAZOLE 40 MG TABLET.DR. PO SCH ×2 (05:58→09:37)
[2019-08-20 07:00] VITALS: BP 157/69
[2019-08-20] MEDS: IPRATRPIUM/ALBUTEROL 0.5/2.5MG 3 ML NEBU. NEB SCH ×4 (07:06→20:35)
[2019-08-20] MEDS ORDERED: FUROSEMIDE 40 MG/4 ML VIAL. IVP ONE (07:45)
[2019-08-20] MEDS: POLYETHYLENE GLYCOL 3350 17 GM PACKET. PO SCH (09:00)
[2019-08-20] MEDS: LACTOBACILLUS RHAMNOSUS GG 1 CAPSULE. PO SCH ×2 (09:37→20:30)
[2019-08-20] MEDS: MULTIVITAMIN with MINERAL TABLET. PO SCH (09:37)
[2019-08-20] MEDS: TICAGRELOR 90 MG TABLET. PO SCH (09:37)
[2019-08-20] MEDS: GABAPENTIN 100 MG CAPSULE. PO SCH ×3 (09:37→20:30)
[2019-08-20] MEDS: MAGNESIUM OXIDE 400 MG TABLET PO SCH (09:37)
[2019-08-20] MEDS: predniSONE 10 MG TABLET PO SCH (09:38)
[2019-08-20] MEDS: hydrALAZINE 25 MG TABLET PO SCH ×4 (09:38→23:32)
[2019-08-20] MEDS: ISOSORBIDE MONONITRATE ER 30 MG TAB.ER.24H PO SCH (09:38)
[2019-08-20] MEDS: ASPIRIN CHEWABLE 81 MG TABLET. PO SCH (09:38)
[2019-08-20] MEDS: METOPROLOL TART IMMED RELEASE 25 MG TABLET. PO SCH (09:38)
[2019-08-20] MEDS: INSULIN LISPRO 300 UNITS/3 ML VIAL. SQ SCH ×3 (09:42→17:00)
--- NOTE | 2019-08-20 10:05 | PDOC ---
ANTOINE HOPE MOTOR INSPECTION MECHANIC 08/20/19 1005: CARDIO Progress Notes Date and Time Date of Service 08/20/2019 Time of Evaluation 0950 Subjective Subjective: No Chest Pain, No Palpitations, Other (SOA much better) Vitals Vitals Vital Signs Date Time Temp Pulse Resp B/P (MAP) Pulse Ox O2 Delivery O2 Flow Rate FiO2 08/20/19 09:38 64 157/69 08/20/19 07:06 98 Nasal Cannula 2.0 08/20/19 07:00 98.2 22 98.2 Weight Weight [ ] Input and Output Intake and Output Intake and Output 08/20/19 07:00 Intake Total 445 ml Output Total 1951 ml Balance -1506 ml Intake Oral 445 ml Output Urine Total 1950 ml Stool Total 1 ml Laboratory Labs Laboratory Tests Test 08/19/19 11:36 08/19/19 15:28 08/19/19 17:24 08/19/19 22:11 Glucose (Fingerstick) 261 mg/dL (70-99) 317 mg/dL (70-99) 361 mg/dL (70-99) 235 mg/dL (70-99) Test 08/20/19 04:20 08/20/19 08:15 White Blood Count 7.8 x10^3/uL (4.0-11.0) Red Blood Count 3.66 x10^6/uL (3.50-5.40) Hemoglobin 11.6 g/dL (12.0-15.5) Hematocrit 34.6 % (36.0-47.0) Mean Corpuscular Volume 94 fL (79-100) Mean Corpuscular Hemoglobin 32 pg (25-35) Mean Corpuscular Hemoglobin Concent 34 g/dL (31-37) Red Cell Distribution Width 14.7 % (11.5-14.5) Platelet Count 297 x10^3/uL (140-400) Sodium Level 129 mmol/L (136-145) Potassium Level 4.1 mmol/L (3.5-5.1) Chloride Level 91 mmol/L (98-107) Carbon Dioxide Level 31 mmol/L (21-32) Anion Gap 7 (6-14) Blood Urea Nitrogen 32 mg/dL (7-20) Creatinine 1.5 mg/dL (0.6-1.0) Estimated GFR (Cockcroft-Gault) 32.7 BUN/Creatinine Ratio 21 (6-20) Glucose Level 282 mg/dL (70-99) Calcium Level 9.3 mg/dL (8.5-10.1) Total Bilirubin 0.9 mg/dL (0.2-1.0) Aspartate Amino Transf (AST/SGOT) 33 U/L (15-37) Alanine Aminotransferase (ALT/SGPT) 128 U/L (14-59) Alkaline Phosphatase 142 U/L (46-116) Total Protein 6.3 g/dL (6.4-8.2) Albumin 3.0 g/dL (3.4-5.0) Albumin/Globulin Ratio 0.9 (1.0-1.7) Glucose (Fingerstick) 277 mg/dL (70-99) Physical Exam HEENT: Neck Supple W Full Motion Chest: Symmetric LUNGS: Other (basilar crackles) Heart: RRR (paced with underlying AFIB) Abdomen: Soft N/T Extremities: Other (trace to 1+ bilateral LE edema ) Neurology: alert, oriented, follow commands Assessment Assessment 1. CAD s/p PCI/stents to LMCA/LAD/LCx in 2016. LHC revealed no significant interventionable lesions 2. Acute diastolic/systolic CHF: better today 3. SSS/CHB; s/p PPM implantation ([employer]), normal functioning device. V paced with underlying AFIB 4. Hypertension; Controlled 5. DM2/HLP 6. Carotid disease s/p LEASING ASSISTANT/stent placement to the left ICA and right endarterectomy 7. Cardiomyopathy: EF 35%, possible restrictive component 8.. 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 AFIB: persistent Recommendations 1. Continue current secondary prevention measures 2. Not a candidate for amio with her pulmonary issues. 4. OK to DC to SNU 5. Change to toprol 6. Hold any ACEi for now with low Na and renal insufficiency will consider entresto as an outpt 7. 1.5 FR low Na, daily wt 8. Hydralazine Imdur 9. DC lasix and place bumex 10. Stop brilinta. Continue ASA and eliquis 2.5 bid. Follow up in office KATIE SHABAZZ MD 08/20/192046: CARDIO Progress Notes Assessment Assessment Patient seen and examined. Agree with SENIOR MANUFACTURING TEST ENGINEER's assessment and plan. Cardiac cath yesterday did not show any lesions needing intervention Ac on chr systolic HF better compensated. Change diuretics to bumex SSS s/p PPM stable Stop brilinta and continue ANTOINE Hernandes APRN Aug 20, 2019 10:05 KATIE SHBAAZZ MD Aug 20, 2019 20:47
[2019-08-20] MEDS ORDERED: ANTI-COAG MONITOR BY PHARMACY. MC PRN (10:45)
[2019-08-20 11:00] VITALS: BP 150/56
[2019-08-20] MEDS: APIXABAN 2.5 MG TABLET. PO SCH ×2 (11:00→20:30)
[2019-08-20] MEDS ORDERED: BUMETANIDE 1 MG TABLET. PO SCH (11:00)
--- NOTE | 2019-08-20 11:29 | PDOC ---
PULMONARY PROGRESS NOTES Subjective developed increase soa due to CHF 08/18 improved with lasix Vitals Vital Signs Date Time Temp Pulse Resp B/P (MAP) Pulse Ox O2 Delivery O2 Flow Rate FiO2 08/20/19 09:38 64 157/69 08/20/19 08:00 Nasal Cannula 2.0 08/20/19 07:06 98 08/20/19 07:00 98.2 22 98.2 ROS: No Chest Pain, No Increase Cough General: Alert, No acute distress HEENT: Other Lungs: Crackles (bases) Cardiovascular: S1, S2, Other (systolic murmur) Abdomen: Soft Neuro Exam: Alert Extremities: Other Skin: Warm Labs Laboratory Tests Test 08/18/19 12:02 08/18/19 17:00 08/18/19 17:15 08/18/19 20:56 Glucose (Fingerstick) 214 mg/dL (70-99) 265 mg/dL (70-99) 284 mg/dL (70-99) Sodium Level 129 mmol/L (136-145) Potassium Level 3.9 mmol/L (3.5-5.1) Chloride Level 92 mmol/L (98-107) Carbon Dioxide Level 31 mmol/L (21-32) Anion Gap 6 (6-14) Blood Urea Nitrogen 27 mg/dL (7-20) Creatinine 1.6 mg/dL (0.6-1.0) Estimated GFR (Cockcroft-Gault) 30.3 Glucose Level 251 mg/dL (70-99) Calcium Level 8.8 mg/dL (8.5-10.1) Magnesium Level 2.1 mg/dL (1.8-2.4) Test 08/19/19 08:03 08/19/19 09:10 08/19/19 11:36 08/19/19 15:28 Glucose (Fingerstick) 250 mg/dL (70-99) 261 mg/dL (70-99) 317 mg/dL (70-99) Sodium Level 130 mmol/L (136-145) Potassium Level 3.5 mmol/L (3.5-5.1) Chloride Level 91 mmol/L (98-107) Carbon Dioxide Level 33 mmol/L (21-32) Anion Gap 6 (6-14) Blood Urea Nitrogen 26 mg/dL (7-20) Creatinine 1.5 mg/dL (0.6-1.0) Estimated GFR (Cockcroft-Gault) 32.7 Glucose Level 264 mg/dL (70-99) Calcium Level 9.0 mg/dL (8.5-10.1) Magnesium Level 2.0 mg/dL (1.8-2.4) Test 08/19/19 17:24 08/19/19 22:11 08/20/19 04:20 08/20/19 08:15 Glucose (Fingerstick) 361 mg/dL (70-99) 235 mg/dL (70-99) 277 mg/dL (70-99) White Blood Count 7.8 x10^3/uL (4.0-11.0) Red Blood Count 3.66 x10^6/uL (3.50-5.40) Hemoglobin 11.6 g/dL (12.0-15.5) Hematocrit 34.6 % (36.0-47.0) Mean Corpuscular Volume 94 fL (79-100) Mean Corpuscular Hemoglobin 32 pg (25-35) Mean Corpuscular Hemoglobin Concent 34 g/dL (31-37) Red Cell Distribution Width 14.7 % (11.5-14.5) Platelet Count 297 x10^3/uL (140-400) Sodium Level 129 mmol/L (136-145) Potassium Level 4.1 mmol/L (3.5-5.1) Chloride Level 91 mmol/L (98-107) Carbon Dioxide Level 31 mmol/L (21-32) Anion Gap 7 (6-14) Blood Urea Nitrogen 32 mg/dL (7-20) Creatinine 1.5 mg/dL (0.6-1.0) Estimated GFR (Cockcroft-Gault) 32.7 BUN/Creatinine Ratio 21 (6-20) Glucose Level 282 mg/dL (70-99) Calcium Level 9.3 mg/dL (8.5-10.1) Total Bilirubin 0.9 mg/dL (0.2-1.0) Aspartate Amino Transf (AST/SGOT) 33 U/L (15-37) Alanine Aminotransferase (ALT/SGPT) 128 U/L (14-59) Alkaline Phosphatase 142 U/L (46-116) Total Protein 6.3 g/dL (6.4-8.2) Albumin 3.0 g/dL (3.4-5.0) Albumin/Globulin Ratio 0.9 (1.0-1.7) Laboratory Tests Test 08/19/19 11:36 08/19/19 15:28 08/19/19 17:24 08/19/19 22:11 Glucose (Fingerstick) 261 mg/dL (70-99) 317 mg/dL (70-99) 361 mg/dL (70-99) 235 mg/dL (70-99) Test 08/20/19 04:20 08/20/19 08:15 White Blood Count 7.8 x10^3/uL (4.0-11.0) Red Blood Count 3.66 x10^6/uL (3.50-5.40) Hemoglobin 11.6 g/dL (12.0-15.5) Hematocrit 34.6 % (36.0-47.0) Mean Corpuscular Volume 94 fL (79-100) Mean Corpuscular Hemoglobin 32 pg (25-35) Mean Corpuscular Hemoglobin Concent 34 g/dL (31-37) Red Cell Distribution Width 14.7 % (11.5-14.5) Platelet Count 297 x10^3/uL (140-400) Sodium Level 129 mmol/L (136-145) Potassium Level 4.1 mmol/L (3.5-5.1) Chloride Level 91 mmol/L (98-107) Carbon Dioxide Level 31 mmol/L (21-32) Anion Gap 7 (6-14) Blood Urea Nitrogen 32 mg/dL (7-20) Creatinine 1.5 mg/dL (0.6-1.0) Estimated GFR (Cockcroft-Gault) 32.7 BUN/Creatinine Ratio 21 (6-20) Glucose Level 282 mg/dL (70-99) Calcium Level 9.3 mg/dL (8.5-10.1) Total Bilirubin 0.9 mg/dL (0.2-1.0) Aspartate Amino Transf (AST/SGOT) 33 U/L (15-37) Alanine Aminotransferase (ALT/SGPT) 128 U/L (14-59) Alkaline Phosphatase 142 U/L (46-116) Total Protein 6.3 g/dL (6.4-8.2) Albumin 3.0 g/dL (3.4-5.0) Albumin/Globulin Ratio 0.9 (1.0-1.7) Glucose (Fingerstick) 277 mg/dL (70-99) Medications Active Scripts Medications Dose Route/Sig Max Daily Dose Days Date Category Dose Instructions Furosemide 20 Mg Tablet 40 Mg PO DAILY 30 12/29/18 Rx Metoprolol Tartrate 25 Mg Tablet 25 Mg PO BID 12/26/18 Reported Levemir (Insulin Detemir) 100 Unit/1 Ml Vial 8 Unit SQ DAILY 12/15/17 Rx Isosorbide Mononitrate Er (Isosorbide Mononitrate) 30 Mg Tab.er.24h 30 Mg PO DAILY 12/15/17 Reported Brilinta (Ticagrelor) 90 Mg Tablet 90 Mg PO BID 11/21/16 Rx SIG: ONE TAB TWICE DAILY; DO NOT STOP WITHOUT INSTRUCTIONS FROM SUPERVISOR SPECIAL EDUCATION Aspirin Ec (Aspirin) 81 Mg Tablet.dr 81 Mg PO DAILYWBKFT 11/21/16 Rx Cyanocobalamin Injection (Cyanocobalamin (Vitamin B-12)) 1,000 Mcg/1 Ml Vial 1,000 Mcg IJ QMONTH 11/20/16 Reported Magnesium (Magnesium Amino Acid Chelate) 100 Mg Tablet 100 Mg PO DAILY 11/20/16 Reported Calcium 600 + Vit D 200 Tablet (Calcium Carbonate/Vitamin D3) 1 Each Tablet 1 Each PO DAILY 11/20/16 Reported Prolia (Denosumab) 60 Mg/1 Ml Disp.syrin 60 Mg SQ Q6 MONTHS 11/20/16 Reported Voltaren (Diclofenac Sodium) 100 Gm Gel..gram. 4 Gm TP QID 11/20/16 Reported Ocuvite Softgel (Vit C/Vit E/Lutein/Min/[place]-3) 1 Each Capsule 1 Cap PO DAILY 11/20/16 Reported Lotrel 10-20 Mg Capsule (Amlodipine Besylate/Benazepril) 1 Each Capsule 1 Each PO DAILY 11/20/16 Reported NITROGLYCERIN SubLingual (Nitroglycerin) 0.4 Mg Tab.subl 0.4 Mg SL PRN Q5MIN PRN 11/16/16 Reported Ferrous Sulfate 325 Mg Tablet 325 Tab PO TWICE WEEKLY 11/16/16 Reported Glipizide 10 Mg Tablet 0.5 Tab PO BID 11/16/16 Reported Potassium Chloride 10 Meq Capsule.er 1 Cap PO DAILY 10/15/14 Reported Oxybutynin Chloride 5 Mg Tablet 1 Tab PO DAILY 10/15/14 Reported Omeprazole 20 Mg Capsule. 1 Cap PO DAILY 10/15/14 Reported Simvastatin 80 Mg Tablet 40 Mg PO QHS 10/15/14 Reported Comments CXR 08/18 WORSENING CHF Impression . 1. Acute hypoxic respiratory failure secondary to CHF,developed increase soa due to CHF 08/18, better today.improved with lasix 2. Possible coexisting interstitial lung disease 3. Small basal pleural effusion, likely related to congestive heart failure.ECHO: The Ejection Fraction is 35%. The mid to distal LV is severely hypokinetic to akinetic on 08/10/19.-ongoing 4. Possible mild chronic obstructive pulmonary disease.-stable 5. Mediastinal adenopathy. Large sub-carinal mass vs adenopathy and large Pre- tracheal adenopathy. -stable Could be sarcoidosis with ILD. Cannot exclude malignancy. Too frail to undergo invasive biopsy. PET scan as OP would be reasonable vs just f/u ct chest Plan . 1. Lasix and heart failure therapy per cardiology / ischemic w/u done. cath with patent stents. LVEDP 22 2. Continue oxygen to keep saturation 92% and above. 3. Completed course of antibiotics: 4 Continue DuoNeb. 5. The Ejection Fraction is 35%. The mid to distal LV is severely hypokinetic to akinetic ECHO on 08/10/19, s/p dobutamine gtt 6. Too frail to undergo invasive biopsy. PET scan as OP in 11/12. vs f/u ct chest. difficult for her to f/u in office. I did gave f/u in Oct 7. cont. 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 f/u with me in Oct with ct chest GEORGETTE FRITZ MD Aug 20, 2019 11:29
--- NOTE | 2019-08-20 11:45 | NUR ---
SS following up with discharge planning. SS contacted [facility], ; fax [phone], and notified them that pt is stable for discharge. [facility] reported that prior to setting up discharge they would need to come evaluate pt face to face again. SS notified them that pt is stable for discharge. SS contacted pt's daughter, Ana, and discussed [facility] declining to take pt today due to wanting to reevaluate her. SS encouraged pt's daughter to choose different skilled facility. Pt's daughter reported that she was going to contact [facility] and discuss and would contact SS back.
--- NOTE | 2019-08-20 12:04 | NUR ---
spoke with galina FELDMAN about bumex and eliquis. Holding dose for 1100 as lasix and brilinta given this morning 0900.
[2019-08-20] MEDS ORDERED: HYDR-2868 PO (12:39)
[2019-08-20] MEDS ORDERED: METO-269 PO (12:39)
[2019-08-20] MEDS ORDERED: APIX2.5T PO (12:41)
[2019-08-20] MEDS ORDERED: BUME1TAB3 PO (12:41)
--- NOTE | 2019-08-20 12:42 | NUR ---
SS following up with discharge planning. Pt's daughter contacted [facility]. SS received phone contact from [facility] stating that they will accept pt tomorrow as long as new discharge instructions are completed and faxed to them today. Dr. Dean notified. Pt will discharge tomorrow, 08/21/2019, and will go to [facility] at 0900 via [facility] transport. SS will fax new discharge orders once received. Pt, pt's RN, and pt's daughter notified.
[2019-08-20] MEDS ORDERED: ISOS30TA4 PO (12:47)
[2019-08-20] MEDS ORDERED: PRED-220 PO (12:47)
[2019-08-20] MEDS ORDERED: LACT1CAP19 PO (12:48)
[2019-08-20] MEDS ORDERED: GABA-585 PO (12:50)
[2019-08-20] MEDS: METOPROLOL SUCC 24HR ER 50 MG TAB.ER.24H. PO SCH (13:18)
[2019-08-20 15:00] VITALS: BP 100/58
--- NOTE | 2019-08-20 15:44 | SNU/HH DC ---
DISCHARGE ORDERS DISCHARGE INFORMATION: DISCHARGE DATE: Aug 20, 2019 FINAL DIAGNOSIS Problems Medical Problems: (1) CAD (coronary artery disease) Status: Chronic (2) DM2 (diabetes mellitus, type 2) Status: Chronic (3) HLD (hyperlipidemia) Status: Chronic (4) Hypertension Status: Chronic (5) SBO (small bowel obstruction) Status: Acute CONDITION ON DISCHARGE: Stable CODE STATUS: Code Status: Full FPC: SNF STAY <30 DAYS: Yes POST DISCHARGE ORDERS: ACTIVITY ORDERS: Activity as tolerated WEIGHT BEARING STATUS: As tolerated BATHING ORDERS: Shower-keep dressing dry DIET AFTER DISCHARGE: Cardiac WOUND/INCISION CARE: Keep wound/cast CDI CHECKS AFTER DISCHARGE: CHECKS AFTER DISCHARGE: Check blood press - daily, Check blood sugar, ac/hs TREATMENT/EQUIPMENT ORDERS: ADAPTIVE EQUIPMENT NEEDED: None RESPIRATORY EQUIPMENT NEEDED: Oxygen, Nebulizer Physical Therapy For: Evalulation/Treatment Occupational Therapy For: Evaluation/Treatment DISCHARGE MEDICATIONS: Home Meds Active Scripts Gabapentin (GABAPENTIN ) 100 Mg Capsule, 100 MG PO TID for NEUROGENIC PAIN for 30 Days, #90 CAP Prov:ЕЛЕНА NIX MD 08/20/19 Lactobacillus Rhamnosus Gg (CULTURELLE) 1 Each Cap.sprink, 1 EACH PO BID for 60 for 30 Days, #60 CAP Prov:ЕЛЕНА NIX MD 08/20/19 Prednisone (PREDNISONE ) 10 Mg Tablet, 10 MG PO DAILY for copd for 30 Days, #30 TAB 0 Refills Prov:ЕЛЕНА NIX MD 08/20/19 Isosorbide Mononitrate (ISOSORBIDE MONONITRATE ER) 30 Mg Tab.er.24h, 0.5 TAB PO DAILY PRN for ihd for 30 Days, #15 TAB 5 Refills Prov:ЕЛЕНА NIX MD 08/20/19 Apixaban (ELIQUIS) 2.5 Mg Tablet, 2.5 MG PO BID PRN for hf for 30 Days, #60 TAB Prov:ЕЛЕНА NIX MD 08/20/19 Bumetanide (BUMETANIDE) 1 Mg Tablet, 1 TAB PO DAILY for chf for 30 Days, #30 TAB 1 Refill Prov:ЕЛЕНА NIX MD 08/20/19 Hydralazine Hcl (HYDRALAZINE HCL) 25 Mg Tablet, 1 TAB PO BID for htn for 30 Days, #60 TAB 5 Refills Prov:ЕЛЕНА NIX MD 08/20/19 Metoprolol Succinate (TOPROL XL) 50 Mg Tab.er.24h, 50 MG PO DAILY PRN for htn for 30 Days, #30 TAB 0 Refills Prov:ЕЛЕНА NIX MD 08/20/19 Aspirin (ASPIRIN EC) 81 Mg Tablet., 81 MG PO DAILYWBKFT, #30 TAB 0 Refills Prov:EFRAÍN MILLER RESPIRATORY THERAPY MANAGER 11/21/16 Reported Medications Cyanocobalamin (Vitamin B-12) (CYANOCOBALAMIN INJECTION) 1,000 Mcg/1 Ml Vial, 1000 MCG IJ QMONTH, VIAL 11/20/16 Calcium Carbonate/Vitamin D3 (CALCIUM 600 + VIT D 200 TABLET) 1 Each Tablet, 1 EACH PO DAILY 11/20/16 Denosumab (PROLIA) 60 Mg/1 Ml Disp.syrin, 60 MG SQ Q6 MONTHS 11/20/16 Diclofenac Sodium (VOLTAREN) 100 Gm Gel..gram., 4 GM TP QID 11/20/16 Vit C/Vit E/Lutein/Min/[place]-3 (OCUVITE SOFTGEL) 1 Each Capsule, 1 CAP PO DAILY 11/20/16 Nitroglycerin (NITROGLYCERIN SubLingual) 0.4 Mg Tab.subl, 0.4 MG SL PRN Q5MIN PRN for CHEST PAIN, BOTTLE 11/16/16 Ferrous Sulfate (FERROUS SULFATE) 325 Mg Tablet, 325 TAB PO TWICE WEEKLY, #30 TAB 3 Refills 11/16/16 Potassium Chloride (POTASSIUM CHLORIDE) 10 Meq Capsule.er, 1 CAP PO DAILY, #90 CAP 1 Refill 10/15/14 Omeprazole (OMEPRAZOLE) 20 Mg Capsule.dr, 1 CAP PO DAILY, #30 CAP 5 Refills 10/15/14 Simvastatin (SIMVASTATIN) 80 Mg Tablet, 40 MG PO QHS, #90 TAB 3 Refills 10/15/14 Discontinued Reported Medications Metoprolol Tartrate (METOPROLOL TARTRATE) 25 Mg Tablet, 25 MG PO BID 12/26/18 Isosorbide Mononitrate (ISOSORBIDE MONONITRATE ER) 30 Mg Tab.er.24h, 30 MG PO DAILY, TAB.SR 12/15/17 Magnesium Amino Acid Chelate (MAGNESIUM) 100 Mg Tablet, 100 MG PO DAILY 11/20/16 Amlodipine Besylate/Benazepril (LOTREL 10-20 MG CAPSULE) 1 Each Capsule, 1 EACH PO DAILY 11/20/16 Glipizide (GLIPIZIDE) 10 Mg Tablet, 0.5 TAB PO BID, #180 TAB 3 Refills 11/16/16 Oxybutynin Chloride (OXYBUTYNIN CHLORIDE) 5 Mg Tablet, 1 TAB PO DAILY, #60 TAB 11 Refills 10/15/14 Discontinued Scripts Furosemide (FUROSEMIDE) 20 Mg Tablet, 40 MG PO DAILY for CHF for 30 Days, #60 TAB Prov:DAWNA MCNAMARA MD 12/29/18 Insulin Detemir (LEVEMIR) 100 Unit/1 Ml Vial, 8 UNIT SQ DAILY, #120 VIAL Prov:NORIS CAZARES MD 12/15/17 Ticagrelor (BRILINTA) 90 Mg Tablet, 90 MG PO BID for left main stent, #60 TAB- CAP 12 Refills SIG: ONE TAB TWICE DAILY; DO NOT STOP WITHOUT INSTRUCTIONS FROM COMMUNICATION EQUIPMENT REPAIRER Prov:EFRAÍN MILLER APRN 11/21/16 ЕЛЕНА NIX MD Aug 20, 2019 15:44
[2019-08-20 19:54] VITALS: BP 98/56
[2019-08-20] MEDS: PRAMIPEXOLE 0.25 MG TABLET. PO SCH (20:30)
[2019-08-20] MEDS: ATORVASTATIN CALCIUM 10 MG TABLET. PO SCH (20:31)
[2019-08-20 23:16] VITALS: BP 130/61
[2019-08-21 03:30] VITALS: BP 114/77
[2019-08-21 07:00] VITALS: BP 127/61
[2019-08-21] MEDS: ASPIRIN CHEWABLE 81 MG TABLET. PO SCH (07:57)
[2019-08-21] MEDS: MAGNESIUM OXIDE 400 MG TABLET PO SCH (07:57)
[2019-08-21] MEDS: APIXABAN 2.5 MG TABLET. PO SCH (07:57)
[2019-08-21] MEDS: METOPROLOL SUCC 24HR ER 50 MG TAB.ER.24H. PO SCH (07:58)
[2019-08-21] MEDS: predniSONE 10 MG TABLET PO SCH (07:58)
[2019-08-21] MEDS: hydrALAZINE 25 MG TABLET PO SCH (07:58)
[2019-08-21] MEDS: LACTOBACILLUS RHAMNOSUS GG 1 CAPSULE. PO SCH (07:58)
[2019-08-21] MEDS: GABAPENTIN 100 MG CAPSULE. PO SCH (07:59)
[2019-08-21 08:00] VITALS: BP 127/61
[2019-08-21] MEDS: MULTIVITAMIN with MINERAL TABLET. PO SCH (08:00)
[2019-08-21] MEDS: ISOSORBIDE MONONITRATE ER 30 MG TAB.ER.24H PO SCH (08:00)
[2019-08-21] MEDS: INSULIN LISPRO 300 UNITS/3 ML VIAL. SQ SCH (08:05)
[2019-08-21] MEDS: IPRATRPIUM/ALBUTEROL 0.5/2.5MG 3 ML NEBU. NEB SCH (08:06)
[2019-08-21] MEDS: POLYETHYLENE GLYCOL 3350 17 GM PACKET. PO SCH (08:06)
[2019-08-21] MEDS ORDERED: FUROSEMIDE 40 MG TABLET. PO SCH (09:00)
--- NOTE | 2019-08-21 13:53 | CARD ---
MR#: [id number] Date of Study: 08/19/2019 Ordering Physician: KATIE JOSHUA, Referring Physician: KATIE JOSHUA Tech: RT Angel (R) APPROVED REPORT Technologist: RT Angel (R) Nurse: Ibis Guardado R.N. Procedure(s) performed: Left heart catheterization and selective coronary angiography Fluoro time: 3.6 min Dose: [id number] Contrast: 110 cc Moderate sedation: 36min Class 4 heart failure INDICATION The indication(s) include : Recurrent acute on chronic systolic heart failure, cardiomyopathy, known history of coronary artery disease. CS Clinical Frailty Scale [facility] Clinical Frailty Scale: Moderately Frail Heart Failure Heart Failure: Yes If Yes, Newly Diagnosed: Yes If Yes, HF Type: Systolic PROCEDURE NARRATIVE After explaining the risks, benefits and alternative options, informed consent was obtained from nilay ent. Patient was brought to the cardiac Template Maker and her right groin was prepped and draped in the us ual fashion. 20 mL of 2% lidocaine was infiltrated into the skin and subcutaneous tissues for local a nesthesia. Arterial access was obtained the right common femoral artery and a 6 [place]ian sheath was ins erted. 6 [place]ian JL4 and 6 [place]ian 3 DRC catheters placed to perform selective angiography of the left and right coronary arteries. LVEDP and transaortic gradients remeasured. Left ventriculography was no t performed since 2-D echo showed LVEF 35%. Patient tolerated the procedure well. Hemostasis was achi eved using mynx closure device. There were no immediate complications. FINDINGS 1. Hemodynamics: Left ventricular end-diastolic pressure 22 mmHg. No pullback gradient across the a ortic valve. 2. Coronary angiography: a. The left main coronary artery arose from the left sinus of Valsalva, gave rise to the left anteri or descending and left circumflex arteries and showed widely patent stent. b. The left anterior descending artery showed widely patent stent in the ostial and proximal segment s. The diagonal branch showed patent stent. c. The left circumflex artery showed widely patent stents in the proximal segment and also the midse gment extending into the obtuse marginal branch. In between the 2 stents there was a 30% stenosis not ed. This was described in prior cardiac catheterization. d. The right coronary artery arose from the right sinus of Valsalva and showed 100% chronic total oc clusion in the proximal segment was described in prior angiograms. There is reconstitution of the mid segment from bridging collaterals and the distal segment from left to right collaterals. There were 2 tandem 70% in-stent restenosis noted in the midsegment. Conclusion Widely patent previously placed stents in the left main coronary artery, left anterior descending and left circumflex arteries. 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 Recommendations Optimization of medical therapy. Signed by : Katie Joshua, Electronically Approved : 08/19/2019 15:25:38
--- NOTE | 2019-08-21 19:46 | DS ---
DATE OF DISCHARGE: 08/21/2019 HISTORY OF PRESENT ILLNESS/HOSPITAL COURSE: The patient is an 89-year-old female, who was originally admitted to [facility] with community-acquired pneumonia as well as urinary tract infection; however, she also was found to have questionable congestive heart failure and therefore, the patient was transferred to [facility]. At that time, she had also questionable bowel obstruction and left-sided hydronephrosis. She was seen in consultation by the urologist and apparently the hydronephrosis was functional. There was no evidence of any stones and no intervention was suggested. She was seen by the surgical team and she had no evidence of bowel obstruction; however, the patient continued to be extremely short of breath. Her CT scan of the chest showed that she had multiple hilar and paratracheal as well as subcarinal lymphadenopathy and pulmonary fibrosis together with pulmonary edema. She was seen in consultation by the rn sexual assault as well as the public health nutritionist. She was started on a tapering course of steroids and bronchodilators. We continued her antibiotic and she was seen by the Cardiology team. They made adjustment to her medication. She was started on intravenous Lasix as well as dobutamine. Finally, she had cardiac catheterization, which apparently was unremarkable and decision was made to discharge her to a fpc facility in [place], some of her medications were adjusted, and was discharged to continue the process of physical and occupational therapy. PHYSICAL EXAMINATION: GENERAL: When I examined her today, she looked well and was clearly in no apparent respiratory distress. She was pale. No jaundice, cyanosis, or thyromegaly. No jugular venous distention. No limb edema. VITAL SIGNS: Her heart rate was 64, blood pressure was 127/61, temperature was 98.6, respiratory rate was 18, and oxygen saturation was 97% on 2 liters of oxygen. Her intake over the last 24 hours was 445, output was 1950. HEENT: Showed normocephalic, atraumatic. NECK: Supple. HEART: Showed normal first and second heart sounds with no gallop, rub, or murmur. CHEST: Shows central trachea, equal bilateral expansion, air entry, vesicular sounds. There are a few bilateral basal crepitations. I could not appreciate any rhonchi. ABDOMEN: Distended and soft with tympanitic percussion note. There is no tenderness. No guarding or rigidity. No organomegaly. All hernial orifices were intact. Bowel sounds were normal. NEUROLOGIC: She is awake, alert, responding appropriately. All cranial nerves are intact. She moves extremities without difficulty. She ambulates with a walker. LABORATORY DATA: Her lab work showed a white cell count of 7800, hemoglobin 11.6, hematocrit 34, MCV 94, and platelet count 297,000. Her serum sodium was 129, potassium 4.1, chloride 91, bicarbonate 31, anion gap of 7, BUN 32, creatinine 1.5, and estimated GFR was 52 mL per minute. Her glucose was 282. Calcium was 9.3. Total bilirubin and AST are normal. ALT and alkaline phosphatase slightly elevated, total protein 6.3, and albumin was 3. DISCHARGE MEDICATIONS: She was discharged to [facility] to continue on bumetanide for Bumex 1 mg once a day, apixaban 2.5 mg twice a day, hydralazine 25 mg twice a day, metoprolol succinate 50 mg once a day. She is on insulin sliding scale 3 times a day before meals. She is on nitroglycerin 0.4 mg sublingually every 5 minutes x3, alprazolam 0.25 mg every 8 hours, polyethylene glycol 17 grams daily, Mirapex 0.5 mg at bedtime, prednisone 10 mg daily, isosorbide mononitrate 50 mg daily, magnesium oxide 400 mg daily, multivitamin 1 tablet once a day, Protonix 40 mg daily, atorvastatin calcium 10 mg at bedtime, gabapentin 100 mg 3 times a day, Lactobacillus rhamnosus 1 capsule twice a day, albuterol/albuterol sulfate and ipratropium bromide for DuoNeb 3 mL 4 times a day, Tylenol with Codeine 1 tablet every 6 hours, ondansetron 4 mg p.o. every 6 hours, and guaifenesin 300 mg every 4 hours. FINAL DISCHARGE DIAGNOSES: 1. Acute hypoxic respiratory failure secondary to worsening interstitial edema on top of underlying interstitial lung disease. 2. Acute on chronic combined systolic and diastolic congestive heart failure. Her echocardiogram showed an ejection fraction of 35% for which she was on dobutamine drip as well as intravenous Lasix. She has had cardiac catheterization that apparently showed nonobstructive coronary artery disease. 3. Urinary tract infection with left-sided hydronephrosis, treated with intravenous ceftriaxone. 4. Community-acquired pneumonia, treated with intravenous ceftriaxone as well as Zithromax, completed the course of treatment. 5. Possible mild chronic obstructive pulmonary disease. 6. Mediastinal lymphadenopathy with large subcarinal mass versus adenopathy, enlarged paratracheal lymphadenopathy, possibly due to sarcoidosis, although malignancy cannot be excluded. The patient is too frail to undergo any invasive procedure and PET scan was recommended to be done as an outpatient. ЕЛЕНА NIX MD DR: AMBER/rip JOB#: [id number] / [id number]
== END 2019-08-21 10:45 | DRG 871 ==
LOC: 4 NORTH 16:55 → 2 SOUTH 08-12 19:24
PROVIDERS: ADMIT Internal Medicine; ATTEND Internal Medicine
PROC: 4A023N7 Measurement of Cardiac Sampling and Pressure, Left Heart, Percutaneous Approach (ICD-10-PCS; principal; 2019-08-19)
PROC: B2111ZZ Fluoroscopy of Multiple Coronary Arteries using Low Osmolar Contrast (ICD-10-PCS; 2019-08-19)
DX: A41.9 Sepsis, unspecified organism (principal); I50.43 Acute on chronic combined systolic (congestive) and diastolic (congestive) heart failure; J18.9 Pneumonia, unspecified organism; J96.01 Acute respiratory failure with hypoxia; E43 Unspecified severe protein-calorie malnutrition; N17.9 Acute kidney failure, unspecified; N13.6 Pyonephrosis; E87.1 Hypo-osmolality and hyponatremia; K56.7 Ileus, unspecified; I44.2 Atrioventricular block, complete; I13.0 Hypertensive heart and chronic kidney disease with heart failure and stage 1 through stage 4 chronic kidney disease, or unspecified chronic kidney disease; J44.0 Chronic obstructive pulmonary disease with (acute) lower respiratory infection; K56.609 Unspecified intestinal obstruction, unspecified as to partial versus complete obstruction; I42.9 Cardiomyopathy, unspecified; I48.1 Persistent atrial fibrillation; T82.855A Stenosis of coronary artery stent, initial encounter; K44.9 Diaphragmatic hernia without obstruction or gangrene; E78.5 Hyperlipidemia, unspecified; E11.22 Type 2 diabetes mellitus with diabetic chronic kidney disease; I25.10 Atherosclerotic heart disease of native coronary artery without angina pectoris; M15.9 Polyosteoarthritis, unspecified; I34.0 Nonrheumatic mitral (valve) insufficiency; J84.10 Pulmonary fibrosis, unspecified; D86.9 Sarcoidosis, unspecified; I49.5 Sick sinus syndrome; I95.2 Hypotension due to drugs; T50.2X5A Adverse effect of carbonic-anhydrase inhibitors, benzothiadiazides and other diuretics, initial encounter; N18.9 Chronic kidney disease, unspecified; Z95.0 Presence of cardiac pacemaker; Z90.710 Acquired absence of both cervix and uterus; Z88.8 Allergy status to other drugs, medicaments and biological substances; Z88.6 Allergy status to analgesic agent; Z88.1 Allergy status to other antibiotic agents; Z91.041 Radiographic dye allergy status; Z80.8 Family history of malignant neoplasm of other organs or systems; Z90.49 Acquired absence of other specified parts of digestive tract; Z95.5 Presence of coronary angioplasty implant and graft; Z82.3 Family history of stroke; Z80.3 Family history of malignant neoplasm of breast; Z82.49 Family history of ischemic heart disease and other diseases of the circulatory system; Z79.01 Long term (current) use of anticoagulants; Z79.899 Other long term (current) drug therapy; Z87.891 Personal history of nicotine dependence; Z68.26 Body mass index [BMI] 26.0-26.9, adult; Y92.89 Other specified places as the place of occurrence of the external cause; Y83.8 Other surgical procedures as the cause of abnormal reaction of the patient, or of later complication, without mention of misadventure at the time of the procedure
CPT/HCPCS: 93458; G0269; 36415; 36600; 71045; 71046; 74021; 80048; 80053; 81001; 82805; 82962; 83735; 83880; 84484; 85007; 85025; 85027; 93005; 93306; 94640; 94660; 94760; 99152; 99153; C1713; C1769; C1892; J0456; J0696; J1200; J1250; J1644; J1815; J1940; J2250; J2405; J2930; J3010; J3490; J7030; J7050; J7512; J7620; Q9967; 97110; 97116; 97530; 97535; G0378

== ENCOUNTER 2019-08-26 15:00 | Inpatient (IN) | payer MEDICARE ==
[~2019-08-26] VITALS: Ht 144.8 cm; Wt 69.9 kg
[~2019-08-26 15:00] MED LIST changes: +APIX2.5T PO; +BUME1TAB3 PO; +GABA-585 PO; +HYDR-2868 PO; +LACT1CAP19 PO; +METO-269 PO; +PRED-220 PO
[2019-08-26] MEDS ORDERED: CALCIUM GLUCONATE 1,000 MG/10 ML VIAL. ONE (15:24)
--- NOTE | 2019-08-26 15:37 | EKG ---
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
[2019-08-26] MEDS ORDERED: ALBUTEROL SULFATE 2.5 MG/3 ML NEBU. CONT NEB ONE (15:45)
[2019-08-26] MEDS ORDERED: SODIUM POLYSTYRENE SULFON/SORB 15 GM/60 ML ORAL.SUSP PO ONE (15:45)
[2019-08-26] MEDS ORDERED: CALCIUM GLUCONATE 1,000 MG/10 ML VIAL. IVP ONE (15:45)
[2019-08-26] MEDS ORDERED: INSULIN REGULAR 100 UNIT/ML 3ML VIAL. IV ONE (15:45)
[2019-08-26] MEDS ORDERED: SODIUM BICARB ADULT 8.4% 50 MEQ/50 ML DISP.SYRIN. IV ONE (15:45)
[2019-08-26] MEDS ORDERED: DEXTROSE 50% 25 GM / 50ML DISP.SYRIN. IV ONE (15:45)
[2019-08-26] MEDS ORDERED: IV NORMAL SALINE 1000ML BAG 1,000 ML IV ONE (15:45)
--- NOTE | 2019-08-26 15:54 | RAD ---
EXAM: Chest, single view. HISTORY: Dyspnea. COMPARISON: 08/18/2019. FINDINGS: A frontal view of the chest is obtained. There is stable diffuse mixed interstitial and alveolar infiltrate with small to moderate pleural effusions and cardiomegaly. There is a cardiac pacemaker in expected position. There is no pneumothorax. IMPRESSION: Stable diffuse infiltrate with small to moderate pleural effusions and cardiomegaly. Electronically signed by: Margarita Ramirez MD (08/26/2019 3:51 PM) [place] [id number]
[2019-08-26 16:15] LABS: BASO # 0.1 x10^3/uL (0.0-0.2); BASO % 1 % (0-3); EOS % 0 % (0-3); HEMATOCRIT 36.3 % (36.0-47.0); HEMOGLOBIN 12.1 g/dL (12.0-15.5); LYMPH # 0.3 x10^3/uL (1.0-4.8); LYMPH % 3 % (24-48); MEAN CORPUSCULAR HEMOGLOBIN 32 pg (25-35); MEAN CORPUSCULAR HGB CONC 33 g/dL (31-37); MEAN CORPUSCULAR VOLUME 95 fL (79-100); MONO # 0.1 x10^3/uL (0.0-1.1); MONO % 1 % (0-9); NEUT # 10.4 x10^3/uL (1.8-7.7); NEUT % 96 % (31-73); PLATELET COUNT 299 x10^3/uL (140-400); RED BLOOD COUNT 3.85 x10^6/uL (3.50-5.40); RED CELL DISTRIBUTION WIDTH 15.2 % (11.5-14.5); WHITE BLOOD COUNT 10.8 x10^3/uL (4.0-11.0)
[2019-08-26] MEDS ORDERED: cefTRIAXone IV Push 1 GM VIAL. IVP ONE (16:15)
[2019-08-26 16:38] LABS: % BANDS 1 % (0-9); % SEGS 99 % (35-66); NUCLEATED RBC 1; PLT ESTIMATE ADEQUATE (ADEQUATE)
[2019-08-26 16:40] LABS: POLYCHROMASIA SLIGHT; TOXIC GRANULATION SLIGHT
[2019-08-26 16:41] LABS: ALBUMIN 2.7 g/dL (3.4-5.0); CREATININE 6.9 mg/dL (0.6-1.0); GFR 5.6; TOTAL BILIRUBIN 0.5 mg/dL (0.2-1.0); TOTAL PROTEIN 5.3 g/dL (6.4-8.2)
[2019-08-26 16:47] LABS: POTASSIUM 7.7 mmol/L (3.5-5.1)
[2019-08-26 17:44] LABS: BILIRUBIN,URINE SMALL (NEG); CLARITY,URINE CLOUDY; NITRITE,URINE NEGATIVE (NEG); PROTEIN,URINE >=300 mg/dL (NEG-TRACE); UROBILINOGEN,URINE 0.2 mg/dL (0.2 mg/dL)
[2019-08-26 17:48] LABS: COLOR,URINE DK YELLOW
[2019-08-26 17:55] LABS: BACTERIA,URINE FEW /HPF (0-FEW); RBC,URINE 0 /HPF (0-2); SQUAMOUS EPITHELIAL CELL,UR MANY /LPF; YEAST,URINE PRESENT /HPF
--- NOTE | 2019-08-26 17:55 | PHYS DOC ---
Past Medical History Past Medical History: Arthritis, CAD, Diabetes-Type II, GERD, High Cholesterol, Hypertension Past Surgical History: Appendectomy, Cholecystectomy, Hysterectomy, Pacemaker, Tonsillectomy, Other Additional Past Surgical Histo: cardiac cath/stent placement. Lt shoulder, cataracts Alcohol Use: None Drug Use: None Adult General Chief Complaint Chief Complaint: WEAKNESS/GENERALIZED HPI HPI Patient is a 89 year old femalE brought in by [facility] with renal failure patient had a abnormal labs creatinine is 7 and a potassium of 7 as well patient has progressive weakness for the last 3-4 days or not if not longer. Has a history of acute respiratory failure with some fluid overload on seen here earlier in this month, apparently had unilateral hydronephrosis at that time. Patient has a long-standing history of one to be a DNR although recently has requested to try to be alive for a family wedding about 2 weeks. Patient's history is limited by the patient's altered mental status Review of Systems Review of Systems Limited by altered mental status patient is somewhat somnolent but he is able to answer some questions denies fever denies chest pain does have mild shortness of breath just fatigue overall generally Current Medications Current Medications Current Medications Medications (Trade) Dose Ordered Sig/Serafin Start Time Stop Time Status Last Admin Dose Admin Albuterol Sulfate (Ventolin Neb Soln) 10 mg 1X ONCE 08/26/19 15:45 08/26/19 15:46 DC 08/26/19 16:00 10 MG Calcium Gluconate (Calcium Gluconate) 1,000 mg 1X ONCE 08/26/19 15:45 08/26/19 15:46 DC 08/26/19 15:51 1,000 MG Ceftriaxone Sodium (Rocephin) 1 gm 1X ONCE 08/26/19 16:15 08/26/19 16:16 DC 08/26/19 17:18 1 GM Dextrose (Dextrose 50%-Water Syringe) 25 gm 1X ONCE 08/26/19 15:45 08/26/19 15:46 DC 08/26/19 15:47 25 GM Insulin Human Regular (HumuLIN R VIAL) 10 unit 1X ONCE 08/26/19 15:45 08/26/19 15:46 DC 08/26/19 15:49 10 UNIT Sodium Polystyrene Sulfonate (Kayexalate) 30 gm 1X ONCE 08/26/19 15:45 08/26/19 15:46 DC 08/26/19 15:59 30 GM Sodium Bicarbonate (Sodium Bicarb Adult 8.4% Syr) 50 meq 1X ONCE 08/26/19 15:45 08/26/19 15:46 DC 08/26/19 15:53 50 MEQ Sodium Chloride 1,000 ml @ 1,000 mls/hr 1X ONCE 08/26/19 15:45 08/26/19 16:44 DC 08/26/19 15:51 1,000 MLS/HR Allergies Allergies Allergies Coded Allergies Type Severity Reaction Last Updated Verified Iodinated Contrast Media Allergy Intermediate 10/15/14 Yes Sulfa (Sulfonamide Antibiotics) Allergy Intermediate 11/21/16 Yes carvedilol Allergy Intermediate 10/15/14 Yes clopidogrel Allergy Intermediate 10/15/14 Yes glimepiride Allergy Intermediate 10/15/14 Yes raloxifene Allergy Intermediate 10/15/14 Yes ciprofloxacin Adverse Reaction Intermediate Vomiting 10/15/14 Yes Physical Exam Physical Exam Constitutional: Well developed, well nourished, no acute distress, non-toxic appearance. [] HENT: Normocephalic, atraumatic, bilateral external ears normal, oropharynx moist, no oral exudates, nose normal. [] Eyes: PERRLA, EOMI, conjunctiva normal, no discharge. [] Neck: Normal range of motion, no tenderness, supple, no stridor. [] Cardiovascular: Empty no definite murmur difficult exam overall that could be a 2/6 murmur Decreased breath sounds at the left lung base ds at the lung base Abdomen: Bowel sounds normal, soft, no tenderness, no masses, no pulsatile masses. [] Skin: Warm, dry, no erythema, no rash. [] Back: No tenderness, no CVA tenderness. [] Extremities: No tenderness, no cyanosis, no clubbing, ROM intact, 2+ edema bilaterally Neurologic: Alert and oriented X 3, normal motor function, normal sensory function, no focal deficits noted. [] Psychologic: Affect normal, judgement normal, mood normal. [] Current Patient Data Vital Signs Vital Signs Date Time Temp Pulse Resp B/P (MAP) Pulse Ox O2 Delivery O2 Flow Rate FiO2 08/26/19 17:39 60 93 08/26/19 16:00 Nasal Cannula 4.0 08/26/19 15:13 97.4 24 133/58 (83) 97.4 Lab Values Laboratory Tests Test 08/26/19 16:00 White Blood Count 10.8 x10^3/uL (4.0-11.0) Red Blood Count 3.85 x10^6/uL (3.50-5.40) Hemoglobin 12.1 g/dL (12.0-15.5) Hematocrit 36.3 % (36.0-47.0) Mean Corpuscular Volume 95 fL (79-100) Mean Corpuscular Hemoglobin 32 pg (25-35) Mean Corpuscular Hemoglobin Concent 33 g/dL (31-37) Red Cell Distribution Width 15.2 % (11.5-14.5) H Platelet Count 299 x10^3/uL (140-400) Neutrophils (%) (Auto) 96 % (31-73) H Lymphocytes (%) (Auto) 3 % (24-48) L Monocytes (%) (Auto) 1 % (0-9) Eosinophils (%) (Auto) 0 % (0-3) Basophils (%) (Auto) 1 % (0-3) Neutrophils # (Auto) 10.4 x10^3/uL (1.8-7.7) H Lymphocytes # (Auto) 0.3 x10^3/uL (1.0-4.8) L Monocytes # (Auto) 0.1 x10^3/uL (0.0-1.1) Eosinophils # (Auto) 0.0 x10^3/uL (0.0-0.7) Basophils # (Auto) 0.1 x10^3/uL (0.0-0.2) Segmented Neutrophils % 99 % (35-66) H Band Neutrophils % 1 % (0-9) Nucleated Red Blood Cells 1 Toxic Granulation Slight Platelet Estimate Adequate (ADEQUATE) Polychromasia Slight Sodium Level 117 mmol/L (136-145) *L Potassium Level 7.7 mmol/L (3.5-5.1) *H Chloride Level 82 mmol/L (98-107) L Carbon Dioxide Level 27 mmol/L (21-32) Anion Gap 8 (6-14) Blood Urea Nitrogen 111 mg/dL (7-20) H Creatinine 6.9 mg/dL (0.6-1.0) H Estimated GFR (Cockcroft-Gault) 5.6 BUN/Creatinine Ratio 16 (6-20) Glucose Level 378 mg/dL (70-99) H Lactic Acid Level 1.4 mmol/L (0.4-2.0) Calcium Level 9.0 mg/dL (8.5-10.1) Total Bilirubin 0.5 mg/dL (0.2-1.0) Aspartate Amino Transferase (AST) 37 U/L (15-37) Alanine Aminotransferase (ALT) 76 U/L (14-59) H Alkaline Phosphatase 116 U/L (46-116) Troponin I Quantitative 0.127 ng/mL (0.000-0.055) Total Protein 5.3 g/dL (6.4-8.2) L Albumin 2.7 g/dL (3.4-5.0) L Albumin/Globulin Ratio 1.0 (1.0-1.7) Laboratory Tests 08/26/19 16:00 Laboratory Tests 08/26/19 16:00 EKG EKG []Paced rhythm in light of that no obvious ischemia was identified Radiology/Procedures Radiology/Procedures [] Impressions: FINDINGS: A frontal view of the chest is obtained. There is stable diffuse mixed interstitial and alveolar infiltrate with small to moderate pleural effusions and cardiomegaly. There is a cardiac pacemaker in expected position. There is no pneumothorax. IMPRESSION: Stable diffuse infiltrate with small to moderate pleural effusions and cardiomegaly. Electronically signed by: Margarita Lynch MD (08/26/2019 3:51 PM) [place] [id number] DICTATED and SIGNED BY: MARGARITA LYNCH MD DATE: 08/26/19 155 Course & Med Decision Making Course & Med Decision Making Pertinent Labs and Imaging studies reviewed. (See chart for details) []Fonseca placed about 200 mL total. Noted the potassium we treated that aggressively in the emergency room. We gave antibiotics for possible pneumonia based on chest x-ray urinalysis is currently pending I spoke with Dr. CAMPBELL in light of the below discussion that I had with the patient's family for now. I do IV fluids medical treatment, this is concerning however given the severity of the hyperkalemia. I spoke with Dr. HAN for admission, CVC DUE TO DNR STATUS. I had a long conversation with the patient's daughter as well as the other family members including grandson etc. the daughter is the [employer] she tells me that the patient has a long-standing request to be a DO NOT RESUSCITATE. Extensive probably 15 minutes discussion about the patient's goals of care her desire to try to make it to this family wedding however long-term and frequent repeatED desire not to have any aggressive treatments at the end of life. There will this conservative management may lead to the end of the patient's life however they really do not want to undergo a significant intervention like dialysis at this time. The patient's daughter spent several minutes with her probably 20-25 minutes total discussing the case answering her questions and given alternatives and this is what we have agreed on for now. Critical care time was 55 minutes exclusive of procedures. For management of acute renal failure with life-threatening hyperkalemia Dragon Disclaimer Dragon Disclaimer This electronic medical record was generated, in whole or in part, using a voice recognition dictation system. Departure Departure Impression: Primary Impression: Acute renal failure Disposition: ADMITTED INPATIENT Admitting Physician: Lilian Han Condition: GUARDED Referrals: CHIDI SOTO (PCP) PRICILLA AYALA MD Aug 26, 2019 17:55
[2019-08-26] MEDS ORDERED: DOXYCYCLINE HYCLATE 100 MG in IV DEXTROSE 5% 100ML 100 ML IV ONE (18:00)
[2019-08-26 19:07] VITALS: BP 112/56
--- NOTE | 2019-08-26 19:25 | NUR ---
Pt arrived to unit per cart accompanied by daughter. vs obtained and stable poc explained assessment completed pt denied pain at time of assessment will resume care and continue to monitor pt.call light in reach and bed alarm set.
[2019-08-26] MEDS: IV NORMAL SALINE 1000ML BAG 1,000 ML IV SCH ×2 (20:35→22:45)
[2019-08-26] MEDS ORDERED: NITROGLYCERIN SUBLINGUAL 0.4 MG BOTTLE OF 25. SL PRN (22:30)
[2019-08-26] MEDS ORDERED: ISOSORBIDE MONONITRATE ER 30 MG TAB.ER.24H PO PRN (22:30)
[2019-08-26] MEDS: GABAPENTIN 100 MG CAPSULE. PO SCH (22:45)
[2019-08-26] MEDS: hydrALAZINE 25 MG TABLET PO SCH (22:45)
[2019-08-26 22:47] VITALS: BP 117/56
[2019-08-27 03:03] VITALS: BP 99/57
[2019-08-27] MEDS ORDERED: INFLUENZA VAX SCREEN BY RX. MC PRN (05:00)
[2019-08-27] MEDS: IV NORMAL SALINE 1000ML BAG 1,000 ML IV SCH ×4 (06:17→18:45)
[2019-08-27 06:19] LABS: BASO % 0 % (0-3); EOS % 0 % (0-3); HEMATOCRIT 33.7 % (36.0-47.0); HEMOGLOBIN 11.2 g/dL (12.0-15.5); LYMPH # 0.5 x10^3/uL (1.0-4.8); LYMPH % 4 % (24-48); MEAN CORPUSCULAR HEMOGLOBIN 31 pg (25-35); MEAN CORPUSCULAR HGB CONC 33 g/dL (31-37); MEAN CORPUSCULAR VOLUME 94 fL (79-100); MONO # 0.8 x10^3/uL (0.0-1.1); MONO % 6 % (0-9); NEUT # 11.4 x10^3/uL (1.8-7.7); NEUT % 90 % (31-73); PLATELET COUNT 256 x10^3/uL (140-400); RED BLOOD COUNT 3.59 x10^6/uL (3.50-5.40); RED CELL DISTRIBUTION WIDTH 15.2 % (11.5-14.5); WHITE BLOOD COUNT 12.6 x10^3/uL (4.0-11.0)
[2019-08-27 06:38] LABS: ALBUMIN 2.5 g/dL (3.4-5.0); CALCIUM 7.8 mg/dL (8.5-10.1); CREATININE 7.2 mg/dL (0.6-1.0); GFR 5.3; TOTAL BILIRUBIN 0.5 mg/dL (0.2-1.0); TOTAL PROTEIN 5.1 g/dL (6.4-8.2)
[2019-08-27 06:41] LABS: POTASSIUM 6.3 mmol/L (3.5-5.1)
[2019-08-27 07:00] VITALS: BP 93/55
[2019-08-27] MEDS ORDERED: FLU VAX QS 2019-20 (36MOS+)/PF 0.5 ML SYRINGE. VAX IM ONE (09:00)
--- NOTE | 2019-08-27 10:27 | PDOC ---
Provider Note Provider Note Pt seen .H&P dictated#[id number]. spoke with pts daughter. Do not want dialysis. DNR ,palliative team consult MANUELITO HAN MD Aug 27, 2019 10:27
[2019-08-27] MEDS: hydrALAZINE 25 MG TABLET PO SCH ×2 (10:33→21:23)
--- NOTE | 2019-08-27 11:02 | PDOC2 ---
CONSULT Date of Consult Date of Consult DATE: 08/27/19 TIME: 10:42 Reason for Consult Reason for Consult: CAROLE, HYPERKALEMIA History of Present Illness Reason for Visit: Patient is a 89 year old femalE brought in renal failure patient had a abnormal labs creatinine is 7 and a potassium of 7.7 as well patient has progressive weakness for the last 3-4 days . Has a history of acute respiratory failure with some fluid overload , was hospitalized at [facility] last month , had unilateral hydronephrosis at that time. Baseline CKD stage 3 Discussed with ER Provider last night with recommendations to r/o urinary retention, Fonseca and Dialysis for Hyperkalemia. He had a long dw Family members about Dialysis marty due to severity of Hyperkalemia Fonseca placed with 200 mL urine, IVF started, potassium treated aggressively in the emergency room. Currently No CP, No SOB. No N/V/D . She is resting with eyes closed , has O2 by NC I had a long conversation with the patient's daughter again thia am , she is is the DPOA . Pt is a DNR . Per daughter Pt has clearly stated that she doesn't want to do Dialysis or any aggressive measures Past Medical History Cardiovascular: CAD, HTN, Hyperlipidemia, Other Pulmonary: No pertinent hx GI: No pertinent hx Heme/Onc: No pertinent hx Hepatobiliary: No pertinent hx Psych: No pertinent hx Musculoskeletal: Osteoarthritis Rheumatologic: No pertinent hx Infectious disease: No pertinent hx Renal/: No pertinent hx Endocrine: Diabetes Past Surgical History Past Surgical History: Pacemaker, Appendectomy, Hysterectomy, Other Family History Family History: Other Social History ALCOHOL: none Drugs: None Lives: Alone Current Problem List Problem List Problems Medical Problems: (1) Acute renal failure Status: Acute Current Medications Current Medications Current Medications Calcium Gluconate (Calcium Gluconate) 1,000 mg STK-MED ONCE .ROUTE ; Start 08/26/19 at 15:24; Stop 08/26/19 at 15:25; Status DC Calcium Gluconate (Calcium Gluconate) 1,000 mg 1X ONCE IVP Last administered on 08/26/19at 15:51; Start 08/26/19 at 15:45; Stop 08/26/19 at 15:46; Status DC Albuterol Sulfate (Ventolin Neb Soln) 10 mg 1X ONCE CONT NEB Last administered on 08/26/19at 16:00; Start 08/26/19 at 15:45; Stop 08/26/19 at 15:46; Status DC Sodium Bicarbonate (Sodium Bicarb Adult 8.4% Syr) 50 meq 1X ONCE IV Last administered on 08/26/19at 15:53; Start 08/26/19 at 15:45; Stop 08/26/19 at 15:46; Status DC Dextrose (Dextrose 50%-Water Syringe) 25 gm 1X ONCE IV Last administered on 08/26/19at 15:47; Start 08/26/19 at 15:45; Stop 08/26/19 at 15:46; Status DC Insulin Human Regular (HumuLIN R VIAL) 10 unit 1X ONCE IV Last administered on 08/26/19at 15:49; Start 08/26/19 at 15:45; Stop 08/26/19 at 15:46; Status DC Sodium Polystyrene Sulfonate (Kayexalate) 30 gm 1X ONCE PO Last administered on 08/26/19at 15:59; Start 08/26/19 at 15:45; Stop 08/26/19 at 15:46; Status DC Sodium Chloride 1,000 ml @ 1,000 mls/hr 1X ONCE IV Last administered on 08/26/19at 15:51; Start 08/26/19 at 15:45; Stop 08/26/19 at 16:44; Status DC Ceftriaxone Sodium (Rocephin) 1 gm 1X ONCE IVP Last administered on 08/26/19at 17:18; Start 08/26/19 at 16:15; Stop 08/26/19 at 16:16; Status DC Sodium Chloride 1,000 ml @ 100 mls/hr Q10H IV Last administered on 08/27/19at 06:17; Start 08/26/19 at 17:48; Stop 08/27/19 at 17:47 Doxycycline Hyclate 100 mg/ Dextrose 100 ml @ 50 mls/hr 1X ONCE IV Last administered on 08/26/19at 18:22; Start 08/26/19 at 18:00; Stop 08/26/19 at 19:59; Status DC Aspirin (Ecotrin) 81 mg DAILYWBKFT PO ; Start 08/27/19 at 08:00 Diclofenac Sodium (Voltaren) 4 adriana QID TP ; Start 08/27/19 at 09:00 Gabapentin (Neurontin) 100 mg TID PO ; Start 08/26/19 at 22:45 Hydralazine HCl (Apresoline) 25 mg BID PO ; Start 08/26/19 at 22:45 Isosorbide Mononitrate (Imdur) 15 mg PRN DAILY PRN PO ihd; Start 08/26/19 at 22:30 Lactobacillus Rhamnosus (Culturelle) 1 cap BID PO ; Start 08/27/19 at 09:00 Nitroglycerin (Nitrostat) 0.4 mg PRN Q5MIN PRN SL CHEST PAIN; Start 08/26/19 at 22:30 Prednisone (Prednisone) 10 mg DAILY PO ; Start 08/27/19 at 09:00 Sodium Chloride 1,000 ml @ 100 mls/hr Q10H IV ; Start 08/26/19 at 22:45 Ceftriaxone Sodium (Rocephin) 1 gm Q24H IVP ; Start 08/27/19 at 17:30 Influenza Virus Vaccine Quadrival (Afluria Quad 2019-20 (3yr Up) Syringe) 0.5 ml ONCE ONCE VAX IM ; Start 08/27/19 at 09:00; Stop 08/27/19 at 09:01; Status DC Info (FLU VACCINE SCREEN per RX) 1 each PRN 1X PRN MC SEE COMMENTS; Start 08/27/19 at 05:00; Status Cancel Active Scripts Active Gabapentin (Gabapentin) 100 Mg Capsule 100 Mg PO TID 30 Days Culturelle (Lactobacillus Rhamnosus Gg) 1 Each Cap.sprink 1 Each PO BID 30 Days Prednisone (Prednisone) 10 Mg Tablet 10 Mg PO DAILY 30 Days Isosorbide Mononitrate Er (Isosorbide Mononitrate) 30 Mg Tab.er.24h 0.5 Tab PO D AILY PRN 30 Days Eliquis (Apixaban) 2.5 Mg Tablet 2.5 Mg PO BID PRN 30 Days Bumetanide 1 Mg Tablet 1 Tab PO DAILY 30 Days Hydralazine Hcl 25 Mg Tablet 1 Tab PO BID 30 Days Toprol Xl (Metoprolol Succinate) 50 Mg Tab.er.24h 50 Mg PO DAILY PRN 30 Days Aspirin Ec (Aspirin) 81 Mg Tablet. 81 Mg PO DAILYWBKFT Reported Cyanocobalamin Injection (Cyanocobalamin (Vitamin B-12)) 1,000 Mcg/1 Ml Vial 1,000 Mcg IJ QMONTH Calcium 600 + Vit D 200 Tablet (Calcium Carbonate/Vitamin D3) 1 Each Tablet 1 Each PO DAILY Prolia (Denosumab) 60 Mg/1 Ml Disp.syrin 60 Mg SQ Q6 MONTHS Voltaren (Diclofenac Sodium) 100 Gm Gel..gram. 4 Gm TP QID Ocuvite Softgel (Vit C/Vit E/Lutein/Min/[place]-3) 1 Each Capsule 1 Cap PO DAILY NITROGLYCERIN SubLingual (Nitroglycerin) 0.4 Mg Tab.subl 0.4 Mg SL PRN Q5MIN PRN Ferrous Sulfate 325 Mg Tablet 325 Tab PO TWICE WEEKLY Potassium Chloride 10 Meq Capsule.er 1 Cap PO DAILY Omeprazole 20 Mg Capsule.dr 1 Cap PO DAILY Simvastatin 80 Mg Tablet 40 Mg PO QHS Allergies Allergies: Coded Allergies: Iodinated Contrast Media (Verified Allergy, Intermediate, 10/15/14) Sulfa (Sulfonamide Antibiotics) (Verified Allergy, Intermediate, 11/21/16) carvedilol (Verified Allergy, Intermediate, 10/15/14) clopidogrel (Verified Allergy, Intermediate, 10/15/14) glimepiride (Verified Allergy, Intermediate, 10/15/14) raloxifene (Verified Allergy, Intermediate, 10/15/14) ciprofloxacin (Verified Adverse Reaction, Intermediate, Vomiting, 10/15/14) ROS Review of System Unable to Obtain, she is resting Physical Exam Physical Exam GEN: NAD HEENT- OM dryish , O2 by NC NECK: supple CVS: RRR, No Rub RESP: CTA, decreased at bases , No Acc. Muscle Use GI: BS + ve, Non Tender, Non Distended : No CVA tenderness, No Suprapubic Tenderness, Fonseca + Neuro- grossly normal Skin No Rash Ext 2+ LE edema Vital Signs Vital Signs Date Time Temp Pulse Resp B/P (MAP) Pulse Ox O2 Delivery O2 Flow Rate FiO2 08/27/19 07:00 97.8 61 18 93/55 (68) 97 Nasal Cannula 4.0 97.8 Assessment & Plan CAROLE - Suspect ATN though has recent Hx of Unilat Hydronephrosis , Currently Oliguric Was treated with Abx as no Obstruction identified m Rnal function was stable with Cr in 1,2-1.3 UA Unremarkable, Recd IVF in ER - BUN and Na improved, Cr stable , Will get Renal US Cautious with IVF due to cardiac history and avoid Vol Overload , did get a dose of Lasix this am Pt has refused Dialysis, Palliative consulted Hyperkalemia- severe- aggressively treated in ER as Family refused HD per Pts wishes K down to 6 Hyponatremia- severe at presentation Improved to 126 with IVF Left side hydronephrosis with no obstruction- in Jul 2019 Treated with Abx Mediastinal lymphadenopathy with large subcarinal mass versus adenopathy,enlarged paratracheal adenopathy, possibly due to sarcoidosis, althou gh malignancy cannot be excluded. The patient is too frail to undergo any invasive procedures. 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 Had a long discussion with daughter , inclining towards Hospice per Pts wishes Palliative consulted Labs Labs Laboratory Tests Test 08/26/19 16:00 08/26/19 17:40 08/26/19 20:31 08/27/19 06:00 White Blood Count 10.8 x10^3/uL (4.0-11.0) 12.6 x10^3/uL (4.0-11.0) Red Blood Count 3.85 x10^6/uL (3.50-5.40) 3.59 x10^6/uL (3.50-5.40) Hemoglobin 12.1 g/dL (12.0-15.5) 11.2 g/dL (12.0-15.5) Hematocrit 36.3 % (36.0-47.0) 33.7 % (36.0-47.0) Mean Corpuscular Volume 95 fL (79-100) 94 fL (79-100) Mean Corpuscular Hemoglobin 32 pg (25-35) 31 pg (25-35) Mean Corpuscular Hemoglobin Concent 33 g/dL (31-37) 33 g/dL (31-37) Red Cell Distribution Width 15.2 % (11.5-14.5) 15.2 % (11.5-14.5) Platelet Count 299 x10^3/uL (140-400) 256 x10^3/uL (140-400) Neutrophils (%) (Auto) 96 % (31-73) 90 % (31-73) Lymphocytes (%) (Auto) 3 % (24-48) 4 % (24-48) Monocytes (%) (Auto) 1 % (0-9) 6 % (0-9) Eosinophils (%) (Auto) 0 % (0-3) 0 % (0-3) Basophils (%) (Auto) 1 % (0-3) 0 % (0-3) Neutrophils # (Auto) 10.4 x10^3/uL (1.8-7.7) 11.4 x10^3/uL (1.8-7.7) Lymphocytes # (Auto) 0.3 x10^3/uL (1.0-4.8) 0.5 x10^3/uL (1.0-4.8) Monocytes # (Auto) 0.1 x10^3/uL (0.0-1.1) 0.8 x10^3/uL (0.0-1.1) Eosinophils # (Auto) 0.0 x10^3/uL (0.0-0.7) 0.0 x10^3/uL (0.0-0.7) Basophils # (Auto) 0.1 x10^3/uL (0.0-0.2) 0.0 x10^3/uL (0.0-0.2) Segmented Neutrophils % 99 % (35-66) Band Neutrophils % 1 % (0-9) Nucleated Red Blood Cells 1 Toxic Granulation Slight Platelet Estimate Adequate (ADEQUATE) Polychromasia Slight Sodium Level 117 mmol/L (136-145) 126 mmol/L (136-145) Potassium Level 7.7 mmol/L (3.5-5.1) 6.3 mmol/L (3.5-5.1) Chloride Level 82 mmol/L (98-107) 89 mmol/L (98-107) Carbon Dioxide Level 27 mmol/L (21-32) 28 mmol/L (21-32) Anion Gap 8 (6-14) 9 (6-14) Blood Urea Nitrogen 111 mg/dL (7-20) 107 mg/dL (7-20) Creatinine 6.9 mg/dL (0.6-1.0) 7.2 mg/dL (0.6-1.0) Estimated GFR (Cockcroft-Gault) 5.6 5.3 BUN/Creatinine Ratio 16 (6-20) 15 (6-20) Glucose Level 378 mg/dL (70-99) 123 mg/dL (70-99) Lactic Acid Level 1.4 mmol/L (0.4-2.0) Calcium Level 9.0 mg/dL (8.5-10.1) 7.8 mg/dL (8.5-10.1) Total Bilirubin 0.5 mg/dL (0.2-1.0) 0.5 mg/dL (0.2-1.0) Aspartate Amino Transf (AST/SGOT) 37 U/L (15-37) 34 U/L (15-37) Alanine Aminotransferase (ALT/SGPT) 76 U/L (14-59) 67 U/L (14-59) Alkaline Phosphatase 116 U/L (46-116) 101 U/L (46-116) Troponin I Quantitative 0.127 ng/mL (0.000-0.055) Total Protein 5.3 g/dL (6.4-8.2) 5.1 g/dL (6.4-8.2) Albumin 2.7 g/dL (3.4-5.0) 2.5 g/dL (3.4-5.0) Albumin/Globulin Ratio 1.0 (1.0-1.7) 1.0 (1.0-1.7) Urine Collection Type Clean catch Urine Color Dk yellow Urine Clarity Cloudy Urine pH 5.0 Urine Specific [place] 1.025 Urine Protein >=300 mg/dL (NEG-TRACE) Urine Glucose (UA) Negative mg/dL (NEG) Urine Ketones (Stick) Negative mg/dL (NEG) Urine Blood Negative (NEG) Urine Nitrite Negative (NEG) Urine Bilirubin Small (NEG) Urine Urobilinogen Dipstick 0.2 mg/dL (0.2 mg/dL) Urine Leukocyte Esterase Moderate (NEG) Urine RBC 0 /HPF (0-2) Urine WBC 1-4 /HPF (0-4) Urine Squamous Epithelial Cells Many /LPF Urine Bacteria Few /HPF (0-FEW) Urine Mucus Slight /LPF Urine Yeast Present /HPF Glucose (Fingerstick) 203 mg/dL (70-99) Thyroid Stimulating Hormone (TSH) 8.400 uIU/mL (0.358-3.74) Test 08/27/19 07:47 Glucose (Fingerstick) 110 mg/dL (70-99) Laboratory Tests Test 08/26/19 16:00 08/26/19 17:40 08/26/19 20:31 08/27/19 06:00 White Blood Count 10.8 x10^3/uL (4.0-11.0) 12.6 x10^3/uL (4.0-11.0) Red Blood Count 3.85 x10^6/uL (3.50-5.40) 3.59 x10^6/uL (3.50-5.40) Hemoglobin 12.1 g/dL (12.0-15.5) 11.2 g/dL (12.0-15.5) Hematocrit 36.3 % (36.0-47.0) 33.7 % (36.0-47.0) Mean Corpuscular Volume 95 fL (79-100) 94 fL (79-100) Mean Corpuscular Hemoglobin 32 pg (25-35) 31 pg (25-35) Mean Corpuscular Hemoglobin Concent 33 g/dL (31-37) 33 g/dL (31-37) Red Cell Distribution Width 15.2 % (11.5-14.5) 15.2 % (11.5-14.5) Platelet Count 299 x10^3/uL (140-400) 256 x10^3/uL (140-400) Neutrophils (%) (Auto) 96 % (31-73) 90 % (31-73) Lymphocytes (%) (Auto) 3 % (24-48) 4 % (24-48) Monocytes (%) (Auto) 1 % (0-9) 6 % (0-9) Eosinophils (%) (Auto) 0 % (0-3) 0 % (0-3) Basophils (%) (Auto) 1 % (0-3) 0 % (0-3) Neutrophils # (Auto) 10.4 x10^3/uL (1.8-7.7) 11.4 x10^3/uL (1.8-7.7) Lymphocytes # (Auto) 0.3 x10^3/uL (1.0-4.8) 0.5 x10^3/uL (1.0-4.8) Monocytes # (Auto) 0.1 x10^3/uL (0.0-1.1) 0.8 x10^3/uL (0.0-1.1) Eosinophils # (Auto) 0.0 x10^3/uL (0.0-0.7) 0.0 x10^3/uL (0.0-0.7) Basophils # (Auto) 0.1 x10^3/uL (0.0-0.2) 0.0 x10^3/uL (0.0-0.2) Segmented Neutrophils % 99 % (35-66) Band Neutrophils % 1 % (0-9) Nucleated Red Blood Cells 1 Toxic Granulation Slight Platelet Estimate Adequate (ADEQUATE) Polychromasia Slight Sodium Level 117 mmol/L (136-145) 126 mmol/L (136-145) Potassium Level 7.7 mmol/L (3.5-5.1) 6.3 mmol/L (3.5-5.1) Chloride Level 82 mmol/L (98-107) 89 mmol/L (98-107) Carbon Dioxide Level 27 mmol/L (21-32) 28 mmol/L (21-32) Anion Gap 8 (6-14) 9 (6-14) Blood Urea Nitrogen 111 mg/dL (7-20) 107 mg/dL (7-20) Creatinine 6.9 mg/dL (0.6-1.0) 7.2 mg/dL (0.6-1.0) Estimated GFR (Cockcroft-Gault) 5.6 5.3 BUN/Creatinine Ratio 16 (6-20) 15 (6-20) Glucose Level 378 mg/dL (70-99) 123 mg/dL (70-99) Lactic Acid Level 1.4 mmol/L (0.4-2.0) Calcium Level 9.0 mg/dL (8.5-10.1) 7.8 mg/dL (8.5-10.1) Total Bilirubin 0.5 mg/dL (0.2-1.0) 0.5 mg/dL (0.2-1.0) Aspartate Amino Transf (AST/SGOT) 37 U/L (15-37) 34 U/L (15-37) Alanine Aminotransferase (ALT/SGPT) 76 U/L (14-59) 67 U/L (14-59) Alkaline Phosphatase 116 U/L (46-116) 101 U/L (46-116) Troponin I Quantitative 0.127 ng/mL (0.000-0.055) Total Protein 5.3 g/dL (6.4-8.2) 5.1 g/dL (6.4-8.2) Albumin 2.7 g/dL (3.4-5.0) 2.5 g/dL (3.4-5.0) Albumin/Globulin Ratio 1.0 (1.0-1.7) 1.0 (1.0-1.7) Urine Collection Type Clean catch Urine Color Dk yellow Urine Clarity Cloudy Urine pH 5.0 Urine Specific [place] 1.025 Urine Protein >=300 mg/dL (NEG-TRACE) Urine Glucose (UA) Negative mg/dL (NEG) Urine Ketones (Stick) Negative mg/dL (NEG) Urine Blood Negative (NEG) Urine Nitrite Negative (NEG) Urine Bilirubin Small (NEG) Urine Urobilinogen Dipstick 0.2 mg/dL (0.2 mg/dL) Urine Leukocyte Esterase Moderate (NEG) Urine RBC 0 /HPF (0-2) Urine WBC 1-4 /HPF (0-4) Urine Squamous Epithelial Cells Many /LPF Urine Bacteria Few /HPF (0-FEW) Urine Mucus Slight /LPF Urine Yeast Present /HPF Glucose (Fingerstick) 203 mg/dL (70-99) Thyroid Stimulating Hormone (TSH) 8.400 uIU/mL (0.358-3.74) Test 08/27/19 07:47 Glucose (Fingerstick) 110 mg/dL (70-99) Review All relevant outside records, renal labs, imaging studies, telemetry/EKG's were reviewed. Images Images IMPRESSION: Stable diffuse infiltrate with small to moderate pleural effusions and cardiomegaly. PAT CAMPBELL MD Aug 27, 2019 11:02
[2019-08-27 11:24] VITALS: BP 105/52
--- NOTE | 2019-08-27 11:27 | NUR ---
SS following for discharge planning. SS reviewed pt chart. Pt came from [facility] long-term unit. Palliative Care consulted. Per palliative care RN pt's daughter is wanting pt to go to a nursing facility closer to her home in [place], [place]. SS will discuss with palliative care and pt's daughter and will continue to follow for discharge planning.
[2019-08-27] MEDS: LACTOBACILLUS RHAMNOSUS GG 1 CAPSULE. PO SCH ×2 (11:32→21:22)
[2019-08-27] MEDS: ASPIRIN ENTERIC COATED 81 MG TABLET.DR. PO SCH (11:47)
[2019-08-27] MEDS: predniSONE 10 MG TABLET PO SCH (11:47)
[2019-08-27] MEDS: GABAPENTIN 100 MG CAPSULE. PO SCH ×3 (11:47→21:22)
[2019-08-27] MEDS: DICLOFENAC SODIUM 1% TOPICAL GEL 100GM TUBE. TP SCH ×4 (11:49→21:24)
[2019-08-27 12:45] LABS: GFR 5.5
[2019-08-27 12:48] LABS: POTASSIUM 6.2 mmol/L (3.5-5.1)
--- NOTE | 2019-08-27 13:44 | PDOC2 ---
PALLIATIVE CARE Palliative Care Note Palliative Care Consult requested by Dr. Martinez to address goals of care; Assessment and Plan per Medical record; CAROLE - Suspect ATN though has recent Hx of Unilat Hydronephrosis , Currently Oliguric Was treated with Abx as no Obstruction identified m Rnal function was stable with Cr in 1,2-1.3 UA Unremarkable, Recd IVF in ER - BUN and Na improved, Cr stable , Will get Renal US Cautious with IVF due to cardiac history and avoid Vol Overload , did get a dose of Lasix this am Pt has refused Dialysis, Palliative consulted Hyperkalemia- severe- aggressively treated in ER as Family refused HD per Pts wishes K down to 6 Hyponatremia- severe at presentation Improved to 126 with IVF Left side hydronephrosis with no obstruction- in Jul 2019 Treated with Abx Mediastinal lymphadenopathy with large subcarinal mass versus adenopathy,enlarged paratracheal adenopathy, possibly due to sarcoidosis, although malignancy cannot be excluded. The patient is too frail to undergo any invasive procedures. 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 Had a long discussion with daughter , inclining towards Hospice per Pts wishes Palliative consulted Patient more alert today and able to participate in conversation. Met with patient and her daughter/NORBERTO Khalil. Patient has 2 sons who live out of town. Reviewed above information. Patient's goal is to be "here for the wedding and not interfere in the celebration" ( Sep 12, 2019) Understands she may not be able to attend but wants to be here for family--including meeting new great granddaughter. Discussed options: Proceed with current plan including no dialysis. Un derstands that with her critical lab values she may not be alive She does not want a before the wedding. Other option would be attempt temporary dialysis with the hope of improvement in her renal function. Patient and daughter informed patient likely would be transferred to a nursing facility and she would continue with dialysis as and OP--going to dialysis at an OP facility. Room and Board in the nursing facility would be the responsibility of the pt/family. Options for Nursing Facility in [place] provided. Confirmed Code Status; DNR/DNI. Outside the hospital form completed Spoke with Colquitt RN who will inform Dr. Benton of this decision. Plan Meeting on Saturday 11am to continue with planning. AVELINA MUELLER Aug 27, 2019 13:44
[2019-08-27] MEDS ORDERED: HEPARIN for IV BOLUS 10,000 UNIT/10 ML VIAL. ONE (14:08)
[2019-08-27] MEDS ORDERED: LIDOCAINE WITH 8.4% SOD BICARB 3 ML DISP.SYRIN. ONE (14:08)
[2019-08-27 14:13] LABS: PROTHROMBIN TIME PATIENT 16.3 SEC (11.7-14.0)
[2019-08-27] MEDS ORDERED: LIDOCAINE WITH 8.4% SOD BICARB 3 ML DISP.SYRIN. INJ ONE (14:15)
[2019-08-27 15:00] VITALS: BP 120/59
--- NOTE | 2019-08-27 15:00 | RAD ---
Procedure: Temporary hemodialysis catheter placement under fluoroscopy Clinical Indication: Adult female requiring hemodialysis Sedation: None Antibiotics: None Fluoro Time: 0.1 minutes. Images: 1 Contrast: None Sterility: All elements of maximal sterile barrier technique including the use of a cap, mask, sterile gown, sterile gloves, large sterile sheet, appropriate hand hygiene, and 2% chlorhexidine for cutaneous antisepsis (or acceptable alternative antiseptic per current guidelines) were followed for this procedure. Consent: The procedure was explained in its entirety to the patient or the patients designated sales representative cash registers by a member of the treatment team, including a discussion of the risks, benefits and commonly accepted alternatives to the procedure, as well as the expected consequences of no therapy whatsoever. Discussion of the risks included, but was not limited to, those that are most frequent and those that are rare but possibly severe or life-threatening, as well as the possibility of unforeseen complications. Technique and Findings: Following informed consent, the patient was prepped and draped in the usual sterile fashion. Ultrasound interrogation of the right neck revealed patency and compressibility of the right internal jugular vein. A 21-gauge micropuncture needle was used to gain access to this vein after 1% Lidocaine was used to achieve local anesthesia. A hardcopy ultrasound image was recorded. The needle was exchanged over a wire for serial dilators followed by a 15 cm Schon temporary hemodialysis catheter which was deployed under fluoroscopic guidance such that the distal tip resided in the mid right atrium. The catheter flow rates were assessed manually and found to be excellent. The catheter was then flushed, packed with Heparin, capped, and sutured to the skin. Complications: No immediate Impression: 1. Ultrasound and fluoroscopic guided placement of a temporary hemodialysis catheter which exhibits excellent manual flow rates as described.
[2019-08-27] MEDS ORDERED: DIALYSIS PATIENT. MC PRN ×2 (15:15)
--- NOTE | 2019-08-27 15:25 | HP ---
ADMIT DATE: 08/26/2019 LOCATION: [facility] REASON FOR ADMISSION TO THE HOSPITAL: Hyperkalemia, acute kidney failure. HISTORY OF PRESENT ILLNESS: The patient is an 89-year-old female patient. The patent was recently discharged from [facility] 2 weeks ago. She has a history of congestive heart failure. She at that time had a cardiac catheterization, shows patent stents and ejection fraction was 35%, moderately impaired. The patient also has a history of pacemaker, moderate mitral regurgitation and a PA pressure was 78. She was sent back to the custodial and she developed shortness of breath, not feeling well, was sent to the Emergency Room. Her BUN was 100, creatinine was 7. Potassium was 7. Sodium was 116, was seen in the ER, was contemplating may be needing dialysis. In the meantime, the patient and the family decided they do not want dialysis, was admitted to the cardiac floor. PAST MEDICAL HISTORY: Other past medical history as mentioned, she was in the hospital 2 weeks ago, had extensive cardiac workup including echo, cardiac catheterization shows patent stents. She has hypertension, hyperlipidemia, diabetes, coronary artery disease, stent, pacemaker. PAST SURGICAL HISTORY: Pacemaker, gallbladder, tonsillectomy, appendectomy, hysterectomy, shoulder surgery. ALLERGIES: ALLERGIC TO CIPRO, PLAVIX, IODINE, METFORMIN, COREG. FAMILY HISTORY: Strokes, heart disease and throat cancer. SOCIAL HISTORY: She was a custodial resident recently, history of smoking for 20-30 years, quit 25 years ago. REVIEW OF SYSTEMS: The patient is weak. She is anxious to go back to her granddaughter's wedding supposed to happen in 2 weeks. Complains of swelling extremities. PHYSICAL EXAMINATION: GENERAL: The patient looks sicker, curled up in bed. VITAL SIGNS: Temperature 97, pulse 76, respirations 24, blood pressure 133/58, 95% on 4 liters. HEENT: Head is atraumatic. Pupils equal. Oral cavity: No congestion. NECK: Supple. Thyroid not enlarged. JVD slightly elevated. CHEST: Symmetrical. Pacemaker, left of the chest. CARDIOVASCULAR: S1, S2. LUNGS: Crackles one-third base. ABDOMEN: Soft, bowel sounds present, no mass palpable. EXTERNAL GENITALIA: Fonseca placed in the ER. Rectal exam deferred. EXTREMITIES: 2+ edema all the way below the knee. NEUROLOGIC: Moving extremities, but weak. LABORATORY DATA: Shows a white count of 10, hemoglobin 12, platelets 299. INR 1.3. Electrolytes show sodium 117, potassium 7.7, BUN 111, creatinine 6.9, sugar 378. Lactic acid 1.4. LFTs normal. Troponin 0.1. TSH 8. Urine negative. Chest x-ray: Pleural effusion and cardiomegaly. FINAL IMPRESSION: 1. Acute kidney failure. 2. Hyperkalemia. 3. Chronic systolic heart failure. 4. Coronary artery disease, history of previous stents. 5. Diabetes. 6. Hypertension. 7. Hyperlipidemia. 8. History of pulmonary hypertension. PLAN: Plan at this time, the patient and the family did not want dialysis given Kayexalate, insulin to bring the potassium down and also electrolytes were given normal saline to bring sodium was come in to 122. Family is leaning towards palliative care. We will consult palliative team here and as I said, the patient had complete workup done not too long ago, 2 weeks ago and problems including echo and cardiac catheterization. PROGNOSIS: Poor. MANUELITO HAN MD DR: NIKITA/rip JOB#: [id number] / [id number] ЕЛЕНА Mukherjee MD
[2019-08-27] MEDS ORDERED: IV NORMAL SALINE 1000ML BAG 1,000 ML IV PRN ×2 (15:30)
[2019-08-27] MEDS ORDERED: ALBUMIN HUMAN 25% 200 ML IV PRN (15:30)
--- NOTE | 2019-08-27 16:53 | RAD ---
Examination: Ultrasound kidneys HISTORY: History of acute renal insufficiency COMPARISON: None available. Findings: Right kidney measures 7.1 x 3.3 x 2.7 cm. The left kidney measures 7.4 x 4.8 x 5.4 cm. Cystic structure identified in the right kidney measuring 1.3 cm probably a cyst. The evaluation of the kidneys is limited due to bowel gas. There is some increased echogenicity identified in the bilateral kidneys. The urinary bladder is nondistended due to Fonseca catheter. IMPRESSION: 1. Limited examination due to bowel gas. Increased echogenicity identified in the bilateral kidneys probably due to medical renal disease. 2. 1.3 cm cyst right kidney. Electronically signed by: Aly Carr MD (08/27/2019 4:50 PM) [id number]
[2019-08-27 17:09] LABS: SODIUM, URINE <20 mmol/L (Not Estab.); UR POTASSIUM 65.4 mmol/L (Not Estab.)
[2019-08-27] MEDS: cefTRIAXone IV Push 1 GM VIAL. IVP SCH (18:53)
[2019-08-27 19:47] VITALS: BP 110/56
[2019-08-27 21:39] LABS: CALCIUM 7.9 mg/dL (8.5-10.1); CREATININE 4.7 mg/dL (0.6-1.0); GFR 8.8; POTASSIUM 5.1 mmol/L (3.5-5.1)
[2019-08-27 22:26] VITALS: BP 91/46
[2019-08-28 03:10] VITALS: BP 103/51
[2019-08-28] MEDS: IV NORMAL SALINE 1000ML BAG 1,000 ML IV SCH ×2 (05:08→23:17)
[2019-08-28 07:15] VITALS: BP 105/51
[2019-08-28] MEDS ORDERED: DIALYSIS PATIENT. MC PRN (08:30)
[2019-08-28] MEDS ORDERED: IV NORMAL SALINE 1000ML BAG 1,000 ML IV PRN ×2 (08:30)
[2019-08-28] MEDS ORDERED: diphenhydrAMINE 50 MG/ML VIAL IV PRN ×2 (08:30)
[2019-08-28 08:42] LABS: CALCIUM 7.9 mg/dL (8.5-10.1); CREATININE 5.1 mg/dL (0.6-1.0); POTASSIUM 5.4 mmol/L (3.5-5.1)
[2019-08-28 08:46] LABS: BASO % 0 % (0-3); EOS % 0 % (0-3); HEMATOCRIT 34.8 % (36.0-47.0); HEMOGLOBIN 11.4 g/dL (12.0-15.5); LYMPH # 0.3 x10^3/uL (1.0-4.8); LYMPH % 2 % (24-48); MEAN CORPUSCULAR HEMOGLOBIN 31 pg (25-35); MEAN CORPUSCULAR HGB CONC 33 g/dL (31-37); MEAN CORPUSCULAR VOLUME 95 fL (79-100); MONO # 0.8 x10^3/uL (0.0-1.1); MONO % 6 % (0-9); NEUT # 12.8 x10^3/uL (1.8-7.7); NEUT % 93 % (31-73); PLATELET COUNT 245 x10^3/uL (140-400); RED BLOOD COUNT 3.65 x10^6/uL (3.50-5.40); RED CELL DISTRIBUTION WIDTH 15.8 % (11.5-14.5); WHITE BLOOD COUNT 13.8 x10^3/uL (4.0-11.0)
[2019-08-28] MEDS: DICLOFENAC SODIUM 1% TOPICAL GEL 100GM TUBE. TP SCH ×4 (09:00→22:04)
--- NOTE | 2019-08-28 09:35 | PDOC ---
SUBJECTIVE ROS Pt seen on Dialysis, states generally she has not been feeling well"I have many health problems" She states she is ok with getting HD as long as it is paid for and she doesnt want her before the wedding OBJECTIVE Vital Signs Vital Signs Date Time Temp Pulse Resp B/P (MAP) Pulse Ox O2 Delivery O2 Flow Rate FiO2 08/28/19 07:15 97.7 60 16 105/51 (69) 96 Nasal Cannula 4.0 97.7 I & 0 Intake and Output 08/28/19 07:00 Intake Total 340 ml Output Total 80 ml Balance 260 ml Intake Oral 340 ml Output Urine Total 80 ml PHYSICAL EXAM Physical Exam GEN: NAD HEENT- OM dryish , O2 by NC NECK: supple CVS: RRR, No Rub RESP: CTA, decreased at bases , No Acc. Muscle Use GI: BS + ve, Non Tender, Non Distended : No CVA tenderness, No Suprapubic Tenderness, Fonseca + Neuro- grossly normal Skin No Rash Ext 2+ LE edema DIAGNOSIS/ASSESSMENT Assessment & Plan CAROLE - Suspect ATN Oligo- anuric recent Hx of Unilat Hydronephrosis , mild CAROLE , Was treated with Abx as no Obstruction identified UA Unremarkable, Renal US chr medical disease Pt and family changed there mind later during the day and wanted to proceed with Dialysis,1st treatment 08/27 2 nd Tx today, tolerating well, states she is ok with Dialysis as long its getting paid for Continue as ordered , Jose Guadalupe Davis CKD stage 3 -Baseline 1.3-1.5 Hyperkalemia- severe at presentation - dialysis not done as Pt and her family refused, aggressively treated in ER Yesterday I had long discussion (>45 mins ) with daughter , decision was made for Hospice and No Dialysis or any aggressive care Later during the day Pt and family changed there mind and wanted to proceed with HD K Mildly elevated today- 2 nd Tx today Hyponatremia- severe at presentation Improved and stable at 127 Left side hydronephrosis with no obstruction- in Jul 2019 Treated with Abx Mediastinal lymphadenopathy with large subcarinal mass versus adenopathy,enlarged paratracheal adenopathy, possibly due to sarcoidosis, although malignancy cannot be excluded. The patient is too frail to undergo any invasive procedures. 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 COMMENT/RELEVANT DATA Meds Current Medications Medications (Trade) Dose Ordered Sig/Serafin Start Time Stop Time Status Last Admin Dose Admin Albumin Human 200 ml @ 200 mls/hr 1X PRN PRN 08/27/19 15:30 08/27/19 21:00 DC Albuterol Sulfate (Ventolin Neb Soln) 10 mg 1X ONCE 08/26/19 15:45 08/26/19 15:46 DC 08/26/19 16:00 10 MG Aspirin (Ecotrin) 81 mg [id number] 08/27/19 08:00 08/27/19 11:47 81 MG Calcium Gluconate (Calcium Gluconate) 1,000 mg 1X ONCE 08/26/19 15:45 08/26/19 15:46 DC 08/26/19 15:51 1,000 MG Ceftriaxone Sodium (Rocephin) 1 gm Q24H 08/27/19 17:30 08/27/19 18:53 1 GM Dextrose (Dextrose 50%-Water Syringe) 25 gm 1X ONCE 08/26/19 15:45 08/26/19 15:46 DC 08/26/19 15:47 25 GM Diclofenac Sodium (Voltaren) 4 adriana QID 08/27/19 09:00 08/27/19 21:24 4 ADRIANA Diphenhydramine HCl (Benadryl) 25 mg 1X PRN PRN 08/28/19 08:30 08/29/19 08:29 Doxycycline Hyclate 100 mg/ Dextrose 100 ml @ 50 mls/hr 1X ONCE 08/26/19 18:00 08/26/19 19:59 DC 08/26/19 18:22 50 MLS/HR Gabapentin (Neurontin) 100 mg TID 08/26/19 22:45 08/27/19 21:22 100 MG Heparin Sodium (Porcine) (Heparin Sodium) 10,000 unit STK-MED ONCE 08/27/19 14:08 08/27/19 14:08 DC Hydralazine HCl (Apresoline) 25 mg BID 08/26/19 22:45 08/27/19 21:23 25 MG Influenza Virus Vaccine Quadrival (Afluria Quad 2019-20 (3yr Up) Syringe) 0.5 ml ONCE ONCE 08/27/19 09:00 08/27/19 09:01 DC Info (FLU VACCINE SCREEN per RX) 1 each PRN 1X PRN 08/27/19 05:00 Cancel Info (PHARMACY MONITORING -- do not chart) 1 each PRN DAILY PRN 08/28/19 08:30 UNV Insulin Human Regular (HumuLIN R VIAL) 10 unit 1X ONCE 08/26/19 15:45 08/26/19 15:46 DC 08/26/19 15:49 10 UNIT Isosorbide Mononitrate (Imdur) 15 mg PRN DAILY PRN 08/26/19 22:30 Lactobacillus Rhamnosus (Culturelle) 1 cap BID 08/27/19 09:00 08/27/19 21:22 1 CAP Lidocaine HCl (Buffered Lidocaine 1%) 6 ml 1X ONCE 08/27/19 14:15 08/27/19 14:16 DC Nitroglycerin (Nitrostat) 0.4 mg PRN Q5MIN PRN 08/26/19 22:30 Prednisone (Prednisone) 10 mg DAILY 08/27/19 09:00 08/27/19 11:47 10 MG Sodium Polystyrene Sulfonate (Kayexalate) 30 gm 1X ONCE 08/26/19 15:45 08/26/19 15:46 DC 08/26/19 15:59 30 GM Sodium Bicarbonate (Sodium Bicarb Adult 8.4% Syr) 50 meq 1X ONCE 08/26/19 15:45 08/26/19 15:46 DC 08/26/19 15:53 50 MEQ Sodium Chloride 1,000 ml @ 400 mls/hr Q2H30M PRN 08/28/19 08:30 08/28/19 20:29 Lab Laboratory Tests Test 08/27/19 11:37 08/27/19 12:20 08/27/19 17:35 08/27/19 20:45 Glucose (Fingerstick) 150 mg/dL (70-99) Sodium Level 122 mmol/L (136-145) 128 mmol/L (136-145) Potassium Level 6.2 mmol/L (3.5-5.1) 5.1 mmol/L (3.5-5.1) Chloride Level 87 mmol/L (98-107) 91 mmol/L (98-107) Carbon Dioxide Level 24 mmol/L (21-32) 28 mmol/L (21-32) Anion Gap 11 (6-14) 9 (6-14) Blood Urea Nitrogen 115 mg/dL (7-20) 62 mg/dL (7-20) Creatinine 7.0 mg/dL (0.6-1.0) 4.7 mg/dL (0.6-1.0) Estimated GFR (Cockcroft-Gault) 5.5 8.8 Glucose Level 138 mg/dL (70-99) 161 mg/dL (70-99) Calcium Level 8.0 mg/dL (8.5-10.1) 7.9 mg/dL (8.5-10.1) Cortisol PM Sample 30.3 ug/dL (3.1-16.7) Test 08/27/19 21:05 08/28/19 07:20 08/28/19 08:00 Glucose (Fingerstick) 149 mg/dL (70-99) 214 mg/dL (70-99) White Blood Count 13.8 x10^3/uL (4.0-11.0) Red Blood Count 3.65 x10^6/uL (3.50-5.40) Hemoglobin 11.4 g/dL (12.0-15.5) Hematocrit 34.8 % (36.0-47.0) Mean Corpuscular Volume 95 fL (79-100) Mean Corpuscular Hemoglobin 31 pg (25-35) Mean Corpuscular Hemoglobin Concent 33 g/dL (31-37) Red Cell Distribution Width 15.8 % (11.5-14.5) Platelet Count 245 x10^3/uL (140-400) Neutrophils (%) (Auto) 93 % (31-73) Lymphocytes (%) (Auto) 2 % (24-48) Monocytes (%) (Auto) 6 % (0-9) Eosinophils (%) (Auto) 0 % (0-3) Basophils (%) (Auto) 0 % (0-3) Neutrophils # (Auto) 12.8 x10^3/uL (1.8-7.7) Lymphocytes # (Auto) 0.3 x10^3/uL (1.0-4.8) Monocytes # (Auto) 0.8 x10^3/uL (0.0-1.1) Eosinophils # (Auto) 0.0 x10^3/uL (0.0-0.7) Basophils # (Auto) 0.0 x10^3/uL (0.0-0.2) Sodium Level 127 mmol/L (136-145) Potassium Level 5.4 mmol/L (3.5-5.1) Chloride Level 90 mmol/L (98-107) Carbon Dioxide Level 24 mmol/L (21-32) Anion Gap 13 (6-14) Blood Urea Nitrogen 69 mg/dL (7-20) Creatinine 5.1 mg/dL (0.6-1.0) Estimated GFR (Cockcroft-Gault) 8.0 Glucose Level 194 mg/dL (70-99) Calcium Level 7.9 mg/dL (8.5-10.1) Results All relevant outside records, renal labs, imaging studies, telemetry/EKG's were reviewed. Other 1. Limited examination due to bowel gas. Increased echogenicity identified in the bilateral kidneys probably due to medical renal disease. 2. 1.3 cm cyst right kidney. PAT CAMPBELL MD Aug 28, 2019 09:35
--- NOTE | 2019-08-28 09:39 | PDOC ---
PROGRESS NOTES Subjective Subjective pt feels better today Objective Objective Vital Signs Date Time Temp Pulse Resp B/P (MAP) Pulse Ox O2 Delivery O2 Flow Rate FiO2 08/28/19 08:00 Nasal Cannula 4.0 08/28/19 07:15 97.7 60 16 105/51 (69) 96 97.7 Intake and Output 08/28/19 07:00 Intake Total 340 ml Output Total 80 ml Balance 260 ml Intake Oral 340 ml Output Urine Total 80 ml Physical Exam Abdomen: Normal bowel sounds, Soft Heart: Regular rate, Normal S1, Normal S2 Extremities: No clubbing General: Oriented X3 HEENT: Atraumatic MUSCULOSKELETAL: No deformity Neuro: Normal speech Psych/Mental Status: Mood NL Skin: No breakdown Diagnosis Problem List Problems Medical Problems: (1) Acute renal failure Status: Acute Assessment Assessment Problems Medical Problems: (1) Acute renal failure Status: Acute FINAL IMPRESSION: 1. Acute kidney failure. 2. Hyperkalemia. 3. Chronic systolic heart failure. 4. Coronary artery disease, history of previous stents. 5. Diabetes. 6. Hypertension. 7. Hyperlipidemia. 8. History of pulmonary hypertension. PLAN: pt and family wanted temp dialysis untill wedding of her grand daughter. temp dilaysis cathter placed and dialyzed yesterday. wbc 14 ? uti start on Rocephin.urine c/s sent pot 5.4 down with dialysis. Plan at this time, the patient and the family did not want dialysis given Kayexalate, insulin to bring the potassium down and also electrolytes were given normal saline to bring sodium was come in to 122. Family is leaning towards palliative care. We will consult palliative team here and as I said, the patient had complete workup done not too long ago, 2 weeks ago and problems including echo and cardiac catheterization. PROGNOSIS: Poor. Plan Plan of Care Problems Medical Problems: (1) Acute renal failure Status: Acute Comment Review of Relevant I have reviewed the following items kojo (where applicable) has been applied. Labs Laboratory Tests Test 08/27/19 11:37 08/27/19 12:20 08/27/19 17:35 08/27/19 20:45 Glucose (Fingerstick) 150 mg/dL (70-99) Sodium Level 122 mmol/L (136-145) 128 mmol/L (136-145) Potassium Level 6.2 mmol/L (3.5-5.1) 5.1 mmol/L (3.5-5.1) Chloride Level 87 mmol/L (98-107) 91 mmol/L (98-107) Carbon Dioxide Level 24 mmol/L (21-32) 28 mmol/L (21-32) Anion Gap 11 (6-14) 9 (6-14) Blood Urea Nitrogen 115 mg/dL (7-20) 62 mg/dL (7-20) Creatinine 7.0 mg/dL (0.6-1.0) 4.7 mg/dL (0.6-1.0) Estimated GFR (Cockcroft-Gault) 5.5 8.8 Glucose Level 138 mg/dL (70-99) 161 mg/dL (70-99) Calcium Level 8.0 mg/dL (8.5-10.1) 7.9 mg/dL (8.5-10.1) Cortisol PM Sample 30.3 ug/dL (3.1-16.7) Test 08/27/19 21:05 08/28/19 07:20 08/28/19 08:00 Glucose (Fingerstick) 149 mg/dL (70-99) 214 mg/dL (70-99) White Blood Count 13.8 x10^3/uL (4.0-11.0) Red Blood Count 3.65 x10^6/uL (3.50-5.40) Hemoglobin 11.4 g/dL (12.0-15.5) Hematocrit 34.8 % (36.0-47.0) Mean Corpuscular Volume 95 fL (79-100) Mean Corpuscular Hemoglobin 31 pg (25-35) Mean Corpuscular Hemoglobin Concent 33 g/dL (31-37) Red Cell Distribution Width 15.8 % (11.5-14.5) Platelet Count 245 x10^3/uL (140-400) Neutrophils (%) (Auto) 93 % (31-73) Lymphocytes (%) (Auto) 2 % (24-48) Monocytes (%) (Auto) 6 % (0-9) Eosinophils (%) (Auto) 0 % (0-3) Basophils (%) (Auto) 0 % (0-3) Neutrophils # (Auto) 12.8 x10^3/uL (1.8-7.7) Lymphocytes # (Auto) 0.3 x10^3/uL (1.0-4.8) Monocytes # (Auto) 0.8 x10^3/uL (0.0-1.1) Eosinophils # (Auto) 0.0 x10^3/uL (0.0-0.7) Basophils # (Auto) 0.0 x10^3/uL (0.0-0.2) Sodium Level 127 mmol/L (136-145) Potassium Level 5.4 mmol/L (3.5-5.1) Chloride Level 90 mmol/L (98-107) Carbon Dioxide Level 24 mmol/L (21-32) Anion Gap 13 (6-14) Blood Urea Nitrogen 69 mg/dL (7-20) Creatinine 5.1 mg/dL (0.6-1.0) Estimated GFR (Cockcroft-Gault) 8.0 Glucose Level 194 mg/dL (70-99) Calcium Level 7.9 mg/dL (8.5-10.1) Microbiology 08/26/19 Blood Culture - Preliminary, Resulted NO GROWTH AFTER 1 DAY Medications Current Medications Albumin Human 200 ml @ 200 mls/hr 1X PRN PRN IV Hypotension; Start 08/27/19 at 15:30; Stop 08/27/19 at 21:00; Status DC Ceftriaxone Sodium (Rocephin) 1 gm Q24H IVP Last administered on 08/27/19at 18:53; Start 08/27/19 at 17:30 Diphenhydramine HCl (Benadryl) 25 mg 1X PRN PRN IV ITCHING; Start 08/28/19 at 08:30; Stop 08/29/19 at 08:29 Diphenhydramine HCl (Benadryl) 25 mg 1X PRN PRN IV ITCHING; Start 08/28/19 at 08:30; Stop 08/29/19 at 08:29 Heparin Sodium (Porcine) (Heparin Sodium) 10,000 unit STK-MED ONCE .ROUTE ; Start 08/27/19 at 14:08; Stop 08/27/19 at 14:08; Status DC Info (PHARMACY MONITORING -- do not chart) 1 each PRN DAILY PRN MC SEE COM MENTS; Start 08/27/19 at 15:15 Info (PHARMACY MONITORING -- do not chart) 1 each PRN DAILY PRN MC SEE COMMENTS; Start 08/27/19 at 15:15; Status UNV Info (PHARMACY MONITORING -- do not chart) 1 each PRN DAILY PRN MC SEE COMMENTS; Start 08/28/19 at 08:30; Status UNV Lidocaine HCl (Buffered Lidocaine 1%) 3 ml STK-MED ONCE .ROUTE ; Start 08/27/19 at 14:08; Stop 08/27/19 at 14:08; Status DC Lidocaine HCl (Buffered Lidocaine 1%) 6 ml 1X ONCE INJ ; Start 08/27/19 at 14:15; Stop 08/27/19 at 14:16; Status DC Sodium Chloride 1,000 ml @ 400 mls/hr Q2H30M PRN IV PATENCY; Start 08/27/19 at 15:30; Stop 08/27/19 at 21:00; Status DC Sodium Chloride 1,000 ml @ 400 mls/hr Q2H30M PRN IV PATENCY; Start 08/28/19 at 08:30; Stop 08/28/19 at 20:29 Sodium Chloride 1,000 ml @ 1,000 mls/hr Q1H PRN IV hypotension; Start 08/27/19 at 15:30; Stop 08/27/19 at 21:00; Status DC Sodium Chloride 1,000 ml @ 1,000 mls/hr Q1H PRN IV hypotension; Start 08/28/19 at 08:30; Stop 08/28/19 at 14:29 Vitals/I & O Vital Sign - Last 24 Hours 08/27/19 08/27/19 08/27/19 08/27/19 10:33 11:24 15:00 19:25 Temp 98.1 98.2 98.1 98.2 Pulse 61 67 62 Resp 16 16 B/P (MAP) 93/55 105/52 (69) 120/59 (79) Pulse Ox 96 97 O2 Delivery Nasal Cannula Nasal Cannula Nasal Cannula O2 Flow Rate 4.0 4.0 4.0 08/27/19 08/27/19 08/27/19 08/28/19 19:47 21:23 22:26 03:10 Temp 98.1 99.0 98.8 98.1 99.0 98.8 Pulse 60 60 60 60 Resp 16 16 16 B/P (MAP) 110/56 (74) 110/56 91/46 (61) 103/51 (68) Pulse Ox 96 96 95 O2 Delivery Nasal Cannula Nasal Cannula Nasal Cannula O2 Flow Rate 4.0 4.0 4.0 08/28/19 08/28/19 07:15 08:00 Temp 97.7 97.7 Pulse 60 Resp 16 B/P (MAP) 105/51 (69) Pulse Ox 96 O2 Delivery Nasal Cannula Nasal Cannula O2 Flow Rate 4.0 4.0 Intake and Output 08/27/19 08/27/19 08/28/19 15:00 23:00 07:00 Intake Total 50 ml 290 ml Output Total 80 ml Balance 50 ml 210 ml MANUELITO HAN MD Aug 28, 2019 09:39
[2019-08-28] MEDS ORDERED: cefTRIAXone IV Push 1 GM VIAL. IVP SCH (09:45)
[2019-08-28] MEDS: GABAPENTIN 100 MG CAPSULE. PO SCH ×3 (14:00→21:06)
[2019-08-28 14:25] VITALS: BP 127/59
[2019-08-28] MEDS: LACTOBACILLUS RHAMNOSUS GG 1 CAPSULE. PO SCH ×2 (14:26→21:06)
[2019-08-28] MEDS: ASPIRIN ENTERIC COATED 81 MG TABLET.DR. PO SCH (14:27)
[2019-08-28] MEDS: hydrALAZINE 25 MG TABLET PO SCH ×2 (14:27→21:06)
[2019-08-28] MEDS: predniSONE 10 MG TABLET PO SCH (14:27)
--- NOTE | 2019-08-28 16:53 | RAD ---
EXAM: Chest, single view. HISTORY: Leukocytosis. COMPARISON: 08/26/2019 FINDINGS: A frontal view of the chest is obtained. There is diffuse lower infiltrate with suspected superimposed bilateral lower lobe partial consolidation. There are moderate pleural effusions. There is cardiomegaly. There is a cardiac pacemaker with leads in expected position. There is a central venous catheter with the tip in the superior cavoatrial junction. There is no pneumothorax. IMPRESSION: 1. Slight interval increase in suspected partial bilateral lower lobe consolidation and moderate pleural effusions. This is superimposed on stable diffuse interstitial infiltrate 2. Stable cardiomegaly. Electronically signed by: Margarita Ramirez MD (08/28/2019 4:51 PM) [facility]
[2019-08-28 19:30] VITALS: BP 123/58
[2019-08-28] MEDS: cefTRIAXone IV Push 1 GM VIAL. IVP SCH (19:40)
[2019-08-28 23:40] VITALS: BP 110/53
[2019-08-29] MEDS: IV NORMAL SALINE 1000ML BAG 1,000 ML IV SCH (00:45)
[2019-08-29 03:20] VITALS: BP 121/52
[2019-08-29 04:40] LABS: BASO % 0 % (0-3); EOS % 0 % (0-3); HEMATOCRIT 33.3 % (36.0-47.0); HEMOGLOBIN 10.8 g/dL (12.0-15.5); LYMPH # 0.3 x10^3/uL (1.0-4.8); LYMPH % 2 % (24-48); MEAN CORPUSCULAR HEMOGLOBIN 31 pg (25-35); MEAN CORPUSCULAR HGB CONC 32 g/dL (31-37); MEAN CORPUSCULAR VOLUME 96 fL (79-100); MONO # 0.8 x10^3/uL (0.0-1.1); MONO % 7 % (0-9); NEUT # 11.7 x10^3/uL (1.8-7.7); NEUT % 91 % (31-73); PLATELET COUNT 221 x10^3/uL (140-400); RED BLOOD COUNT 3.47 x10^6/uL (3.50-5.40); RED CELL DISTRIBUTION WIDTH 15.9 % (11.5-14.5); WHITE BLOOD COUNT 12.9 x10^3/uL (4.0-11.0)
[2019-08-29 04:59] LABS: CALCIUM 7.7 mg/dL (8.5-10.1); CREATININE 3.4 mg/dL (0.6-1.0); GFR 12.7; POTASSIUM 4.8 mmol/L (3.5-5.1)
[2019-08-29 07:00] VITALS: BP 124/61
[2019-08-29] MEDS ORDERED: IV NORMAL SALINE 1000ML BAG 1,000 ML IV PRN ×2 (07:38)
[2019-08-29] MEDS ORDERED: DIALYSIS PATIENT. MC PRN ×2 (07:45)
[2019-08-29] MEDS: predniSONE 10 MG TABLET PO SCH (08:15)
[2019-08-29] MEDS: GABAPENTIN 100 MG CAPSULE. PO SCH ×3 (08:15→21:40)
[2019-08-29] MEDS: LACTOBACILLUS RHAMNOSUS GG 1 CAPSULE. PO SCH ×2 (08:15→21:41)
[2019-08-29] MEDS: ASPIRIN ENTERIC COATED 81 MG TABLET.DR. PO SCH (08:15)
[2019-08-29] MEDS: hydrALAZINE 25 MG TABLET PO SCH ×2 (09:00→21:41)
[2019-08-29] MEDS: DICLOFENAC SODIUM 1% TOPICAL GEL 100GM TUBE. TP SCH ×4 (09:00→21:00)
--- NOTE | 2019-08-29 10:26 | PDOC ---
Renal-Progress Notes Subjective Notes Notes NO COMPLAINTS History of Present Illness Hx of present illness STABLE Vitals Vitals Vital Signs Date Time Temp Pulse Resp B/P (MAP) Pulse Ox O2 Delivery O2 Flow Rate FiO2 08/29/19 08:00 Nasal Cannula 3.0 08/29/19 07:00 98.1 61 18 124/61 (82) 95 98.1 Weight Weight [ ] I.O. Intake and Output Intake and Output 08/29/19 07:00 Intake Total 1110 ml Output Total 25 ml Balance 1085 ml Intake Oral 1110 ml Output Urine Total 25 ml Labs Labs Laboratory Tests Test 08/28/19 16:38 08/28/19 20:43 08/29/19 02:34 08/29/19 04:00 Glucose (Fingerstick) 205 mg/dL (70-99) 330 mg/dL (70-99) 321 mg/dL (70-99) White Blood Count 12.9 x10^3/uL (4.0-11.0) Red Blood Count 3.47 x10^6/uL (3.50-5.40) Hemoglobin 10.8 g/dL (12.0-15.5) Hematocrit 33.3 % (36.0-47.0) Mean Corpuscular Volume 96 fL (79-100) Mean Corpuscular Hemoglobin 31 pg (25-35) Mean Corpuscular Hemoglobin Concent 32 g/dL (31-37) Red Cell Distribution Width 15.9 % (11.5-14.5) Platelet Count 221 x10^3/uL (140-400) Neutrophils (%) (Auto) 91 % (31-73) Lymphocytes (%) (Auto) 2 % (24-48) Monocytes (%) (Auto) 7 % (0-9) Eosinophils (%) (Auto) 0 % (0-3) Basophils (%) (Auto) 0 % (0-3) Neutrophils # (Auto) 11.7 x10^3/uL (1.8-7.7) Lymphocytes # (Auto) 0.3 x10^3/uL (1.0-4.8) Monocytes # (Auto) 0.8 x10^3/uL (0.0-1.1) Eosinophils # (Auto) 0.0 x10^3/uL (0.0-0.7) Basophils # (Auto) 0.0 x10^3/uL (0.0-0.2) Sodium Level 130 mmol/L (136-145) Potassium Level 4.8 mmol/L (3.5-5.1) Chloride Level 93 mmol/L (98-107) Carbon Dioxide Level 23 mmol/L (21-32) Anion Gap 14 (6-14) Blood Urea Nitrogen 41 mg/dL (7-20) Creatinine 3.4 mg/dL (0.6-1.0) Estimated GFR (Cockcroft-Gault) 12.7 Glucose Level 322 mg/dL (70-99) Calcium Level 7.7 mg/dL (8.5-10.1) Test 08/29/19 07:55 Glucose (Fingerstick) 337 mg/dL (70-99) Micro Micro Microbiology 08/26/19 Urine Culture - Final, Complete 08/26/19 Urine Culture Result 1 (NINO) - Final, Complete 08/26/19 Blood Culture - Preliminary, Resulted NO GROWTH AFTER 2 DAYS Review of Systems Constitutional: yes: weakness, alert Ears/Nose/Throat: Yes: no symptom reported Eyes: Yes: no symptom reported Pulmonary: Yes dyspnea Cardiovascular: Yes edema Gastrointestional: Yes: no symptom reported Genitourinary: Yes: no symptom reported Musculoskeletal: Yes: muscle stiffness Skin: Yes no symptom reported Psychiatric/Neurological: Yes: no symptom reported Endocrine: Yes: no symptom reported Physical Exam General Appearance: no apparent distress Skin: warm Respiratory: decreased breath sounds Heart: S1S2 Abdomen: soft, bowel sounds present Genitourinary: bladder flat Extremities: pulses present Neurology: alert Assessment Assessment IMP [id number] EDEMA HYPERKALEMIA-BETTER CKD STAGE 3 WITH BASELINE OF 1.5 HYPONATREMIA-BETTER CM WITH EF OF 35% CHRONIC AND ACUTE SYSTOLIC CHF LEUCOCYTOSIS PLAN START PO DIURETICS HD TODAY WILL ATTEMPT TO UF ABOUT 2.0 LITERS IF TOLERATED HEMODYNAMICALLY ON ANTIBIOTICS KATRINA MENDOZA MD Aug 29, 2019 10:26
--- NOTE | 2019-08-29 11:21 | PDOC ---
PROGRESS NOTES Subjective Subjective seen in dialysis unit Objective Objective Vital Signs Date Time Temp Pulse Resp B/P (MAP) Pulse Ox O2 Delivery O2 Flow Rate FiO2 08/29/19 08:00 Nasal Cannula 3.0 08/29/19 07:00 98.1 61 18 124/61 (82) 95 98.1 Intake and Output 08/29/19 07:00 Intake Total 1110 ml Output Total 25 ml Balance 1085 ml Intake Oral 1110 ml Output Urine Total 25 ml Physical Exam Abdomen: Normal bowel sounds, Soft Heart: Regular rate, Normal S1, Normal S2 Extremities: No clubbing General: Oriented X3 HEENT: Atraumatic MUSCULOSKELETAL: No deformity Neuro: Normal speech Psych/Mental Status: Mood NL Skin: No breakdown Diagnosis Problem List Problems Medical Problems: (1) Acute renal failure Status: Acute Assessment Assessment Problems Medical Problems: (1) Acute renal failure Status: Acute FINAL IMPRESSION: 1. Acute kidney failure. 2. Hyperkalemia. 3. Chronic systolic heart failure. 4. Coronary artery disease, history of previous stents. 5. Diabetes. 6. Hypertension. 7. Hyperlipidemia. 8. History of pulmonary hypertension. PLAN: Dialysis today, day #3 dialysis pt and family wanted temp dialysis untill wedding of her grand daughter. temp dilaysis cathter placed and dialyzed yesterday. wbc 13 ? uti start on Rocephin.urine c/s sent pot 4.0 down with dialysis. PROGNOSIS: Poor. Plan Plan of Care Problems Medical Problems: (1) Acute renal failure Status: Acute Comment Review of Relevant I have reviewed the following items kojo (where applicable) has been applied. Labs Laboratory Tests Test 08/28/19 16:38 08/28/19 20:43 08/29/19 02:34 08/29/19 04:00 Glucose (Fingerstick) 205 mg/dL (70-99) 330 mg/dL (70-99) 321 mg/dL (70-99) White Blood Count 12.9 x10^3/uL (4.0-11.0) Red Blood Count 3.47 x10^6/uL (3.50-5.40) Hemoglobin 10.8 g/dL (12.0-15.5) Hematocrit 33.3 % (36.0-47.0) Mean Corpuscular Volume 96 fL (79-100) Mean Corpuscular Hemoglobin 31 pg (25-35) Mean Corpuscular Hemoglobin Concent 32 g/dL (31-37) Red Cell Distribution Width 15.9 % (11.5-14.5) Platelet Count 221 x10^3/uL (140-400) Neutrophils (%) (Auto) 91 % (31-73) Lymphocytes (%) (Auto) 2 % (24-48) Monocytes (%) (Auto) 7 % (0-9) Eosinophils (%) (Auto) 0 % (0-3) Basophils (%) (Auto) 0 % (0-3) Neutrophils # (Auto) 11.7 x10^3/uL (1.8-7.7) Lymphocytes # (Auto) 0.3 x10^3/uL (1.0-4.8) Monocytes # (Auto) 0.8 x10^3/uL (0.0-1.1) Eosinophils # (Auto) 0.0 x10^3/uL (0.0-0.7) Basophils # (Auto) 0.0 x10^3/uL (0.0-0.2) Sodium Level 130 mmol/L (136-145) Potassium Level 4.8 mmol/L (3.5-5.1) Chloride Level 93 mmol/L (98-107) Carbon Dioxide Level 23 mmol/L (21-32) Anion Gap 14 (6-14) Blood Urea Nitrogen 41 mg/dL (7-20) Creatinine 3.4 mg/dL (0.6-1.0) Estimated GFR (Cockcroft-Gault) 12.7 Glucose Level 322 mg/dL (70-99) Calcium Level 7.7 mg/dL (8.5-10.1) Test 08/29/19 07:55 Glucose (Fingerstick) 337 mg/dL (70-99) Microbiology 08/26/19 Urine Culture - Final, Complete 08/26/19 Urine Culture Result 1 (NINO) - Final, Complete 08/26/19 Blood Culture - Preliminary, Resulted NO GROWTH AFTER 2 DAYS Medications Current Medications Furosemide (Lasix) 40 mg BID92 PO ; Start 08/29/19 at 11:00 Info (PHARMACY MONITORING -- do not chart) 1 each PRN DAILY PRN MC SEE COMMENTS; Start 08/29/19 at 07:45 Info (PHARMACY MONITORING -- do not chart) 1 each PRN DAILY PRN MC SEE COMMENTS; Start 08/29/19 at 07:45; Status UNV Sodium Chloride 1,000 ml @ 400 mls/hr Q2H30M PRN IV PATENCY; Start 08/29/19 at 07:38; Stop 08/29/19 at 19:37 Sodium Chloride 1,000 ml @ 1,000 mls/hr Q1H PRN IV hypotension; Start 08/29/19 at 07:38; Stop 08/29/19 at 13:37 Vitals/I & O Vital Sign - Last 24 Hours 08/28/19 08/28/19 08/28/19 08/28/19 14:25 14:27 19:30 20:00 Temp 97.8 97.9 97.8 97.9 Pulse 59 64 59 Resp 16 20 B/P (MAP) 127/59 (81) 127/59 123/58 (79) Pulse Ox 94 95 O2 Delivery Nasal Cannula Nasal Cannula Nasal Cannula O2 Flow Rate 4.0 3.0 3.0 08/28/19 08/28/19 08/29/19 08/29/19 21:06 23:40 03:20 07:00 Temp 97.7 98.1 98.1 97.7 98.1 98.1 Pulse 60 60 69 61 Resp 20 21 18 B/P (MAP) 123/58 110/53 (72) 121/52 (75) 124/61 (82) Pulse Ox 96 96 95 O2 Delivery Nasal Cannula Nasal Cannula Nasal Cannula O2 Flow Rate 3.0 3.0 3.0 08/29/19 08:00 O2 Delivery Nasal Cannula O2 Flow Rate 3.0 Intake and Output 08/28/19 08/28/19 08/29/19 15:00 23:00 07:00 Intake Total 120 ml 600 ml 390 ml Output Total 25 ml Balance 120 ml 600 ml 365 ml Nutrition Consultation Dietary Evaluation: Recommendations by RD: Increase Calorie Intake, Protein supplementation Comments: REC GI soft/regular diet, honor food preferences, and provide snacks as requested REC Glucerna BID Expected Outcomes/Goals: Nutrition as appropriate per goals of care Malnutrition Findings: Food and Nutrition Intake (Sev: <50% est energy req 5days Body Fat Depletion (Non Severe: Mild Depletion Weight Status: Appropriate MANUELITO HAN MD Aug 29, 2019 11:21
[2019-08-29] MEDS: FUROSEMIDE 40 MG TABLET. PO SCH ×2 (14:00→14:22)
[2019-08-29 14:19] VITALS: BP 124/59
--- NOTE | 2019-08-29 14:45 | NUR ---
Patient verbalized to daughter & Ana THORNTON & this RN that she does not want to continue with dialysis. Daughter wants to do what the patient wants to do & is ok with her decision.
[2019-08-29] MEDS: cefTRIAXone IV Push 1 GM VIAL. IVP SCH (17:20)
[2019-08-29] MEDS ORDERED: DEXTROSE 50% 25 GM / 50ML DISP.SYRIN. IV PRN (18:45)
[2019-08-29] MEDS: INSULIN LISPRO 300 UNITS/3 ML VIAL. SQ SCH (19:00)
--- NOTE | 2019-08-29 19:24 | NUR ---
Called & received insulin orders from Dr. Martinez. Patient's blood sugar 400.
[2019-08-29 19:35] VITALS: BP 150/67
[2019-08-29] MEDS ORDERED: INSULIN LISPRO 300 UNITS/3 ML VIAL. SQ ONE (21:45)
[2019-08-29] MEDS: INSULIN GLARGINE SYRINGE. SQ SCH (21:45)
[2019-08-29 23:54] VITALS: BP 138/62
[2019-08-30 03:45] VITALS: BP 132/64
--- NOTE | 2019-08-30 05:17 | NUR ---
Several times overnight, pt has repeated wish not to have dialysis. Explained to patient that she has the right to refuse treatment if she wishes. She states she would like to stop "everything except the things that will keep me feeling ok." Palliative care discussed and hospice discussed. States she only wants hospice if she can stay in the hospital. Patient states strong wish not to be discharged, but to live out her final days at this hospital. Will pass on to MD patient's stated wishes.
[2019-08-30 06:03] LABS: CALCIUM 8.1 mg/dL (8.5-10.1); GFR 14.7; POTASSIUM 4.5 mmol/L (3.5-5.1)
[2019-08-30 07:00] VITALS: BP 119/56
[2019-08-30] MEDS: GABAPENTIN 100 MG CAPSULE. PO SCH ×3 (09:24→20:01)
[2019-08-30] MEDS: predniSONE 10 MG TABLET PO SCH (09:24)
[2019-08-30] MEDS: FUROSEMIDE 40 MG TABLET. PO SCH ×2 (09:25→14:57)
[2019-08-30] MEDS: hydrALAZINE 25 MG TABLET PO SCH ×2 (09:25→20:00)
[2019-08-30] MEDS: LACTOBACILLUS RHAMNOSUS GG 1 CAPSULE. PO SCH ×2 (09:25→20:01)
[2019-08-30] MEDS: ASPIRIN ENTERIC COATED 81 MG TABLET.DR. PO SCH (09:25)
[2019-08-30] MEDS: DICLOFENAC SODIUM 1% TOPICAL GEL 100GM TUBE. TP SCH ×4 (09:31→20:02)
--- NOTE | 2019-08-30 09:34 | PDOC ---
Renal-Progress Notes Subjective Notes Notes NO NEW COMPLAINTS, SHE DOES NOT WANT HD ANYMORE History of Present Illness Hx of present illness NO CHANGE Vitals Vitals Vital Signs Date Time Temp Pulse Resp B/P (MAP) Pulse Ox O2 Delivery O2 Flow Rate FiO2 08/30/19 07:00 97.4 60 18 119/56 (77) 99 Nasal Cannula 3.0 97.4 Weight Weight [ ] I.O. Intake and Output Intake and Output 08/30/19 07:00 Intake Total 600 ml Balance 600 ml Intake Oral 600 ml Labs Labs Laboratory Tests Test 08/29/19 17:08 08/29/19 21:02 08/30/19 04:35 08/30/19 08:04 Glucose (Fingerstick) 405 mg/dL (70-99) 440 mg/dL (70-99) 285 mg/dL (70-99) Sodium Level 131 mmol/L (136-145) Potassium Level 4.5 mmol/L (3.5-5.1) Chloride Level 94 mmol/L (98-107) Carbon Dioxide Level 26 mmol/L (21-32) Anion Gap 11 (6-14) Blood Urea Nitrogen 38 mg/dL (7-20) Creatinine 3.0 mg/dL (0.6-1.0) Estimated GFR (Cockcroft-Gault) 14.7 Glucose Level 346 mg/dL (70-99) Calcium Level 8.1 mg/dL (8.5-10.1) Micro Micro Microbiology 08/26/19 Urine Culture - Final, Complete 08/26/19 Urine Culture Result 1 (NINO) - Final, Complete 08/26/19 Blood Culture - Preliminary, Resulted NO GROWTH AFTER 3 DAYS Review of Systems Constitutional: yes: weakness, alert Ears/Nose/Throat: Yes: no symptom reported Eyes: Yes: no symptom reported Pulmonary: Yes dyspnea Cardiovascular: Yes edema Gastrointestional: Yes: no symptom reported Genitourinary: Yes: no symptom reported Musculoskeletal: Yes: muscle stiffness Skin: Yes no symptom reported Psychiatric/Neurological: Yes: no symptom reported Endocrine: Yes: no symptom reported Physical Exam General Appearance: no apparent distress Skin: warm Respiratory: decreased breath sounds Heart: S1S2 Abdomen: soft, bowel sounds present Genitourinary: bladder flat Extremities: pulses present Neurology: alert Assessment Assessment IMP [id number] IMPROVEMENT EDEMA HYPERKALEMIA-BETTER CKD STAGE 3 WITH BASELINE OF 1.5 HYPONATREMIA-BETTER CM WITH EF OF 35% CHRONIC AND ACUTE SYSTOLIC CHF LEUCOCYTOSIS PLAN CONT PO DIURETICS ON ANTIBIOTICS PT DOES NOT WANT ANY FURTHER DIALYSIS PALLIATIVE CARE FOLLOWING KATRINA MENDOZA MD Aug 30, 2019 09:34
[2019-08-30] MEDS: INSULIN LISPRO 300 UNITS/3 ML VIAL. SQ SCH ×3 (09:37→17:28)
[2019-08-30 11:00] VITALS: BP 117/54
--- NOTE | 2019-08-30 11:26 | PDOC ---
PROGRESS NOTES Subjective Subjective pt says she is tired , do not want dialysis any more Objective Objective Vital Signs Date Time Temp Pulse Resp B/P (MAP) Pulse Ox O2 Delivery O2 Flow Rate FiO2 08/30/19 09:25 59 119/56 08/30/19 07:00 97.4 18 99 Nasal Cannula 3.0 97.4 Intake and Output 08/30/19 07:00 Intake Total 600 ml Balance 600 ml Intake Oral 600 ml Physical Exam Abdomen: Normal bowel sounds, Soft Heart: Regular rate, Normal S1, Normal S2 Extremities: No clubbing, Other (2+edema) General: Oriented X3 HEENT: Atraumatic MUSCULOSKELETAL: No deformity Neuro: Normal speech Psych/Mental Status: Mood NL Skin: No breakdown Diagnosis Problem List Problems Medical Problems: (1) Acute renal failure Status: Acute Assessment Assessment Problems Medical Problems: (1) Acute renal failure Status: Acute FINAL IMPRESSION: 1. Acute kidney failure. 2. Hyperkalemia. 3. Acute systolic heart failure.acute on chronic. 4. Coronary artery disease, history of previous stents. 5. Diabetes. 6. Hypertension. 7. Hyperlipidemia. 8. History of pulmonary hypertension. PLAN:Stop Dialysis . Pt had #3 dialysis, she does not want any more. urine c/s yeast. d/c iv antibiotics SNU/hospice. pt and family wanted temp dialysis untill satding of her grand daughter. temp dilaysis cathter placed and dialyzed yesterday. wbc 13 ? uti start on Rocephin.urine c/s sent pot 4.0 down with dialysis. PROGNOSIS: Poor. Plan Plan of Care Problems Medical Problems: (1) Acute renal failure Status: Acute Comment Review of Relevant I have reviewed the following items kojo (where applicable) has been applied. Labs Laboratory Tests Test 08/29/19 17:08 08/29/19 21:02 08/30/19 04:35 08/30/19 08:04 Glucose (Fingerstick) 405 mg/dL (70-99) 440 mg/dL (70-99) 285 mg/dL (70-99) Sodium Level 131 mmol/L (136-145) Potassium Level 4.5 mmol/L (3.5-5.1) Chloride Level 94 mmol/L (98-107) Carbon Dioxide Level 26 mmol/L (21-32) Anion Gap 11 (6-14) Blood Urea Nitrogen 38 mg/dL (7-20) Creatinine 3.0 mg/dL (0.6-1.0) Estimated GFR (Cockcroft-Gault) 14.7 Glucose Level 346 mg/dL (70-99) Calcium Level 8.1 mg/dL (8.5-10.1) Microbiology 08/26/19 Urine Culture - Final, Complete 08/26/19 Urine Culture Result 1 (NINO) - Final, Complete 08/26/19 Blood Culture - Preliminary, Resulted NO GROWTH AFTER 3 DAYS Medications Current Medications Dextrose (Dextrose 50%-Water Syringe) 12.5 gm PRN Q15MIN PRN IV SEE COMMENTS; Start 08/29/19 at 18:45 Insulin Glargine (Lantus Syringe) 5 unit QHS SQ Last administered on 08/29/19at 21:45; Start 08/29/19 at 21:00 Insulin Human Lispro (HumaLOG) 0-7 UNITS TIDWMEALS SQ Last administered on 08/30/19at 09:37; Start 08/29/19 at 19:00 Insulin Human Lispro (HumaLOG) 8 units ONCE ONCE SQ Last administered on 08/29/19at 21:46; Start 08/29/19 at 21:45; Stop 08/29/19 at 21:46; Status DC Vitals/I & O Vital Sign - Last 24 Hours 08/29/19 08/29/19 08/29/19 08/29/19 14:19 19:35 20:00 21:41 Temp 97.9 97.9 Pulse 61 60 Resp 21 B/P (MAP) 124/59 (80) 150/67 (94) Pulse Ox 95 O2 Delivery Nasal Cannula Nasal Cannula O2 Flow Rate 3.0 3.0 08/29/19 08/30/19 08/30/19 08/30/19 23:54 03:45 07:00 09:25 Temp 97.7 97.9 97.4 97.7 97.9 97.4 Pulse 62 62 60 59 Resp 22 22 18 B/P (MAP) 138/62 (87) 132/64 (86) 119/56 (77) 119/56 Pulse Ox 94 96 99 O2 Delivery Nasal Cannula Nasal Cannula Nasal Cannula O2 Flow Rate 3.0 3.0 3.0 Intake and Output 08/29/19 08/29/19 08/30/19 15:00 23:00 07:00 Intake Total 120 ml 480 ml Balance 120 ml 480 ml Nutrition Consultation Dietary Evaluation: Recommendations by RD: Increase Calorie Intake, Protein supplementation Comments: REC GI soft/regular diet, honor food preferences, and provide snacks as requested REC Glucerna BID Expected Outcomes/Goals: Nutrition as appropriate per goals of care Malnutrition Findings: Food and Nutrition Intake (Sev: <50% est energy req 5days Body Fat Depletion (Non Severe: Mild Depletion Weight Status: Appropriate MANUELITO HAN MD Aug 30, 2019 11:26
[2019-08-30 14:57] VITALS: BP 129/63
[2019-08-30 19:45] VITALS: BP 127/60
[2019-08-30] MEDS: INSULIN GLARGINE SYRINGE. SQ SCH (21:42)
[2019-08-30 23:30] VITALS: BP 123/60
[2019-08-31 03:30] VITALS: BP 117/55
[2019-08-31 07:00] VITALS: BP 119/56
[2019-08-31] MEDS: hydrALAZINE 25 MG TABLET PO SCH ×2 (08:20→21:07)
[2019-08-31] MEDS: ASPIRIN ENTERIC COATED 81 MG TABLET.DR. PO SCH (08:20)
[2019-08-31] MEDS: predniSONE 10 MG TABLET PO SCH (08:20)
[2019-08-31] MEDS: LACTOBACILLUS RHAMNOSUS GG 1 CAPSULE. PO SCH ×2 (08:20→21:06)
[2019-08-31] MEDS: DICLOFENAC SODIUM 1% TOPICAL GEL 100GM TUBE. TP SCH ×4 (08:21→21:08)
[2019-08-31] MEDS: FUROSEMIDE 40 MG TABLET. PO SCH ×2 (08:21→14:27)
[2019-08-31] MEDS: GABAPENTIN 100 MG CAPSULE. PO SCH ×3 (08:21→21:06)
[2019-08-31] MEDS: INSULIN LISPRO 300 UNITS/3 ML VIAL. SQ SCH ×3 (08:35→17:10)
--- NOTE | 2019-08-31 10:44 | PDOC ---
Renal-Progress Notes Subjective Notes Notes STILL NOT WANTING DIALYSIS History of Present Illness Hx of present illness NO CHANGE Vitals Vitals Vital Signs Date Time Temp Pulse Resp B/P (MAP) Pulse Ox O2 Delivery O2 Flow Rate FiO2 08/31/19 08:20 60 119/56 08/31/19 07:00 97.3 20 97 Nasal Cannula 2.0 97.3 Weight Weight [ ] I.O. Intake and Output Intake and Output 08/31/19 07:00 Intake Total 410 ml Output Total 50 ml Balance 360 ml Intake Oral 410 ml Output Urine Total 50 ml Labs Labs Laboratory Tests Test 08/30/19 11:18 08/30/19 17:04 08/30/19 20:57 08/31/19 07:13 Glucose (Fingerstick) 303 mg/dL (70-99) 220 mg/dL (70-99) 239 mg/dL (70-99) 164 mg/dL (70-99) Micro Micro Microbiology 08/29/19 Urine Culture - Preliminary, Resulted 08/29/19 Urine Culture Result 1 (NINO) - Preliminary, Resulted 08/26/19 Blood Culture - Preliminary, Resulted NO GROWTH AFTER 4 DAYS Review of Systems Constitutional: yes: weakness, alert Ears/Nose/Throat: Yes: no symptom reported Eyes: Yes: no symptom reported Pulmonary: Yes dyspnea Cardiovascular: Yes edema Gastrointestional: Yes: no symptom reported Genitourinary: Yes: no symptom reported Musculoskeletal: Yes: muscle stiffness Skin: Yes no symptom reported Psychiatric/Neurological: Yes: no symptom reported Endocrine: Yes: no symptom reported Physical Exam General Appearance: no apparent distress Skin: warm Respiratory: decreased breath sounds Heart: S1S2 Abdomen: soft, bowel sounds present Genitourinary: bladder flat Extremities: pulses present Neurology: alert Assessment Assessment IMP [id number] IMPROVEMENT EDEMA HYPERKALEMIA-BETTER CKD STAGE 3 WITH BASELINE OF 1.5 HYPONATREMIA-BETTER CM WITH EF OF 35% CHRONIC AND ACUTE SYSTOLIC CHF LEUCOCYTOSIS PLAN CONT PO DIURETICS ON ANTIBIOTICS PT DOES NOT WANT ANY FURTHER DIALYSIS PALLIATIVE CARE MEETING TODAY UPDATED DAUGHTER KATRINA MENDOZA MD Aug 31, 2019 10:44
[2019-08-31 11:00] VITALS: BP 126/59
--- NOTE | 2019-08-31 11:06 | PN ---
DATE: 08/31/2019 SUBJECTIVE: The patient is an 89-year-old female patient who was admitted with acute on chronic kidney injury, hyperkalemia, and [id number] systolic congestive heart failure. Her potassium was extremely high at 7 and also severe hyponatremia with serum sodium of only 117. She apparently was treated aggressively at the Emergency Room; however, the patient refused, does not want to continue on hemodialysis and has had a discussion with palliative care team regarding hospice care. She adamantly refused to continue on hemodialysis. She lives in [place], and her daughter would like her to be transferred to a shelter facility somewhere here and in [place]. PHYSICAL EXAMINATION: GENERAL: When I examined her this morning, she was pale. No jaundice, cyanosis or thyromegaly. No jugular venous distention. No limb edema. VITAL SIGNS: Her heart rate was 60, blood pressure was 119/56, temperature was 97.3, respiratory rate was 20, and her oxygen saturation was 97% on 2 liters of oxygen. HEAD, EYES, EARS, NOSE, AND THROAT: Showed normocephalic, atraumatic. NECK: Supple. HEART: Showed normal first and second heart sounds with no gallop, rub, or murmur. CHEST: Clear to auscultation. No crepitation or rhonchi. ABDOMEN: Distended, soft, nontender. No guarding or rigidity. No organomegaly. All hernial orifice intact. Bowel sounds normal. NEUROLOGIC: She is awake, alert, responding appropriately. All her cranial nerves intact. She moves upper extremities without difficulty. She is mostly bedbound. Her intake over the last 24 hours was 600, no output was recorded. LABORATORY DATA: As of yesterday showed a serum sodium of 131, potassium 4.5, chloride 94, bicarbonate 26, anion gap of 11, BUN 38, creatinine 3, estimated GFR was 14 mL per minute. Her glucose was 146, calcium was 8.1. Her white cell count was 12,900; hemoglobin 11; hematocrit 33; MCV 96; and platelet count of 221,000. ASSESSMENT: 1. Acute kidney injury. Her creatinine is down to 3; however, she was dialyzed 3 times, but she decided not to continue anymore dialysis. 2. Hyperkalemia, resolved. 3. Acute on chronic systolic congestive heart failure. 4. Coronary artery disease, status post stent deployment. 5. Type 2 diabetes, suboptimally controlled. 6. Hypertension. 7. Hyperlipidemia. 8. History of pulmonary embolism. The patient also has subcarinal and paratracheal lymphadenopathy and interstitial fibrosis, suspicion that she might have sarcoidosis; however, malignancy cannot be excluded. She was too frail to do any invasive investigation at the time. PLAN: To await the discussion with Nagi and her daughter. I explained to her that there is a shelter facility where they used to do in-house hemodialysis that you can try and admit her to continue her temporary hemodialysis; however, the patient seems to be clearly adamant that she does not want hemodialysis anymore and described it as a horrible experience. ЕЛЕНА NIX MD DR: AMBER/rip JOB#: [id number] / [id number]
--- NOTE | 2019-08-31 13:48 | NUR ---
SS following up with discharge planning. Palliative care met with pt and family and pt's family is requesting that referral for LTC with Hospice be phoned and faxed to [facility], ; fax [phone]. SS phoned and faxed referral. SS will await acceptance decision and will proceed accordingly with discharge planning.
[2019-08-31 15:00] VITALS: BP 143/64
--- NOTE | 2019-08-31 16:38 | PDOC2 ---
PALLIATIVE CARE Palliative Care Note Palliative Care Patient alert and able to participate in discussion about her health care planning. Met with patient, daughter Simran and son Da. 2 other sons not able to be here. Reviewed medical condition; RF; Patient refusing temporary dialysis after 3 txs: HF with EF 35%, Mediastinal Lymphadenopathy Discussed discharge planning. Patient understands her need for care has increased. She agrees to go to nursing facility. Several options of shelter in [place] provided at daughter request. Family would like information faxed to [facility]. They would like Hospice to follow. Outside the Hospital DNR/DNI form signed. Above reviewed with Carolyn MARTINEZ and Deanne HERNANDEZ. AVELINA MUELLER Aug 31, 2019 16:38
[2019-08-31 19:20] VITALS: BP 128/60
[2019-08-31] MEDS: INSULIN GLARGINE SYRINGE. SQ SCH (21:15)
[2019-08-31 22:55] VITALS: BP 139/65
[2019-09-01] MEDS: DICLOFENAC SODIUM 1% TOPICAL GEL 100GM TUBE. TP SCH ×4 (01:08→21:00)
[2019-09-01 03:10] VITALS: BP 127/60
[2019-09-01 05:41] LABS: CALCIUM 7.9 mg/dL (8.5-10.1); CREATININE 3.9 mg/dL (0.6-1.0); GFR 10.9
[2019-09-01 05:45] LABS: POTASSIUM 5.2 mmol/L (3.5-5.1)
[2019-09-01 07:00] VITALS: BP 108/52
[2019-09-01] MEDS: INSULIN LISPRO 300 UNITS/3 ML VIAL. SQ SCH ×3 (08:00→17:21)
[2019-09-01] MEDS: ASPIRIN ENTERIC COATED 81 MG TABLET.DR. PO SCH (08:54)
[2019-09-01] MEDS: predniSONE 10 MG TABLET PO SCH (08:54)
[2019-09-01] MEDS: FUROSEMIDE 40 MG TABLET. PO SCH ×2 (08:54→17:16)
[2019-09-01] MEDS: LACTOBACILLUS RHAMNOSUS GG 1 CAPSULE. PO SCH ×2 (08:55→20:32)
[2019-09-01] MEDS: hydrALAZINE 25 MG TABLET PO SCH ×2 (08:55→20:32)
[2019-09-01] MEDS: GABAPENTIN 100 MG CAPSULE. PO SCH ×3 (08:55→20:32)
--- NOTE | 2019-09-01 09:44 | PN ---
DATE: 09/01/2019 SUBJECTIVE: The patient is resting slightly propped up in bed, in no apparent respiratory distress. She denied any chest pain or shortness of breath. She apparently has made up her mind she does not want to do any hemodialysis anymore and had had a lengthy discussion for her goal of care with her daughter and son . The plan is for her to be discharged to a group home facility. Her information were faxed to [facility] and awaiting the answer from them. She was accepted, she would be discharged here today. PHYSICAL EXAMINATION: GENERAL: When I examined here, she was pale, not jaundiced, cyanosed or thyromegaly. No jugular venous distension. No limb edema. VITAL SIGNS: Her heart rate was 60, blood pressure was 108/52, temperature was 96.4, respiratory rate was 18 and oxygen saturation was 99% on 2 liters of oxygen. The rest of clinical exam stable, has not really changed. Her intake was 410, output was 50. LABORATORY DATA: Her lab work this morning showed her serum sodium was 127, potassium 5.2, chloride 93, bicarbonate 26, anion gap of 8, BUN 61, creatinine 3.9, estimated GFR was 10 mL per minute. Her glucose 173 and calcium was 7.9. ASSESSMENT: 1. Acute kidney injury. Her creatinine is up to 3.9 this morning. She was dialyzed 3 times and since then, the patient has decided not to continue anymore dialysis. 2. Hypokalemia. Serum potassium slightly up at 5.2. 3. Cnpcq-[id number] systolic congestive heart failure. 4. Coronary artery disease, status post stent deployment. 5. Type 2 diabetes mellitus, suboptimally controlled. 6. Hypertension, well controlled. 7. Hyperlipidemia. 8. The patient has hilar and paratracheal lymphadenopathy as well as subcarinal mass versus adenopathy together with interstitial fibrosis, felt to be secondary to sarcoidosis, although malignancy cannot be excluded. She was too frail to be for any further investigation at the time of admission last month. PLAN: The patient will be discharged to a group home facility in [place] once she is accepted there. I wrote a prescription for Roxanol and Intensol. ЕЛЕНА NIX MD DR: AMBER/irp JOB#: [id number] / [id number]
--- NOTE | 2019-09-01 10:45 | PDOC ---
Renal-Progress Notes Subjective Notes Notes SLEEP History of Present Illness Hx of present illness NO CHANGE Vitals Vitals Vital Signs Date Time Temp Pulse Resp B/P (MAP) Pulse Ox O2 Delivery O2 Flow Rate FiO2 09/01/19 08:55 60 108/52 09/01/19 08:00 Nasal Cannula 2.0 09/01/19 07:00 96.4 18 99 96.4 Weight Weight [ ] I.O. Intake and Output Intake and Output 09/01/19 07:00 Intake Total 400 ml Output Total 100 ml Balance 300 ml Intake Oral 400 ml Output Urine Total 100 ml Labs Labs Laboratory Tests Test 08/31/19 11:47 08/31/19 17:03 08/31/19 20:53 09/01/19 05:10 Glucose (Fingerstick) 215 mg/dL (70-99) 262 mg/dL (70-99) 281 mg/dL (70-99) Sodium Level 127 mmol/L (136-145) Potassium Level 5.2 mmol/L (3.5-5.1) Chloride Level 93 mmol/L (98-107) Carbon Dioxide Level 26 mmol/L (21-32) Anion Gap 8 (6-14) Blood Urea Nitrogen 61 mg/dL (7-20) Creatinine 3.9 mg/dL (0.6-1.0) Estimated GFR (Cockcroft-Gault) 10.9 Glucose Level 173 mg/dL (70-99) Calcium Level 7.9 mg/dL (8.5-10.1) Test 09/01/19 08:05 Glucose (Fingerstick) 109 mg/dL (70-99) Micro Micro Microbiology 08/29/19 Urine Culture - Preliminary, Resulted 08/29/19 Urine Culture Result 1 (NINO) - Preliminary, Resulted 08/26/19 Blood Culture - Final, Complete NO GROWTH AFTER 5 DAYS Review of Systems Constitutional: yes: weakness, alert Ears/Nose/Throat: Yes: no symptom reported Eyes: Yes: no symptom reported Pulmonary: Yes dyspnea Cardiovascular: Yes edema Gastrointestional: Yes: no symptom reported Genitourinary: Yes: no symptom reported Musculoskeletal: Yes: muscle stiffness Skin: Yes no symptom reported Psychiatric/Neurological: Yes: no symptom reported Endocrine: Yes: no symptom reported Physical Exam General Appearance: no apparent distress Skin: warm Respiratory: decreased breath sounds Heart: S1S2 Abdomen: soft, bowel sounds present Genitourinary: bladder flat Extremities: pulses present Neurology: alert Assessment Assessment IMP [id number] IMPROVEMENT EDEMA HYPERKALEMIA-BETTER CKD STAGE 3 WITH BASELINE OF 1.5 HYPONATREMIA-BETTER CM WITH EF OF 35% CHRONIC AND ACUTE SYSTOLIC CHF LEUCOCYTOSIS PLAN PROGRESSIVE RENAL FAILURE HOSPICE PLANS NOTED WILL SIGN OFF KATRINA MENDOZA MD Sep 01, 2019 10:45
[2019-09-01 11:00] VITALS: BP 120/60
--- NOTE | 2019-09-01 13:23 | NUR ---
SS following up with discharge planning. SS met with pt's daughter, Ana Sibley. Pt's daughter reported that she no longer wants pt to go to [facility]. She requested that pt go to [facility], ; fax [phone], with [facility], ; fax [phone]. SS phoned and faxed referrals. Both facility and hospice reported that they have spoken with pt's daughter. [facility] reported that bed is available once accepted and 30 day payment received. SS received copy of healthcare DPOA from pt's daughter and CARE assessment completed and faxed to facility. SS awaiting acceptance decision and discharge orders for hospice at this time and will proceed accordingly with discharge planning.
[2019-09-01 15:00] VITALS: BP 149/67
[2019-09-01 19:45] VITALS: BP 125/59
[2019-09-01] MEDS: INSULIN GLARGINE SYRINGE. SQ SCH (21:38)
[2019-09-01 22:55] VITALS: BP 131/60
[2019-09-02 03:20] VITALS: BP 126/62
[2019-09-02 07:24] VITALS: BP 119/56
[2019-09-02] MEDS: FUROSEMIDE 40 MG TABLET. PO SCH (08:41)
[2019-09-02] MEDS: GABAPENTIN 100 MG CAPSULE. PO SCH (08:41)
[2019-09-02] MEDS: hydrALAZINE 25 MG TABLET PO SCH (08:41)
[2019-09-02] MEDS: ASPIRIN ENTERIC COATED 81 MG TABLET.DR. PO SCH (08:41)
[2019-09-02] MEDS: predniSONE 10 MG TABLET PO SCH (08:41)
[2019-09-02] MEDS: LACTOBACILLUS RHAMNOSUS GG 1 CAPSULE. PO SCH (08:41)
[2019-09-02] MEDS: DICLOFENAC SODIUM 1% TOPICAL GEL 100GM TUBE. TP SCH ×2 (08:42→13:00)
--- NOTE | 2019-09-02 08:43 | SNU/HH DC ---
DISCHARGE ORDERS DISCHARGE INFORMATION: DISCHARGE DATE: Sep 02, 2019 FINAL DIAGNOSIS Problems Medical Problems: (1) Acute renal failure Status: Acute CONDITION ON DISCHARGE: Guarded CODE STATUS: Code Status: DNR/DNI HOSPICE: HOSPICE: Yes HOSPICE EVAL & TREAT: Yes POST DISCHARGE ORDERS: ACTIVITY ORDERS: Activity as tolerated WEIGHT BEARING STATUS: As tolerated BATHING ORDERS: Shower-keep dressing dry DIET AFTER DISCHARGE: Cardiac WOUND/INCISION CARE: Keep wound/cast CDI CHECKS AFTER DISCHARGE: CHECKS AFTER DISCHARGE: Check blood press - daily, Check blood sugar, ac/hs TREATMENT/EQUIPMENT ORDERS: ADAPTIVE EQUIPMENT NEEDED: None RESPIRATORY EQUIPMENT NEEDED: Oxygen, Nebulizer DISCHARGE MEDICATIONS: Home Meds Active Scripts Gabapentin (GABAPENTIN ) 100 Mg Capsule, 100 MG PO TID for NEUROGENIC PAIN for 30 Days, #90 CAP Prov:ЕЛЕНА NIX MD 08/20/19 Lactobacillus Rhamnosus Gg (CULTURELLE) 1 Each Cap.sprink, 1 EACH PO BID for 60 for 30 Days, #60 CAP Prov:ЕЛЕНА NIX MD 08/20/19 Prednisone (PREDNISONE ) 10 Mg Tablet, 10 MG PO DAILY for copd for 30 Days, #30 TAB 0 Refills Prov:ЕЛЕНА NIX MD 08/20/19 Isosorbide Mononitrate (ISOSORBIDE MONONITRATE ER) 30 Mg Tab.er.24h, 0.5 TAB PO DAILY PRN for ihd for 30 Days, #15 TAB 5 Refills Prov:ЕЛЕНА NIX MD 08/20/19 Apixaban (ELIQUIS) 2.5 Mg Tablet, 2.5 MG PO BID PRN for hf for 30 Days, #60 TAB Prov:ЕЛЕНА NIX MD 08/20/19 Bumetanide (BUMETANIDE) 1 Mg Tablet, 1 TAB PO DAILY for chf for 30 Days, #30 TAB 1 Refill Prov:ЕЛЕНА NIX MD 08/20/19 Hydralazine Hcl (HYDRALAZINE HCL) 25 Mg Tablet, 1 TAB PO BID for htn for 30 Days, #60 TAB 5 Refills Prov:ЕЛЕНА NIX MD 08/20/19 Metoprolol Succinate (TOPROL XL) 50 Mg Tab.er.24h, 50 MG PO DAILY PRN for htn for 30 Days, #30 TAB 0 Refills Prov:ЕЛЕНА NIX MD 08/20/19 Aspirin (ASPIRIN EC) 81 Mg Tablet., 81 MG PO DAILYWBKFT, #30 TAB 0 Refills Prov:EFRAÍN MILLER Bonilla SERVICE ORDER DISPATCHER 11/21/16 Reported Medications Cyanocobalamin (Vitamin B-12) (CYANOCOBALAMIN INJECTION) 1,000 Mcg/1 Ml Vial, 1000 MCG IJ QMONTH, VIAL 11/20/16 Calcium Carbonate/Vitamin D3 (CALCIUM 600 + VIT D 200 TABLET) 1 Each Tablet, 1 EACH PO DAILY 11/20/16 Denosumab (PROLIA) 60 Mg/1 Ml Disp.syrin, 60 MG SQ Q6 MONTHS 11/20/16 Diclofenac Sodium (VOLTAREN) 100 Gm Gel..gram., 4 GM TP QID 11/20/16 Vit C/Vit E/Lutein/Min/[place]-3 (OCUVITE SOFTGEL) 1 Each Capsule, 1 CAP PO DAILY 11/20/16 Nitroglycerin (NITROGLYCERIN SubLingual) 0.4 Mg Tab.subl, 0.4 MG SL PRN Q5MIN PRN for CHEST PAIN, BOTTLE 11/16/16 Ferrous Sulfate (FERROUS SULFATE) 325 Mg Tablet, 325 TAB PO TWICE WEEKLY, #30 TAB 3 Refills 11/16/16 Potassium Chloride (POTASSIUM CHLORIDE) 10 Meq Capsule.er, 1 CAP PO DAILY, #90 CAP 1 Refill 10/15/14 Omeprazole (OMEPRAZOLE) 20 Mg Capsule.dr, 1 CAP PO DAILY, #30 CAP 5 Refills 10/15/14 Simvastatin (SIMVASTATIN) 80 Mg Tablet, 40 MG PO QHS, #90 TAB 3 Refills 10/15/14 ЕЛЕНА NIX MD Sep 02, 2019 08:43
[2019-09-02] MEDS: INSULIN LISPRO 300 UNITS/3 ML VIAL. SQ SCH ×2 (08:52→12:15)
[2019-09-02 10:29] VITALS: BP 147/66
[2019-09-02] MEDS ORDERED: DOCUSATE SODIUM 283 MG/5 ML ENEMA. PR ONE (10:30)
--- NOTE | 2019-09-02 11:31 | NUR ---
RN NOTE patient refused flu shot. will send back to pharmacy.
--- NOTE | 2019-09-02 14:11 | NUR ---
Discharge Note: YONAS MAY Discharge instructions and discharge home medications reviewed with Other facility [facility] Nurse and a copy given. All questions have been answered and understanding verbalized. The following instructions and handouts were given: CAROLE, hospice Discontinued lines and drains: Peripheral IV intact. Temporary Dialysis cath removed and dressing placed Patient discharged to [facility] with Ambulance Personnel via Stretcher
--- NOTE | 2019-10-08 12:47 | DS ---
DATE OF DISCHARGE: 09/02/2019 HOSPITAL COURSE: The patient is an 89-year-old female patient who was admitted with acute kidney injury for which she was started on hemodialysis and was dialyzed 3 times. Since then, the patient has decided not to continue anymore and requested to go on hospice care and in fact she was accepted at [facility], who was discharged to the senior living facility for end of life care. Her temporary hemodialysis catheter was removed. PHYSICAL EXAMINATION: GENERAL: On the day of discharge, the patient was resting slightly propped up in bed, in no apparent respiratory distress. She was pale, but no jaundice, cyanosis or thyromegaly. No jugular venous distention. No limb edema. VITAL SIGNS: Her heart rate was 60, blood pressure was 147/66, temperature was 97.3, respiratory rate was 18 and oxygen saturation was 96% on 2 liters of oxygen. HEAD, EYES, EARS, NOSE AND THROAT: Showed normocephalic, atraumatic. NECK: Supple. HEART: Showed normal first and second heart sounds with no gallop or murmur. CHEST: Clear to auscultation. No crepitation or rhonchi. ABDOMEN: Distended, soft, nontender. NEUROLOGIC: She was awake, alert, responding appropriately. All cranial nerves intact. She moves upper extremities to much good extent than lower extremities. She is mostly bedbound, chair bound. LABORATORY DATA: On the day of discharge showed a white cell count 12,900, hemoglobin 11, hematocrit 33, MCV 96, and platelet count 221,000. Her chemistry showed her serum sodium was low at 127, potassium 5.2, chloride 93, bicarbonate 26. DISCHARGE MEDICATIONS: She was discharged to continue on Roxanol, Ativan. I left a discussion between the patient and the hospice team to decide which medication should continue. FINAL DISCHARGE DIAGNOSES: 1. Acute kidney injury. 2. Hyperkalemia. 3. Dwevc-ie-hlylfaj systolic congestive heart failure. 4. Coronary artery disease, status post stent deployment. 5. Type 2 diabetes mellitus, suboptimally controlled. 6. Hypertension. 7. Hyperlipidemia. 8. The patient has hilar and paratracheal lymphadenopathy as well as subcarinal mass versus adenopathy to catheterization fibrosis, felt to be possibly secondary to sarcoidosis, although malignancy cannot be excluded. ЕЛЕНА NIX MD DR: Betty JOB#: [id number] / [id number]
== END 2019-09-02 14:11 | DRG 286 ==
LOC: ER 15:00 → 2 NORTH 17:20
PROVIDERS: ADMIT Internal Medicine; ATTEND Internal Medicine
PROC: 02H633Z Insertion of Infusion Device into Right Atrium, Percutaneous Approach (ICD-10-PCS; principal; 2019-08-27)
PROC: B2141ZZ Fluoroscopy of Right Heart using Low Osmolar Contrast (ICD-10-PCS; 2019-08-27)
PROC: B244ZZZ Ultrasonography of Right Heart (ICD-10-PCS; 2019-08-27)
PROC: 5A1D70Z Performance of Urinary Filtration, Intermittent, Less than 6 Hours Per Day (ICD-10-PCS; 2019-08-27)
PROC: 5A1D70Z Performance of Urinary Filtration, Intermittent, Less than 6 Hours Per Day (ICD-10-PCS; 2019-08-28)
PROC: 5A1D70Z Performance of Urinary Filtration, Intermittent, Less than 6 Hours Per Day (ICD-10-PCS; 2019-08-29)
DX: I13.0 Hypertensive heart and chronic kidney disease with heart failure and stage 1 through stage 4 chronic kidney disease, or unspecified chronic kidney disease (principal); N17.0 Acute kidney failure with tubular necrosis; I50.23 Acute on chronic systolic (congestive) heart failure; E43 Unspecified severe protein-calorie malnutrition; E87.1 Hypo-osmolality and hyponatremia; Z88.2 Allergy status to sulfonamides; Z88.8 Allergy status to other drugs, medicaments and biological substances; Z79.899 Other long term (current) drug therapy; D86.9 Sarcoidosis, unspecified; E11.22 Type 2 diabetes mellitus with diabetic chronic kidney disease; E78.00 Pure hypercholesterolemia, unspecified; Z68.33 Body mass index [BMI] 33.0-33.9, adult; E78.5 Hyperlipidemia, unspecified; E87.5 Hyperkalemia; E87.6 Hypokalemia; I25.10 Atherosclerotic heart disease of native coronary artery without angina pectoris; K21.9 Gastro-esophageal reflux disease without esophagitis; N18.3 Chronic kidney disease, stage 3 (moderate); M19.90 Unspecified osteoarthritis, unspecified site; Z66 Do not resuscitate; Z80.8 Family history of malignant neoplasm of other organs or systems; Z82.3 Family history of stroke; Z86.711 Personal history of pulmonary embolism; Z87.891 Personal history of nicotine dependence; Z90.49 Acquired absence of other specified parts of digestive tract; Z90.710 Acquired absence of both cervix and uterus; Z95.5 Presence of coronary angioplasty implant and graft; Z99.2 Dependence on renal dialysis
CPT/HCPCS: 36415; 36556; 71045; 76770; 76937; 77001; 80048; 80053; 81001; 82436; 82533; 82962; 83605; 83930; 83935; 84133; 84300; 84443; 84484; 85007; 85025; 85610; 86706; 87040; 87086; 87340; 93005; 94640; C1769; C1892; J0610; J0696; J1815; J3490; J7030; J7042; J7512; J7613; G0378